=== PATIENT | female | born 1965 | race Caucasian/White ===

== ENCOUNTER 2017-11-23 15:10 | Observation (INO) | payer BC ==
[2017-11-23] MEDS ORDERED: SODIUM CHLORIDE 0.9% 500 ML IV ONE (15:32)
[2017-11-23] MEDS ORDERED: cefTRIAXone IN SWFI 1,000 MG/10 ML SYRINGE IVP STA (15:40)
--- NOTE | 2017-11-23 15:47 | ED ---
Skin/Abscess/FB HPI <Aelksey Romeo - Last Filed: 11/23/17 16:59> - General Source: patient Mode of arrival: ambulatory Limitations: no limitations <Jaqueline Granados - Last Filed: 11/23/17 17:49> - General Chief complaint: Skin/Abscess/Foreign Body Stated complaint: abscess on finger/red line up arm - History of Present Illness Initial comments: 52-year-old female patient percents to the emergency department today for complaints of a fingertip infection. Patient states that on Friday she noticed some bumps that looked like pimples to the side of her finger and then it started to swell up over the weekend. She states that today when she woke she did have streaking coming from the finger up to her forearm. Patient denies any known fevers. Denies any numbness or tingling to the hand. She states that she does bite her nails. Patient denies any recent shortness breath, chest pain, abdominal pain, nausea, vomiting, diarrhea, constipation, back pain, numbness, tingling, dizziness, weakness, hematuria, dysuria, urinary urgency, urinary frequency, headache, visual changes, or any other complaints. (Jaqueline Granados) - Related Data Home Medications Medication Instructions Recorded Confirmed Budesonide-Formot 160-4.5 Mcg 1 - 2 puff INHALATION BID 01/24/15 11/23/17 [Symbicort 160-4.5 Mcg Inhaler] DULoxetine HCL [Cymbalta] 90 mg PO DAILY 07/23/15 11/23/17 Diclofenac Sodium [Voltaren] 75 mg PO BID 11/23/17 11/23/17 Omeprazole 40 mg PO DAILY 11/23/17 11/23/17 Allergies Allergy/AdvReac Type Severity Reaction Status Date / Time doxycycline Allergy Nausea & Verified 11/23/17 15:27 Vomiting, sweating Review of Systems ROS Other: All systems not noted in ROS Statement are negative. <Aleksey Romeo - Last Filed: 11/23/17 16:59> ROS Other: All systems not noted in ROS Statement are negative. <Jaqueline Granados - Last Filed: 11/23/17 17:49> ROS Statement: Those systems with pertinent positive or pertinent negative responses have been documented in the HPI. Past Medical History Past Medical History: COPD, Eye Disorder, GERD/Reflux Additional Past Medical History / Comment(s): migraines, hiatal hernia, hx ulcer , glaucoma History of Any Multi-Drug Resistant Organisms: None Reported Past Surgical History: Section Additional Past Surgical History / Comment(s): shunt for hydrocephalus Past Anesthesia/Blood Transfusion Reactions: No Reported Reaction Past Psychological History: Depression Smoking Status: Current every day smoker Past Alcohol Use History: None Reported Past Drug Use History: Marijuana - Past Family History Father Family Medical History: Cancer Additional Family Medical History / Comment(s): colon <Jaqueline Granados M - Last Filed: 11/23/17 17:49> General Exam Limitations: no limitations General appearance: alert, in no apparent distress, other (This is a well- developed, well-nourished adult female patient in no acute distress. Vital signs upon presentation were temperature 99.5F, pulse 94, respirations 18, blood pressure 179/78, pulse ox 96% on room air.) Eye exam: Present: normal appearance, PERRL, EOMI. Absent: scleral icterus, conjunctival injection, periorbital swelling ENT exam: Present: normal exam, normal oropharynx, mucous membranes moist Respiratory exam: Present: normal lung sounds bilaterally. Absent: respiratory distress, wheezes, rales, rhonchi, stridor Cardiovascular Exam: Present: regular rate, normal rhythm, normal heart sounds. Absent: systolic murmur, diastolic murmur, rubs, gallop, clicks GI/Abdominal exam: Present: soft, normal bowel sounds. Absent: distended, tenderness, guarding, rebound, rigid Extremities exam: Present: full ROM, normal capillary refill, other (Right middle finger exhibits abscess and swelling to the palmar aspect of the distal finger. There is swelling and redness, there is a red streak extending from the finger up to the middle part of the forearm on the dorsal aspect.). Absent : normal inspection, tenderness, pedal edema, joint swelling, calf tenderness Neurological exam: Present: alert, oriented X3, CN II-XII intact Psychiatric exam: Present: normal affect Skin exam: Present: warm, dry, intact, normal color. Absent: rash <Jaqueline Granados M - Last Filed: 11/23/17 17:49> Vital Signs 11/23/17 11/23/17 15:12 17:02 Temperature 99.5 F 97.9 F Pulse Rate 94 71 Respiratory 18 18 Rate Blood Pressure 179/78 163/79 O2 Sat by Pulse 96 99 Oximetry - Reevaluation(s) Reevaluation #1: 11/23/17 16:59 Patient reevaluated by myself, Dr. Roemo. Patient does have a ecchymotic lesion on her right middle finger approximately 2 cm that is raised. It is unclear at this time if this could be herpetic versus bacterial. There is streaking up to the elbow. With the streaking assumption will be made that this is bacterial and patient was started on IV antibiotics. Case was discussed in detail with practitioner Gisselle, who will admit for Dr. Price, covering for Dr. Gross. Orthopedics will be placed on consult. (Aleksey Romeo) Medical Decision Making - Lab Data Result diagrams: 11/23/17 15:47 11/23/17 15:47 <Aleksey Romeo - Last Filed: 11/23/17 16:59> - Lab Data Result diagrams: 11/23/17 15:47 11/23/17 15:47 <Jaqueline Granados - Last Filed: 11/23/17 17:49> - Medical Decision Making 52-year-old female patient presented to the emergency department today for complaints of infection to the distal tip of the right middle finger. Physical examination does reveal a feline type infection to the palmar aspect of the right middle finger. Patient does have what appears to be lymphangitis extending from the finger up to about the mid forearm. Labs are obtained and did reveal normal white blood cell count about 5000. Did start her on antibiotics. We will admit to the hospital and consult orthopedics. Patient was updated regarding all results and agrees the plan. (Jaqueline Granados) - Lab Data Lab Results 11/23/17 11/23/17 11/23/17 Range/Units 15:47 15:47 15:47 WBC 5.4 (3.8-10.6) k/uL RBC 3.85 (3.80-5.40) m/uL Hgb 11.7 (11.4-16.0) gm/dL Hct 37.0 (34.0-46.0) % MCV 96.1 (80.0-100.0) fL MCH 30.4 (25.0-35.0) pg MCHC 31.6 (31.0-37.0) g/dL RDW 15.7 H (11.5-15.5) % Plt Count 308 (150-450) k/uL Neutrophils % 64 % Lymphocytes % 26 % Monocytes % 7 % Eosinophils % 1 % Basophils % 0 % Neutrophils # 3.4 (1.3-7.7) k/uL Lymphocytes # 1.4 (1.0-4.8) k/uL Monocytes # 0.4 (0-1.0) k/uL Eosinophils # 0.1 (0-0.7) k/uL Basophils # 0.0 (0-0.2) k/uL Sodium 141 (137-145) mmol/L Potassium 3.9 (3.5-5.1) mmol/L Chloride 108 H (98-107) mmol/L Carbon Dioxide 24 (22-30) mmol/L Anion Gap 9 mmol/L BUN 12 (7-17) mg/dL Creatinine 0.70 (0.52-1.04) mg/dL Est GFR (MDRD) Af Amer >60 (>60 ml/min/1.73 sqM) Est GFR (MDRD) Non-Af >60 (>60 ml/min/1.73 sqM) Glucose 109 H (74-99) mg/dL Plasma Lactic Acid Peña 1.2 (0.7-2.0) mmol/L Calcium 8.4 (8.4-10.2) mg/dL Total Bilirubin 0.2 (0.2-1.3) mg/dL AST 20 (14-36) U/L ALT 50 (9-52) U/L Alkaline Phosphatase 67 (38-126) U/L Total Protein 6.4 (6.3-8.2) g/dL Albumin 3.8 (3.5-5.0) g/dL Disposition <Aleksey Romeo - Last Filed: 11/23/17 16:59> Decision to Admit Reason: Admit from EC Decision Date: 11/23/17 Decision Time: 17:08 <Jaqueline Granados - Last Filed: 11/23/17 17:49> Clinical Impression: Felon of finger, Lymphangitis Disposition: ADMITTED IP TO THIS [facility] Condition: Serious Referrals: Nanda Tran MD [Primary Care Provider] - 1-2 days
[2017-11-23 15:58] LABS: Basophils % (A) 0 %; Eosinophils # (A) 0.1 k/uL (0-0.7); Eosinophils % (A) 1 %; HGB 11.7 gm/dL (11.4-16.0); Lymphocytes # (A) 1.4 k/uL (1.0-4.8); Lymphocytes % (A) 26 %; MCH 30.4 pg (25.0-35.0); MCHC 31.6 g/dL (31.0-37.0); MCV 96.1 fL (80.0-100.0); Mean Platelet Volume 7.4; Monocytes # (A) 0.4 k/uL (0-1.0); Monocytes % (A) 7 %; Neutrophils # (A) 3.4 k/uL (1.3-7.7); Neutrophils % (A) 64 %; Platelet Count 308 k/uL (150-450); RBC 3.85 m/uL (3.80-5.40); RDW 15.7 % (11.5-15.5); WBC 5.4 k/uL (3.8-10.6)
[2017-11-23 16:10] LABS: ALT 50 U/L (9-52); AST 20 U/L (14-36); Albumin 3.8 g/dL (3.5-5.0); Alkaline Phosphatase 67 U/L (38-126); Anion Gap 9 mmol/L; Blood Urea Nitrogen 12 mg/dL (7-17); Calcium 8.4 mg/dL (8.4-10.2); Carbon Dioxide 24 mmol/L (22-30); Chloride 108 mmol/L (98-107); Glucose 109 mg/dL (74-99); Potassium 3.9 mmol/L (3.5-5.1); Sodium 141 mmol/L (137-145); Total Bilirubin 0.2 mg/dL (0.2-1.3); Total Protein 6.4 g/dL (6.3-8.2)
[2017-11-23] MEDS ORDERED: NALOXONE 0.4 MG/ML 1 ML VIAL IV PRN (17:01)
[2017-11-23 18:03] VITALS: BMI 39.4
[2017-11-23] MEDS: HYDROcodone/APAP 5-325MG 1 EACH TAB PO PRN ×2 (18:08→22:05)
[2017-11-23] MEDS: ceFAZolin 1,000 MG in DEXTROSE/WATER 1 50ML.BAG IVPB SCH (22:07)
[2017-11-24] MEDS: ceFAZolin 1,000 MG in DEXTROSE/WATER 1 50ML.BAG IVPB SCH ×4 (04:09→21:31)
[2017-11-24] MEDS: HYDROcodone/APAP 5-325MG 1 EACH TAB PO PRN (04:15)
[2017-11-24 06:34] LABS: Basophils % (A) 1 %; Eosinophils # (A) 0.1 k/uL (0-0.7); Eosinophils % (A) 2 %; HCT 35.8 % (34.0-46.0); HGB 10.8 gm/dL (11.4-16.0); Hypochromasia Slight; Lymphocytes # (A) 1.6 k/uL (1.0-4.8); Lymphocytes % (A) 37 %; MCH 29.9 pg (25.0-35.0); MCHC 30.1 g/dL (31.0-37.0); MCV 99.5 fL (80.0-100.0); Macrocytosis Slight; Mean Platelet Volume 7.4; Monocytes # (A) 0.3 k/uL (0-1.0); Monocytes % (A) 7 %; Neutrophils # (A) 2.1 k/uL (1.3-7.7); Neutrophils % (A) 51 %; Platelet Count 276 k/uL (150-450); RDW 15.9 % (11.5-15.5); WBC 4.2 k/uL (3.8-10.6)
--- NOTE | 2017-11-24 10:28 | P.CNOR ---
History of Present Illness - HPI Consult date: 11/24/17 History of present illness: This is a 52-year-old female is admitted for infection of the right middle finger. Patient states this started on 11/21/2017 with small pimples on the fingertip. Patient states over the next few days they became larger. Patient states this very same thing is happening to her over the summer, but this healed up on its own. Patient denies any injury to the right middle finger. Patient does admit to biting her nails. Patient states she has noticed red streaking going up the arm. Patient denies any fever/chills, numbness, weakness, or tingling. Review of Systems See HPI. Past Medical History Past Medical History: COPD, Eye Disorder, GERD/Reflux Additional Past Medical History / Comment(s): migraines, hiatal hernia, hx ulcer , glaucoma History of Any Multi-Drug Resistant Organisms: None Reported Past Surgical History: Section Additional Past Surgical History / Comment(s): shunt for hydrocephalus Past Anesthesia/Blood Transfusion Reactions: No Reported Reaction Past Psychological History: Depression Smoking Status: Current every day smoker Past Alcohol Use History: None Reported Past Drug Use History: Marijuana - Past Family History Father Family Medical History: Cancer Additional Family Medical History / Comment(s): colon Medications and Allergies Home Medications Medication Instructions Recorded Confirmed Type Budesonide-Formot 160-4.5 Mcg 1 - 2 puff INHALATION BID 01/24/15 11/23/17 History [Symbicort 160-4.5 Mcg Inhaler] DULoxetine HCL [Cymbalta] 90 mg PO DAILY 07/23/15 11/23/17 History Diclofenac Sodium [Voltaren] 75 mg PO BID 11/23/17 11/23/17 History Omeprazole 40 mg PO DAILY 11/23/17 11/23/17 History Allergies Allergy/AdvReac Type Severity Reaction Status Date / Time doxycycline Allergy Nausea & Verified 11/23/17 18:03 Vomiting, sweating Physical Examination On exam patient is alert and oriented 3 and is no acute distress. There is an approximately 1 cm raised blister to the palmar aspect of the right middle finger. There is no drainage. This area is tender to palpation. Patient has full range of motion of the right hand and fingers. Patient has some discomfort with range of motion of the wrist. There is minimal erythema noted from the middle finger to mid forearm. Capillary refill is normal at less than 2 seconds. Sensation intact. Neurovascular status and circulatory status are intact. Results - Labs Labs: Abnormal Lab Results - Last 24 Hours (Table) 11/23/17 11/23/17 11/24/17 Range/Units 15:47 15:47 06:08 RBC 3.60 L (3.80-5.40) m/uL Hgb 10.8 L (11.4-16.0) gm/dL MCHC 30.1 L (31.0-37.0) g/dL RDW 15.7 H 15.9 H (11.5-15.5) % Chloride 108 H (98-107) mmol/L Glucose 109 H (74-99) mg/dL H & H 11/23/17 11/24/17 Range/Units 15:47 06:08 Hgb 11.7 10.8 L (11.4-16.0) gm/dL Hct 37.0 35.8 (34.0-46.0) % Result Diagrams: 11/24/17 06:08 11/23/17 15:47 Assessment and Plan (1) Felon of finger Current Visit: Yes Status: Acute Code(s): L03.019 - CELLULITIS OF UNSPECIFIED FINGER SNOMED Code(s): 676182605 (2) Cellulitis Current Visit: Yes Status: Acute Code(s): L03.90 - CELLULITIS, UNSPECIFIED SNOMED Code(s): 274600199 Plan: #1. Warm compresses to the right middle finger along with rest and elevation. #2. Continue IV antibiotics per medicine. #3. No surgical intervention planned at this time. Will continue to follow the patient closely.
--- NOTE | 2017-11-24 22:24 | P.HPIM ---
History of Present Illness H&P Date: 11/24/17 Chief Complaint: Finger infection Patient is a 52-year-old female with a known history of COPD GERD and active smoking came to the hospital with complaints of right middle finger infection. Patient notices a blister cover days ago which looked like pimples to the side of the right middle finger. When she woke up yesterday morning she found red streaking from the fingertip to the forearm. Patient showed it to her friend and who recommended to come to the hospital. Otherwise patient denied any fever. Patient does bite her nails. Denied any previous infection. Denied any chest pain or shortness of breath. No injury. No nausea vomiting or abdominal pain. No other recent illnesses. Review of Systems Constitutional: Patient denies any fever or chills . No generalized weakness or weight loss. Abdomen: Patient denied nausea vomiting and diarrhea and abdominal pain. Cardiovascular: Patient denies any chest pain or short of breath no palpitations. Respiratory: patient denied any cough is from production. No shortness of breath Neurologic: Patient denied any numbness or tingling headache. Musculoskeletal: Patient denies any complaints of joint swelling or deformity. Right middle finger swelling and pain Skin: Negative Psychiatric: Negative Endocrine: No heat or cold intolerance. No recent weight gain. Genitourinary: No dysuria or hematuria. All other 14 point ROS negative except the above Past Medical History Past Medical History: COPD, Eye Disorder, GERD/Reflux Additional Past Medical History / Comment(s): migraines, hiatal hernia, hx ulcer , glaucoma History of Any Multi-Drug Resistant Organisms: None Reported Past Surgical History: Section Additional Past Surgical History / Comment(s): shunt for hydrocephalus Past Anesthesia/Blood Transfusion Reactions: No Reported Reaction Past Psychological History: Depression Smoking Status: Current every day smoker Past Alcohol Use History: None Reported Past Drug Use History: Marijuana - Past Family History Father Family Medical History: Cancer Additional Family Medical History / Comment(s): colon Medications and Allergies Home Medications Medication Instructions Recorded Confirmed Type Budesonide-Formot 160-4.5 Mcg 1 - 2 puff INHALATION BID 01/24/15 11/23/17 History [Symbicort 160-4.5 Mcg Inhaler] DULoxetine HCL [Cymbalta] 90 mg PO DAILY 07/23/15 11/23/17 History Diclofenac Sodium [Voltaren] 75 mg PO BID 11/23/17 11/23/17 History Omeprazole 40 mg PO DAILY 11/23/17 11/23/17 History Allergies Allergy/AdvReac Type Severity Reaction Status Date / Time doxycycline Allergy Nausea & Verified 11/23/17 18:03 Vomiting, sweating Physical Exam Vitals: Vital Signs Temp Pulse Pulse Resp BP BP Pulse Ox 11/24/17 08:09 97.3 F L 64 19 137/80 98 11/24/17 04:09 98.0 F 75 16 144/85 99 11/23/17 20:20 97.9 F 69 16 149/87 98 11/23/17 18:58 68 18 11/23/17 17:02 97.9 F 71 18 163/79 99 11/23/17 17:00 98.2 F 68 18 170/96 100 11/23/17 15:12 99.5 F 94 18 179/78 96 Intake and Output 11/23/17 11/24/17 11/24/17 22:59 06:59 14:59 Intake Total 300 Balance 300 Intake: Oral 300 Other: Voiding Method Toilet Weight 107.7 kg PHYSICAL EXAMINATION: Patient is lying in the bed comfortably, no acute distress, awake alert and oriented.. HEENT: Normocephalic. Neck is supple. Pupils reactive. Nostrils clear. Oral cavity is moist. Ears reveal no drainage. Neck reveals no JVD, carotid bruits, or thyromegaly. CHEST EXAMINATION: Trachea is central. Symmetrical expansion. Lung thomas clear to auscultation and percussion. CARDIAC: Normal S1, S2 with no gallops. No murmurs ABDOMEN: Soft. Bowel sounds normal. No organomegaly. No abdominal bruits. Extremities: reveal no edema. No clubbing or cyanosis. Right middle finger with bleb-like fluid collection with redness and swelling with streaking up to the wrist Neurologically awake, alert, oriented x3 with well-coordinated movements. No focal deficits noted Skin: No rash or skin lesions. Psychiatric: Coperative. Nonsuicidal Musculoskeletal: No joint swelling or deformity. Normal range of motion. Results CBC & Chem 7: 11/24/17 06:08 11/23/17 15:47 Labs: Abnormal Lab Results - Last 24 Hours (Table) 01/14/18 01/14/18 01/15/18 Range/Units 15:47 15:47 06:08 RBC 3.60 L (3.80-5.40) m/uL Hgb 10.8 L (11.4-16.0) gm/dL MCHC 30.1 L (31.0-37.0) g/dL RDW 15.7 H 15.9 H (11.5-15.5) % Chloride 108 H (98-107) mmol/L Glucose 109 H (74-99) mg/dL Thrombosis Risk Factor Assmnt - DVT/VTE Prophylaxis DVT/VTE Prophylaxis: Pharmacologic Prophylaxis ordered - Choose All That Apply Each Factor Represents 1 point: Abnormal pulmonary function (COPD), Age 41-60 years, Obesity (BMI >25) Other Risk Factors: No Other congenital or acquired thrombophilia - If yes, enter type in comment: No Thrombosis Risk Factor Assessment Total Risk Factor Score: 3 Thrombosis Risk Factor Assessment Level: Moderate Risk Assessment and Plan Assessment: Right middle finger cellulitis with bleb at the tip COPD GERD Active nicotine addiction DVT prophylaxis Plan: Patient will be continued on antibiotics in the form of cefazolin. Orthopedics has seen the patient recommended no surgical intervention at this time. We can with the pain management and follow blood cultures. Further recommendations based on the clinical course. Smoking cessation has been counseled extensively.
[2017-11-25] MEDS: ceFAZolin 1,000 MG in DEXTROSE/WATER 1 50ML.BAG IVPB SCH ×2 (04:16→09:09)
[2017-11-25 09:23] VITALS: RESP 16
--- NOTE | 2017-11-25 10:12 | P.PN ---
Subjective Progress Note Date: 11/25/17 This is a 52-year-old female admitted for right middle finger infection. Patient states she has noticed improvement in the swelling of her hand. Patient denies any surrounding erythema, fever/chills, or any new complaints today. Objective - Vital Signs Vital signs: Vital Signs Temp 97.7 F 11/25/17 07:10 Pulse 72 11/25/17 09:20 Resp 16 11/25/17 09:20 BP 179/93 11/25/17 07:10 Pulse Ox 97 11/25/17 07:10 Intake & Output 11/24/17 11/25/17 11/25/17 18:59 06:59 18:59 Intake Total 600 600 Balance 600 600 Intake: Oral 600 600 Other: Voiding Method Toilet Toilet # Voids 1 - Exam On exam patient is alert and oriented 3 and in no acute distress. Palmar aspect the right middle finger with a blister. No surrounding erythema. No swelling of the hand or wrist. No drainage. Sensation intact. Neurovascular status and circulatory status are intact. - Labs CBC & Chem 7: 11/24/17 06:08 11/23/17 15:47 Labs: Microbiology - Last 24 Hours (Table) 11/23/17 15:47 Blood Culture - Preliminary Blood No Growth after 24 hours Assessment and Plan (1) Felon of finger Current Visit: Yes Status: Acute Code(s): L03.019 - CELLULITIS OF UNSPECIFIED FINGER SNOMED Code(s): 450342531 (2) Cellulitis Current Visit: Yes Status: Acute Code(s): L03.90 - CELLULITIS, UNSPECIFIED SNOMED Code(s): 692881938 Plan: #1. Warm compresses to the right middle finger along with rest and elevation. #2. Continue antibiotics per medicine. #3. No surgical intervention planned at this time. Patient is stable for discharge from an orthopedic standpoint #4. Patient may follow up as an outpatient in 1 week.
[2017-11-25 12:54] VITALS: BP 157/89; PULSE 76; TEMP 97.9
--- NOTE | 2017-11-25 22:51 | P.DS ---
Providers Date of admission: 11/23/17 17:00 Expected date of discharge: 11/25/17 Attending physician: Sami Price Consults: 11/23/17 17:01 Consult Physician Stat Consulting Provider: Thang Mera Consult Reason/Comments: Hyacinth Do you want consulting provider notified?: Yes Primary care physician: Chelsea Vee Hospital Course: Discharge diagnosis Right middle finger cellulitis with bleb at the tip. Improved COPD GERD Active nicotine addiction DVT prophylaxis Hospital course Patient is a 52-year-old female with a known history of COPD GERD and active smoking came to the hospital with complaints of right middle finger infection. Patient notices a blister cover days ago which looked like pimples to the side of the right middle finger. When she woke up yesterday morning she found red streaking from the fingertip to the forearm. Patient showed it to her friend and who recommended to come to the hospital. Otherwise patient denied any fever. Patient does bite her nails. Denied any previous infection. Denied any chest pain or shortness of breath. No injury. No nausea vomiting or abdominal pain. No other recent illnesses. Patient was continued on antibiotics in the form of cefazolin. Orthopedics has seen the patient recommended no surgical intervention at this time. Continued with the pain management and follow blood cultures. Blood cultures negative. Patient will be discharged on oral antibiotics and recommended to follow with ortho clinic in one week. Smoking cessation has been counseled extensively. Discharge physical examination was done Patient Condition at Discharge: Serious Plan - Discharge Summary Discharge Rx Participant: Yes New Discharge Prescriptions: New Cephalexin [Keflex] 500 mg PO Q8HR 7 Days #21 cap Continue Budesonide-Formot 160-4.5 Mcg [Symbicort 160-4.5 Mcg Inhaler] 1 - 2 puff INHALATION BID DULoxetine HCL [Cymbalta] 90 mg PO DAILY Diclofenac Sodium [Voltaren] 75 mg PO BID Omeprazole 40 mg PO DAILY Discharge Medication List Budesonide-Formot 160-4.5 Mcg [Symbicort 160-4.5 Mcg Inhaler] 1 - 2 puff INHALATION BID 01/24/15 [History] DULoxetine HCL [Cymbalta] 90 mg PO DAILY 07/23/15 [History] Diclofenac Sodium [Voltaren] 75 mg PO BID 11/23/17 [History] Omeprazole 40 mg PO DAILY 11/23/17 [History] Cephalexin [Keflex] 500 mg PO Q8HR 7 Days #21 cap 11/25/17 [Rx] Follow up Appointment(s)/Referral(s): Nanda Tran MD [Primary Care Provider] - 1-2 days Beau Mera DO [Doctor of Osteopathic Medicine] - 12/03/17 9:15 am Activity/Diet/Wound Care/Special Instructions: You have a follow up appointment with DR Mera on Sunday, December 03, 2017 at 9:15 am. May use a warm moist soak to your finger, 20 minutes every hours. Discharge Disposition: HOME SELF-CARE
== END 2017-11-25 15:00 | disposition home or self-care (01) ==
LOC: EC 15:10 → 6PED 17:00 → INTOOBSV 17:00
PROVIDERS: ADMIT Hospitalist; ATTEND Hospitalist
DX: L03.011 Cellulitis of right finger (principal); L03.021 Acute lymphangitis of right finger; R23.8 Other skin changes; J44.9 Chronic obstructive pulmonary disease, unspecified; K21.9 Gastro-esophageal reflux disease without esophagitis; F32.9 Major depressive disorder, single episode, unspecified; G43.909 Migraine, unspecified, not intractable, without status migrainosus; F17.200 Nicotine dependence, unspecified, uncomplicated; Z79.899 Other long term (current) drug therapy; Z79.51 Long term (current) use of inhaled steroids; Z79.1 Long term (current) use of non-steroidal anti-inflammatories (NSAID); Z88.1 Allergy status to other antibiotic agents; Z80.0 Family history of malignant neoplasm of digestive organs; E66.9 Obesity, unspecified; Z68.39 Body mass index [BMI] 39.0-39.9, adult
CPT/HCPCS: 99284; 96365; 36415; 80053; 83605; 85025 ×2; 87040; G0378 ×3; J0696; J0690 ×3

== ENCOUNTER 2019-11-28 17:02 | Emergency (ER) | payer BC ==
[2019-11-28 17:07] VITALS: TEMP 98
[2019-11-28] MEDS ORDERED: CEPHALEXIN 500MG STARTER PACK 4 CAP BTL PO STA (17:41)
--- NOTE | 2019-11-28 17:42 | ED ---
Skin/Abscess/FB HPI - General Chief complaint: Skin/Abscess/Foreign Body Stated complaint: finger infection Time Seen by Provider: 11/28/19 17:08 Source: patient Mode of arrival: ambulatory Limitations: no limitations - History of Present Illness Initial comments: Patient is a 54-year-old female presenting to the emergency department with a chief complaint of a finger infection. Patient states symptoms of benign well for the past 2 days on the right middle finger. Patient reports she does bite her nails often. Patient reports initially started off as some erythema on the right side of the nail but the swelling has gradually increased and now she has developed erythema going proximally along the right upper extremity. Streaking pattern observed. Patient denies any night sweats or chills. Patient has full range of motion in the fingers. Patient states the region is mildly tender. Patient does not have any tenderness on the palmar aspect of the distal middle finger. - Related Data Home Medications Medication Instructions Recorded Confirmed Budesonide-Formot 160-4.5 Mcg 1 - 2 puff INHALATION BID 01/24/15 11/23/17 [Symbicort 160-4.5 Mcg Inhaler] DULoxetine HCL [Cymbalta] 90 mg PO DAILY 07/23/15 11/23/17 Diclofenac Sodium [Voltaren] 75 mg PO BID 11/23/17 11/23/17 Omeprazole 40 mg PO DAILY 11/23/17 11/23/17 Previous Rx's Medication Instructions Recorded Cephalexin [Keflex] 500 mg PO Q8HR 7 Days #21 cap 11/25/17 Cephalexin [Keflex] 500 mg PO Q6HR #28 cap 11/28/19 Allergies Allergy/AdvReac Type Severity Reaction Status Date / Time doxycycline Allergy Nausea & Verified 11/28/19 17:07 Vomiting, sweating Review of Systems ROS Statement: Those systems with pertinent positive or pertinent negative responses have been documented in the HPI. ROS Other: All systems not noted in ROS Statement are negative. Past Medical History Past Medical History: COPD, Eye Disorder, GERD/Reflux Additional Past Medical History / Comment(s): migraines, hiatal hernia, hx ulcer, glaucoma History of Any Multi-Drug Resistant Organisms: None Reported Past Surgical History: Section Additional Past Surgical History / Comment(s): shunt for hydrocephalus Past Anesthesia/Blood Transfusion Reactions: No Reported Reaction Past Psychological History: No Psychological Hx Reported Smoking Status: Current every day smoker Past Alcohol Use History: None Reported Past Drug Use History: Marijuana - Past Family History Father Family Medical History: Cancer Additional Family Medical History / Comment(s): colon General Exam Limitations: no limitations General appearance: alert, in no apparent distress Head exam: Present: atraumatic, normocephalic, normal inspection Eye exam: Present: normal appearance, PERRL Pupils: Present: normal accommodation ENT exam: Present: normal exam, mucous membranes moist Neck exam: Present: normal inspection, full ROM Respiratory exam: Present: normal lung sounds bilaterally Cardiovascular Exam: Present: regular rate, normal rhythm, normal heart sounds Extremities exam: Present: normal inspection (Small region of erythema and swelling surrounding the right side of the nail of the right middle finger. Erythema appears to be moving proximally along the right upper extremity in a streaking pattern. No erythema on the palmar aspect of the right middle digit. No clubbing.), full ROM, tenderness (Mild tenderness at the region of erythema. No tenderness on the palmar aspect of the right middle digit.), normal capillary refill, other (+2 ulnar and radial pulses bilaterally.) Course Vital Signs 11/28/19 11/28/19 11/28/19 17:04 17:07 18:07 Temperature 98.0 F Pulse Rate 99 87 Respiratory 18 20 20 Rate Blood Pressure 149/70 144/84 O2 Sat by Pulse 100 99 Oximetry 11/28/19 18:54 Temperature Pulse Rate Respiratory 20 Rate Blood Pressure O2 Sat by Pulse Oximetry Medical Decision Making - Medical Decision Making Patient is a 54-year-old female presenting to the emergency department with a chief complaint of right finger infection. On exam patient does have some erythema and swelling on the medial aspect of the nail of the right middle finger. Streaking pattern observed moving proximally along the right upper extremity suggesting lymphangitis. Otherwise I suspect the patient has cellulitis. His this did not appear to the paronychia. Ultrasound of the finger showing no fluid collection. Low suspicion for felon. Patient has full range of motion in the finger so I have low suspicion for tenosynovitis. Patient will be discharged with Keflex. Strict return parameters were thoroughly discussed with parents were understanding and agreeable. Dr. Cantrell also examined the patient and is in agreement with the treatment plan. Disposition Clinical Impression: Lymphangitis, Cellulitis Disposition: HOME SELF-CARE Condition: Stable Instructions (If sedation given, give patient instructions): Cellulitis (DC) Additional Instructions: Please take prescribed medication as directed. Alternate between Tylenol Motrin for pain control. Please return to emergency department if symptoms worsen. Prescriptions: Cephalexin [Keflex] 500 mg PO Q6HR #28 cap Is patient prescribed a controlled substance at d/c from ED?: No Referrals: Nanda Tran MD [Primary Care Provider] - 1-2 days Time of Disposition: 18:44
--- NOTE | 2019-11-28 18:34 | US ---
EXAMINATION TYPE: HIGH-RESOLUTION US EXTREMITY NONVASC MASS RT DATE OF EXAM: 11/28/2019 TECHNIQUE: Departmental protocol. High-resolution multiplanar sonographic imaging was obtained with g rayscale and color Doppler techniques. CLINICAL HISTORY: Palpable lump right middle finger with red streaks up right forearm. COMPARISON: NONE FINDINGS: No sonographic evidence of an abnormality when compared to the left finger. No fluid collec tion visualized on this exam. IMPRESSION: Negative examination.
[2019-11-28 18:54] VITALS: BP 144/84; PULSE 87; RESP 20
== END 2019-11-28 18:55 | disposition home or self-care (01) ==
LOC: EC 17:02
DX: L03.011 Cellulitis of right finger (principal); J44.9 Chronic obstructive pulmonary disease, unspecified; K21.9 Gastro-esophageal reflux disease without esophagitis; F17.200 Nicotine dependence, unspecified, uncomplicated; Z88.1 Allergy status to other antibiotic agents; Z79.1 Long term (current) use of non-steroidal anti-inflammatories (NSAID); Z79.51 Long term (current) use of inhaled steroids; Z79.899 Other long term (current) drug therapy
CPT/HCPCS: 99284

== ENCOUNTER 2022-11-01 14:43 | Inpatient (IN) | payer BC ==
[2022-11-01] MEDS ORDERED: MORPHINE SULFATE 4 MG/ML SYRINGE IVP STA (15:38)
[2022-11-01] MEDS ORDERED: cefTRIAXone IN SWFI 1,000 MG/10 ML SYRINGE IVP STA (15:38)
[2022-11-01 16:18] LABS: Appearance,Urine Cloudy (Clear); Bacteria,Urine Rare /hpf; Bilirubin,Urine 2+ (Negative); Blood,Urine Moderate (Negative); Color,Urine Dark Brown; Glucose,Urine (UA) Negative (Negative); Ketones,Urine Negative (Negative); Leukocyte Esterase,Urine Negative (Negative); Mucus,Urine Moderate /hpf; Nitrite,Urine Positive (Negative); PH, Urine 6.5 (5.0-8.0); Protein,Urine 3+ (Negative); RBC,Urine >182 /hpf (0-5); Specific Gravity,Urine 1.031 (1.001-1.035); Squamous Epithelial Cell,Urine 14 /hpf (0-4); WBC,Urine 6 /hpf (0-5)
[2022-11-01 16:22] LABS: Basophils % (A) 0 %; Eosinophils # (A) 0.1 k/uL (0-0.7); Eosinophils % (A) 1 %; HCT 31.7 % (34.0-46.0); HGB 10.6 gm/dL (11.4-16.0); Lymphocytes # (A) 1.1 k/uL (1.0-4.8); Lymphocytes % (A) 12 %; MCH 30.1 pg (25.0-35.0); MCHC 33.4 g/dL (31.0-37.0); MCV 90.2 fL (80.0-100.0); Mean Platelet Volume 7.2; Monocytes # (A) 0.5 k/uL (0-1.0); Monocytes % (A) 6 %; Neutrophils # (A) 7.6 k/uL (1.3-7.7); Neutrophils % (A) 80 %; Platelet Count 442 k/uL (150-450); RBC 3.51 m/uL (3.80-5.40); RDW 14.4 % (11.5-15.5); WBC 9.5 k/uL (3.8-10.6)
[2022-11-01 16:35] LABS: Albumin 3.7 g/dL (3.5-5.0); Calcium 8.7 mg/dL (8.4-10.2); Potassium 4.1 mmol/L (3.5-5.1); Total Bilirubin 0.4 mg/dL (0.2-1.3); Total Protein 6.8 g/dL (6.3-8.2)
--- NOTE | 2022-11-01 17:31 | CT ---
EXAMINATION TYPE: CT abdomen pelvis w con DATE OF EXAM: 11/01/2022 COMPARISON: 06/12/2016 HISTORY: 57-year-old female Abdominal Pain TECHNIQUE: Contiguous axial scanning of the abdomen and pelvis following administration of 80 mL Isov ue 300 IV contrast. Delayed images through the kidneys and coronal/sagittal reconstructions performe d. CT DLP: 1613.1 mGycm Automated exposure control for dose reduction was used. FINDINGS: Heart normal size without pericardial effusion. Lung bases clear without pleural effusion. Liver enlarged at 21.4 cm. Suspect underlying fatty infiltration. No focal liver lesions seen. Portal venous system is patent. No biliary ductal dilatation. Gallbladder, right adrenal gland, right kidney, spleen with hilar splenule, and pancreas within ashley l limits. A 1.1 cm benign cortical cyst medial left kidney. No dilated small bowel or free air is seen. Borderline to mildly enlarged clustered left mid abdominal mesenteric lymph nodes measuring up to 1.0 cm short axis. A few additional clustered lymph nodes right lower quadrant measuring up to 1.0 cm as well. 1.1 cm retroperitoneal aortocaval lymph node. A DRINK MIXER shunt catheter terminates in the anterior right upper pelvis. There is abnormal extraluminal high density material along the anterior right omentum spending up to 7.2 cm, coronal image 30 and also along the anterior midline pelvis extending at 8.3 cm, sagittal daxa ge 74. Suspect previously leaked barium contrast material. Clinically correlate. Additional smaller omental nodularity is present throughout the left side of the abdomen, axial image 56 and 60. Inflammatory changes are present within the pelvis. Some of these changes are marginated by curviline ar high density material, possibly old barium. There is left-sided colonic diverticulosis, most extensive along the sigmoid colon. The mid to distal sigmoid colon is thickened and irregular and with possible extraluminal fluid collection measuring 8 .2 x 6.1 x 2.9 cm (axial image 76 and sagittal image 73). This is interposed between the dome of the bladder and fundus of the uterus. There could be potential fistulous communication with the adjacent sigmoid colon. Both ovaries are visualized. Right obturator chain lymphadenopathy possibly measuring up to 2.5 cm a nd right external iliac chain node measuring up to 1.7 cm. Bones: Moderate to advanced degenerative disc disease L4-L5 and L5-S1 with hypertrophic facet arthrop athy. Moderate degenerative change of both hips. IMPRESSION: 1. Sigmoid diverticulosis with mild inflammatory changes in the pelvis. The mid to distal sigmoid col on is irregular and thickened with possible extraluminal fluid collection measuring 8.2 x 6.1 x 2.9 c m just adjacent, interposed between the dome of the bladder and fundus of the uterus. Possible subacu te to chronic abscess and fistula as a result of prior diverticulitis. Appropriate surgical evaluatio n and management recommended. 2. There are curvilinear areas of high density material around this region and also focal nodular are as of high density also present along the omentum spanning up to 8.2 cm. Query extraluminal barium co ntrast from a prior leak. 3. Additional scattered left omental nodularity, borderline to mildly enlarged mesenteric nodes measu ring up to 1.0 cm, retroperitoneal node measuring up to 1.1 cm, and enlarged right pelvic nodes measu ring up to 2.5 cm. Possibly reactive lymphadenopathy. Follow-up to exclude a neoplastic etiology.
--- NOTE | 2022-11-01 17:32 | ED ---
Female Urogenital HPI - General Chief complaint: Urogenital Stated complaint: UTI Time Seen by Provider: 11/01/22 15:05 Source: patient Mode of arrival: ambulatory Limitations: no limitations - History of Present Illness Initial comments: 57-year-old female with past medical history of COPD presents to the emergency department with dysuria. She states she's had the symptoms since the . She went into her primary care office and they did a urinalysis. She reports that the urine was not infected however he was going to treat her for a urinary tract infection with suspicion that she still had one. She is placed on Cipro. States that she took the medication without any improvement in her symptoms. She called the office who then switched her to Bactrim. She took a few days' worth of this medication without any improvement and therefore went to urgent care yesterday. They switched her to Keflex. States she's had no improvement. She has been using Azo. States that her pain is so bad that she has been putting ice cubes in her underwear. States she can no longer take the pain and therefore came into the emergency room for evaluation. She admits to some suprapubic pain. No flank pain no fevers. No other alleviating, precipitating or modifying factors - Related Data Home Medications Medication Instructions Recorded Confirmed Budesonide-Formot 160-4.5 Mcg 2 puff INHALATION RT-BID 01/24/15 11/01/22 [Symbicort 160-4.5 Mcg Inhaler] Omeprazole 40 mg PO DAILY 11/23/17 11/01/22 Diclofenac Sodium 50 mg PO BID-W/MEALS PRN 11/01/22 11/01/22 Losartan-Hctz 50-12.5 mg [Hyzaar 1 tab PO DAILY 11/01/22 11/01/22 50-12.5] Sulfamethox-Tmp 800-160Mg [Bactrim 1 tab PO Q12HR 11/01/22 11/01/22 DS 800-160 mg] Allergies Allergy/AdvReac Type Severity Reaction Status Date / Time doxycycline Allergy Nausea & Verified 11/01/22 17:52 Vomiting, sweating Review of Systems ROS Statement: Those systems with pertinent positive or pertinent negative responses have been documented in the HPI. ROS Other: All systems not noted in ROS Statement are negative. Past Medical History Past Medical History: COPD, Eye Disorder, GERD/Reflux Additional Past Medical History / Comment(s): migraines, hiatal hernia, hx ulcer , glaucoma History of Any Multi-Drug Resistant Organisms: None Reported Past Surgical History: Section Additional Past Surgical History / Comment(s): shunt for hydrocephalus Past Anesthesia/Blood Transfusion Reactions: No Reported Reaction Past Psychological History: No Psychological Hx Reported Smoking Status: Current every day smoker Past Alcohol Use History: None Reported Past Drug Use History: Marijuana - Past Family History Father Family Medical History: Cancer Additional Family Medical History / Comment(s): colon General Exam Limitations: no limitations General appearance: alert, in no apparent distress Head exam: Present: atraumatic, normocephalic, normal inspection Eye exam: Present: normal appearance, PERRL, EOMI. Absent: scleral icterus, conjunctival injection, periorbital swelling ENT exam: Present: normal exam, mucous membranes moist Neck exam: Present: normal inspection. Absent: tenderness, meningismus, lymphadenopathy Respiratory exam: Present: normal lung sounds bilaterally. Absent: respiratory distress, wheezes, rales, rhonchi, stridor Cardiovascular Exam: Present: regular rate, normal rhythm, normal heart sounds. Absent: systolic murmur, diastolic murmur, rubs, gallop, clicks GI/Abdominal exam: Present: soft, tenderness (Suprapubic), normal bowel sounds. Absent: distended, guarding, rebound, rigid External exam: Present: erythema (Mild and generalized surrounding the urethra). Absent: swelling, lesions, lacerations Extremities exam: Present: normal inspection, full ROM, normal capillary refill. Absent: tenderness, pedal edema, joint swelling, calf tenderness Back exam: Present: normal inspection Neurological exam: Present: alert, oriented X3, CN II-XII intact Psychiatric exam: Present: normal affect, normal mood Skin exam: Present: warm, dry, intact, normal color. Absent: rash Course Vital Signs 11/01/22 11/01/22 14:45 18:30 Temperature 98.5 F 97.9 F Pulse Rate 93 73 Respiratory 20 18 Rate Blood Pressure 152/72 144/81 O2 Sat by Pulse 98 98 Oximetry Medical Decision Making - Medical Decision Making Upon arrival patient was placed into room 20. A thorough history and physical exam was performed. IV access is established and laboratory studies are conducted and reviewed. Urinalysis demonstrates positive nitrates, rare bacteria, greater than 182 red blood cells. Patient does have a significant duration tenderness to her abdomen in the suprapubic region which is atypical for UTI. Because of this I did pursue a computed tomography scan which demonstrates sigmoid diverticulosis with mild inflammatory changes in the pelvis. Mid to distal sigmoid colon is regular and thickened with possible extraluminal fluid collection measuring 8.2 x 6.1 x 2.9 cm adjacent an interposed between the dome of the bladder and the fundus of the uterus. 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 Nodular areas of high density along the omentum standing up to 8.2 cm. Extraluminal barium contrast from a prior leak. Discussed the results with Dr. Tyson who agreed to admit the patient on clear liquids and antibiotiocs. I spoke with the patient was agreeable to admission and she is currently pending about on the floor - Lab Data Result diagrams: 11/01/22 15:45 11/01/22 15:45 Lab Results 11/01/22 11/01/22 11/01/22 Range/Units 15:45 15:45 15:45 WBC 9.5 (3.8-10.6) k/uL RBC 3.51 L (3.80-5.40) m/uL Hgb 10.6 L (11.4-16.0) gm/dL Hct 31.7 L (34.0-46.0) % MCV 90.2 (80.0-100.0) fL MCH 30.1 (25.0-35.0) pg MCHC 33.4 (31.0-37.0) g/dL RDW 14.4 (11.5-15.5) % Plt Count 442 (150-450) k/uL MPV 7.2 Neutrophils % 80 % Lymphocytes % 12 % Monocytes % 6 % Eosinophils % 1 % Basophils % 0 % Neutrophils # 7.6 (1.3-7.7) k/uL Lymphocytes # 1.1 (1.0-4.8) k/uL Monocytes # 0.5 (0-1.0) k/uL Eosinophils # 0.1 (0-0.7) k/uL Basophils # 0.0 (0-0.2) k/uL Sodium 137 (137-145) mmol/L Potassium 4.1 (3.5-5.1) mmol/L Chloride 103 (98-107) mmol/L Carbon Dioxide 21 L (22-30) mmol/L Anion Gap 13 mmol/L BUN 18 H (7-17) mg/dL Creatinine 1.07 H (0.52-1.04) mg/dL Est GFR (CKD-EPI)AfAm 67 (>60 ml/min/1.73 sqM) Est GFR (CKD-EPI)NonAf 58 (>60 ml/min/1.73 sqM) Glucose 111 H (74-99) mg/dL Calcium 8.7 (8.4-10.2) mg/dL Total Bilirubin 0.4 (0.2-1.3) mg/dL AST 14 (14-36) U/L ALT 20 (4-34) U/L Alkaline Phosphatase 115 (38-126) U/L Total Protein 6.8 (6.3-8.2) g/dL Albumin 3.7 (3.5-5.0) g/dL Urine Color Dark Brown Urine Appearance Cloudy H (Clear) Urine pH 6.5 (5.0-8.0) Ur Specific [place] 1.031 (1.001-1.035) Urine Protein 3+ H (Negative) Urine Glucose (UA) Negative (Negative) Urine Ketones Negative (Negative) Urine Blood Moderate H (Negative) Urine Nitrite Positive H (Negative) Urine Bilirubin 2+ H (Negative) Urine Urobilinogen 6.0 (<2.0) mg/dL Ur Leukocyte Esterase Negative (Negative) Urine RBC >182 H (0-5) /hpf Urine WBC 6 H (0-5) /hpf Ur Squamous Epith Cells 14 H (0-4) /hpf Urine Bacteria Rare H (None) /hpf Urine Mucus Moderate H (None) /hpf Disposition Clinical Impression: Colovesical fistula, Dysuria, Diverticulitis Disposition: ADMITTED IP TO THIS HOSP Condition: Stable Is patient prescribed a controlled substance at d/c from ED?: No Referrals: Nanda Tran MD [Primary Care Provider] - 1-2 days Time of Disposition: 18:30 Decision to Admit Reason: Admit from EC Decision Date: 11/01/22 Decision Time: 18:30
[2022-11-01] MEDS ORDERED: metroNIDAZOLE-NS PMX 500 MG in SALINE 1 100ML.BAG IVPB STA (18:14)
[2022-11-01] MEDS ORDERED: ONDANSETRON 4 MG/2 ML VIAL IVP PRN (18:31)
[2022-11-01] MEDS ORDERED: NALOXONE 0.4 MG/ML 1 ML VIAL IV PRN (18:31)
[2022-11-01] MEDS: SODIUM CHLORIDE 0.9% 1,000 ML IV SCH (18:46)
[2022-11-02] MEDS: MORPHINE SULFATE 4 MG/ML SYRINGE IV PRN ×2 (00:15→12:20)
[2022-11-02] MEDS: SODIUM CHLORIDE 0.9% 1,000 ML IV SCH ×2 (09:50→21:34)
[2022-11-02] MEDS ORDERED: metroNIDAZOLE-NS PMX 500 MG in SALINE 1 100ML.BAG IVPB SCH (11:00)
[2022-11-02 11:56] LABS: Basophils # (A) 0.02 X 10*3/uL (0.00-0.10); Basophils % (A) 0.2 %; Eosinophils # (A) 0.09 X 10*3/uL (0.04-0.35); Eosinophils % (A) 1.1 %; HCT 29.9 % (37.2-46.3); HGB 9.2 g/dL (12.0-15.0); Immature Grans, Automated 0.4 %; Lymphocytes # (A) 1.01 X 10*3/uL (0.90-5.00); Lymphocytes % (A) 12.4 %; MCH 28.6 pg (27.0-32.0); MCHC 30.8 g/dL (32.0-37.0); MCV 92.9 fL (80.0-97.0); Mean Platelet Volume 8.8 fL (9.5-12.2); Monocytes # (A) 0.72 X 10*3/uL (0.20-1.00); Monocytes % (A) 8.8 %; NRBC Per 100 WBC 0 /100 WBCS (0.0-0.0); Neutrophils % (A) 77.1 %; Platelet Count 402 X 10*3/uL (140-440); RBC 3.22 X 10*6/uL (4.10-5.20); RDW 15.4 % (11.5-14.5); WBC 8.17 X 10*3/uL (4.50-10.00)
--- NOTE | 2022-11-02 12:18 | P.GSHP ---
History of Present Illness H&P Date: 11/02/22 Chief Complaint: Chronic UTI This is a 57-year-old female who's had a 3 week history of a chronic urinary tract infection. Patient describes urinary frequency burning and pain. Patient was seen emergently. Patient appears to have evidence of active diverticulitis with a colovesical fistula. Patient states that she has had some pneumaturia. She denies seeing any stool in her urine. Patient's unsure if she has a history of diverticulitis. Past Medical History Past Medical History: COPD, Eye Disorder, GERD/Reflux Additional Past Medical History / Comment(s): migraines, hiatal hernia, hx ulcer, glaucoma History of Any Multi-Drug Resistant Organisms: None Reported Past Surgical History: Section Additional Past Surgical History / Comment(s): shunt for hydrocephalus Past Anesthesia/Blood Transfusion Reactions: No Reported Reaction Past Psychological History: No Psychological Hx Reported Smoking Status: Current every day smoker Past Alcohol Use History: None Reported Past Drug Use History: Marijuana - Past Family History Father Family Medical History: Cancer Additional Family Medical History / Comment(s): colon Medications and Allergies Home Medications Medication Instructions Recorded Confirmed Type Budesonide-Formot 160-4.5 Mcg 2 puff INHALATION RT-BID 01/24/15 11/01/22 History [Symbicort 160-4.5 Mcg Inhaler] Omeprazole 40 mg PO DAILY 11/23/17 11/01/22 History Diclofenac Sodium 50 mg PO BID-W/MEALS PRN 11/01/22 11/01/22 History Losartan-Hctz 50-12.5 mg [Hyzaar 1 tab PO DAILY 11/01/22 11/01/22 History 50-12.5] Sulfamethox-Tmp 800-160Mg [Bactrim 1 tab PO Q12HR 11/01/22 11/01/22 History DS 800-160 mg] Allergies Allergy/AdvReac Type Severity Reaction Status Date / Time doxycycline Allergy Nausea & Verified 11/01/22 17:52 Vomiting, sweating Surgical - Exam Vital Signs Temp Pulse Resp BP Pulse Ox 98.5 F 93 20 152/72 98 11/01/22 14:45 11/01/22 14:45 11/01/22 14:45 11/01/22 14:45 11/01/22 14:45 - General well developed, well nourished, no distress - Eyes PERRL - ENT normal pinna - Neck no masses - Respiratory normal expansion - Cardiovascular Rhythm: regular - Abdomen Mild tenderness in the right left lower quadrant. There is no rebound or guarding. Abdomen: soft Results - Labs 11/02/22 06:53 11/01/22 15:45 Abnormal Lab Results - Last 24 Hours (Table) 11/01/22 11/01/22 11/01/22 Range/Units 15:45 15:45 15:45 RBC 3.51 L (3.80-5.40) m/uL Hgb 10.6 L (11.4-16.0) gm/dL Hct 31.7 L (34.0-46.0) % MCHC (32.0-37.0) g/dL RDW (11.5-14.5) % MPV (9.5-12.2) fL Carbon Dioxide 21 L (22-30) mmol/L BUN 18 H (7-17) mg/dL Creatinine 1.07 H (0.52-1.04) mg/dL Glucose 111 H (74-99) mg/dL Urine Appearance Cloudy H (Clear) Urine Protein 3+ H (Negative) Urine Blood Moderate H (Negative) Urine Nitrite Positive H (Negative) Urine Bilirubin 2+ H (Negative) Urine RBC >182 H (0-5) /hpf Urine WBC 6 H (0-5) /hpf Ur Squamous Epith Cells 14 H (0-4) /hpf Urine Bacteria Rare H (None) /hpf Urine Mucus Moderate H (None) /hpf 11/02/22 Range/Units 06:53 RBC 3.22 L (3.80-5.40) m/uL Hgb 9.2 L (11.4-16.0) gm/dL Hct 29.9 L (34.0-46.0) % MCHC 30.8 L (32.0-37.0) g/dL RDW 15.4 H (11.5-14.5) % MPV 8.8 L (9.5-12.2) fL Carbon Dioxide (22-30) mmol/L BUN (7-17) mg/dL Creatinine (0.52-1.04) mg/dL Glucose (74-99) mg/dL Urine Appearance (Clear) Urine Protein (Negative) Urine Blood (Negative) Urine Nitrite (Negative) Urine Bilirubin (Negative) Urine RBC (0-5) /hpf Urine WBC (0-5) /hpf Ur Squamous Epith Cells (0-4) /hpf Urine Bacteria (None) /hpf Urine Mucus (None) /hpf Diabetes panel 11/01/22 Range/Units 15:45 Sodium 137 (137-145) mmol/L Potassium 4.1 (3.5-5.1) mmol/L Chloride 103 (98-107) mmol/L Carbon Dioxide 21 L (22-30) mmol/L BUN 18 H (7-17) mg/dL Creatinine 1.07 H (0.52-1.04) mg/dL Glucose 111 H (74-99) mg/dL Calcium 8.7 (8.4-10.2) mg/dL AST 14 (14-36) U/L ALT 20 (4-34) U/L Alkaline Phosphatase 115 (38-126) U/L Total Protein 6.8 (6.3-8.2) g/dL Albumin 3.7 (3.5-5.0) g/dL Calcium panel 11/01/22 Range/Units 15:45 Calcium 8.7 (8.4-10.2) mg/dL Albumin 3.7 (3.5-5.0) g/dL Pituitary panel 11/01/22 Range/Units 15:45 Sodium 137 (137-145) mmol/L Potassium 4.1 (3.5-5.1) mmol/L Chloride 103 (98-107) mmol/L Carbon Dioxide 21 L (22-30) mmol/L BUN 18 H (7-17) mg/dL Creatinine 1.07 H (0.52-1.04) mg/dL Glucose 111 H (74-99) mg/dL Calcium 8.7 (8.4-10.2) mg/dL Adrenal panel 11/01/22 Range/Units 15:45 Sodium 137 (137-145) mmol/L Potassium 4.1 (3.5-5.1) mmol/L Chloride 103 (98-107) mmol/L Carbon Dioxide 21 L (22-30) mmol/L BUN 18 H (7-17) mg/dL Creatinine 1.07 H (0.52-1.04) mg/dL Glucose 111 H (74-99) mg/dL Calcium 8.7 (8.4-10.2) mg/dL Total Bilirubin 0.4 (0.2-1.3) mg/dL AST 14 (14-36) U/L ALT 20 (4-34) U/L Alkaline Phosphatase 115 (38-126) U/L Total Protein 6.8 (6.3-8.2) g/dL Albumin 3.7 (3.5-5.0) g/dL Assessment and Plan Plan: Diverticulitis with colovesical fistula. Patient will receive IV antibiotic. Patient will be treated medically. We will plan for outpatient colonoscopy to evaluate her diverticulitis. Ultimately she will be scheduled for a low anterior section due to her colovesical fistula.
[2022-11-02] MEDS: PANTOPRAZOLE 40 MG TABLET PO SCH (12:21)
[2022-11-02 12:23] LABS: African American GFR (CKD) 91.1 (60.0-200.0); BUN/Creat Ratio 16.2 Ratio (12.00-20.00); Blood Urea Nitrogen 13.4 mg/dL (9.0-27.0); Calcium 8.5 mg/dL (8.7-10.3); Carbon Dioxide 21.5 mmol/L (20.0-27.5); Non-African American GFR(CKD) 78.6 (60.0-200.0)
[2022-11-02] MEDS: PHENAZOPYRIDINE 200 MG TAB PO SCH ×3 (14:28→21:35)
[2022-11-02] MEDS: AMPICILLIN-SULBACTAM 3 GM in SODIUM CHLORIDE 0.9% 100 ML IVPB SCH ×2 (17:47→23:46)
[2022-11-02] MEDS: HEPARIN SODIUM,PORCINE/PF 5,000 UNIT/0.5 ML SYRINGE SQ SCH ×2 (17:48→23:46)
[2022-11-02] MEDS: SYMBICORT 160-4.5 MCG INHALER INHALATION SCH (20:14)
--- NOTE | 2022-11-02 20:58 | P.CONS ---
History of Present Illness - Reason for Consult Consult date: 11/02/22 Diverticulitis Requesting physician: Juan Tyson - Chief Complaint Pelvic pressure since 10/20/2022 - History of Present Illness Patient is a 57 year female with a past medical history significant for COPD patient seemed to be dealing with symptoms of pelvic pressure and dysuria since 10/20/2022 patient apparently has been evaluated by her primary care physician and apparently did have a negative UA however the patient was treated for possible UTI with Cipro patient did not have any improvement subsequently called the office and she was switched to Bactrim DS however the patient did have persistent symptoms she did go into the urgent care yesterday with the patient was started on Keflex however the patient did have persistent pain to the pubic area is Beginning to be pressure and sharp pain he density is almost 10 out of 10 without any radiation has felt nauseated but no vomiting did have a problem with constipation with the Center the patient has been evaluated by the ER physician on arrival to the ER the patient was afebrile she did have a low-grade fever of 99.4F this morning patient did have a normal white count BUN and creatinine was mildly elevated on admission subsequently has normalized patient did have a positive UA patient did have a CT of abdominal pelvis CT shows sigmoid diverticulosis with mild inflammatory changes in the pelvis mid to distal sigmoid colon there is irregular thick possible extraluminal fluid collection measuring 8.2 x 6.1x 2.9 cm interposed between the dome of the bladder and the fundus of the uterus concerning for possible abscess and fistula from diverticulitis, patient has been evaluated by general surgery recommended medical treatment at this point, patient was treated with Rocephin and Flagyl in fectious disease was consulted for further management of Antibiotic therapy Review of Systems Positive point has been mentioned in the HPI rest of the systems are negative Past Medical History Past Medical History: COPD, Eye Disorder, GERD/Reflux Additional Past Medical History / Comment(s): migraines, hiatal hernia, hx ulcer, glaucoma History of Any Multi-Drug Resistant Organisms: None Reported Past Surgical History: Section Additional Past Surgical History / Comment(s): shunt for hydrocephalus Past Anesthesia/Blood Transfusion Reactions: No Reported Reaction Past Psychological History: No Psychological Hx Reported Smoking Status: Current every day smoker Past Alcohol Use History: None Reported Past Drug Use History: Marijuana - Past Family History Father Family Medical History: Cancer Additional Family Medical History / Comment(s): colon Medications and Allergies Home Medications Medication Instructions Recorded Confirmed Type Budesonide-Formot 160-4.5 Mcg 2 puff INHALATION RT-BID 01/24/15 11/01/22 History [Symbicort 160-4.5 Mcg Inhaler] Omeprazole 40 mg PO DAILY 11/23/17 11/01/22 History Diclofenac Sodium 50 mg PO BID-W/MEALS PRN 11/01/22 11/01/22 History Losartan-Hctz 50-12.5 mg [Hyzaar 1 tab PO DAILY 11/01/22 11/01/22 History 50-12.5] Amoxic-Pot Clav 875-125Mg 1 tab PO Q12HR 14 Days #28 tab 11/04/22 Rx [Augmentin 875-125] Allergies Allergy/AdvReac Type Severity Reaction Status Date / Time doxycycline Allergy Nausea & Verified 11/01/22 17:52 Vomiting, sweating Physical Exam Vitals: Vital Signs Temp Pulse Pulse Resp BP BP Pulse Ox 11/02/22 08:00 99.4 F 75 16 114/61 95 11/02/22 01:14 99.1 F 80 18 109/65 96 11/01/22 22:40 98.1 F 58 L 14 118/71 97 11/01/22 22:19 98.5 F 70 18 103/58 98 11/01/22 18:30 97.9 F 73 18 144/81 98 11/01/22 14:45 98.5 F 93 20 152/72 98 Intake and Output 11/01/22 11/02/22 11/02/22 22:59 06:59 14:59 Intake Total 750 Balance 750 Intake: Intake, IV Titration 750 Amount Sodium Chloride 0.9% 1, 750 000 ml @ 75 mls/hr IV . [id number] [facility] Rx#:[id number] Other: Voiding Method Toilet # Voids 3 Weight 98.43 kg GENERAL DESCRIPTION: Middle-aged female lying in bed, no distress. No tachypnea or accessory muscle of respiration use. HEENT: Shows Pallor , no scleral icterus. Oral mucous membrane is dry. No pharyngeal erythema or thrush NECK: Trachea central, no thyromegaly. LUNGS: Unlabored breathing. Clear to auscultation anteriorly. No wheeze or crackle. HEART: S1, S2, regular rate and rhythm. No loud murmur ABDOMEN: Soft, mild tenderness , no guarding or rigidity, no organomegaly EXTREMITIES: No edema of feet. SKIN: No rash, no masses palpable. NEUROLOGICAL: The patient is awake, alert, oriented x3, mood and affect normal. Results CBC & Chem 7: 11/03/22 04:08 11/02/22 06:53 Labs: Abnormal Lab Results - Last 24 Hours (Table) 11/01/22 11/01/22 11/01/22 Range/Units 15:45 15:45 15:45 RBC 3.51 L (3.80-5.40) m/uL Hgb 10.6 L (11.4-16.0) gm/dL Hct 31.7 L (34.0-46.0) % MCHC (32.0-37.0) g/dL RDW (11.5-14.5) % MPV (9.5-12.2) fL Carbon Dioxide 21 L (22-30) mmol/L BUN 18 H (7-17) mg/dL Creatinine 1.07 H (0.52-1.04) mg/dL Glucose 111 H (74-99) mg/dL Calcium (8.7-10.3) mg/dL Urine Appearance Cloudy H (Clear) Urine Protein 3+ H (Negative) Urine Blood Moderate H (Negative) Urine Nitrite Positive H (Negative) Urine Bilirubin 2+ H (Negative) Urine RBC >182 H (0-5) /hpf Urine WBC 6 H (0-5) /hpf Ur Squamous Epith Cells 14 H (0-4) /hpf Urine Bacteria Rare H (None) /hpf Urine Mucus Moderate H (None) /hpf 11/02/22 11/02/22 Range/Units 06:53 06:53 RBC 3.22 L (3.80-5.40) m/uL Hgb 9.2 L (11.4-16.0) gm/dL Hct 29.9 L (34.0-46.0) % MCHC 30.8 L (32.0-37.0) g/dL RDW 15.4 H (11.5-14.5) % MPV 8.8 L (9.5-12.2) fL Carbon Dioxide (22-30) mmol/L BUN (7-17) mg/dL Creatinine (0.52-1.04) mg/dL Glucose (74-99) mg/dL Calcium 8.5 L (8.7-10.3) mg/dL Urine Appearance (Clear) Urine Protein (Negative) Urine Blood (Negative) Urine Nitrite (Negative) Urine Bilirubin (Negative) Urine RBC (0-5) /hpf Urine WBC (0-5) /hpf Ur Squamous Epith Cells (0-4) /hpf Urine Bacteria (None) /hpf Urine Mucus (None) /hpf Assessment and Plan (1) Colovesical fistula Status: Acute Code(s): N32.1 - VESICOINTESTINAL FISTULA SNOMED Code(s): 88829712 (2) Diverticulitis Status: Acute Code(s): K57.92 - DVTRCLI OF INTEST, PART UNSP, W/O PERF OR ABSCESS W/O BLEED SNOMED Code(s): 879834141 Plan: 1patient is in the hospital with pelvic pressure and this patient did have a significantly abnormal CT of abdominal pelvis concerning for possible abscess versus fistula between the bladder at the sigmoid colon from diverticulitis failing outpatient oral antibiotic therapy the patient was treated for possible UTI. 2we will discontinue Rocephin and Flagyl. 3patient was started on Unasyn 3 g every 6 hours. 4we will check inflammatory markers. We will follow on clinical condition and cultures to further adjust medication if needed Thank you for this consultation will follow this patient with you Time with Patient: Greater than 30
--- NOTE | 2022-11-02 22:39 | P.CONS ---
History of Present Illness - Reason for Consult Consult date: 11/02/22 Medical management - Chief Complaint Dysuria - History of Present Illness Patient is a 57-year-old female with known history of COPD, migraine headaches, GERD and current everyday smoker and marijuana use presents to ER with complaints of suprapubic pain and dysuria. Patient has been having symptoms since October 20, 2022. Patient went to see his primary care physician and had urinalysis. She was started antibiotics for possible urinary tract infection with ciprofloxacin. Patient took medication without improvement of her symptoms and later antibiotic changed to Bactrim. Patient did take her medication for few days and went to urgent care facility yesterday. Later patient presents to ER due to severe suprapubic pain and dysuria patient is nonradiating. Denies any complaints of fever. No chills. No complaints of flank pain. CT of the abdomen pelvis showed sigmoid diverticulosis with mild inflammatory changes in the pelvis. There is mid to distal sigmoid colon is irregular and thickened with possible extraluminal fluid collection measuring 8.2 x 6.1 x 2.9 cm, interposed between the dome of the bladder and fundus of the uterus. Possible subacute chronic abscess and fistula as a result of prior diverticulitis. Laboratory data showed WC 9.4 hemoglobin 10.6 and platelets 442 Sodium 137 potassium 4.1 chloride 103 bicarb is 21 BUN 18 and creatinine 1.07 and blood sugar is 111 Urinalysis showed cloudy with 3+ protein moderate blood and positive nitrite and elevated RBCs and WBCs and is squamous epithelial cells. Review of Systems Constitutional: Patient denies any fever or chills . No generalized weakness or weight loss. Abdomen: Patient denied nausea vomiting and diarrhea and abdominal pain. Cardiovascular: Patient denies any chest pain or short of breath no palpitations. Respiratory: patient denied any cough or sputum production. No shortness of breath Neurologic: Patient denied any numbness or tingling headache. Musculoskeletal: Patient denies any complaints of joint swelling or deformity. Skin: Negative Psychiatric: Negative Endocrine: No heat or cold intolerance. No recent weight gain. Genitourinary: Patient does have dysuria. Suprapubic pain. No hematuria. All other 14 point ROS negative except the above Past Medical History Past Medical History: COPD, Eye Disorder, GERD/Reflux Additional Past Medical History / Comment(s): migraines, hiatal hernia, hx ulcer, glaucoma History of Any Multi-Drug Resistant Organisms: None Reported Past Surgical History: Section Additional Past Surgical History / Comment(s): shunt for hydrocephalus Past Anesthesia/Blood Transfusion Reactions: No Reported Reaction Past Psychological History: No Psychological Hx Reported Smoking Status: Current every day smoker Past Alcohol Use History: None Reported Past Drug Use History: Marijuana - Past Family History Father Family Medical History: Cancer Additional Family Medical History / Comment(s): colon Medications and Allergies Home Medications Medication Instructions Recorded Confirmed Type Budesonide-Formot 160-4.5 Mcg 2 puff INHALATION RT-BID 01/24/15 11/01/22 History [Symbicort 160-4.5 Mcg Inhaler] Omeprazole 40 mg PO DAILY 11/23/17 11/01/22 History Diclofenac Sodium 50 mg PO BID-W/MEALS PRN 11/01/22 11/01/22 History Losartan-Hctz 50-12.5 mg [Hyzaar 1 tab PO DAILY 11/01/22 11/01/22 History 50-12.5] Sulfamethox-Tmp 800-160Mg [Bactrim 1 tab PO Q12HR 11/01/22 11/01/22 History DS 800-160 mg] Allergies Allergy/AdvReac Type Severity Reaction Status Date / Time doxycycline Allergy Nausea & Verified 11/01/22 17:52 Vomiting, sweating Physical Exam Vitals: Vital Signs Temp Pulse Pulse Resp BP BP Pulse Ox 11/02/22 08:00 99.4 F 75 16 114/61 95 11/02/22 01:14 99.1 F 80 18 109/65 96 11/01/22 22:40 98.1 F 58 L 14 118/71 97 11/01/22 22:19 98.5 F 70 18 103/58 98 11/01/22 18:30 97.9 F 73 18 144/81 98 11/01/22 14:45 98.5 F 93 20 152/72 98 Intake and Output 11/01/22 11/02/22 11/02/22 22:59 06:59 14:59 Intake Total 750 Balance 750 Intake: Intake, IV Titration 750 Amount Sodium Chloride 0.9% 1, 750 000 ml @ 75 mls/hr IV . [id number] [facility] Rx#:[id number] Other: Voiding Method Toilet # Voids 3 Weight 98.43 kg PHYSICAL EXAMINATION: Patient is lying in the bed comfortably, no acute distress, awake alert and oriented.. HEENT: Normocephalic. Neck is supple. Pupils reactive. Nostrils clear. Oral cavity is moist. Neck reveals no JVD, carotid bruits, or thyromegaly. CHEST EXAMINATION: Trachea is central. Symmetrical expansion. Lung thomas clear to auscultation and percussion. CARDIAC: Normal S1, S2 with no gallops. No murmurs ABDOMEN: Soft. Bowel sounds normal. No organomegaly. No abdominal bruits. Extremities: reveal no edema. No clubbing or cyanosis Neurologically awake, alert, oriented x3 with well-coordinated movements. No focal deficits noted Skin: No rash or skin lesions. Psychiatric: Cooperative. Nonsuicidal Musculoskeletal: No joint swelling or deformity. Normal range of motion. Results CBC & Chem 7: 11/02/22 06:53 11/02/22 06:53 Labs: Abnormal Lab Results - Last 24 Hours (Table) 11/01/22 11/01/22 11/01/22 Range/Units 15:45 15:45 15:45 RBC 3.51 L (3.80-5.40) m/uL Hgb 10.6 L (11.4-16.0) gm/dL Hct 31.7 L (34.0-46.0) % Carbon Dioxide 21 L (22-30) mmol/L BUN 18 H (7-17) mg/dL Creatinine 1.07 H (0.52-1.04) mg/dL Glucose 111 H (74-99) mg/dL Urine Appearance Cloudy H (Clear) Urine Protein 3+ H (Negative) Urine Blood Moderate H (Negative) Urine Nitrite Positive H (Negative) Urine Bilirubin 2+ H (Negative) Urine RBC >182 H (0-5) /hpf Urine WBC 6 H (0-5) /hpf Ur Squamous Epith Cells 14 H (0-4) /hpf Urine Bacteria Rare H (None) /hpf Urine Mucus Moderate H (None) /hpf Assessment and Plan Assessment: Pelvic abscess with sigmoid diverticulitis and fistula formation to the bladder. Possible urinary tract infection COPD GERD Currently everyday smoker DVT prophylaxis with heparin subcu Plan: Patient will be continued on pain management, antibiotics in the form of ceftriaxone and Flagyl. Changed to Unasyn as per ID recommendations. Patient was started on Pyridium for symptomatic improvement. Follow-up culture reports. Will continue to follow and further recommendations based on the clinical course. Time with Patient: Greater than 30
[2022-11-03] MEDS: MORPHINE SULFATE 4 MG/ML SYRINGE IV PRN ×2 (00:07→06:42)
[2022-11-03] MEDS: AMPICILLIN-SULBACTAM 3 GM in SODIUM CHLORIDE 0.9% 100 ML IVPB SCH ×3 (06:37→18:39)
[2022-11-03] MEDS: PANTOPRAZOLE 40 MG TABLET PO SCH (06:37)
[2022-11-03] MEDS: PHENAZOPYRIDINE 200 MG TAB PO SCH ×3 (08:35→21:31)
[2022-11-03] MEDS: HEPARIN SODIUM,PORCINE/PF 5,000 UNIT/0.5 ML SYRINGE SQ SCH ×2 (08:45→16:56)
[2022-11-03] MEDS: SODIUM CHLORIDE 0.9% 1,000 ML IV SCH (08:45)
[2022-11-03] MEDS: SYMBICORT 160-4.5 MCG INHALER INHALATION SCH ×2 (08:46→20:40)
[2022-11-03 09:35] LABS: Basophils # (A) 0.02 X 10*3/uL (0.00-0.10); Basophils % (A) 0.2 %; Eosinophils # (A) 0.09 X 10*3/uL (0.04-0.35); Eosinophils % (A) 1.1 %; HCT 28.2 % (37.2-46.3); HGB 8.7 g/dL (12.0-15.0); Immature Grans, Automated 0.2 %; Lymphocytes # (A) 1.55 X 10*3/uL (0.90-5.00); Lymphocytes % (A) 19.2 %; MCH 28.9 pg (27.0-32.0); MCHC 30.9 g/dL (32.0-37.0); MCV 93.7 fL (80.0-97.0); Monocytes # (A) 0.71 X 10*3/uL (0.20-1.00); Monocytes % (A) 8.8 %; NRBC Per 100 WBC 0 /100 WBCS (0.0-0.0); Neutrophils # (A) 5.67 X 10*3/uL (1.80-7.70); Neutrophils % (A) 70.5 %; Platelet Count 394 X 10*3/uL (140-440); RBC 3.01 X 10*6/uL (4.10-5.20); RDW 15.4 % (11.5-14.5); WBC 8.06 X 10*3/uL (4.50-10.00)
--- NOTE | 2022-11-03 12:01 | P.PN ---
Progress Note - Text Progress Note Date: 11/03/22 Patient's that she feels better. She states the Pyridium is helping her bladder spasms. On exam vital signs are stable. Abdomen is soft. There is some minimal pelvic tenderness. There is no rebound or guarding. Diverticulitis with history of colovesical fistula. Patient is improved. We w ill plan for hopeful discharge tomorrow. ID will make recommendations for oral versus IV antibiotics.
--- NOTE | 2022-11-03 15:01 | P.PN ---
Subjective Progress Note Date: 11/03/22 Principal diagnosis: Complicated diverticulitis with colovesical fistula and a question of abscess Patient is a 57 year old female with a past medical history significant for COPD patient seemed to be dealing with symptoms of pelvic pressure and dysuria since 10/20/2022,patient did have a CT of abdominal pelvis CT shows sigmoid diverticulosis with mild inflammatory changes in the pelvis mid to distal sigmoid colon there is irregular thick possible extraluminal fluid collection measuring 8.2 x 6.1x 2.9 cm interposed between the dome of the bladder and the fundus of the uterus concerning for possible abscess and fistula from diverticulitis. On today's evaluation that is 11/03/2022, the patient denies having any fever or any chills, the patient is feeling slightly better as for as pelvic pressure is concerned and urine symptom has improved as well denies any chest pain or shortness of breath or cough no nausea no vomiting or diarrhea Objective - Vital Signs Vital signs: Vital Signs Temp 98 F 11/03/22 14:00 Pulse 68 11/03/22 14:00 Resp 14 11/03/22 14:00 BP 106/88 11/03/22 14:00 Pulse Ox 96 11/03/22 14:00 FiO2 Intake & Output 11/02/22 11/03/22 11/03/22 18:59 06:59 18:59 Output Total 1800 Balance -1800 Output: Urine 1800 Other: Voiding Method Toilet # Voids 8 - Exam GENERAL DESCRIPTION: Middle-aged female lying in bed in no distress RESPIRATORY SYSTEM: Unlabored breathing , decreased breath sounds at bases HEART: S1 S2 regular rate and rhythm , ABDOMEN: Soft , no tenderness EXTREMITIES: No edema feet - Labs CBC & Chem 7: 11/03/22 04:08 11/02/22 06:53 Labs: Abnormal Lab Results - Last 24 Hours (Table) 11/03/22 Range/Units 04:08 RBC 3.01 L (4.10-5.20) X 10*6/uL Hgb 8.7 L (12.0-15.0) g/dL Hct 28.2 L (37.2-46.3) % MCHC 30.9 L (32.0-37.0) g/dL RDW 15.4 H (11.5-14.5) % MPV 9.0 L (9.5-12.2) fL Microbiology - Last 24 Hours (Table) 11/02/22 10:50 Urine Culture - Preliminary Urine,Voided Assessment and Plan (1) Colovesical fistula Current Visit: Yes Status: Acute Code(s): N32.1 - VESICOINTESTINAL FISTULA SNOMED Code(s): 31315868 (2) Diverticulitis Current Visit: Yes Status: Acute Code(s): K57.92 - DVTRCLI OF INTEST, PART UNSP, W/O PERF OR ABSCESS W/O BLEED SNOMED Code(s): 209420158 Plan: 1patient is in the hospital with pelvic pressure and this patient did have a significantly abnormal CT of abdominal pelvis concerning for possible abscess versus fistula between the bladder at the sigmoid colon from diverticulitis failing outpatient oral antibiotic therapy the patient was treated for possible UTI. 2patient seemed to have shown clinical improvement and will continue Unasyn 3 g every 6 hours, plan is for either IV Unasyn versus oral Augmentin on discharge depending upon the patient outpatient antibiotic coverage Time with Patient: Less than 30
[2022-11-04] MEDS: SODIUM CHLORIDE 0.9% 1,000 ML IV SCH ×2 (00:19→14:12)
[2022-11-04] MEDS: AMPICILLIN-SULBACTAM 3 GM in SODIUM CHLORIDE 0.9% 100 ML IVPB SCH ×3 (00:19→12:00)
[2022-11-04] MEDS: HEPARIN SODIUM,PORCINE/PF 5,000 UNIT/0.5 ML SYRINGE SQ SCH ×2 (00:19→09:44)
[2022-11-04 02:16] VITALS: RESP 18
[2022-11-04] MEDS: PANTOPRAZOLE 40 MG TABLET PO SCH (05:59)
[2022-11-04] MEDS: PHENAZOPYRIDINE 200 MG TAB PO SCH (09:44)
[2022-11-04] MEDS: SYMBICORT 160-4.5 MCG INHALER INHALATION SCH (09:45)
[2022-11-04] MEDS ORDERED: LACTULOSE 20 GM/30 ML CUP PO ONE (11:33)
--- NOTE | 2022-11-04 12:11 | P.DS ---
Providers Date of admission: 11/01/22 18:31 Expected date of discharge: 11/04/22 Attending physician: Juan Tyson Consults: 11/01/22 18:31 Consult Physician Urgent Consulting Provider: Sami Price Consult Reason/Comments: recurrent uti, new dx colovesicular fistula Do you want consulting provider notified?: Yes 11/02/22 13:00 Consult Physician Routine Consulting Provider: Cameron Mccormick Consult Reason/Comments: Medical management Do you want consulting provider notified?: Yes Primary care physician: Chelsea Vee [facility] Course: This a 57-year-old female sent to the hospital complaints of lower pelvic abdominal pain. Patient workup found have evidence of a colovesical fistula. Patient also had acute diverticulitis. Patient progressed with IV and boxes. Her hospital stay was unremarkable. Please see hospital chart for details. Patient Condition at Discharge: Good Plan - Discharge Summary Discharge Rx Participant: Yes New Discharge Prescriptions: No Action Budesonide-Formot 160-4.5 Mcg [Symbicort 160-4.5 Mcg Inhaler] 2 puff INHALATION RT-BID Omeprazole 40 mg PO DAILY Losartan-Hctz 50-12.5 mg [Hyzaar 50-12.5] 1 tab PO DAILY Diclofenac Sodium 50 mg PO BID-W/MEALS PRN PRN Reason: Pain Sulfamethox-Tmp 800-160Mg [Bactrim DS 800-160 mg] 1 tab PO Q12HR Discharge Medication List Budesonide-Formot 160-4.5 Mcg [Symbicort 160-4.5 Mcg Inhaler] 2 puff INHALATION RT-BID 01/24/15 [History] Omeprazole 40 mg PO DAILY 11/23/17 [History] Diclofenac Sodium 50 mg PO BID-W/MEALS PRN 11/01/22 [History] Losartan-Hctz 50-12.5 mg [Hyzaar 50-12.5] 1 tab PO DAILY 11/01/22 [History] Sulfamethox-Tmp 800-160Mg [Bactrim DS 800-160 mg] 1 tab PO Q12HR 11/01/22 [History] Follow up Appointment(s)/Referral(s): Nanda Tran MD [Primary Care Provider] - 1-2 days Juan Tyson MD [STAFF PHYSICIAN] - 1 Week Activity/Diet/Wound Care/Special Instructions: Dr. Mccormick to do discharge antibiotics Patient instructed to use Metamucil 1 tablespoon by mouth twice a day Patient to drink at least 10 glasses of water per day Discharge Disposition: HOME SELF-CARE
[2022-11-04 13:55] VITALS: BP 127/77; PULSE 67; TEMP 98
--- NOTE | 2022-11-04 14:20 | P.PN ---
Subjective Progress Note Date: 11/04/22 Principal diagnosis: Complicated diverticulitis with colovesical fistula and a question of abscess Patient is a 57 year old female with a past medical history significant for COPD patient seemed to be dealing with symptoms of pelvic pressure and dysuria since 10/20/2022,patient did have a CT of abdominal pelvis CT shows sigmoid diverticulosis with mild inflammatory changes in the pelvis mid to distal sigmoid colon there is irregular thick possible extraluminal fluid collection measuring 8.2 x 6.1x 2.9 cm interposed between the dome of the bladder and the fundus of the uterus concerning for possible abscess and fistula from diverticulitis. On today's evaluation that is 11/04/2022, the patient remains to be afebrile, the patient is feeling slightly better and the patient pelvic pressure has much improved and urine symptom has improved as well , the patient denies any chest pain or shortness of breath or cough no nausea no vomiting or diarrhea Objective - Vital Signs Vital signs: Vital Signs Temp 97.9 F 11/04/22 07:21 Pulse 68 11/04/22 07:21 Resp 18 11/04/22 07:21 BP 139/85 11/04/22 07:21 Pulse Ox 95 11/04/22 07:21 FiO2 Intake & Output 11/03/22 11/04/22 11/04/22 18:59 06:59 18:59 Other: Voiding Method Toilet Toilet # Voids 2 - Exam GENERAL DESCRIPTION: Middle-aged female lying in bed in no distress RESPIRATORY SYSTEM: Unlabored breathing , decreased breath sounds at bases HEART: S1 S2 regular rate and rhythm , ABDOMEN: Soft , no tenderness EXTREMITIES: No edema feet - Labs CBC & Chem 7: 11/03/22 04:08 11/02/22 06:53 Labs: Microbiology - Last 24 Hours (Table) 11/02/22 10:50 Urine Culture - Final Urine,Voided Assessment and Plan (1) Colovesical fistula Current Visit: Yes Status: Acute Code(s): N32.1 - VESICOINTESTINAL FISTULA SNOMED Code(s): 81093940 (2) Diverticulitis Current Visit: Yes Status: Acute Code(s): K57.92 - DVTRCLI OF INTEST, PART UNSP, W/O PERF OR ABSCESS W/O BLEED SNOMED Code(s): 044973155 Plan: 1patient is in the hospital with pelvic pressure and this patient did have a significantly abnormal CT of abdominal pelvis concerning for possible abscess versus fistula between the bladder at the sigmoid colon from diverticulitis failing outpatient oral antibiotic therapy the patient was treated for possible UTI. 2patient seemed to have shown clinical improvement and patient has been cleared for discharge by surgery he was given a two-week course of oral Augmentin patient has been advised if any recurrence of abdominal pain nausea vomiting or fever she is advised to come back to the hospital right away Time with Patient: Less than 30
== END 2022-11-04 15:19 | disposition home or self-care (01) | DRG 699 ==
LOC: EC 14:43 → 4SSUR 18:31
PROVIDERS: ADMIT Surgery; ATTEND Surgery
DX: N32.1 Vesicointestinal fistula (principal); K57.32 Diverticulitis of large intestine without perforation or abscess without bleeding; N39.0 Urinary tract infection, site not specified; F17.210 Nicotine dependence, cigarettes, uncomplicated; G43.909 Migraine, unspecified, not intractable, without status migrainosus; H40.9 Unspecified glaucoma; J44.9 Chronic obstructive pulmonary disease, unspecified; K21.9 Gastro-esophageal reflux disease without esophagitis; N32.89 Other specified disorders of bladder; N73.9 Female pelvic inflammatory disease, unspecified; Z28.310 Unvaccinated for COVID-19; Z28.21 Immunization not carried out because of patient refusal; Z79.51 Long term (current) use of inhaled steroids; Z87.440 Personal history of urinary (tract) infections; Z98.2 Presence of cerebrospinal fluid drainage device; Z88.1 Allergy status to other antibiotic agents; Z87.11 Personal history of peptic ulcer disease; Z79.899 Other long term (current) drug therapy
CPT/HCPCS: 36415; 74177; 80048; 80053; 81001; 85025; 87086; 94640; 96361; 96365; 96374; 96375; 99285

== ENCOUNTER → 2022-11-20 | Outpatient (CLI) | payer BC ==
[2022-11-20 20:16] LABS: Basophils # (A) 0.02 X 10*3/uL (0.00-0.10); Basophils % (A) 0.4 %; Eosinophils # (A) 0.08 X 10*3/uL (0.04-0.35); Eosinophils % (A) 1.7 %; HCT 34.2 % (37.2-46.3); HGB 10.5 g/dL (12.0-15.0); Immature Grans, Automated 0.2 %; Lymphocytes # (A) 1.04 X 10*3/uL (0.90-5.00); Lymphocytes % (A) 21.5 %; MCH 29.3 pg (27.0-32.0); MCHC 30.7 g/dL (32.0-37.0); MCV 95.5 fL (80.0-97.0); Mean Platelet Volume 9.9 fL (9.5-12.2); Monocytes # (A) 0.31 X 10*3/uL (0.20-1.00); Monocytes % (A) 6.4 %; NRBC Per 100 WBC 0 /100 WBCS (0.0-0.0); Neutrophils # (A) 3.37 X 10*3/uL (1.80-7.70); Neutrophils % (A) 69.8 %; Platelet Count 312 X 10*3/uL (140-440); RBC 3.58 X 10*6/uL (4.10-5.20); RDW 17.4 % (11.5-14.5); WBC 4.83 X 10*3/uL (4.50-10.00)
[2022-11-20 22:31] LABS: Anion Gap 14.5 mmol/L (10.00-18.00); Carbon Dioxide 21.5 mmol/L (20.0-27.5); Potassium 4.4 mmol/L (3.5-5.5)
== END | disposition home or self-care (01) ==
LOC: LABPAT 13:01
PROVIDERS: ATTEND Surgery
DX: Z01.812 Encounter for preprocedural laboratory examination (principal); K57.33 Diverticulitis of large intestine without perforation or abscess with bleeding
CPT/HCPCS: 80051; 85025; 93005

== ENCOUNTER 2022-11-28 08:12 | Day surgery (SDC) | payer BC ==
[2022-11-25 16:08] VITALS: BMI 36.1
[~2022-11-28 08:12] MED LIST: LACTATED RINGERS 1,000 ML IV SCH; LIDOCAINE 1% (10MG/ML) FOR IV START INTRADERMA PRN
[2022-11-28] MEDS ORDERED: LACTATED RINGERS 1,000 ML IV ONE (09:00)
[2022-11-28 09:01] VITALS: TEMP 97.5
[2022-11-28] MEDS ORDERED: PROPOFOL 10 MG/ML 20 ML VIAL IV ONE (10:10)
--- NOTE | 2022-11-28 10:30 | P.OP ---
Date of Procedure: 11/28/22 Preoperative Diagnosis: Diverticulitis Postoperative Diagnosis: Diverticulitis Procedure(s) Performed: Colonoscopy Anesthesia: MAC Surgeon: Juan Tyson Pathology: none sent Condition: stable Disposition: PACU Description of Procedure: Patient's placed on the endoscopy table in the lateral position. She received IV sedation. Digital rectal exam was performed. This revealed no no abnormalities. Flexible colonoscope was then placed patient anus and passed throughout the colon. The scope could not be passed beyond the sigmoid colon secondary to scarring of the bowel from previous diverticulitis. This point scope withdrawn. The rectum appeared normal. Scope withdrawn for patient. Patient has significant diverticulitis. She'll be scheduled for low anterior section tomorrow.
[2022-11-28 10:57] VITALS: BP 126/89; PULSE 69; RESP 18
== END 2022-11-28 11:19 | disposition home or self-care (01) ==
LOC: ORWHC2ENDO 08:12
PROVIDERS: ATTEND Surgery
DX: K57.32 Diverticulitis of large intestine without perforation or abscess without bleeding (principal); I10 Essential (primary) hypertension; J44.9 Chronic obstructive pulmonary disease, unspecified; F17.200 Nicotine dependence, unspecified, uncomplicated; K21.9 Gastro-esophageal reflux disease without esophagitis; K25.9 Gastric ulcer, unspecified as acute or chronic, without hemorrhage or perforation; Z88.1 Allergy status to other antibiotic agents; Z79.1 Long term (current) use of non-steroidal anti-inflammatories (NSAID); Z79.899 Other long term (current) drug therapy
CPT/HCPCS: 45378; J2704; 86850; 86900; 86901

== ENCOUNTER 2022-11-29 07:08 | Inpatient (IN) | payer BC ==
[~2022-11-29 07:08] MED LIST changes: +ACETAMINOPHEN TAB 500 MG TAB PO PRN; +HEPARIN SODIUM,PORCINE/PF 5,000 UNIT/0.5 ML SYRINGE SQ PRN; -LACTATED RINGERS 1,000 ML IV SCH; -LIDOCAINE 1% (10MG/ML) FOR IV START INTRADERMA PRN; +metroNIDAZOLE-NS PMX 500 MG in SALINE 1 100ML.BAG IVPB PRN
[2022-11-29] MEDS ORDERED: SCOPOLAMINE 1 MG/72 HR PATCH TRANSDERM ONE (07:20)
[2022-11-29] MEDS ORDERED: DEXAMETHASONE SOD PHOSPHATE 4 MG/ML 1 ML VIAL IV ONE (07:20)
[2022-11-29] MEDS ORDERED: HYDROmorphone 0.5 MG/0.5 ML SYRINGE IVP PRN (07:20)
[2022-11-29] MEDS ORDERED: MIDAZOLAM 2 MG/2 ML VIAL IV PRN (07:20)
[2022-11-29] MEDS ORDERED: ONDANSETRON 4 MG/2 ML VIAL IVP ONE (07:20)
[2022-11-29] MEDS ORDERED: ALVIMOPAN 12 MG CAPSULE PO ONE (07:41)
[2022-11-29] MEDS: LACTATED RINGERS 1,000 ML IV SCH (07:54)
[2022-11-29] MEDS ORDERED: MIDAZOLAM 2 MG/2 ML VIAL IVP ONE ×2 (08:02→08:10)
[2022-11-29] MEDS ORDERED: fentaNYL (PF) 50 MCG/1 ML VIAL IVP ONE (08:04)
--- NOTE | 2022-11-29 08:27 | P.ANPRN ---
Procedure Note - Anesthesia - Epidural/Spinal Epidural Continuous Time Out Performed: Yes Date of Procedure: 11/29/22 Procedure Start Time: : Procedure Stop Time: Location of Patient: PreOp Indication: Acute Post-Operative Pain, Requested by Surgeon Sedation Type: Sedate with meaningful contact maintained Preparation: Sterile Prep Position: Sitting Catheter: Indwelling Needle Guage: 20 Narrative: Pt in sitting position. T12 indentified by landmarks. Prepped with chlorhexidine.Thouhey advanced for Cyndee at 8 cm. catheter threaded to 13 cm at skin. Neg aspiration for csf and blood. 3 cc [id number] lido test dose negative. Catheter taped in sterile fashion. Blood Aspirated: No Pain Paresthesia on Injection Noted: No Events: Uneventful and Well Tolerated
[2022-11-29] MEDS ORDERED: PROPOFOL 10 MG/ML 20 ML VIAL IV ONE (09:10)
[2022-11-29] MEDS ORDERED: HYDROmorphone (PF) 1 MG/ML ONE (09:10)
[2022-11-29] MEDS ORDERED: SUCCINYLCHOLINE CHLORIDE 200 MG/10 ML VIAL IV ONE (09:10)
[2022-11-29] MEDS ORDERED: NEOSTIGMINE 1 MG/ML 10 ML VIAL ONE (09:10)
[2022-11-29] MEDS ORDERED: LIDOCAINE 2% INJ 20 MG/ML (2 ML VIAL) ONE (09:10)
[2022-11-29] MEDS ORDERED: HEPARIN SODIUM,PORCINE 5,000 UNIT/ML 1 ML VIAL ONE (09:10)
[2022-11-29] MEDS ORDERED: GLYCOPYRROLATE 0.2 MG/ML 2 ML VIAL ONE (09:10)
[2022-11-29] MEDS ORDERED: fentaNYL (PF) 50 MCG/ML 2 ML AMP ONE (09:10)
[2022-11-29] MEDS ORDERED: MIDAZOLAM 2 MG/2 ML VIAL ONE (09:10)
[2022-11-29] MEDS ORDERED: ROCURONIUM 10 MG/ML (5 ML VIAL) IV ONE (09:10)
[2022-11-29] MEDS ORDERED: NALOXONE 0.4 MG/ML 1 ML VIAL IV PRN (09:57)
[2022-11-29] MEDS ORDERED: LACTATED RINGERS 1,000 ML IV ONE ×2 (10:20→11:30)
[2022-11-29] MEDS ORDERED: METOCLOPRAMIDE 5 MG/ML 2 ML VIAL IVP PRN (11:35)
[2022-11-29] MEDS ORDERED: BENZOCAINE/MENTHOL LOZENG 1 EACH LOZENGE MUCOUS MEM PRN (11:35)
--- NOTE | 2022-11-29 11:44 | P.GSHP ---
History of Present Illness H&P Date: 11/29/22 Chief Complaint: Diverticulitis with colovesical fistula This a 57-year-old female who had a recent hospital admission in October. Patient's found have evidence of chronic diverticulitis with with colovesical fistula. Patient had multiple recurrent urinary tract infections prior to admission. Patient presents today for low anterior section. Patient is aware the risk of possible colostomy due to severe diverticular disease. Patient's also aware the risk of possible ureteral injury, bleeding and wound infection. Past Medical History Past Medical History: COPD, Eye Disorder, GERD/Reflux Additional Past Medical History / Comment(s): See Dr Tyson's H&P. 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 History of Any Multi-Drug Resistant Organisms: None Reported Past Surgical History: Section Additional Past Surgical History / Comment(s): Shunt for hydrocephalus. Past Anesthesia/Blood Transfusion Reactions: No Reported Reaction Past Psychological History: No Psychological Hx Reported Smoking Status: Current every day smoker Past Alcohol Use History: Rare Additional Past Alcohol Use History / Comment(s): Started smoking in 1994, 1 ppd. Past Drug Use History: Marijuana Additional Drug Use History / Comment(s): Marijuana q, states stopped a couple nights ago. - Past Family History Father Family Medical History: Cancer Additional Family Medical History / Comment(s): Colon cancer. Medications and Allergies Home Medications Medication Instructions Recorded Confirmed Type Budesonide-Formot 160-4.5 Mcg 2 puff INHALATION BID 01/24/15 11/29/22 History [Symbicort 160-4.5 Mcg Inhaler] Omeprazole 40 mg PO DAILY 11/23/17 11/28/22 History Diclofenac Sodium 50 mg PO BID-W/MEALS PRN 11/01/22 11/28/22 History Losartan-Hctz 50-12.5 mg [Hyzaar 1 tab PO DAILY 11/01/22 11/28/22 History 50-12.5] Magnesium 250 mg PO DAILY 11/25/22 11/28/22 History Allergies Allergy/AdvReac Type Severity Reaction Status Date / Time doxycycline Allergy Nausea & Verified 11/29/22 07:27 Vomiting, sweating Surgical - Exam Vital Signs Temp Pulse Resp BP Pulse Ox 97.4 F L 83 16 127/69 98 11/29/22 07:26 11/29/22 07:26 11/29/22 07:26 11/29/22 07:26 11/29/22 07:26 - General well developed, well nourished, no distress - Eyes PERRL - ENT normal pinna - Neck no masses - Respiratory normal expansion - Cardiovascular Rhythm: regular - Abdomen Abdomen is soft. There is mild fullness in the pelvis area there is minimal tenderness left lower quadrant. There is no rebound or guarding. There is no palpable mass. Assessment and Plan Plan: Severe chronic diverticulitis. With colovesical initial. Patient will undergo hospital low anterior section, possible colostomy. All hers and her family's questions were answered
[2022-11-29] MEDS: D5-0.45% NACL WITH KCL 20MEQ/L 1,000 ML IV SCH ×2 (14:54→20:11)
[2022-11-29] MEDS: FAMOTIDINE 20 MG/2 ML VIAL IV SCH (20:11)
[2022-11-29] MEDS: SYMBICORT 160-4.5 MCG INHALER INHALATION SCH (20:56)
[2022-11-30] MEDS: LACTATED RINGERS 1,000 ML IV SCH (05:07)
[2022-11-30] MEDS: D5-0.45% NACL WITH KCL 20MEQ/L 1,000 ML IV SCH ×2 (05:08→21:09)
[2022-11-30 06:15] LABS: Anisocytosis Slight; Basophils % (A) 0 %; Eosinophils % (A) 0 %; HCT 28.5 % (34.0-46.0); Lymphocytes # (A) 1.2 k/uL (1.0-4.8); Lymphocytes % (A) 17 %; MCH 29.3 pg (25.0-35.0); MCHC 31.1 g/dL (31.0-37.0); MCV 94.2 fL (80.0-100.0); Mean Platelet Volume 7.8; Monocytes # (A) 0.4 k/uL (0-1.0); Monocytes % (A) 6 %; Neutrophils # (A) 5.7 k/uL (1.3-7.7); Neutrophils % (A) 75 %; Platelet Count 236 k/uL (150-450); RBC 3.03 m/uL (3.80-5.40); RDW 17.3 % (11.5-15.5); WBC 7.5 k/uL (3.8-10.6)
[2022-11-30 06:21] LABS: HGB 8.9 gm/dL (11.4-16.0)
[2022-11-30 06:33] LABS: African American GFR (CKD) >90 (>60 ml/min/1.73 sqM); Anion Gap 4 mmol/L; Blood Urea Nitrogen 12 mg/dL (7-17); Calcium 7.9 mg/dL (8.4-10.2); Carbon Dioxide 24 mmol/L (22-30); Chloride 109 mmol/L (98-107); Glucose 109 mg/dL (74-99); Non-African American GFR(CKD) 82 (>60 ml/min/1.73 sqM); Potassium 4.3 mmol/L (3.5-5.1); Sodium 137 mmol/L (137-145)
[2022-11-30] MEDS: SYMBICORT 160-4.5 MCG INHALER INHALATION SCH ×2 (07:57→20:20)
[2022-11-30] MEDS: FAMOTIDINE 20 MG/2 ML VIAL IV SCH ×2 (08:39→21:08)
[2022-11-30] MEDS: ALVIMOPAN 12 MG CAPSULE PO SCH ×2 (09:03→21:08)
[2022-11-30] MEDS: diphenhydrAMINE 50 MG/ML 1 ML VIAL IVP PRN (13:57)
[2022-11-30] MEDS: ROPIVACAINE 250 MG, HYDROMORPHONE (PF) 5 MG in SODIUM CHLORIDE 0.9% 200 ML EPIDURAL PRN (14:35)
--- NOTE | 2022-11-30 15:09 | P.PN ---
Subjective Progress Note Date: 11/30/22 CHIEF COMPLAINT: Diverticulitis HISTORY OF PRESENT ILLNESS: The patient is a 57-year-old female status post low anterior resection with colostomy for diverticulitis with colovesical fistula. Patient gives additional history that she had a colonoscopy performed less than 8 months ago. She reports chronic urinary tract infections untreated for several months. Patient was recently diagnosed and hospitalized for diverticulitis last in 1 month ago. She is sitting up in a chair. She complains of severe itching from her epidural which she is seeking removal. She has a Leyva catheter. She is yet to ambulate. She denies ostomy function. ROS: No reports of nausea and vomiting. No bowel movements. No fevers or chills. No new chest pain. No productive sputum PHYSICAL EXAM: VITAL SIGNS: Reviewed CONSTITUTIONAL: Well developed and in no acute distress. EYES: Conjuctivae without sclera icterus. Extraocular movements grossly intact. HEAD, EARS, NOSE, THROAT: Moist buccal mucosa. Head is atraumatic, normocephalic. Hears conversational speech. No nasal drainage. RESPIRATORY: Non-labored respirations and equal bilateral excursions. CARDIOVASCULAR: Palpable 2+ radial pulses. ABDOMEN: Dressings clean dry and intact. Ostomy without flatus or stool. Ostomy viable. GISEL serosanguineous MUSCULOSKELETAL: No gross deformity of the lower extremities noted. No clubbing. No cyanosis. SKIN: Good skin turgor. Well perfused. NEUROLOGIC: Cranial nerves II through XII grossly intact. No focal or lateralizing signs. PSYCH: Appropriate affect. Alert and oriented to person, place and time. CLINICAL LABS: Reviewed. Anemia, pre-existing 10.5-8.9. WBC normal 7.5. Creatinine normal at 0.8. ASSESSMENT: 1. Diverticulitis with colovesical fistula PLAN: 1. Continue Leyva catheter due to colovesical fistula 2. Epidural management per anesthesia including itching from epidural 3. Continue clear liquid diet 4. Ambulation encouraged 5. Questions addressed for necessity of Leyva catheter and epidural 6. Benadryl and Zyrtec prescribed for itching with epidural Objective - Vital Signs Vital signs: Vital Signs Temp 97.5 F L 11/30/22 07:06 Pulse 66 11/30/22 07:10 Resp 18 11/30/22 07:10 BP 113/69 11/30/22 07:06 Pulse Ox 97 11/30/22 07:59 FiO2 21 11/29/22 20:59 Intake & Output 11/29/22 11/30/22 11/30/22 18:59 06:59 18:59 Intake Total 2574 118 Output Total 460 300 60 Balance 2114 -300 58 Weight 96.4 kg Intake: IV 2574 Oral 118 Output: Drainage 110 60 Right Lower Abdomen 110 60 Urine 250 300 Estimated Blood Loss 100 Other: Voiding Method Indwelling Catheter Indwelling Catheter - Labs CBC & Chem 7: 11/30/22 05:45 11/30/22 05:45 Labs: Abnormal Lab Results - Last 24 Hours (Table) 11/30/22 11/30/22 Range/Units 05:45 05:45 RBC 3.03 L (3.80-5.40) m/uL Hgb 8.9 L D (11.4-16.0) gm/dL Hct 28.5 L (34.0-46.0) % RDW 17.3 H (11.5-15.5) % Chloride 109 H (98-107) mmol/L Glucose 109 H (74-99) mg/dL Calcium 7.9 L (8.4-10.2) mg/dL
[2022-11-30] MEDS: LORATADINE-PSEUDOEPH 5-120 MG 1 EACH TAB.ER.12H PO SCH ×2 (18:04→21:08)
--- NOTE | 2022-11-30 18:54 | P.CONS ---
History of Present Illness - Reason for Consult Consult date: 11/30/22 Medical management - Chief Complaint Diverticulitis with colovesical fistula - History of Present Illness 57-year-old female who had a recent hospital admission in October. Patient's found have evidence of chronic diverticulitis with with colovesical fistula. Patient had multiple recurrent urinary tract infections prior to admission. Patient presents today for low anterior section. Patient is aware the risk of possible colostomy due to severe diverticular disease. Patient's also aware the risk of possible ureteral injury, bleeding and wound infection. Review of Systems REVIEW OF SYSTEMS: CONSTITUTIONAL: No fever, no malaise, no fatigue. HEENT: No recent visual problems or hearing problems. Denied any sore throat. CARDIOVASCULAR: No chest pain, orthopnea, PND, no palpitations, no syncope. PULMONARY: No shortness of breath, no cough, no hemoptysis. GASTROINTESTINAL: No diarrhea, no nausea, no vomiting, no abdominal pain. NEUROLOGICAL: No headaches, no weakness, no numbness. HEMATOLOGICAL: Denies any bleeding or petechiae. GENITOURINARY: Denies any burning micturition, frequency, or urgency. MUSCULOSKELETAL/RHEUMATOLOGICAL: Denies any joint pain, swelling, or any muscle pain. ENDOCRINE: Denies any polyuria or polydipsia. The rest of the 14-point review of systems is negative. Past Medical History Past Medical History: COPD, Eye Disorder, GERD/Reflux Additional Past Medical History / Comment(s): See Dr Tyson's H&P. 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 History of Any Multi-Drug Resistant Organisms: None Reported Past Surgical History: Section Additional Past Surgical History / Comment(s): Shunt for hydrocephalus. Past Anesthesia/Blood Transfusion Reactions: No Reported Reaction Past Psychological History: No Psychological Hx Reported Smoking Status: Current every day smoker Past Alcohol Use History: Rare Additional Past Alcohol Use History / Comment(s): Started smoking in 1994, 1 ppd. Past Drug Use History: Marijuana Additional Drug Use History / Comment(s): Marijuana [facility], states stopped a couple nights ago. - Past Family History Father Family Medical History: Cancer Additional Family Medical History / Comment(s): Colon cancer. Medications and Allergies Home Medications Medication Instructions Recorded Confirmed Type Budesonide-Formot 160-4.5 Mcg 2 puff INHALATION BID 01/24/15 11/29/22 History [Symbicort 160-4.5 Mcg Inhaler] Omeprazole 40 mg PO DAILY 11/23/17 11/28/22 History Diclofenac Sodium 50 mg PO BID-W/MEALS PRN 11/01/22 11/28/22 History Losartan-Hctz 50-12.5 mg [Hyzaar 1 tab PO DAILY 11/01/22 11/28/22 History 50-12.5] Magnesium 250 mg PO DAILY 11/25/22 11/28/22 History Allergies Allergy/AdvReac Type Severity Reaction Status Date / Time doxycycline Allergy Nausea & Verified 11/29/22 07:27 Vomiting, sweating Physical Exam Vitals: Vital Signs Temp Pulse Resp BP Pulse Ox FiO2 11/30/22 07:59 97 11/30/22 07:10 66 18 11/30/22 07:06 97.5 F L 66 18 113/69 97 11/30/22 01:46 98.6 F 75 14 112/69 98 11/29/22 20:59 97 21 11/29/22 19:59 98.4 F 80 14 100/63 97 11/29/22 14:45 72 106/60 11/29/22 14:30 82 138/56 11/29/22 14:15 78 104/69 11/29/22 14:00 82 112/72 11/29/22 13:45 81 114/75 11/29/22 13:38 98.0 F 75 17 114/68 100 11/29/22 12:45 61 18 128/64 98 11/29/22 12:30 67 16 122/59 97 11/29/22 12:15 70 16 143/64 97 11/29/22 12:01 80 16 143/64 97 11/29/22 11:46 97 F L 85 16 149/68 97 Intake and Output 11/29/22 11/30/22 11/30/22 22:59 06:59 14:59 Intake Total 118 Output Total 50 300 60 Balance -50 -300 58 Intake: Oral 118 Output: Drainage 50 60 Right Lower Abdomen 50 60 Urine 300 Other: Voiding Method Indwelling Catheter Indwelling Catheter PHYSICAL EXAMINATION: GENERAL: The patient is alert and oriented x3, not in any acute distress. Well developed, well nourished. HEENT: Pupils are round and equally reacting to light. EOMI. No scleral icterus. No conjunctival pallor. Normocephalic, atraumatic. No pharyngeal erythema. No thyromegaly. CARDIOVASCULAR: S1 and S2 present. No murmurs, rubs, or gallops. PULMONARY: Chest is clear to auscultation, no wheezing or crackles. ABDOMEN: Soft, nontender, nondistended, normoactive bowel sounds. No palpable organomegaly. MUSCULOSKELETAL: No joint swelling or deformity. EXTREMITIES: No cyanosis, clubbing, or pedal edema. NEUROLOGICAL: Gross neurological examination did not reveal any focal deficits. SKIN: No rashes. Results CBC & Chem 7: 11/30/22 05:45 11/30/22 05:45 Labs: Abnormal Lab Results - Last 24 Hours (Table) 11/30/22 11/30/22 Range/Units 05:45 05:45 RBC 3.03 L (3.80-5.40) m/uL Hgb 8.9 L D (11.4-16.0) gm/dL Hct 28.5 L (34.0-46.0) % RDW 17.3 H (11.5-15.5) % Chloride 109 H (98-107) mmol/L Glucose 109 H (74-99) mg/dL Calcium 7.9 L (8.4-10.2) mg/dL Assessment and Plan Assessment: 1. Diverticulitis with colovesical fistula - Patient is status post low anterior resection 2. History of asthma/COPD; continue with home immunotherapy with Symbicort 3. Hypertension; patient takes losartanHCTZ 5012 0.5 mg daily 4. Gastroesophageal reflux disease; Protonix 40 mg daily 5. Hypomagnesemia; continue current dose and monitor magnesium levels occasionally
[2022-12-01] MEDS: D5-0.45% NACL WITH KCL 20MEQ/L 1,000 ML IV SCH ×3 (06:53→20:44)
[2022-12-01] MEDS: LACTATED RINGERS 1,000 ML IV SCH (06:57)
[2022-12-01] MEDS: SYMBICORT 160-4.5 MCG INHALER INHALATION SCH ×2 (07:22→21:46)
[2022-12-01] MEDS: ONDANSETRON 4 MG/2 ML VIAL IVP PRN ×2 (07:25→20:46)
[2022-12-01] MEDS: diphenhydrAMINE 50 MG/ML 1 ML VIAL IVP PRN ×2 (07:25→20:49)
[2022-12-01] MEDS: ALVIMOPAN 12 MG CAPSULE PO SCH ×2 (09:19→20:45)
[2022-12-01] MEDS: LORATADINE-PSEUDOEPH 5-120 MG 1 EACH TAB.ER.12H PO SCH (09:19)
[2022-12-01 09:39] LABS: Basophils # (A) 0.02 X 10*3/uL (0.00-0.10); Basophils % (A) 0.3 %; Eosinophils # (A) 0.05 X 10*3/uL (0.04-0.35); Eosinophils % (A) 0.7 %; HGB 8.2 g/dL (12.0-15.0); Immature Grans, Automated 0.3 %; Lymphocytes # (A) 1.37 X 10*3/uL (0.90-5.00); Lymphocytes % (A) 20.1 %; MCH 29.5 pg (27.0-32.0); MCHC 30.4 g/dL (32.0-37.0); MCV 97.1 fL (80.0-97.0); Mean Platelet Volume 9.8 fL (9.5-12.2); Monocytes # (A) 0.66 X 10*3/uL (0.20-1.00); Monocytes % (A) 9.7 %; NRBC Per 100 WBC 0 /100 WBCS (0.0-0.0); Neutrophils # (A) 4.69 X 10*3/uL (1.80-7.70); Neutrophils % (A) 68.9 %; Platelet Count 221 X 10*3/uL (140-440); RBC 2.78 X 10*6/uL (4.10-5.20); RDW 18.1 % (11.5-14.5); WBC 6.81 X 10*3/uL (4.50-10.00)
[2022-12-01 09:58] LABS: African American GFR (CKD) 111.6 (60.0-200.0); Anion Gap 8.4 mmol/L (10.00-18.00); BUN/Creat Ratio 6.9 Ratio (12.00-20.00); Blood Urea Nitrogen 4.8 mg/dL (9.0-27.0); Calcium 8.3 mg/dL (8.7-10.3); Non-African American GFR(CKD) 96.3 (60.0-200.0); Potassium 4.3 mmol/L (3.5-5.5)
--- NOTE | 2022-12-01 10:56 | P.PN ---
Progress Note - Text Progress Note Date: 11/30/22 Patient doing well. Sitting in a chair w/o complaints of pain. Denies weakness or headache. Epidural site clean and dry. Epidural @ 9 ml/hr A/P POD#2 s/p exploratory laparotomy - doing well
--- NOTE | 2022-12-01 11:14 | P.PN ---
Progress Note - Text Progress Note Date: 12/01/22 Patient doing well. Sitting in a chair w/o complaints of pain. Pruritis treated w/ Benadryl. Denies weakness or headache. Epidural site clean and dry. Epidural @ 7 ml/hr A/P POD#2 s/p exploratory laparotomy - doing well - try atarax if pruritis persists
[2022-12-01] MEDS: FAMOTIDINE 20 MG/2 ML VIAL IV SCH ×2 (11:34→20:46)
--- NOTE | 2022-12-01 15:23 | P.PN ---
Subjective Progress Note Date: 12/01/22 CHIEF COMPLAINT: Diverticulitis HISTORY OF PRESENT ILLNESS: The patient is a 57-year-old female status post low anterior resection with colostomy for diverticulitis with colovesical fistula. She is sitting up in the chair. She is ambulating. Her itching has improved with combination of Benadryl and Zyrtec. Her pain is well-controlled. She still has her epidural. She has a Leyva catheter. She reports feeling gas without flatus and her ostomy. ROS: No reports of nausea and vomiting. No bowel movements. No fevers or chills. No new chest pain. No productive sputum PHYSICAL EXAM: VITAL SIGNS: Reviewed CONSTITUTIONAL: Well developed and in no acute distress. EYES: Conjuctivae without sclera icterus. Extraocular movements grossly intact. HEAD, EARS, NOSE, THROAT: Moist buccal mucosa. Head is atraumatic, normocephalic. Hears conversational speech. No nasal drainage. RESPIRATORY: Non-labored respirations and equal bilateral excursions. CARDIOVASCULAR: Palpable 2+ radial pulses. ABDOMEN: Dressings clean dry and intact. Ostomy without flatus or stool. Ostomy viable. GISEL serosanguineous MUSCULOSKELETAL: No gross deformity of the lower extremities noted. No clubbing. No cyanosis. SKIN: Good skin turgor. Well perfused. NEUROLOGIC: Cranial nerves II through XII grossly intact. No focal or lateralizing signs. PSYCH: Appropriate affect. Alert and oriented to person, place and time. CLINICAL LABS: Reviewed. WBC normal. Hemoglobin down 8.9-8.2. ASSESSMENT: 1. Diverticulitis with colovesical fistula 2. Itching from epidural PLAN: 1. Continue Leyva catheter due to colovesical fistula 2. Continue antibiotics Objective - Vital Signs Vital signs: Vital Signs Temp 97.9 F 12/01/22 12:49 Pulse 89 12/01/22 12:49 Resp 18 12/01/22 12:49 BP 111/73 12/01/22 12:49 Pulse Ox 100 12/01/22 12:49 FiO2 21 11/29/22 20:59 Intake & Output 11/30/22 12/01/22 12/01/22 18:59 06:59 18:59 Intake Total 358 1520 135.333 Output Total 735 1330 590 Balance -377 190 -454.667 Intake: Intake, IV Titration 1070 135.333 Amount D5-0.45% NaCl with KCl 1000 20Meq/l 1,000 ml @ 125 mls/hr IV .Q8H [facility] Rx#: [id number] Ropivacaine 250 mg 70 135.333 Hydromorphone (Pf) 5 mg In Sodium Chloride 0.9% 200 ml @ Per Protocol EPIDURAL .Q0M PRN Rx#: [id number] Oral 358 450 Output: Drainage 60 130 90 Right Lower Abdomen 60 130 90 Urine 675 1200 500 Uretheral (Leyva) 600 Other: Voiding Method Indwelling Catheter Indwelling Catheter Indwelling Catheter - Labs CBC & Chem 7: 12/01/22 06:03 12/01/22 06:03 Labs: Abnormal Lab Results - Last 24 Hours (Table) 12/01/22 12/01/22 Range/Units 06:03 06:03 RBC 2.78 L (4.10-5.20) X 10*6/uL Hgb 8.2 L (12.0-15.0) g/dL Hct 27.0 L (37.2-46.3) % MCV 97.1 H (80.0-97.0) fL MCHC 30.4 L (32.0-37.0) g/dL RDW 18.1 H (11.5-14.5) % Anion Gap 8.40 L (10.00-18.00) mmol/L BUN 4.8 L (9.0-27.0) mg/dL BUN/Creatinine Ratio 6.90 L (12.00-20.00) Ratio Glucose 117 H (70-110) mg/dL Calcium 8.3 L (8.7-10.3) mg/dL Assessment and Plan (1) Colovesical fistula Current Visit: No Status: Acute Code(s): N32.1 - VESICOINTESTINAL FISTULA SNOMED Code(s): 14700933 (2) Diverticulitis Current Visit: No Status: Acute Code(s): K57.92 - DVTRCLI OF INTEST, PART UNSP, W/O PERF OR ABSCESS W/O BLEED SNOMED Code(s): 523323002 (3) Sigmoid diverticulitis Current Visit: Yes Status: Acute Code(s): K57.32 - DVTRCLI OF LG INT W/O PERFORATION OR ABSCESS W/O BLEEDING SNOMED Code(s): 758219835 (4) Colostomy in place Current Visit: Yes Status: Acute Code(s): Z93.3 - COLOSTOMY STATUS SNOMED Code(s): 166860669
--- NOTE | 2022-12-01 17:38 | P.PN ---
Subjective Progress Note Date: 12/01/22 Principal diagnosis: Diverticulitis with colovesical fistula Status post low anterior resection with colostomy 57-year-old female who had a recent hospital admission in October. Patient's found have evidence of chronic diverticulitis with with colovesical fistula. Patient had multiple recurrent urinary tract infections prior to admission. Patient presents today for low anterior section. Patient is aware the risk of possible colostomy due to severe diverticular disease. Patient's also aware the risk of possible ureteral injury, bleeding and wound infection. ---status post low anterior resection with colostomy for diverticulitis with colovesical fistula. She is sitting up in the chair. She is ambulating. Her itching has improved with combination of Benadryl and Zyrtec. Her pain is well- controlled. She still has her epidural. She has a Leyva catheter. She reports feeling gas without flatus and her ostomy. Laboratory review shows a WBC of 6.81, hemoglobin of 8.2 which is down from 8.9 yesterday, platelet count of 221, sodium 137, potassium 4.3, BUN/creatinine of 4.8/0.7, calcium is 8.3 Surgery is on board and recommending to continue with Leyva catheter due to colovesical fistula; continue with current antibiotics Objective - Vital Signs Vital signs: Vital Signs Temp 97.9 F 12/01/22 07:02 Pulse 82 12/01/22 08:00 Resp 16 12/01/22 08:00 BP 107/71 12/01/22 07:02 Pulse Ox 98 12/01/22 07:02 FiO2 21 11/29/22 20:59 Intake & Output 11/30/22 12/01/22 12/01/22 18:59 06:59 18:59 Intake Total 358 1520 135.333 Output Total 735 1330 590 Balance -377 190 -454.667 Intake: Intake, IV Titration 1070 135.333 Amount D5-0.45% NaCl with KCl 1000 20Meq/l 1,000 ml @ 125 mls/hr IV .Q8H [facility] Rx#: [id number] Ropivacaine 250 mg 70 135.333 Hydromorphone (Pf) 5 mg In Sodium Chloride 0.9% 200 ml @ Per Protocol EPIDURAL .Q0M PRN Rx#: [id number] Oral 358 450 Output: Drainage 60 130 90 Right Lower Abdomen 60 130 90 Urine 675 1200 500 Uretheral (Leyva) 600 Other: Voiding Method Indwelling Catheter Indwelling Catheter Indwelling Catheter - Exam CONSTITUTIONAL: Well developed and in no acute distress. EYES: Conjuctivae without sclera icterus. Extraocular movements grossly intact. HEAD, EARS, NOSE, THROAT: Moist buccal mucosa. Head is atraumatic, normocephalic . Hears conversational speech. No nasal drainage. RESPIRATORY: Non-labored respirations and equal bilateral excursions. CARDIOVASCULAR: Palpable 2+ radial pulses. ABDOMEN: Dressings clean dry and intact. Ostomy without flatus or stool. Ostomy viable. GISEL serosanguineous MUSCULOSKELETAL: No gross deformity of the lower extremities noted. No clubbing. No cyanosis. SKIN: Good skin turgor. Well perfused. NEUROLOGIC: Cranial nerves II through XII grossly intact. No focal or lateralizing signs. PSYCH: Appropriate affect. Alert and oriented to person, place and time. - Labs CBC & Chem 7: 12/01/22 06:03 12/01/22 06:03 Labs: Abnormal Lab Results - Last 24 Hours (Table) 12/01/22 12/01/22 Range/Units 06:03 06:03 RBC 2.78 L (4.10-5.20) X 10*6/uL Hgb 8.2 L (12.0-15.0) g/dL Hct 27.0 L (37.2-46.3) % MCV 97.1 H (80.0-97.0) fL MCHC 30.4 L (32.0-37.0) g/dL RDW 18.1 H (11.5-14.5) % Anion Gap 8.40 L (10.00-18.00) mmol/L BUN 4.8 L (9.0-27.0) mg/dL BUN/Creatinine Ratio 6.90 L (12.00-20.00) Ratio Glucose 117 H (70-110) mg/dL Calcium 8.3 L (8.7-10.3) mg/dL Assessment and Plan Assessment: 1. Diverticulitis with colovesical fistula - Patient is status post low anterior resection 2. History of asthma/COPD; continue with home immunotherapy with Symbicort 3. Hypertension; patient takes losartanHCTZ 5012 0.5 mg daily 4. Gastroesophageal reflux disease; Protonix 40 mg daily 5. Hypomagnesemia; continue current dose and monitor magnesium levels occasionally
[2022-12-01] MEDS: ROPIVACAINE 250 MG, HYDROMORPHONE (PF) 5 MG in SODIUM CHLORIDE 0.9% 200 ML EPIDURAL PRN (18:16)
[2022-12-02] MEDS: D5-0.45% NACL WITH KCL 20MEQ/L 1,000 ML IV SCH ×2 (05:04→13:59)
--- NOTE | 2022-12-02 05:42 | P.PN ---
Progress Note - Text Progress Note Date: 12/02/22 Patient doing well. Sitting in a chair w/o complaints of pain. Pruritis treated w/ Benadryl and is improved. Denies weakness or headache. Epidural site clean and dry. Epidural @ 7 ml/hr A/P POD#3 s/p exploratory laparotomy - doing well - d/c epidural today
[2022-12-02] MEDS: SYMBICORT 160-4.5 MCG INHALER INHALATION SCH ×2 (07:42→19:16)
[2022-12-02 08:52] LABS: Basophils # (A) 0.01 X 10*3/uL (0.00-0.10); Basophils % (A) 0.2 %; Eosinophils # (A) 0.08 X 10*3/uL (0.04-0.35); Eosinophils % (A) 1.4 %; HCT 26.7 % (37.2-46.3); Immature Grans, Automated 0.2 %; Lymphocytes # (A) 1.17 X 10*3/uL (0.90-5.00); Lymphocytes % (A) 20.9 %; MCH 29.3 pg (27.0-32.0); MCV 97.8 fL (80.0-97.0); Mean Platelet Volume 9.5 fL (9.5-12.2); Monocytes # (A) 0.56 X 10*3/uL (0.20-1.00); NRBC Per 100 WBC 0 /100 WBCS (0.0-0.0); Neutrophils # (A) 3.77 X 10*3/uL (1.80-7.70); Neutrophils % (A) 67.3 %; Platelet Count 231 X 10*3/uL (140-440); RBC 2.73 X 10*6/uL (4.10-5.20); RDW 18.4 % (11.5-14.5)
[2022-12-02 09:05] LABS: African American GFR (CKD) 103.6 (60.0-200.0); Anion Gap 6.6 mmol/L (10.00-18.00); BUN/Creat Ratio 4.27 Ratio (12.00-20.00); Blood Urea Nitrogen 3.2 mg/dL (9.0-27.0); Calcium 8.4 mg/dL (8.7-10.3); Non-African American GFR(CKD) 89.3 (60.0-200.0); Potassium 4.9 mmol/L (3.5-5.5)
[2022-12-02] MEDS: LACTATED RINGERS 1,000 ML IV SCH (09:20)
[2022-12-02] MEDS: FAMOTIDINE 20 MG/2 ML VIAL IV SCH ×2 (09:21→20:22)
--- NOTE | 2022-12-02 10:43 | P.PN ---
Subjective Progress Note Date: 12/02/22 CHIEF COMPLAINT: Diverticulitis with colovesical fistula HISTORY OF PRESENT ILLNESS: Patient is postop day #3 status post lower anterior resection with colostomy for diverticulitis with colovesical fistula. Patient is sitting at bedside chair. Her ostomy is functioning. She denies any nausea or vomiting. Epidural scheduled to be discontinued today. Patient reports that her urine is clearing. GISEL drain with 220 mL serosanguineous output over the last 24 hours. Afebrile. She did have some itching from her epidural. WBC is 5.6 hemoglobin is down from 8.2-8 units to 31 sodium is 140 potassium 4.9 creatinine 0.7 PHYSICAL EXAM: VITAL SIGNS: Reviewed. GENERAL: Well-developed in no acute distress. HEENT: No sclera icterus. Extraocular movements grossly intact. Moist buccal mucosa. Head is atraumatic, normocephalic. ABDOMEN: Soft. Nondistended. Incision clean dry and intact. Ostomy with liquidy stool. GISEL drain serosanguineous NEUROLOGIC: Alert and oriented. Cranial nerves II through XII grossly intact. ASSESSMENT: 1. Diverticulitis with colovesical fistula status post lower anterior resection with colostomy PLAN: -Advance diet to full liquid -Discontinue Epidural -Keep Leyva catheter due to colovesical fistula -Encourage patient to ambulate -Encourage patient to use incentive spirometer -Ultram and Tylenol added for pain control -Discontinue IV fluid -DVT prophylaxis subcu heparin Physician Nibbler Operator note has been reviewed by physician. Signing provider agrees with the documented findings, assessment, and plan of care. Objective - Vital Signs Vital signs: Vital Signs Temp 98.4 F 12/02/22 01:48 Pulse 82 12/02/22 07:40 Resp 18 12/02/22 07:40 BP 125/74 12/02/22 07:10 Pulse Ox 100 12/02/22 07:10 FiO2 21 12/01/22 21:48 Intake & Output 12/01/22 12/02/22 12/02/22 18:59 06:59 18:59 Intake Total 1210.700 96.017 Output Total 650 2800 50 Balance 560.700 -2800 46.017 Intake: Intake, IV Titration 1210.700 96.017 Amount D5-0.45% NaCl with KCl 1000 20Meq/l 1,000 ml @ 125 mls/hr IV .Q8H [facility] Rx#: [id number] Ropivacaine 250 mg 210.700 96.017 Hydromorphone (Pf) 5 mg In Sodium Chloride 0.9% 200 ml @ Per Protocol EPIDURAL .Q0M PRN Rx#: [id number] Output: Drainage 150 Right Lower Abdomen 150 Urine 500 2750 Uretheral (Leyva) 1800 Stool 50 50 Other: Voiding Method Indwelling Catheter Indwelling Catheter Indwelling Catheter # Bowel Movements 1 - Labs CBC & Chem 7: 12/02/22 04:57 12/02/22 04:57 Labs: Abnormal Lab Results - Last 24 Hours (Table) 12/02/22 12/02/22 Range/Units 04:57 04:57 RBC 2.73 L (4.10-5.20) X 10*6/uL Hgb 8.0 L (12.0-15.0) g/dL Hct 26.7 L (37.2-46.3) % MCV 97.8 H (80.0-97.0) fL MCHC 30.0 L (32.0-37.0) g/dL RDW 18.4 H (11.5-14.5) % Anion Gap 6.60 L (10.00-18.00) mmol/L BUN 3.2 L (9.0-27.0) mg/dL BUN/Creatinine Ratio 4.27 L (12.00-20.00) Ratio Calcium 8.4 L (8.7-10.3) mg/dL
[2022-12-02] MEDS: ACETAMINOPHEN TAB 500 MG TAB PO SCH ×2 (12:48→20:22)
[2022-12-02] MEDS: traMADol 50 MG TAB PO PRN (12:48)
[2022-12-02] MEDS ORDERED: HYDROmorphone 1 MG/ML 1 ML SYRINGE IVP PRN (16:20)
--- NOTE | 2022-12-02 19:32 | P.PN ---
Subjective 57-year-old female who had a recent hospital admission in October. Patient's found have evidence of chronic diverticulitis with with colovesical fistula. Patient had multiple recurrent urinary tract infections prior to admission. Patient presents today for low anterior section. Patient is aware the risk of possible colostomy due to severe diverticular disease. Patient's also aware the risk of possible ureteral injury, bleeding and wound infection. ---status post low anterior resection with colostomy for diverticulitis with colovesical fistula. She is sitting up in the chair. She is ambulating. Her itching has improved with combination of Benadryl and Zyrtec. Her pain is well- controlled. She still has her epidural. She has a Leyva catheter. She reports feeling gas without flatus and her ostomy. Laboratory review shows a WBC of 6.81, hemoglobin of 8.2 which is down from 8.9 yesterday, platelet count of 221, sodium 137, potassium 4.3, BUN/creatinine of 4.8/0.7, calcium is 8.3 Surgery is on board and recommending to continue with Leyva catheter due to colovesical fistula; continue with current antibiotics 12/02/2022 Patient is admitted with diverticulitis with colovesical fistula is suspected, she is status post low anterior resection and ileo-colectomy. Patient currently is fully awake and oriented, no chest pain or dyspnea. She denies abdominal pain this morning and she tolerates diet 25-75% Patient states that her colostomy back has been emptied twice now. Patient denies any specific symptoms She is currently kept on D5 half-normal saline at 1 25 mL/h. No antibiotics currently. She is on hemoglobin 8.0. We recommend to resume prophylactic dose of anticoagulation once cleared by surgery primary team Objective - Vital Signs Vital signs: Vital Signs Temp 98.4 F 12/02/22 01:48 Pulse 82 12/02/22 07:40 Resp 18 12/02/22 07:40 BP 125/74 12/02/22 07:10 Pulse Ox 100 12/02/22 07:10 FiO2 21 12/01/22 21:48 Intake & Output 12/01/22 12/02/22 12/02/22 18:59 06:59 18:59 Intake Total 1210.700 96.017 Output Total 650 2800 50 Balance 560.700 -2800 46.017 Intake: Intake, IV Titration 1210.700 96.017 Amount D5-0.45% NaCl with KCl 1000 20Meq/l 1,000 ml @ 125 mls/hr IV .[facility]H [facility] Rx#: [id number] Ropivacaine 250 mg 210.700 96.017 Hydromorphone (Pf) 5 mg In Sodium Chloride 0.9% 200 ml @ Per Protocol EPIDURAL .Q0M PRN Rx#: [id number] Output: Drainage 150 Right Lower Abdomen 150 Urine 500 2750 Uretheral (Leyva) 1800 Stool 50 50 Other: Voiding Method Indwelling Catheter Indwelling Catheter Indwelling Catheter # Bowel Movements 1 - Exam GENERAL: The patient is alert and oriented x3, not in any acute distress. Well developed, well nourished. HEENT: Pupils are round and equally reacting to light. EOMI. No scleral icterus. No conjunctival pallor. Normocephalic, atraumatic. No pharyngeal erythema. No thyromegaly. CARDIOVASCULAR: S1 and S2 present. No murmurs, rubs, or gallops. PULMONARY: Chest is clear to auscultation, no wheezing or crackles. -ABDOMEN: Soft, nontender, nondistended, normoactive bowel sounds. No palpable organomegaly. Left colostomy back in a Place MUSCULOSKELETAL: No joint swelling or deformity. EXTREMITIES: No cyanosis, clubbing, or pedal edema. NEUROLOGICAL: Gross neurological examination did not reveal any focal deficits. SKIN: No rashes. no petechiae. - Labs CBC & Chem 7: 12/02/22 04:57 12/02/22 04:57 Labs: Abnormal Lab Results - Last 24 Hours (Table) 12/02/22 12/02/22 Range/Units 04:57 04:57 RBC 2.73 L (4.10-5.20) X 10*6/uL Hgb 8.0 L (12.0-15.0) g/dL Hct 26.7 L (37.2-46.3) % MCV 97.8 H (80.0-97.0) fL MCHC 30.0 L (32.0-37.0) g/dL RDW 18.4 H (11.5-14.5) % Anion Gap 6.60 L (10.00-18.00) mmol/L BUN 3.2 L (9.0-27.0) mg/dL BUN/Creatinine Ratio 4.27 L (12.00-20.00) Ratio Calcium 8.4 L (8.7-10.3) mg/dL Assessment and Plan Assessment: 1. Diverticulitis with colovesical fistula - Patient is status post low anterior resection - Continue with postoperative care including pain management and DVT prophylaxis per surgery team 2. History of asthma/COPD; continue with home immunotherapy with Symbicort 3. Hypertension; patient takes losartanHCTZ 5012 0.5 mg daily 4. Gastroesophageal reflux disease; Protonix 40 mg daily 5. Hypomagnesemia; continue current dose and monitor magnesium levels occasionally GI prophylaxis, Pepcid DVT prophylaxis: Deferred to surgery team Prognosis is guarded
[2022-12-02] MEDS: HEPARIN SODIUM,PORCINE/PF 5,000 UNIT/0.5 ML SYRINGE SQ SCH (20:22)
[2022-12-03] MEDS: ACETAMINOPHEN TAB 500 MG TAB PO SCH ×4 (00:08→17:48)
[2022-12-03] MEDS: SYMBICORT 160-4.5 MCG INHALER INHALATION SCH ×2 (08:19→19:17)
[2022-12-03] MEDS: LACTATED RINGERS 1,000 ML IV SCH (08:26)
[2022-12-03] MEDS: FAMOTIDINE 20 MG/2 ML VIAL IV SCH ×2 (08:27→21:33)
[2022-12-03] MEDS: HEPARIN SODIUM,PORCINE/PF 5,000 UNIT/0.5 ML SYRINGE SQ SCH ×2 (08:27→21:33)
--- NOTE | 2022-12-03 10:45 | P.PN ---
Subjective 57-year-old female who had a recent hospital admission in October. Patient's found have evidence of chronic diverticulitis with with colovesical fistula. Patient had multiple recurrent urinary tract infections prior to admission. Patient presents today for low anterior section. Patient is aware the risk of possible colostomy due to severe diverticular disease. Patient's also aware the risk of possible ureteral injury, bleeding and wound infection. ---status post low anterior resection with colostomy for diverticulitis with colovesical fistula. She is sitting up in the chair. She is ambulating. Her itching has improved with combination of Benadryl and Zyrtec. Her pain is well- controlled. She still has her epidural. She has a Leyva catheter. She reports feeling gas without flatus and her ostomy. Laboratory review shows a WBC of 6.81, hemoglobin of 8.2 which is down from 8.9 yesterday, platelet count of 221, sodium 137, potassium 4.3, BUN/creatinine of 4.8/0.7, calcium is 8.3 Surgery is on board and recommending to continue with Leyva catheter due to colovesical fistula; continue with current antibiotics 12/02/2022 Patient is admitted with diverticulitis with colovesical fistula is suspected, she is status post low anterior resection and ileo-colectomy. Patient currently is fully awake and oriented, no chest pain or dyspnea. She denies abdominal pain this morning and she tolerates diet 25-75% Patient states that her colostomy back has been emptied twice now. Patient denies any specific symptoms She is currently kept on D5 half-normal saline at 1 25 mL/h. No antibiotics currently. She is on hemoglobin 8.0. We recommend to resume prophylactic dose of anticoagulation once cleared by surgery primary team 12/03/2022 Patient generally doing well, she tolerates diet, abdominal pain/10, colostomy bag is working. She remains with epidural catheter and Leyva catheter She is currently in subcutaneous heparin for DVT prophylaxis Biopsies pending Repeat labs in the morning. She is on D5 half-normal saline at 1 25 mL/h Objective - Vital Signs Vital signs: Vital Signs Temp 97.5 F L 12/03/22 07:30 Pulse 69 12/03/22 07:30 Resp 16 12/03/22 07:30 BP 117/50 12/03/22 07:30 Pulse Ox 99 12/03/22 07:30 FiO2 21 12/01/22 21:48 Intake & Output 12/02/22 12/03/22 12/03/22 18:59 06:59 18:59 Intake Total 1146.017 Output Total 110 2040 Balance 1036.017 -2040 Intake: Intake, IV Titration 696.017 Amount D5-0.45% NaCl with KCl 600 20Meq/l 1,000 ml @ 125 mls/hr IV .Q8H [facility] Rx#: [id number] Ropivacaine 250 mg 96.017 Hydromorphone (Pf) 5 mg In Sodium Chloride 0.9% 200 ml @ Per Protocol EPIDURAL .Q0M PRN Rx#: [id number] Oral 450 Output: Drainage 60 140 Right Lower Abdomen 60 140 Urine 1000 Stool 50 900 Other: Voiding Method Indwelling Catheter Indwelling Catheter - Exam GENERAL: The patient is alert and oriented x3, not in any acute distress. Well developed, well nourished. HEENT: Pupils are round and equally reacting to light. EOMI. No scleral icterus. No conjunctival pallor. Normocephalic, atraumatic. No pharyngeal erythema. No thyromegaly. CARDIOVASCULAR: S1 and S2 present. No murmurs, rubs, or gallops. PULMONARY: Chest is clear to auscultation, no wheezing or crackles. -ABDOMEN: Soft, nontender, nondistended, normoactive bowel sounds. No palpable organomegaly. Left colostomy back in a Place MUSCULOSKELETAL: No joint swelling or deformity. EXTREMITIES: No cyanosis, clubbing, or pedal edema. NEUROLOGICAL: Gross neurological examination did not reveal any focal deficits. SKIN: No rashes. no petechiae. - Labs CBC & Chem 7: 12/02/22 04:57 12/02/22 04:57 Assessment and Plan Assessment: 1. Diverticulitis with colovesical fistula - Patient is status post low anterior resection - Continue with postoperative care including pain management and DVT prophylaxis per surgery team 2. History of asthma/COPD; continue with home immunotherapy with Symbicort 3. Hypertension; patient takes losartanHCTZ 5012 0.5 mg daily 4. Gastroesophageal reflux disease; Protonix 40 mg daily 5. Hypomagnesemia; continue current dose and monitor magnesium levels occasionally GI prophylaxis, Pepcid DVT prophylaxis: Deferred to surgery team Prognosis is guarded
--- NOTE | 2022-12-03 13:31 | P.PN ---
Subjective Progress Note Date: 12/03/22 CHIEF COMPLAINT: Diverticulitis with colovesical fistula HISTORY OF PRESENT ILLNESS: Patient is postop day #4 status post lower anterior resection with colostomy for diverticulitis with colovesical fistula. Patient reports her pain is controlled. She denies any nausea or vomiting. Her ostomy is functioning. Leyva catheter is in place. Urine is yellow in color. GISEL drain 140 mL of serous output. PHYSICAL EXAM: VITAL SIGNS: Reviewed. GENERAL: Well-developed in no acute distress. HEENT: No sclera icterus. Extraocular movements grossly intact. Moist buccal mucosa. Head is atraumatic, normocephalic. ABDOMEN: Soft. Nondistended. Incision clean dry and intact. Ostomy with liquidy stool. GISEL drain serous NEUROLOGIC: Alert and oriented. Cranial nerves II through XII grossly intact. ASSESSMENT: 1. Diverticulitis with colovesical fistula status post lower anterior resection with colostomy PLAN: -Send GISEL fluid for creatinine -Continue full liquids -Keep Leyva catheter due to colovesical fistula -Encourage patient to ambulate -Encourage patient to use incentive spirometer -Continue pain management -DVT prophylaxis subcu heparin Physician Oracle Programmer note has been reviewed by physician. Signing provider agrees with the documented findings, assessment, and plan of care. Objective - Vital Signs Vital signs: Vital Signs Temp 97.5 F L 12/03/22 07:30 Pulse 69 12/03/22 07:30 Resp 16 12/03/22 07:30 BP 117/50 12/03/22 07:30 Pulse Ox 99 12/03/22 07:30 FiO2 21 12/01/22 21:48 Intake & Output 12/02/22 12/03/22 12/03/22 18:59 06:59 18:59 Intake Total 1146.017 Output Total 110 2040 Balance 1036.017 -2040 Intake: Intake, IV Titration 696.017 Amount D5-0.45% NaCl with KCl 600 20Meq/l 1,000 ml @ 125 mls/hr IV .Q8H [facility] Rx#: [id number] Ropivacaine 250 mg 96.017 Hydromorphone (Pf) 5 mg In Sodium Chloride 0.9% 200 ml @ Per Protocol EPIDURAL .Q0M PRN Rx#: [id number] Oral 450 Output: Drainage 60 140 Right Lower Abdomen 60 140 Urine 1000 Stool 50 900 Other: Voiding Method Indwelling Catheter Indwelling Catheter - Labs CBC & Chem 7: 12/02/22 04:57 12/02/22 04:57
--- NOTE | 2022-12-03 16:22 | P.GSCN ---
History of Present Illness Consult date: 12/03/22 Reason for Consult: Possible ureteral injury Requesting physician: Juan Tyson History of present illness: The patient is a 57-year-old female with chronic diverticulitis and a colovesical fistula. S/P lower anterior resection with colostomy creation by Dr Tyson. Urology is consulted due to have output from the GISEL drain, and evaluation for potential ureteral injury. ureters could not be visualized during the case given significant inflammation, but no evidence of ureteral injury during surgery. Her GISEL has been putting out approximately 100-200 mL's per day, while her urine output has ranged between 1.5-3 L per 24 hours. She does have history of recurrent UTIs and kidney stones, but denies any voiding dysfunction at baseline. Denies any flank pain or gross hematuria. Her creatinine is at 0.7 which is at her baseline. y. Review of Systems - Constitutional Denies chills, Denies fever - EENT Ears, nose, mouth and throat: Denies headache - Cardiovascular Denies chest pain, Denies shortness of breath - Respiratory Denies cough Past Medical History Past Medical History: COPD, Eye Disorder, GERD/Reflux Additional Past Medical History / Comment(s): See Dr Tyson's H&P. 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 History of Any Multi-Drug Resistant Organisms: None Reported Past Surgical History: Section Additional Past Surgical History / Comment(s): Shunt for hydrocephalus. Past Anesthesia/Blood Transfusion Reactions: No Reported Reaction Past Psychological History: No Psychological Hx Reported Smoking Status: Current every day smoker Past Alcohol Use History: Rare Additional Past Alcohol Use History / Comment(s): Started smoking in 1994, 1 ppd. Past Drug Use History: Marijuana Additional Drug Use History / Comment(s): Marijuana q, states stopped a couple nights ago. - Past Family History Father Family Medical History: Cancer Additional Family Medical History / Comment(s): Colon cancer. Medications and Allergies Home Medications Medication Instructions Recorded Confirmed Type Budesonide-Formot 160-4.5 Mcg 2 puff INHALATION BID 01/24/15 11/29/22 History [Symbicort 160-4.5 Mcg Inhaler] Omeprazole 40 mg PO DAILY 11/23/17 11/28/22 History Diclofenac Sodium 50 mg PO BID-W/MEALS PRN 11/01/22 11/28/22 History Losartan-Hctz 50-12.5 mg [Hyzaar 1 tab PO DAILY 11/01/22 11/28/22 History 50-12.5] Magnesium 250 mg PO DAILY 11/25/22 11/28/22 History Allergies Allergy/AdvReac Type Severity Reaction Status Date / Time doxycycline Allergy Nausea & Verified 11/29/22 07:27 Vomiting, sweating Surgical - Exam Vital Signs Temp Pulse Resp BP Pulse Ox 97.4 F L 83 16 127/69 98 11/29/22 07:26 11/29/22 07:26 11/29/22 07:26 11/29/22 07:26 11/29/22 07:26 General: Well developed, well nourished. No acute distress. HEENT: Head is atraumatic, normocephalic. Lungs: Respirations even and nonlabored. On room air Abdomen/GI: Soft. Nondistended. Incision clean dry and intact. Ostomy with liquid stool. GISEL drain with serous drainage : Leyva catheter present draining clear yellow urine Skin: Warm and dry Neurologic: Awake, alert and oriented times 3. CN II-XII grossly intact. No focal deficits. Psychiatric: Appropriate mood and affect. Results - Labs 12/02/22 04:57 12/02/22 04:57 Assessment and Plan Assessment: 57-year-old female status post lower anterior resection and colostomy creation by Dr. Jah hernandez. Urology is consulted to evaluate for potential ureteral injury Patient has a history of a right ureteral calculi which required extracorporeal shockwave lithotri[place] [address] Bird. She denies any family history of renal or bladder cancer. She reports only having to UTIs in her life. She denies any hematuria or dysuria. Her Leyva catheter is currently draining clear yellow urine. Right abdominal GISEL drain with serosanguineous fluid. Nursing staff reported 200 mL's drainage overnight. GISEL fluid creat was obtained today Overall output from GISEL is fairly low, not consistent with ureteral injury Given given that she has significant more urine output per Leyva compared to the GISEL, normal creatinine and lack of leukocytosis highly unlikely to be ureteral injury Plan: - Keep Leyva catheter in place - Keep GISEL drain in place - Awaiting GISEL fluid creatinine level Impression and plan of care have been directed as dictated by the signing physician. Yamini Navarro nurse practitioner acting as scribe for signing physician. Yamini Navarro [facility] Palliative Care/Urology Spectralink [phone] Email: [email or web address] I personally performed and participated in the history, physical, the decision making, I agree with the assessment and plan of [employer] REPAIRER
[2022-12-04] MEDS: ACETAMINOPHEN TAB 500 MG TAB PO SCH ×4 (00:02→19:06)
[2022-12-04] MEDS: LACTATED RINGERS 1,000 ML IV SCH (06:36)
[2022-12-04] MEDS: SYMBICORT 160-4.5 MCG INHALER INHALATION SCH ×2 (07:37→21:12)
--- NOTE | 2022-12-04 09:11 | P.PN ---
Progress Note - Text Progress Note Date: 12/04/22 The patient's serum creatinine matches the creatinine and the fluid from her GISEL drain, both are 0.7. No concern for ureteral injury. Leyva catheter and GISEL drain removal per general surgerie's discretion. Thank you for this consultation. If we could be of any further assistance please feel free to contact us. Impression and plan of care have been directed as dictated by the signing physician. Yamini Navarro nurse practitioner acting as scribe for signing physician. Yamini Navarro [facility] Palliative Care/Urology Spectralink [id number] Email: [email or web address] I personally performed and participated in the history, physical, the decision making, I agree with the assessment and plan of OFFAL BALER
[2022-12-04] MEDS: FAMOTIDINE 20 MG/2 ML VIAL IV SCH ×2 (09:27→21:54)
[2022-12-04] MEDS: HEPARIN SODIUM,PORCINE/PF 5,000 UNIT/0.5 ML SYRINGE SQ SCH ×2 (09:45→21:54)
[2022-12-04 10:45] LABS: Basophils # (A) 0.01 X 10*3/uL (0.00-0.10); Basophils % (A) 0.2 %; Eosinophils # (A) 0.09 X 10*3/uL (0.04-0.35); Eosinophils % (A) 2.1 %; HCT 25.1 % (37.2-46.3); HGB 7.9 g/dL (12.0-15.0); Immature Grans, Automated 0.2 %; Lymphocytes # (A) 1.07 X 10*3/uL (0.90-5.00); Lymphocytes % (A) 25.2 %; MCH 29.9 pg (27.0-32.0); MCHC 31.5 g/dL (32.0-37.0); MCV 95.1 fL (80.0-97.0); Mean Platelet Volume 9.4 fL (9.5-12.2); Monocytes # (A) 0.32 X 10*3/uL (0.20-1.00); Monocytes % (A) 7.5 %; NRBC Per 100 WBC 0 /100 WBCS (0.0-0.0); Neutrophils # (A) 2.75 X 10*3/uL (1.80-7.70); Neutrophils % (A) 64.8 %; Platelet Count 260 X 10*3/uL (140-440); RBC 2.64 X 10*6/uL (4.10-5.20); RDW 18.4 % (11.5-14.5); WBC 4.25 X 10*3/uL (4.50-10.00)
[2022-12-04 11:09] LABS: African American GFR (CKD) 111.5 (60.0-200.0); Anion Gap 8.9 mmol/L (10.00-18.00); BUN/Creat Ratio 8.71 Ratio (12.00-20.00); Blood Urea Nitrogen 6.1 mg/dL (9.0-27.0); Calcium 8.8 mg/dL (8.7-10.3); Carbon Dioxide 25.1 mmol/L (20.0-27.5); Non-African American GFR(CKD) 96.2 (60.0-200.0); Potassium 4.8 mmol/L (3.5-5.5)
--- NOTE | 2022-12-04 11:47 | P.PN ---
Subjective 57-year-old female who had a recent hospital admission in October. Patient's found have evidence of chronic diverticulitis with with colovesical fistula. Patient had multiple recurrent urinary tract infections prior to admission. Patient presents today for low anterior section. Patient is aware the risk of possible colostomy due to severe diverticular disease. Patient's also aware the risk of possible ureteral injury, bleeding and wound infection. ---status post low anterior resection with colostomy for diverticulitis with colovesical fistula. She is sitting up in the chair. She is ambulating. Her itching has improved with combination of Benadryl and Zyrtec. Her pain is well- controlled. She still has her epidural. She has a Leyva catheter. She reports feeling gas without flatus and her ostomy. Laboratory review shows a WBC of 6.81, hemoglobin of 8.2 which is down from 8.9 yesterday, platelet count of 221, sodium 137, potassium 4.3, BUN/creatinine of 4.8/0.7, calcium is 8.3 Surgery is on board and recommending to continue with Leyva catheter due to colovesical fistula; continue with current antibiotics 12/02/2022 Patient is admitted with diverticulitis with colovesical fistula is suspected, she is status post low anterior resection and ileo-colectomy. Patient currently is fully awake and oriented, no chest pain or dyspnea. She denies abdominal pain this morning and she tolerates diet 25-75% Patient states that her colostomy back has been emptied twice now. Patient denies any specific symptoms She is currently kept on D5 half-normal saline at 1 25 mL/h. No antibiotics currently. She is on hemoglobin 8.0. We recommend to resume prophylactic dose of anticoagulation once cleared by surgery primary team 12/03/2022 Patient generally doing well, she tolerates diet, abdominal pain/10, colostomy bag is working. She remains with epidural catheter and Leyva catheter She is currently in subcutaneous heparin for DVT prophylaxis Biopsies pending Repeat labs in the morning. She is on D5 half-normal saline at 1 25 mL/h 12/04/2022 Patient awake alert, abdominal pain controlled, and tolerates diet well. Abdominal pain is stable at 4/10. Colostomy bag is working. Leyva catheter and epidural catheter starting place. Labs stable. Hemoglobin 7.9. No IV fluid. Urology team input is appreciated, no evidence of ureteral injury. Objective - Vital Signs Vital signs: Vital Signs Temp 98.7 F 12/04/22 05:40 Pulse 70 12/04/22 05:40 Resp 16 12/04/22 05:40 BP 118/72 12/04/22 05:40 Pulse Ox 100 12/04/22 07:39 FiO2 21 12/01/22 21:48 Intake & Output 12/03/22 12/04/22 12/04/22 18:59 06:59 18:59 Intake Total 278 Output Total 660 1490 Balance -660 -1490 278 Intake: Intake, IV Titration 160 Amount Lactated Ringers 1,000 ml 160 @ 20 mls/hr IV .Q24H [facility] Rx#:[id number] Oral 118 Output: Drainage 60 90 Right Lower Abdomen 60 90 Urine 600 1400 Other: Voiding Method Indwelling Catheter Indwelling Catheter - Exam GENERAL: The patient is alert and oriented x3, not in any acute distress. Well developed, well nourished. HEENT: Pupils are round and equally reacting to light. EOMI. No scleral icterus. No conjunctival pallor. Normocephalic, atraumatic. No pharyngeal erythema. No thyromegaly. CARDIOVASCULAR: S1 and S2 present. No murmurs, rubs, or gallops. PULMONARY: Chest is clear to auscultation, no wheezing or crackles. -ABDOMEN: Soft, nontender, nondistended, normoactive bowel sounds. No palpable organomegaly. Left colostomy back in a Place MUSCULOSKELETAL: No joint swelling or deformity. EXTREMITIES: No cyanosis, clubbing, or pedal edema. NEUROLOGICAL: Gross neurological examination did not reveal any focal deficits. SKIN: No rashes. no petechiae. - Labs CBC & Chem 7: 12/04/22 05:59 12/04/22 05:59 Labs: Abnormal Lab Results - Last 24 Hours (Table) 12/04/22 12/04/22 Range/Units 05:59 05:59 WBC 4.25 L (4.50-10.00) X 10*3/uL RBC 2.64 L (4.10-5.20) X 10*6/uL Hgb 7.9 L (12.0-15.0) g/dL Hct 25.1 L (37.2-46.3) % MCHC 31.5 L (32.0-37.0) g/dL RDW 18.4 H (11.5-14.5) % MPV 9.4 L (9.5-12.2) fL Chloride 111 H (96-109) mmol/L Anion Gap 8.90 L (10.00-18.00) mmol/L BUN 6.1 L (9.0-27.0) mg/dL BUN/Creatinine Ratio 8.71 L (12.00-20.00) Ratio Assessment and Plan Assessment: 1. Diverticulitis with colovesical fistula - Patient is status post low anterior resection - Continue with postoperative care - No evidence of urethral injury 2. History of asthma/COPD; continue with home immunotherapy with Symbicort 3. Hypertension; patient takes losartanHCTZ 5012 0.5 mg daily 4. Gastroesophageal reflux disease; Protonix 40 mg daily 5. Hypomagnesemia; continue current dose and monitor magnesium levels occasionally GI prophylaxis, Pepcid DVT prophylaxis: Deferred to surgery team Prognosis is guarded
--- NOTE | 2022-12-04 13:39 | P.PN ---
Subjective Progress Note Date: 12/04/22 CHIEF COMPLAINT: Diverticulitis with colovesical fistula HISTORY OF PRESENT ILLNESS: Patient is postop day #5 status post lower anterior resection with colostomy for diverticulitis with colovesical fistula. Patient reports her pain is controlled. She denies any nausea or vomiting. Her ostomy is functioning. Leyva catheter is in place. Urine is yellow in color. GISEL drain is more pink in color compared to yesterday fluid was more serous. Patient has had a 90 mL serosanguineous output her GISEL drain this morning. GISEL fluid creatinine level is the same as the serum creatinine at 0.7. Therefore no evidence of ureter injury. Patient was seen also by urology. Afebrile. WBC 4.25 Hgb 7.9 platelets 260 sodium 145 potassium is 4.8 creatinine 0.7 PHYSICAL EXAM: VITAL SIGNS: Reviewed. GENERAL: Well-developed in no acute distress. HEENT: No sclera icterus. Extraocular movements grossly intact. Moist buccal mucosa. Head is atraumatic, normocephalic. ABDOMEN: Soft. Nondistended. Incision clean dry and intact. Ostomy with liquidy stool. GISEL drain serosanguineous NEUROLOGIC: Alert and oriented. Cranial nerves II through XII grossly intact. ASSESSMENT: 1. Diverticulitis with colovesical fistula status post lower anterior resection with colostomy PLAN: -Continue full liquids -Keep Leyva catheter due to colovesical fistula -Encourage patient to ambulate -Encourage patient to use incentive spirometer -Continue pain management -Follow up on pathology results -Tiffanie Nolasco consulted for ostomy teaching -DVT prophylaxis subcu heparin Physician Paint Laboratory Technician note has been reviewed by physician. Signing provider agrees with the documented findings, assessment, and plan of care. Objective - Vital Signs Vital signs: Vital Signs Temp 98.7 F 12/04/22 05:40 Pulse 70 12/04/22 05:40 Resp 16 12/04/22 05:40 BP 118/72 12/04/22 05:40 Pulse Ox 100 12/04/22 07:39 FiO2 21 12/01/22 21:48 Intake & Output 12/03/22 12/04/22 12/04/22 18:59 06:59 18:59 Intake Total 278 Output Total 660 1490 65 Balance -660 -1490 213 Intake: Intake, IV Titration 160 Amount Lactated Ringers 1,000 ml 160 @ 20 mls/hr IV .[facility]H [facility] Rx#:[id number] Oral 118 Output: Drainage 60 90 65 Right Lower Abdomen 60 90 65 Urine 600 1400 Other: Voiding Method Indwelling Catheter Indwelling Catheter - Labs CBC & Chem 7: 12/04/22 05:59 12/04/22 05:59 Labs: Abnormal Lab Results - Last 24 Hours (Table) 12/04/22 12/04/22 Range/Units 05:59 05:59 WBC 4.25 L (4.50-10.00) X 10*3/uL RBC 2.64 L (4.10-5.20) X 10*6/uL Hgb 7.9 L (12.0-15.0) g/dL Hct 25.1 L (37.2-46.3) % MCHC 31.5 L (32.0-37.0) g/dL RDW 18.4 H (11.5-14.5) % MPV 9.4 L (9.5-12.2) fL Chloride 111 H (96-109) mmol/L Anion Gap 8.90 L (10.00-18.00) mmol/L BUN 6.1 L (9.0-27.0) mg/dL BUN/Creatinine Ratio 8.71 L (12.00-20.00) Ratio
[2022-12-05] MEDS: ACETAMINOPHEN TAB 500 MG TAB PO SCH ×5 (00:25→23:50)
[2022-12-05] MEDS: LACTATED RINGERS 1,000 ML IV SCH (07:33)
[2022-12-05] MEDS: SYMBICORT 160-4.5 MCG INHALER INHALATION SCH ×2 (07:58→20:42)
[2022-12-05] MEDS: PHENAZOPYRIDINE 100 MG TAB PO SCH ×3 (09:35→22:08)
[2022-12-05] MEDS: HEPARIN SODIUM,PORCINE/PF 5,000 UNIT/0.5 ML SYRINGE SQ SCH ×3 (09:35→21:52)
[2022-12-05] MEDS: FAMOTIDINE 20 MG/2 ML VIAL IV SCH ×2 (09:35→21:52)
[2022-12-05 10:41] LABS: HCT 27.9 % (37.2-46.3); HGB 8.6 g/dL (12.0-15.0); MCH 29.7 pg (27.0-32.0); MCHC 30.8 g/dL (32.0-37.0); MCV 96.2 fL (80.0-97.0); Mean Platelet Volume 9.5 fL (9.5-12.2); NRBC Per 100 WBC 0 /100 WBCS (0.0-0.0); Platelet Count 336 X 10*3/uL (140-440); RDW 18.7 % (11.5-14.5); WBC 5.31 X 10*3/uL (4.50-10.00)
[2022-12-05 10:42] LABS: Appearance,Urine Cloudy (Clear); Bilirubin,Urine Negative (Negative); Blood,Urine Large (Negative); Calcium Oxalate Crystals,Urine Few /hpf; Color,Urine Light Red; Glucose,Urine (UA) Negative (Negative); Ketones,Urine Negative (Negative); Leukocyte Esterase,Urine Negative (Negative); Mucus,Urine Many /hpf; Nitrite,Urine Negative (Negative); Protein,Urine 1+ (Negative); RBC,Urine >182 /hpf (0-5); Specific Gravity,Urine 1.032 (1.001-1.035); Squamous Epithelial Cell,Urine 1 /hpf (0-4); Urobilinogen,Urine <2.0 mg/dL (<2.0); WBC,Urine 8 /hpf (0-5)
--- NOTE | 2022-12-05 11:03 | P.PN ---
Subjective 57-year-old female who had a recent hospital admission in October. Patient's found have evidence of chronic diverticulitis with with colovesical fistula. Patient had multiple recurrent urinary tract infections prior to admission. Patient presents today for low anterior section. Patient is aware the risk of possible colostomy due to severe diverticular disease. Patient's also aware the risk of possible ureteral injury, bleeding and wound infection. ---status post low anterior resection with colostomy for diverticulitis with colovesical fistula. She is sitting up in the chair. She is ambulating. Her itching has improved with combination of Benadryl and Zyrtec. Her pain is well- controlled. She still has her epidural. She has a Leyva catheter. She reports feeling gas without flatus and her ostomy. Laboratory review shows a WBC of 6.81, hemoglobin of 8.2 which is down from 8.9 yesterday, platelet count of 221, sodium 137, potassium 4.3, BUN/creatinine of 4.8/0.7, calcium is 8.3 Surgery is on board and recommending to continue with Leyva catheter due to colovesical fistula; continue with current antibiotics 12/02/2022 Patient is admitted with diverticulitis with colovesical fistula is suspected, she is status post low anterior resection and ileo-colectomy. Patient currently is fully awake and oriented, no chest pain or dyspnea. She denies abdominal pain this morning and she tolerates diet 25-75% Patient states that her colostomy back has been emptied twice now. Patient denies any specific symptoms She is currently kept on D5 half-normal saline at 1 25 mL/h. No antibiotics currently. She is on hemoglobin 8.0. We recommend to resume prophylactic dose of anticoagulation once cleared by surgery primary team 12/03/2022 Patient generally doing well, she tolerates diet, abdominal pain/10, colostomy bag is working. She remains with epidural catheter and Leyva catheter She is currently in subcutaneous heparin for DVT prophylaxis Biopsies pending Repeat labs in the morning. She is on D5 half-normal saline at 1 25 mL/h 12/04/2022 Patient awake alert, abdominal pain controlled, and tolerates diet well. Abdominal pain is stable at 4/10. Colostomy bag is working. Leyva catheter and epidural catheter starting place. Labs stable. Hemoglobin 7.9. No IV fluid. Urology team input is appreciated, no evidence of ureteral injury. 12/05/2022 Patient currently cauterized it well, with minimal abdominal pain. Colostomy bag is working. She remains on epidural catheter and Leyva catheter which is commended for her also because colo-Vesica fistula. Evaluated also by urologist. Patient today was complaining of from dysuria and regurgitation at the Leyva catheter site. Because of this we sent urine analysis which came back abnormal with blunt and leukocytosis in the urine. Therefore going to start the patient empirically on Cipro orally as well as per ED for symptomatic relief. Objective - Vital Signs Vital signs: Vital Signs Temp 98.0 F 12/05/22 08:13 Pulse 71 12/05/22 08:13 Resp 18 12/05/22 08:13 BP 133/63 12/05/22 08:13 Pulse Ox 99 12/05/22 08:13 FiO2 21 12/01/22 21:48 Intake & Output 12/04/22 12/05/22 12/05/22 18:59 06:59 18:59 Intake Total 518 128 118 Output Total 65 660 Balance 453 -532 118 Intake: IV 10 Invasive Line 2 10 Intake, IV Titration 160 Amount Lactated Ringers 1,000 ml 160 @ 20 mls/hr IV .Q24H [facility] Rx#:[id number] Oral 358 118 118 Output: Drainage 65 60 Right Lower Abdomen 65 60 Urine 600 Uretheral (Leyva) 400 Other: Voiding Method Indwelling Catheter Indwelling Catheter - Exam GENERAL: The patient is alert and oriented x3, not in any acute distress. Well developed, well nourished. HEENT: Pupils are round and equally reacting to light. EOMI. No scleral icterus. No conjunctival pallor. Normocephalic, atraumatic. No pharyngeal erythema. No thyromegaly. CARDIOVASCULAR: S1 and S2 present. No murmurs, rubs, or gallops. PULMONARY: Chest is clear to auscultation, no wheezing or crackles. -ABDOMEN: Soft, nontender, nondistended, normoactive bowel sounds. No palpable organomegaly. Left colostomy back in a Place MUSCULOSKELETAL: No joint swelling or deformity. EXTREMITIES: No cyanosis, clubbing, or pedal edema. NEUROLOGICAL: Gross neurological examination did not reveal any focal deficits. SKIN: No rashes. no petechiae. - Labs CBC & Chem 7: 12/05/22 06:29 12/04/22 05:59 Labs: Abnormal Lab Results - Last 24 Hours (Table) 12/04/22 12/05/22 12/05/22 Range/Units 05:59 06:29 09:41 RBC 2.90 L (4.10-5.20) X 10*6/uL Hgb 8.6 L (12.0-15.0) g/dL Hct 27.9 L (37.2-46.3) % MCHC 30.8 L (32.0-37.0) g/dL RDW 18.7 H (11.5-14.5) % Chloride 111 H (96-109) mmol/L Anion Gap 8.90 L (10.00-18.00) mmol/L BUN 6.1 L (9.0-27.0) mg/dL BUN/Creatinine Ratio 8.71 L (12.00-20.00) Ratio Urine Appearance Cloudy H (Clear) Urine Protein 1+ H (Negative) Urine Blood Large H (Negative) Urine RBC >182 H (0-5) /hpf Urine WBC 8 H (0-5) /hpf Calcium Oxalate Crystal Few H (None) /hpf Urine Mucus Many H (None) /hpf Assessment and Plan Assessment: 1. Diverticulitis with colovesical fistula - Patient is status post low anterior resection - Continue with postoperative care - No evidence of urethral injury 2. History of asthma/COPD; continue with home immunotherapy with Symbicort 3. Hypertension; patient takes losartanHCTZ 5012 0.5 mg daily 4. Gastroesophageal reflux disease; Protonix 40 mg daily 5. Hypomagnesemia; continue current dose and monitor magnesium levels o ccasionally 6. Possible UTI, Leyva catheter associated. Start on Cipro GI prophylaxis, Pepcid DVT prophylaxis: Deferred to surgery team Prognosis is guarded
[2022-12-05] MEDS: CIPROFLOXACIN HCL 500 MG TAB PO SCH ×2 (11:17→21:52)
[2022-12-05] MEDS: traMADol 50 MG TAB PO PRN (11:25)
[2022-12-05] MEDS: ONDANSETRON 4 MG/2 ML VIAL IVP PRN (11:26)
[2022-12-05 14:05] VITALS: BMI 35.4
--- NOTE | 2022-12-05 15:28 | P.PN ---
Subjective Progress Note Date: 12/05/22 CHIEF COMPLAINT: Diverticulitis with colovesical fistula HISTORY OF PRESENT ILLNESS: Patient is postop day #6 status post lower anterior resection with colostomy for diverticulitis with colovesical fistula. Patient had been complaining about burning at the Leyva catheter site. Urine did have some blood noted in it. Patient reports urinating around the Leyva catheter. Nursing staff could not advance the Leyva catheter. Due to the Leyva catheter causing pain and trauma Leyva catheter was removed per Dr. silva. Patient otherwise reports her abdominal pain is controlled. She did have some pain after eating this morning. Denies any vomiting. Did have some nausea that has improved. GISEL drain more serous in color with 80 ML output. 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 Afebrile. WBC 5.63 hemoglobin 8.6 platelets 336. Ostomy functioning. Patient did have ostomy teaching. Patient seen and examined with Dr. silva PHYSICAL EXAM: VITAL SIGNS: Reviewed. GENERAL: Well-developed in no acute distress. HEENT: No sclera icterus. Extraocular movements grossly intact. Moist buccal mucosa. Head is atraumatic, normocephalic. ABDOMEN: Soft. Nondistended. Incision clean dry and intact. Ostomy with liquidy stool. GISEL drain serosanguineous NEUROLOGIC: Alert and oriented. Cranial nerves II through XII grossly intact. ASSESSMENT: 1. Diverticulitis with colovesical fistula status post lower anterior resection with colostomy 2. Pathology with metastatic poorly differentiated carcinoma consistent with high-grade ovarian cancer PLAN: -Consult oncology regarding metastatic ovarian cancer -Continue regular diet -Leyva catheter discontinued -Encourage patient to ambulate -Encourage patient to use incentive spirometer -DVT prophylaxis subcu heparin Physician Racking Technician note has been reviewed by physician. Signing provider agrees with the documented findings, assessment, and plan of care. Objective - Vital Signs Vital signs: Vital Signs Temp 98.0 F 12/05/22 08:13 Pulse 71 12/05/22 08:13 Resp 18 12/05/22 08:13 BP 133/63 12/05/22 08:13 Pulse Ox 99 12/05/22 08:13 FiO2 21 12/01/22 21:48 Intake & Output 12/04/22 12/05/22 12/05/22 18:59 06:59 18:59 Intake Total 518 128 118 Output Total 65 660 680 Balance 183 -404 -337 Weight 96.4 kg Intake: IV 10 Invasive Line 2 10 Intake, IV Titration 160 Amount Lactated Ringers 1,000 ml 160 @ 20 mls/hr IV .Q24H [facility] Rx#:[id number] Oral 358 118 118 Output: Drainage 65 60 80 Right Lower Abdomen 65 60 80 Urine 600 500 Uretheral (Leyva) 400 500 Stool 100 Other: Voiding Method Indwelling Catheter Indwelling Catheter Indwelling Catheter - Labs CBC & Chem 7: 12/05/22 06:29 12/04/22 05:59 Labs: Abnormal Lab Results - Last 24 Hours (Table) 12/05/22 12/05/22 Range/Units 06:29 09:41 RBC 2.90 L (4.10-5.20) X 10*6/uL Hgb 8.6 L (12.0-15.0) g/dL Hct 27.9 L (37.2-46.3) % MCHC 30.8 L (32.0-37.0) g/dL RDW 18.7 H (11.5-14.5) % Urine Appearance Cloudy H (Clear) Urine Protein 1+ H (Negative) Urine Blood Large H (Negative) Urine RBC >182 H (0-5) /hpf Urine WBC 8 H (0-5) /hpf Calcium Oxalate Crystal Few H (None) /hpf Urine Mucus Many H (None) /hpf
--- NOTE | 2022-12-05 17:10 | P.OP ---
Date of Procedure: 11/29/22 Preoperative Diagnosis: Diverticulitis with possible colovesical fistula Postoperative Diagnosis: severe diverticulitis with significant inflammatory reaction in the pelvis Procedure(s) Performed: Sai procedure Ileocolectomy Partial omentectomy Anesthesia: KHOI Surgeon: Juan Tyson Estimated Blood Loss (ml): 50 Pathology: other (sigmoid colon, cecum, ileum) Condition: stable Disposition: PACU Indications for Procedure: 57-year-old female has had issues with recurrent urinary tract infections. Patient's work-up found evidence of diverticulitis with possible colovesical fistula. Operative Findings: Severely inflamed sigmoid colon with significant pelvic inflammatory changes involving right colon Description of Procedure: patient is placed on the upper table in the supine position. She received general endotracheal procedure. Her abdomen was prepped and draped you sterile fashion as she was placed in dorsal thigh position. The abdomen entered through a low midline incision. Use electrocautery the subcu tissues were divided and the abdominal wall was divided a Bookwalter tract placed the wound. The sigmoid colon was visualized. There was significant inflammatory change of the sigmoid colon using meticulous dissection the loop of sigmoid colon attached to the left abdominal wall was lysed and dissected free. the omentum was stuck to the bladder and sigmoid colon and this was dissected free. A portion of omentum was transected and sent to pathology. The right colon and appendix appear to be also stuck on the inflammatory mass of the sigmoid colon. The appendix was dissected free off of of the inflammatory mass. The ileum was also stuck to this area. The. At this point it was decided due to the significant inflammation that an anastomosis would not be created. Determined ileum was transected with a LEONELA stapler and then the cecum was also transected with a LEONELA stapler. The ileum and right colon were then anastomosed in a [id number] functional end-to-end staple anastomosis using a LEONELA and TA stapler. The white line of Toldt was then divided on the left colon. The sigmoid colon was then mobilized medially. Care was taken to identify and preserve the ureter. The distal descending colon was then transected. And then the rectum was transected with the contour stapler. This was done after the mesentery the bowel was divided with the Enseal device. Due to the inflammatory changes pelvis aside not to perform the anastomosis. A suitable site for the colostomy then brought up in the left upper quadrant. The bowel was then brought through the colostomy site. The abdomen is irrigated there is no bleeding seen. A GISEL drain is placed in the pelvis. The fascia was then closed with looped #1 PDS suture. Skin was closed mignon. The ostomy matured with 3 oh-0 Vicryl suture. Sterile dressing applied. Patient was sent to recovery room in stable condition.s
[2022-12-06] MEDS: ACETAMINOPHEN TAB 500 MG TAB PO SCH ×2 (05:58→11:05)
[2022-12-06 07:58] VITALS: BP 140/62; PULSE 93; RESP 18; TEMP 98.8
[2022-12-06] MEDS: FAMOTIDINE 20 MG/2 ML VIAL IV SCH (08:15)
[2022-12-06] MEDS: SYMBICORT 160-4.5 MCG INHALER INHALATION SCH (09:04)
[2022-12-06] MEDS: HEPARIN SODIUM,PORCINE/PF 5,000 UNIT/0.5 ML SYRINGE SQ SCH (09:53)
[2022-12-06] MEDS: CIPROFLOXACIN HCL 500 MG TAB PO SCH (09:53)
[2022-12-06] MEDS: PHENAZOPYRIDINE 100 MG TAB PO SCH (09:53)
--- NOTE | 2022-12-06 11:08 | P.DS ---
Providers Date of admission: 11/29/22 07:08 Expected date of discharge: 12/06/22 Attending physician: Juan Tyson Consults: 11/29/22 11:35 Consult Physician Routine Consulting Provider: Lavern Orta Consult Reason/Comments: Medical management Do you want consulting provider notified?: Yes 12/03/22 10:37 Consult Physician Routine Consulting Provider: Pierre Pinon Consult Reason/Comments: Diverticulitis, possible ureteral injury Do you want consulting provider notified?: Already Contacted 12/05/22 12:24 Consult Physician Routine Consulting Provider: Marciano Godinez Consult Reason/Comments: ovarian Cancer on surgical path report Do you want consulting provider notified?: Yes Primary care physician: Chelsea Vee Hospital Course: Discharge diagnosis 1. Diverticulitis with colovesical fistula status post lower anterior resection with colostomy 2. 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 Patient's found have evidence of chronic diverticulitis with with colovesical fistula. Patient had multiple recurrent urinary tract infections prior to admission. Patient is status post lower anterior resection with colostomy for diverticulitis with colovesical fistula. Patient did have Leyva catheter removed yesterday. She is urinating without difficulty. Her pathology did show evidence of metastatic poorly differentiated carcinoma consistent with high- grade ovarian cancer. Oncology has been consulted. Patient will follow-up with oncology outpatient. Patient is tolerating diet. Her ostomy is functioning. She has been up and ambulating. Her pain is controlled. She's afebrile. Also note that patient was seen by urology during this admission for possible ureteral injury. Patient's GISEL drain creatinine fluid and serum fluid were checked and showed no evidence of ureteral injury. She is stable for discharge. Please refer to chart for any further details. Physician Day Care Home Provider note has been reviewed by physician. Signing provider agrees with the documented findings, assessment, and plan of care. Patient Condition at Discharge: Stable Plan - Discharge Summary Discharge Rx Participant: No New Discharge Prescriptions: New Acetaminophen Tab [Tylenol] 1,000 mg PO Q6HR PRN #30 tablet PRN Reason: Pain traMADol HCl [Ultram] 50 mg PO Q6HR PRN 3 Days #12 tab PRN Reason: Pain Continue Budesonide-Formot 160-4.5 Mcg [Symbicort 160-4.5 Mcg Inhaler] 2 puff INHALATION BID Omeprazole 40 mg PO DAILY Losartan-Hctz 50-12.5 mg [Hyzaar 50-12.5] 1 tab PO DAILY Magnesium 250 mg PO DAILY Discontinued Diclofenac Sodium 50 mg PO BID-W/MEALS PRN PRN Reason: Pain Discharge Medication List Budesonide-Formot 160-4.5 Mcg [Symbicort 160-4.5 Mcg Inhaler] 2 puff INHALATION BID 01/24/15 [History] Omeprazole 40 mg PO DAILY 11/23/17 [History] Losartan-Hctz 50-12.5 mg [Hyzaar 50-12.5] 1 tab PO DAILY 11/01/22 [History] Magnesium 250 mg PO DAILY 11/25/22 [History] Acetaminophen Tab [Tylenol] 1,000 mg PO Q6HR PRN #30 tablet 12/06/22 [Rx] traMADol HCl [Ultram] 50 mg PO Q6HR PRN 3 Days #12 tab 12/06/22 [Rx] Follow up Appointment(s)/Referral(s): Marciano Godinez MD [STAFF PHYSICIAN] - 1 Week (oncologist ) Nanda Tran MD [Primary Care Provider] - 12/13/22 9:00 am Du Justin MD [STAFF PHYSICIAN] - 1 Week (Office stated they will call for appointment.) [facility], [NON-STAFF] - ([facility] will call you to arrange a visit) Juan Tyson MD [STAFF PHYSICIAN] - 12/12/22 3:45 pm Patient Instructions/Handouts: Diverticulitis (ED), Colostomy Care (DC), Leyva Catheter Placement and Care (DC) Activity/Diet/Wound Care/Special Instructions: Colostomy Care Recommendations for Discharge Home as follows: Last Pouching appliance change on 12.04.2022 Mrs Yu will receive the following items for her colostomy care from the hospital as follows: Convatec one piece cut to fit with filter pouching system #[id number] (three for home) Jeferson seals to fill skin crease (3) No sting prep pads (10 for home) Ostomy powder (one for home) Advised to change the entire pouching system in 3 days for last change then every 3-5 days - unless otherwise directed by Home care or the surgeon Empty the pouch when it is 1/2 to 1/3 full while sitting on the toilet [facility] 7 days after you are discharged from the hospital Mrs Cain going home with Indwelling urinary catheter No driving while taking Ultram No lifting over 10 pounds Shower daily. No soaking or tub baths for 2 weeks Very light activity until you are reevaluated at your follow up appointment with your surgeon Hold on taking the diclofenac until seen by surgeon in office Discharge Disposition: HOME SELF-CARE
--- NOTE | 2022-12-06 14:05 | P.PN ---
Subjective 57-year-old female who had a recent hospital admission in October. Patient's found have evidence of chronic diverticulitis with with colovesical fistula. Patient had multiple recurrent urinary tract infections prior to admission. Patient presents today for low anterior section. Patient is aware the risk of possible colostomy due to severe diverticular disease. Patient's also aware the risk of possible ureteral injury, bleeding and wound infection. ---status post low anterior resection with colostomy for diverticulitis with colovesical fistula. She is sitting up in the chair. She is ambulating. Her itching has improved with combination of Benadryl and Zyrtec. Her pain is well- controlled. She still has her epidural. She has a Leyva catheter. She reports feeling gas without flatus and her ostomy. Laboratory review shows a WBC of 6.81, hemoglobin of 8.2 which is down from 8.9 yesterday, platelet count of 221, sodium 137, potassium 4.3, BUN/creatinine of 4.8/0.7, calcium is 8.3 Surgery is on board and recommending to continue with Leyva catheter due to colovesical fistula; continue with current antibiotics 12/02/2022 Patient is admitted with diverticulitis with colovesical fistula is suspected, she is status post low anterior resection and ileo-colectomy. Patient currently is fully awake and oriented, no chest pain or dyspnea. She denies abdominal pain this morning and she tolerates diet 25-75% Patient states that her colostomy back has been emptied twice now. Patient denies any specific symptoms She is currently kept on D5 half-normal saline at 1 25 mL/h. No antibiotics currently. She is on hemoglobin 8.0. We recommend to resume prophylactic dose of anticoagulation once cleared by surgery primary team 12/03/2022 Patient generally doing well, she tolerates diet, abdominal pain/10, colostomy bag is working. She remains with epidural catheter and Leyva catheter She is currently in subcutaneous heparin for DVT prophylaxis Biopsies pending Repeat labs in the morning. She is on D5 half-normal saline at 1 25 mL/h 12/04/2022 Patient awake alert, abdominal pain controlled, and tolerates diet well. Abdominal pain is stable at 4/10. Colostomy bag is working. Leyva catheter and epidural catheter starting place. Labs stable. Hemoglobin 7.9. No IV fluid. Urology team input is appreciated, no evidence of ureteral injury. 12/05/2022 Patient currently cauterized it well, with minimal abdominal pain. Colostomy bag is working. She remains on epidural catheter and Leyva catheter which is commended for her also because colo-Vesica fistula. Evaluated also by urologist. Patient today was complaining of from dysuria and regurgitation at the Leyva catheter site. Because of this we sent urine analysis which came back abnormal with blunt and leukocytosis in the urine. Therefore going to start the patient empirically on Cipro orally as well as per ED for symptomatic relief. 12/06/2022 Patient today's fully awake and oriented, she denies chest pain or dyspnea. No abdominal pain. Patient tolerates diet well. She rates her abdominal pain and 60/10, no vomiting. She is having bowel movements through her colostomy back. Earlier she had dysuria and urinalysis was suspicious for infection, no urine culture was sent. However patient showed interval improvement and her dysuria have resolved after starting Cipro, patient can finish Cipro orally 3 days upon discharge and prescription was sent to the pharmacy. Pathology from the: Lesion showing metastatic ovarian cancer, patient told me she is aware of her diagnosis, oncology team already been consulted by primary team She denies any other complaints. Objective - Vital Signs Vital signs: Vital Signs Temp 98.8 F 12/06/22 07:05 Pulse 93 12/06/22 07:05 Resp 18 12/06/22 07:05 BP 140/62 12/06/22 07:05 Pulse Ox 99 12/06/22 09:04 FiO2 21 12/01/22 21:48 Intake & Output 12/05/22 12/06/22 12/06/22 18:59 06:59 18:59 Intake Total 354 Output Total 680 180 100 Balance -326 -180 -100 Weight 96.4 kg Intake: Oral 354 Output: Drainage 80 80 100 Right Lower Abdomen 80 80 100 Urine 500 100 Uretheral (Leyva) 500 Stool 100 Other: Voiding Method Indwelling Catheter Toilet - Exam GENERAL: The patient is alert and oriented x3, not in any acute distress. Well developed, well nourished. HEENT: Pupils are round and equally reacting to light. EOMI. No scleral icterus. No conjunctival pallor. Normocephalic, atraumatic. No pharyngeal erythema. No thyromegaly. CARDIOVASCULAR: S1 and S2 present. No murmurs, rubs, or gallops. PULMONARY: Chest is clear to auscultation, no wheezing or crackles. -ABDOMEN: Soft, nontender, nondistended, normoactive bowel sounds. No palpable organomegaly. Left colostomy back in a Place MUSCULOSKELETAL: No joint swelling or deformity. EXTREMITIES: No cyanosis, clubbing, or pedal edema. NEUROLOGICAL: Gross neurological examination did not reveal any focal deficits. SKIN: No rashes. no petechiae. - Labs CBC & Chem 7: 12/05/22 06:29 12/04/22 05:59 Assessment and Plan Assessment: 1. Diverticulitis with colovesical fistula - Patient is status post low anterior resection - Continue with postoperative care - No evidence of urethral injury - Biopsy showing metastatic ovarian cancer, hematology/oncology team were consulted 2. History of asthma/COPD; continue with home immunotherapy with Symbicort 3. Hypertension; patient takes losartanHCTZ 5012 0.5 mg daily 4. Gastroesophageal reflux disease; Protonix 40 mg daily 5. Hypomagnesemia; continue current dose and monitor magnesium levels occasionally 6. Possible UTI, Leyva catheter associated. continue with Cipro 3 days, pres cription sent to pharmacy upon discharge. Leyva catheter was discontinued by primary team would recommend checking a bladder scan GI prophylaxis, Pepcid DVT prophylaxis: Deferred to surgery team Prognosis is guarded Thank you for consulting us, we will follow up with you
--- NOTE | 2022-12-06 17:58 | P.CONS ---
History of Present Illness - Reason for Consult Consult date: 12/06/22 New diagnosis ovarian carcinoma - History of Present Illness the patient is a 57-year-old white female, with overall well-controlled medical problems at baseline. The patient states that she had been having issues with episodes of intermittent abdominal pain, nausea and easy satiety for approximately the past year. the patient's evaluation during this time by her PCP had revealed episodes of UTI which were treated with some relief of symptoms. However her symptoms became more persistent and progressive, leading CT of the abdomen and pelvis on 11/01/22. This showed diverticulosis of the sigmoid colon with significant surrounding inflammation, fluid collection between the sigmoid colon and bladder concerning for perforation with abscess as well as possible follow cycle fistula, surrounding high density material, as well as borderline lymph nodes in the mesentery and retroperitoneum, and a larger, 2.5 cm lymph node in the right pelvis. It also appeared to be inflammatory changes related to the right colon. The patient had a colonoscopy on 11/28/19. It could not be passed beyond the sigmoid colon due to extensive scarring. She was therefore taken to surgery on 11/29/22. At the time of surgery there appeared to be significant inflammation involving the sigmoid colon. The area of the terminal ileum and proximal ascending colon was adherent to this. The patient underwent resection of the omentum that was stuck to the sigmoid colon, as well as resection of a section of the distal ileum and cecum with anastomosis. Due to significant inflammation on the left side, and ostomy was created. 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 This was involving lymph nodes, as well as the mesentery. Consult was placed for further evaluation and recommendations. Patient denied any prior history of malignancy. She states her maternal g randmother had ovarian cancer. She denied any weight loss. She has not had any significant postoperative complications and is anticipating discharge shortly. 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 History of Any Multi-Drug Resistant Organisms: None Reported Past Surgical History: Section Additional Past Surgical History / Comment(s): Shunt for hydrocephalus. Past Anesthesia/Blood Transfusion Reactions: No Reported Reaction Past Psychological History: No Psychological Hx Reported Smoking Status: Current every day smoker Past Alcohol Use History: Rare Additional Past Alcohol Use History / Comment(s): Started smoking in 1994, 1 ppd. Past Drug Use History: Marijuana Additional Drug Use History / Comment(s): Marijuana qhs, states stopped a couple nights ago. - Past Family History Father Family Medical History: Cancer Additional Family Medical History / Comment(s): Colon cancer. Medications and Allergies Home Medications Medication Instructions Recorded Confirmed Type Budesonide-Formot 160-4.5 Mcg 2 puff INHALATION BID 01/24/15 11/29/22 History [Symbicort 160-4.5 Mcg Inhaler] Omeprazole 40 mg PO DAILY 11/23/17 11/28/22 History Losartan-Hctz 50-12.5 mg [Hyzaar 1 tab PO DAILY 11/01/22 11/28/22 History 50-12.5] Magnesium 250 mg PO DAILY 11/25/22 11/28/22 History Acetaminophen Tab [Tylenol] 1,000 mg PO Q6HR PRN #30 tablet 12/06/22 Rx Ciprofloxacin HCl [Cipro] 500 mg PO BID 3 Days #6 tab 12/06/22 Rx traMADol HCl [Ultram] 50 mg PO Q6HR PRN 3 Days #12 tab 12/06/22 Rx Allergies Allergy/AdvReac Type Severity Reaction Status Date / Time doxycycline Allergy Nausea & Verified 11/29/22 07:27 Vomiting, sweating Physical Exam Vitals: Vital Signs Temp Pulse Resp BP Pulse Ox 12/06/22 09:04 99 12/06/22 07:05 98.8 F 93 18 140/62 98 12/06/22 01:23 98.4 F 64 14 126/75 96 12/05/22 19:36 98.4 F 62 15 130/83 99 Intake and Output 12/06/22 12/06/22 12/06/22 06:59 14:59 22:59 Output Total 180 100 Balance -180 -100 Output: Drainage 80 100 Right Lower Abdomen 80 100 Urine 100 - Constitutional General appearance: no acute distress - EENT Eyes: EOMI, PERRLA ENT: hearing grossly normal, normal oropharynx - Neck Neck: no lymphadenopathy Thyroid: bilateral: normal size - Respiratory Respiratory: bilateral: CTA - Cardiovascular Rhythm: regular Heart sounds: normal: S1, S2 - Gastrointestinal left lower quadrant ostomy, with semisolid brown stool Midline incision with mignon in situ. Appears clean General gastrointestinal: normal bowel sounds, soft - Integumentary Integumentary: normal - Neurologic Neurologic: CNII-XII intact - Musculoskeletal Musculoskeletal: strength equal bilaterally - Psychiatric Psychiatric: A&O x's 3, appropriate affect Results CBC & Chem 7: 12/05/22 06:29 12/04/22 05:59 Comments: colonoscopy report, and pathology reports reviewed and summarized Abdominal x-ray: report reviewed ([facility] x-ray from 06/25 showing nonobstructing renal calculus) CT scan - abdomen: report reviewed CT scan - pelvis: report reviewed Assessment and Plan (1) Carcinoma of ovary Narrative/Plan: the patient has a new diagnosis of carcinoma of the ovary. This was found incidentally on surgery for what appears to be perforated diverticulum with abscess/possible colovesical fistula. Based on the CAT scan and pathology report, the patient appears to have at least stage III disease. There was evidence of lymph node involvement, bilaterally in the pelvis, confirmed on pathology. There was pathologically proven involvement of the mesentery with tumor deposits. Exact source as to whether right or left ovary or primary peritoneal is not known at this time. - CT of the abdomen and pelvis did not show any evidence of distant disease. We discussed the pathology report and implications detail with her. She was advised that if disease is limited to lymph nodes in the abdomen and pelvis and omentum, she can be treated definitively. treatment would typically include observation chemotherapy and surgery. - CT of the chest will be ordered as an outpatient for completion of staging. The patient will be set up for referred to [facility]. Further recommendatio ns will follow - CA-125 will not be drawn at this time as it is likely to be affected by recent surgery and ongoing inflammation Status: Acute Code(s): C56.9 - MALIGNANT NEOPLASM OF UNSPECIFIED OVARY SNOMED Code(s): 450729168 Plan: deferred to the medical and surgical services for management of her other medical and postop issues.
== END 2022-12-06 14:10 | disposition home health service (06) | DRG 330 ==
LOC: 2ORMAIN 07:08 → 4SSUR 12:18
PROVIDERS: ADMIT Surgery; ATTEND Surgery
PROC: 0DBN0ZZ Excision of Sigmoid Colon, Open Approach (ICD-10-PCS; principal; 2022-11-29 08:45)
PROC: 0DBB0ZZ Excision of Ileum, Open Approach (ICD-10-PCS; principal; 2022-11-29 08:45)
PROC: 0D1N0Z4 Bypass Sigmoid Colon to Cutaneous, Open Approach (ICD-10-PCS; principal; 2022-11-29 08:45)
DX: C78.5 Secondary malignant neoplasm of large intestine and rectum (principal); C56.9 Malignant neoplasm of unspecified ovary; K57.20 Diverticulitis of large intestine with perforation and abscess without bleeding; N32.1 Vesicointestinal fistula; N39.0 Urinary tract infection, site not specified; G91.2 (Idiopathic) normal pressure hydrocephalus; C78.6 Secondary malignant neoplasm of retroperitoneum and peritoneum; C77.5 Secondary and unspecified malignant neoplasm of intrapelvic lymph nodes; E83.42 Hypomagnesemia; I12.9 Hypertensive chronic kidney disease with stage 1 through stage 4 chronic kidney disease, or unspecified chronic kidney disease; K21.9 Gastro-esophageal reflux disease without esophagitis; G89.29 Other chronic pain; F17.210 Nicotine dependence, cigarettes, uncomplicated; G43.909 Migraine, unspecified, not intractable, without status migrainosus; H40.9 Unspecified glaucoma; K44.9 Diaphragmatic hernia without obstruction or gangrene; H93.19 Tinnitus, unspecified ear; N18.30 Chronic kidney disease, stage 3 unspecified; Z87.440 Personal history of urinary (tract) infections; J44.9 Chronic obstructive pulmonary disease, unspecified; Z79.51 Long term (current) use of inhaled steroids; Z79.899 Other long term (current) drug therapy; Z80.41 Family history of malignant neoplasm of ovary; Z80.0 Family history of malignant neoplasm of digestive organs; Z87.442 Personal history of urinary calculi; Z88.1 Allergy status to other antibiotic agents; Z98.2 Presence of cerebrospinal fluid drainage device; Z71.3 Dietary counseling and surveillance
CPT/HCPCS: 80048; 81001; 82570; 85025; 85027; 86850; 86900; 86901; 88305; 88307; 88341; 88342; 94640; 94760

== ENCOUNTER 2022-12-09 19:42 | Observation (INO) | payer BC ==
[2022-12-09] MEDS ORDERED: KETOROLAC 15 MG/ML 1 ML VIAL IVP STA (20:29)
[2022-12-09] MEDS ORDERED: diphenhydrAMINE 50 MG/ML 1 ML VIAL IVP STA (20:29)
[2022-12-09] MEDS ORDERED: ONDANSETRON 4 MG/2 ML VIAL IVP STA (20:29)
[2022-12-09] MEDS ORDERED: SODIUM CHLORIDE 0.9% 1,000 ML IV STA (20:29)
[2022-12-09 20:57] LABS: Anisocytosis Slight; Basophils % (A) 0 %; Eosinophils # (A) 0.1 k/uL (0-0.7); Eosinophils % (A) 1 %; HCT 27.9 % (34.0-46.0); HGB 8.9 gm/dL (11.4-16.0); Lymphocytes # (A) 1.1 k/uL (1.0-4.8); Lymphocytes % (A) 21 %; MCH 29.1 pg (25.0-35.0); MCV 91.1 fL (80.0-100.0); Mean Platelet Volume 7.3; Monocytes # (A) 0.4 k/uL (0-1.0); Monocytes % (A) 7 %; Neutrophils # (A) 3.5 k/uL (1.3-7.7); Neutrophils % (A) 69 %; Platelet Count 327 k/uL (150-450); RBC 3.06 m/uL (3.80-5.40); WBC 5.1 k/uL (3.8-10.6)
[2022-12-09 21:02] LABS: Appearance,Urine Clear (Clear); Bacteria,Urine Rare /hpf; Bilirubin,Urine Negative (Negative); Blood,Urine Negative (Negative); Color,Urine Light Yellow; Glucose,Urine (UA) Negative (Negative); Ketones,Urine Negative (Negative); Leukocyte Esterase,Urine Trace (Negative); Mucus,Urine Rare /hpf; Nitrite,Urine Negative (Negative); PH, Urine 6.5 (5.0-8.0); Protein,Urine Negative (Negative); RBC,Urine 1 /hpf (0-5); Specific Gravity,Urine 1.006 (1.001-1.035); Squamous Epithelial Cell,Urine 5 /hpf (0-4); Urobilinogen,Urine <2.0 mg/dL (<2.0); WBC,Urine 4 /hpf (0-5)
[2022-12-09 21:06] LABS: INR 0.9 (<1.2); Partial Thromboplastin Time 22.7 sec (22.0-30.0); Prothrombin Time 9.5 sec (9.0-12.0)
[2022-12-09 21:14] LABS: ALT 27 U/L (4-34); AST 18 U/L (14-36); African American GFR (CKD) >90 (>60 ml/min/1.73 sqM); Albumin 3.8 g/dL (3.5-5.0); Alkaline Phosphatase 69 U/L (38-126); Amylase 37 U/L (30-110); Anion Gap 6 mmol/L; Blood Urea Nitrogen 11 mg/dL (7-17); Calcium 8.7 mg/dL (8.4-10.2); Carbon Dioxide 23 mmol/L (22-30); Chloride 109 mmol/L (98-107); Glucose 100 mg/dL (74-99); Lipase 81 U/L (23-300); Non-African American GFR(CKD) >90 (>60 ml/min/1.73 sqM); Potassium 3.7 mmol/L (3.5-5.1); Sodium 138 mmol/L (137-145); Total Bilirubin 0.2 mg/dL (0.2-1.3); Total Protein 6.4 g/dL (6.3-8.2)
--- NOTE | 2022-12-09 21:56 | CT ---
EXAMINATION TYPE: CT abdomen pelvis w con DATE OF EXAM: 12/09/2022 COMPARISON: 11/01/2022 HISTORY: pain at colostomy site, recent resection on 11/29/22 CT DLP: 1617.1 mGycm Automated exposure control for dose reduction was used. CONTRAST: Performed with IV Contrast, patient injected with 100 mL of Isovue 300. Images obtained from the diaphragm to the floor the pelvis with the IV contrast. Lung bases are clear. No pleural effusion. Heart size is normal. No pericardial effusion. Liver splee n and stomach pancreas gallbladder appear intact. The bile ducts are not dilated. There is no adrenal mass. Kidneys show satisfactory contrast opacification. No hydronephrosis. Ureter s are not dilated. No retroperitoneal adenopathy. Delayed images show normal renal excretion. There i s left sided ostomy noted. There is some fluid in the left paracolic gutter. Bladder distends smoothl y. There are surgical clips in the pelvis and in the right lateral mid abdomen. There is some mild fa t stranding in the pelvis. There are some enlarged mesenteric lymph nodes in the mid abdomen. Exam li mited by lack of intestinal contrast. There is ventricular peritoneal shunt catheter noted. There are skin mignon over the midline abdomen. The lumbar vertebrae have normal alignment. There is degenerative disc space narrowing in the lower l umbar spine with spurring of the endplates. Facet joints are intact. The bony pelvis is intact. The h ip joints are intact. IMPRESSION: Postsurgical changes with left-sided colostomy. There is significant improvement in the fat stranding and fluid accumulation in the pelvis compared to preoperative exam. There is apparent clearing of mi dline pelvic 6 cm abscess. No bowel obstruction. Inflammatory changes and fluid in the left paracolic gutter.
[2022-12-09] MEDS ORDERED: ONDANSETRON 4 MG/2 ML VIAL IVP PRN (22:16)
[2022-12-09] MEDS ORDERED: KETOROLAC 15 MG/ML 1 ML VIAL IVP PRN (22:16)
[2022-12-09] MEDS ORDERED: NALOXONE 0.4 MG/ML 1 ML VIAL IV PRN (22:16)
--- NOTE | 2022-12-09 22:18 | ED ---
General Adult HPI - General Chief complaint: Abdominal Pain Stated complaint: ABD PAIN Time Seen by Provider: 12/09/22 20:08 Source: patient, RN notes reviewed, old records reviewed Mode of arrival: ambulatory Limitations: no limitations - History of Present Illness Initial comments: Patient is a 57-year-old female with past medical history remarkable for COPD, acid reflux, diverticulitis with recent colostomy completed by Dr. Key approximately 10 days ago presents emergency Department complaining of acute onset of left-sided abdominal pain around the ostomy site. States it has been draining appropriately but over the last 4-5 hours she has had no drainage. States she has pain around the site as well. Denies any abdominal fullness sensation. Denies any nausea or vomiting. Denies any chest pain or shortness of breath. Denies any blood in her stool previously. Otherwise has been having no issues. Presents over concern for worsening left-sided lower abdominal pain. Denies fevers. Denies any urinary complaints including dysuria or hematuria. Denies any vaginal discharge or bleeding. - Related Data Home Medications Medication Instructions Recorded Confirmed Budesonide-Formot 160-4.5 Mcg 2 puff INHALATION BID 01/24/15 11/29/22 [Symbicort 160-4.5 Mcg Inhaler] Omeprazole 40 mg PO DAILY 11/23/17 11/28/22 Losartan-Hctz 50-12.5 mg [Hyzaar 1 tab PO DAILY 11/01/22 11/28/22 50-12.5] Magnesium 250 mg PO DAILY 11/25/22 11/28/22 Previous Rx's Medication Instructions Recorded Acetaminophen Tab [Tylenol] 1,000 mg PO Q6HR PRN #30 tablet 12/06/22 Ciprofloxacin HCl [Cipro] 500 mg PO BID 3 Days #6 tab 12/06/22 traMADol HCl [Ultram] 50 mg PO Q6HR PRN 3 Days #12 tab 12/06/22 Allergies Allergy/AdvReac Type Severity Reaction Status Date / Time doxycycline Allergy Nausea & Verified 11/29/22 07:27 Vomiting, sweating Review of Systems ROS Statement: Those systems with pertinent positive or pertinent negative responses have been documented in the HPI. Review of Systems: CONST: Denies fever EYES: Denies blurry vision ENT: Denies nasal congestion C/V: Denies Chest pain RESP: Denies shortness of breath GI: Endorses abdominal pain : Denies dysuria SKIN: Denies rash. MSK: Denies joint pain. NEURO: Denies headache ROS Other: All systems not noted in ROS Statement are negative. Past Medical History Past Medical History: COPD, Eye Disorder, GERD/Reflux Additional Past Medical History / Comment(s): See Dr Tyson's H&P. 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 diverticulitis History of Any Multi-Drug Resistant Organisms: None Reported Past Surgical History: Bowel Resection, Section Additional Past Surgical History / Comment(s): Shunt for hydrocephalus. Past Anesthesia/Blood Transfusion Reactions: No Reported Reaction Past Psychological History: No Psychological Hx Reported Smoking Status: Current every day smoker Past Alcohol Use History: Rare Past Drug Use History: Marijuana - Past Family History Father Family Medical History: Cancer Additional Family Medical History / Comment(s): Colon cancer. General Exam - General Exam Comments Initial Comments: General: Appears in mild to moderate distress secondary to abdominal discomfort. HEAD: Normal with no signs of head trauma. EYES: PERRLA, EOMI, conjunctiva normal, no discharge. ENT: Hearing grossly intact, normal oropharynx. RESPIRATORY: Clear breath sounds bilaterally. No wheezes, rales, or rhonchi. C/V: Regular rate and rhythm. S1 and S2 auscultated, no edema, peripheral pulse s 2+ and intact throughout ABD: Abdomen soft, nondistended. Tender to palpation around the ostomy site. Minimal drainage from the ostomy site. Ostomy appears appendix upper limits. No concern for infection. No skin changes. No guarding. No rebound tenderness. No peritoneal signs. EXT: Normal range of motion, no obvious deformity SKIN: No rashes or lesions observed on exposed skin. NEURO: Alert and oriented x 4. Cranial nerves II-XII intact. No focal sensory or strength deficits. Limitations: no limitations Course Vital Signs 12/09/22 19:52 Temperature 98.3 F Pulse Rate 116 H Respiratory 20 Rate Blood Pressure 163/78 O2 Sat by Pulse 99 Oximetry Medical Decision Making - Medical Decision Making Based on the patient's presentation and physical exam, I'm concerned for abdominal process for current symptoms considering recent surgery. Ostomy appears to be functioning as there is some drainage however she has pain around the site. No obvious findings on exam other than tenderness. We will obtain abdominal laboratory studies as well as a CT abdomen and pelvis. She was in agreement this plan. Patient was administered IV fluids, analgesia medications, antibiotics for symptomatic relief. Vital signs within except for limits. Patient's laboratory studies were remarkable for an anemia of 8.9 with recent surgery. It is improved from December 05. Lactic acid is within normal limits. Remainder of the labs are acceptable limits. Patient's CT abdomen and pelvis reveals no obvious acute infection or bowel obstruction. Radiology does note improvement of prior CT imaging including clearing of the midline pelvic absce ss. There are some inflammatory changes in the left lower abdomen. On reevaluation, patient still having pain. I discussed the findings with her. I did discuss the findings with her surgeon as well Dr. Tyson who requested the patient be admitted for observation. Patient was in agreement with this plan. We'll continue IV analgesia, antiemetics. Patient was in agreement this plan. Was pt. sent in by a medical professional or institution (, PA, [employer], urgent care, hospital, or jail...) When possible be specific @ -No Did you speak to anyone other than the patient for history (EMS, parent, family, police, friend...)? What history was obtained from this source @ -No Did you review nursing and triage notes (agree or disagree)? Why? @ -I reviewed and agree with nursing and triage notes Were old charts reviewed (outside hosp., previous admission, EMS record, old EKG, old radiological studies, urgent care reports/EKG's, jail records)? Report findings @ -Yes, recent admission from November 2021 was reviewed. Differential Diagnosis (chest pain, altered mental status, abdominal pain women, abdominal pain men, vaginal bleeding, weakness, fever, dyspnea, syncope, headache, dizziness, GI bleed, back pain, seizure, CVA, palpatations, mental health)? @ -Postop infection, bowel obstruction, ostomy issue, this list is not all inclusive. EKG interpreted by me (3pts min.). @ -None done X-rays interpreted by me (1pt min.). @ -None done CT interpreted by me (1pt min.). @ -CT abdomen and pelvis Revealed resolution of the prior abscess. Ostomy is in place. Some free fluid and inflammatory changes seen in the left pericolic order. U/S interpreted by me (1pt. min.). @ -None done What testing was considered but not performed or refused? (CT, X-rays, U/S, labs)? Why? @ -None What meds were considered but not given or refused? Why? @ -None Did you discuss the management of the patient with other professionals (professionals i.e. Dr., PA, [employer], lab, RT, psych nurse, social worker palliative care, resource teacher, teacher, air intelligence officer, ed case manager)? Give summary @ -Yes, discussed with her surgeon and admitting physician Dr. Tyson who requested the patient be admitted for pain control and evaluation. Was smoking cessation discussed for >3mins.? @ -No Was critical care preformed (if so, how long)? @ -No Were there social determinants of health that impacted care today? How? (Homelessness, low income, unemployed, alcoholism, drug addiction, transportation, low edu. Level, literacy, decrease access to med. care, intermediate, rehab)? @ -No Was there de-escalation of care discussed even if they declined (Discuss DNR or withdrawal of care, Hospice)? DNR status @ -No What co-morbidities impacted this encounter? (DM, HTN, Smoking, COPD, CAD, Cancer, CVA, ARF, Chemo, Hep., AIDS, mental health diagnosis, sleep apnea, morbid obesity)? @ -Recent ostomy placement secondary to abscess and diverticulitis. Was patient admitted / discharged? Hospital course, mention meds given and route, prescriptions, significant lab abnormalities, going to OR and other pertinent info. @ -Admitted to observation. See above for ED course. Undiagnosed new problem with uncertain prognosis? @ -No Drug Therapy requiring intensive monitoring for toxicity (Heparin, Nitro, Insulin, Cardizem)? @ -No Were any procedures done? @ -No Diagnosis/symptom? @ -Postop abdominal pain Acute, or Chronic, or Acute on Chronic? @ -Acute Uncomplicated (without systemic symptoms) or Complicated (systemic symptoms)? @ -Uncomplicated Side effects of treatment? @ -No Exacerbation, Progression, or Severe Exacerbation? @ -No Poses a threat to life or bodily function? How? (Chest pain, USA, PA, pneumonia, PE, COPD, DKA, ARF, appy, cholecystitis, CVA, Diverticulitis, Homicidal, Suicidal, threat to staff... and all critical care pts) @ -No Diagnosis/symptom? @ -Recent ostomy placement Acute, or Chronic, or Acute on Chronic? @ -Acute Uncomplicated (without systemic symptoms) or Complicated (systemic symptoms)? @ -Uncomplicated Side effects of treatment? @ -none Exacerbation, Progression, or Severe Exacerbation] @ -no Poses a threat to life or bodily function? @ -no - Lab Data Result diagrams: 12/09/22 20:32 12/09/22 20:32 Lab Results 12/09/22 12/09/22 12/09/22 Range/Units 20:32 20:32 20:32 WBC 5.1 (3.8-10.6) k/uL RBC 3.06 L (3.80-5.40) m/uL Hgb 8.9 L (11.4-16.0) gm/dL Hct 27.9 L (34.0-46.0) % MCV 91.1 (80.0-100.0) fL MCH 29.1 (25.0-35.0) pg MCHC 32.0 (31.0-37.0) g/dL RDW 17.0 H (11.5-15.5) % Plt Count 327 (150-450) k/uL MPV 7.3 Neutrophils % 69 % Lymphocytes % 21 % Monocytes % 7 % Eosinophils % 1 % Basophils % 0 % Neutrophils # 3.5 (1.3-7.7) k/uL Lymphocytes # 1.1 (1.0-4.8) k/uL Monocytes # 0.4 (0-1.0) k/uL Eosinophils # 0.1 (0-0.7) k/uL Basophils # 0.0 (0-0.2) k/uL Anisocytosis Slight PT 9.5 (9.0-12.0) sec INR 0.9 (<1.2) APTT 22.7 (22.0-30.0) sec Sodium 138 (137-145) mmol/L Potassium 3.7 (3.5-5.1) mmol/L Chloride 109 H (98-107) mmol/L Carbon Dioxide 23 (22-30) mmol/L Anion Gap 6 mmol/L BUN 11 (7-17) mg/dL Creatinine 0.70 (0.52-1.04) mg/dL Est GFR (CKD-EPI)AfAm >90 (>60 ml/min/1.73 sqM) Est GFR (CKD-EPI)NonAf >90 (>60 ml/min/1.73 sqM) Glucose 100 H (74-99) mg/dL Plasma Lactic Acid Peña (0.7-2.0) mmol/L Calcium 8.7 (8.4-10.2) mg/dL Total Bilirubin 0.2 (0.2-1.3) mg/dL AST 18 (14-36) U/L ALT 27 (4-34) U/L Alkaline Phosphatase 69 (38-126) U/L Total Protein 6.4 (6.3-8.2) g/dL Albumin 3.8 (3.5-5.0) g/dL Amylase 37 (30-110) U/L Lipase 81 (23-300) U/L Urine Color Urine Appearance (Clear) Urine pH (5.0-8.0) Ur Specific [place] (1.001-1.035) Urine Protein (Negative) Urine Glucose (UA) (Negative) Urine Ketones (Negative) Urine Blood (Negative) Urine Nitrite (Negative) Urine Bilirubin (Negative) Urine Urobilinogen (<2.0) mg/dL Ur Leukocyte Esterase (Negative) Urine RBC (0-5) /hpf Urine WBC (0-5) /hpf Ur Squamous Epith Cells (0-4) /hpf Urine Bacteria (None) /hpf Urine Mucus (None) /hpf Blood Type Blood Type Recheck Bld Type Recheck Status Antibody Screen Spec Expiration Date 12/09/22 12/09/22 12/09/22 Range/Units 20:32 20:32 20:46 WBC (3.8-10.6) k/uL RBC (3.80-5.40) m/uL Hgb (11.4-16.0) gm/dL Hct (34.0-46.0) % MCV (80.0-100.0) fL MCH (25.0-35.0) pg MCHC (31.0-37.0) g/dL RDW (11.5-15.5) % Plt Count (150-450) k/uL MPV Neutrophils % % Lymphocytes % % Monocytes % % Eosinophils % % Basophils % % Neutrophils # (1.3-7.7) k/uL Lymphocytes # (1.0-4.8) k/uL Monocytes # (0-1.0) k/uL Eosinophils # (0-0.7) k/uL Basophils # (0-0.2) k/uL Anisocytosis PT (9.0-12.0) sec INR (<1.2) APTT (22.0-30.0) sec Sodium (137-145) mmol/L Potassium (3.5-5.1) mmol/L Chloride (98-107) mmol/L Carbon Dioxide (22-30) mmol/L Anion Gap mmol/L BUN (7-17) mg/dL Creatinine (0.52-1.04) mg/dL Est GFR (CKD-EPI)AfAm (>60 ml/min/1.73 sqM) Est GFR (CKD-EPI)NonAf (>60 ml/min/1.73 sqM) Glucose (74-99) mg/dL Plasma Lactic Acid Peña 2.0 (0.7-2.0) mmol/L Calcium (8.4-10.2) mg/dL Total Bilirubin (0.2-1.3) mg/dL AST (14-36) U/L ALT (4-34) U/L Alkaline Phosphatase (38-126) U/L Total Protein (6.3-8.2) g/dL Albumin (3.5-5.0) g/dL Amylase (30-110) U/L Lipase (23-300) U/L Urine Color Light Yellow Urine Appearance Clear (Clear) Urine pH 6.5 (5.0-8.0) Ur Specific [place] 1.006 (1.001-1.035) Urine Protein Negative (Negative) Urine Glucose (UA) Negative (Negative) Urine Ketones Negative (Negative) Urine Blood Negative (Negative) Urine Nitrite Negative (Negative) Urine Bilirubin Negative (Negative) Urine Urobilinogen <2.0 (<2.0) mg/dL Ur Leukocyte Esterase Trace H (Negative) Urine RBC 1 (0-5) /hpf Urine WBC 4 (0-5) /hpf Ur Squamous Epith Cells 5 H (0-4) /hpf Urine Bacteria Rare H (None) /hpf Urine Mucus Rare H (None) /hpf Blood Type A Positive Blood Type Recheck A Pos Bld Type Recheck Status No Antibody Screen NEGATIVE Spec Expiration Date 12/12/20222331 Disposition Clinical Impression: Post-op pain Disposition: ADMITTED IP TO THIS HOSP Condition: Stable Referrals: Nanda Tran MD [Primary Care Provider] - 1-2 days Time of Disposition: 22:00
[2022-12-10] MEDS: HEPARIN SODIUM,PORCINE/PF 5,000 UNIT/0.5 ML SYRINGE SQ SCH ×3 (01:38→15:04)
[2022-12-10 04:20] LABS: Anisocytosis Slight; Basophils % (A) 0 %; Eosinophils # (A) 0.1 k/uL (0-0.7); Eosinophils % (A) 2 %; HCT 28.9 % (34.0-46.0); HGB 9.2 gm/dL (11.4-16.0); Hypochromasia Slight; Lymphocytes # (A) 1.5 k/uL (1.0-4.8); Lymphocytes % (A) 30 %; MCH 29.8 pg (25.0-35.0); MCHC 31.7 g/dL (31.0-37.0); MCV 93.9 fL (80.0-100.0); Mean Platelet Volume 7.2; Monocytes # (A) 0.3 k/uL (0-1.0); Monocytes % (A) 6 %; Neutrophils % (A) 61 %; Platelet Count 294 k/uL (150-450); RBC 3.08 m/uL (3.80-5.40); WBC 4.9 k/uL (3.8-10.6)
[2022-12-10 04:39] LABS: African American GFR (CKD) >90 (>60 ml/min/1.73 sqM); Anion Gap 7 mmol/L; Blood Urea Nitrogen 11 mg/dL (7-17); Calcium 8.7 mg/dL (8.4-10.2); Carbon Dioxide 26 mmol/L (22-30); Chloride 109 mmol/L (98-107); Glucose 93 mg/dL (74-99); Non-African American GFR(CKD) >90 (>60 ml/min/1.73 sqM); Potassium 3.9 mmol/L (3.5-5.1); Sodium 142 mmol/L (137-145)
--- NOTE | 2022-12-10 11:44 | P.GSHP ---
History of Present Illness H&P Date: 12/10/22 CHIEF COMPLAINT: Abdominal pain HISTORY OF PRESENT ILLNESS: This is a 57-year-old female who had severe diverticulitis with colovesical fistula status post Sai procedure with ileocolectomy on 11/29/[address] silva. Patient's pathology was positive for metastatic ovarian cancer. Patient presented to the emergency room due to complaints of spasming around her ostomy site. She was having very severe pains. The pain moved from the ostomy across the lower abdomen. Patient had no bowel activity from her ostomy for about 6 hours. She reports all of this started after she ate some noodles for dinner. Patient did report her ostomy started re-releasing small amounts of air. When she started passing gas there was relief in the abdominal spasms. I she was concerned she came into the ER for further evaluation a computed tomography scan of the abdomen and pelvis with IV contrast that showed no evidence of bowel obstruction. There was inflammation changes and fluid noted in the left pericolic gutter. Patient reports since last night her pain has improved greatly. She is tolerating diet. Her ostomy is functioning. She has filled the ostomy bag with stool. Patient denies any fevers chills or sweats. Denies any nausea. Patient seen and examined with Dr. silva PAST MEDICAL HISTORY: See below PAST SURGICAL HISTORY: See below MEDICATIONS: See below ALLERGIES: See below SOCIAL HISTORY: No illicit drug use. REVIEW OF SYSTEMS: CONSTITUTIONAL: Denies fever or chills. HEENT: Denies blurred vision, vision changes, or eye pain. Denies hemoptysis CARDIOVASCULAR: Denies chest pain or pressure. RESPIRATORY: No shortness of breath. GASTROINTESTINAL: See HPI for pertinent findings HEMATOLOGIC: Denies bleeding disorders. GENITOURINARY: Denies any blood in urine or increased urinary frequency. SKIN: Denies pruitis. Denies rash. PHYSICAL EXAM: VITAL SIGNS: Reviewed GENERAL: Well-developed in no acute distress. HEENT: No sclera icterus. Extraocular movements grossly intact. Moist buccal mucosa. Head is atraumatic, normocephalic. No nasal drainage. ABDOMEN: Soft. Nondistended. Nontender. Ostomy with stool present. Stoma pink. NEUROLOGIC: Alert and oriented. Cranial nerves II through XII grossly intact. LABORATORY DATA: WBC 4.9 Hgb 9.2 platelets 294 Sodium 142 potassium 3.9 creatinine 0.73 Lactic acid 2.0 LFTs normal lipase 81 urinalysis no evidence of infection IMAGING: computed tomography scan abdomen and pelvis post surgical changes with left- sided colostomy. There is significant improvement in the fat stranding and fluid accumulation in the pelvis compared to preoperative exam. There is apparent clearing of midline pelvic 6 cm abscess. No bowel obstruction. Inflammatory changes and fluid in the left paracolic gutter. ASSESSMENT: 1. Abdominal pain and no function from ostomy for about 6 hours 2. Severe diverticulitis with colovesical fistula status post Sai procedure with ileocolectomy on 11/29/2022 3. Ovarian cancer with metastatic disease PLAN: -Continue regular diet -Ostomy is functioning. Pain has resolved -Continue to monitor -Anticipate discharge later today Physician Dry Cleaning Supervisor note has been reviewed by physician. Signing provider agrees with the documented findings, assessment, and plan of care. Past Medical History Past Medical History: COPD, Eye Disorder, GERD/Reflux Additional Past Medical History / Comment(s): See Dr Silva's H&P. 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 diverticulitis History of Any Multi-Drug Resistant Organisms: None Reported Past Surgical History: Bowel Resection, Section Additional Past Surgical History / Comment(s): Shunt for hydrocephalus. Past Anesthesia/Blood Transfusion Reactions: No Reported Reaction Past Psychological History: No Psychological Hx Reported Smoking Status: Current every day smoker Past Alcohol Use History: Rare Additional Past Alcohol Use History / Comment(s): Started smoking in 1994, 1 ppd. Past Drug Use History: Marijuana Additional Drug Use History / Comment(s): Marijuana qhs, states stopped a couple nights ago. - Past Family History Father Family Medical History: Cancer Additional Family Medical History / Comment(s): Colon cancer. Medications and Allergies Home Medications Medication Instructions Recorded Confirmed Type Budesonide-Formot 160-4.5 Mcg 2 puff INHALATION RT-BID 01/24/15 12/10/22 History [Symbicort 160-4.5 Mcg Inhaler] Omeprazole 40 mg PO DAILY 11/23/17 12/10/22 History Losartan-Hctz 50-12.5 mg [Hyzaar 1 tab PO DAILY 11/01/22 12/10/22 History 50-12.5] Magnesium 250 mg PO DAILY 11/25/22 12/10/22 History Acetaminophen Tab [Tylenol] 1,000 mg PO Q6HR PRN #30 tablet 12/06/22 12/10/22 Rx Ciprofloxacin HCl [Cipro] 500 mg PO BID 3 Days #6 tab 12/06/22 12/10/22 Rx traMADol HCl [Ultram] 50 mg PO Q6HR PRN 3 Days #12 tab 12/06/22 12/10/22 Rx Allergies Allergy/AdvReac Type Severity Reaction Status Date / Time doxycycline Allergy Nausea & Verified 11/29/22 07:27 Vomiting, sweating Surgical - Exam Vital Signs Temp Pulse Resp BP Pulse Ox 98.3 F 116 H 20 163/78 99 12/09/22 19:52 12/09/22 19:52 12/09/22 19:52 12/09/22 19:52 12/09/22 19:52 Results - Labs 12/10/22 03:56 12/10/22 03:56 Abnormal Lab Results - Last 24 Hours (Table) 12/09/22 12/09/22 12/09/22 Range/Units 20:32 20:32 20:46 RBC 3.06 L (3.80-5.40) m/uL Hgb 8.9 L (11.4-16.0) gm/dL Hct 27.9 L (34.0-46.0) % RDW 17.0 H (11.5-15.5) % Chloride 109 H (98-107) mmol/L Glucose 100 H (74-99) mg/dL Ur Leukocyte Esterase Trace H (Negative) Ur Squamous Epith Cells 5 H (0-4) /hpf Urine Bacteria Rare H (None) /hpf Urine Mucus Rare H (None) /hpf 12/10/22 12/10/22 Range/Units 03:56 03:56 RBC 3.08 L (3.80-5.40) m/uL Hgb 9.2 L (11.4-16.0) gm/dL Hct 28.9 L (34.0-46.0) % RDW 17.0 H (11.5-15.5) % Chloride 109 H (98-107) mmol/L Glucose (74-99) mg/dL Ur Leukocyte Esterase (Negative) Ur Squamous Epith Cells (0-4) /hpf Urine Bacteria (None) /hpf Urine Mucus (None) /hpf Diabetes panel 12/09/22 12/10/22 Range/Units 20:32 03:56 Sodium 138 142 (137-145) mmol/L Potassium 3.7 3.9 (3.5-5.1) mmol/L Chloride 109 H 109 H (98-107) mmol/L Carbon Dioxide 23 26 (22-30) mmol/L BUN 11 11 (7-17) mg/dL Creatinine 0.70 0.73 (0.52-1.04) mg/dL Glucose 100 H 93 (74-99) mg/dL Calcium 8.7 8.7 (8.4-10.2) mg/dL AST 18 (14-36) U/L ALT 27 (4-34) U/L Alkaline Phosphatase 69 (38-126) U/L Total Protein 6.4 (6.3-8.2) g/dL Albumin 3.8 (3.5-5.0) g/dL Calcium panel 12/09/22 12/10/22 Range/Units 20:32 03:56 Calcium 8.7 8.7 (8.4-10.2) mg/dL Albumin 3.8 (3.5-5.0) g/dL Pituitary panel 12/09/22 12/10/22 Range/Units 20:32 03:56 Sodium 138 142 (137-145) mmol/L Potassium 3.7 3.9 (3.5-5.1) mmol/L Chloride 109 H 109 H (98-107) mmol/L Carbon Dioxide 23 26 (22-30) mmol/L BUN 11 11 (7-17) mg/dL Creatinine 0.70 0.73 (0.52-1.04) mg/dL Glucose 100 H 93 (74-99) mg/dL Calcium 8.7 8.7 (8.4-10.2) mg/dL Adrenal panel 12/09/22 12/10/22 Range/Units 20:32 03:56 Sodium 138 142 (137-145) mmol/L Potassium 3.7 3.9 (3.5-5.1) mmol/L Chloride 109 H 109 H (98-107) mmol/L Carbon Dioxide 23 26 (22-30) mmol/L BUN 11 11 (7-17) mg/dL Creatinine 0.70 0.73 (0.52-1.04) mg/dL Glucose 100 H 93 (74-99) mg/dL Calcium 8.7 8.7 (8.4-10.2) mg/dL Total Bilirubin 0.2 (0.2-1.3) mg/dL AST 18 (14-36) U/L ALT 27 (4-34) U/L Alkaline Phosphatase 69 (38-126) U/L Total Protein 6.4 (6.3-8.2) g/dL Albumin 3.8 (3.5-5.0) g/dL
--- NOTE | 2022-12-10 12:57 | P.DS ---
Providers Date of admission: 12/09/22 22:16 Expected date of discharge: 12/10/22 Attending physician: Juan Silva Primary care physician: Chelsea Vee Hospital Course: Discharge diagnosis 1. Abdominal pain and no function from ostomy for about 6 hours. Resolved 2. Severe diverticulitis with colovesical fistula status post Sai procedure with ileocolectomy on 11/29/2022 3. Ovarian cancer with metastatic disease Hospital course This is a 57-year-old female who had severe diverticulitis with colovesical fistula status post Sai procedure with ileocolectomy on 11/29/[address] silva. Patient's pathology was positive for metastatic ovarian cancer. Patient presented to the emergency room due to complaints of spasming around her ostomy site. She was having very severe pains. The pain moved from the ostomy across the lower abdomen. Patient had no bowel activity from her ostomy for about 6 hours. She reports all of this started after she ate some noodles for dinner. Patient did report her ostomy started re-releasing small amounts of air. When she started passing gas there was relief in the abdominal spasms. I she was concerned she came into the ER for further evaluation a computed tomography scan of the abdomen and pelvis with IV contrast that showed no evidence of bowel obstruction. There was inflammation changes and fluid noted in the left pericolic gutter. Patient's pain has resolved. She is tolerating diet. Her ostomy is functioning. She is ambulating. Afebrile. She is stable for discharge home. Please refer to chart for further details. Physician Liquid Yeast Supervisor note has been reviewed by physician. Signing provider agrees with the documented findings, assessment, and plan of care. Patient Condition at Discharge: Stable Plan - Discharge Summary Discharge Rx Participant: No New Discharge Prescriptions: Continue Omeprazole 40 mg PO DAILY Acetaminophen Tab [Tylenol] 1,000 mg PO Q6HR PRN #30 tablet PRN Reason: Pain traMADol HCl [Ultram] 50 mg PO Q6HR PRN 3 Days #12 tab PRN Reason: Pain Ciprofloxacin HCl [Cipro] 500 mg PO BID 3 Days #6 tab Losartan-Hctz 50-12.5 mg [Hyzaar 50-12.5] 1 tab PO DAILY Magnesium 250 mg PO DAILY Discontinued Budesonide-Formot 160-4.5 Mcg [Symbicort 160-4.5 Mcg Inhaler] 2 puff INHALATION RT-BID Discharge Medication List Omeprazole 40 mg PO DAILY 11/23/17 [History] Losartan-Hctz 50-12.5 mg [Hyzaar 50-12.5] 1 tab PO DAILY 11/01/22 [History] Magnesium 250 mg PO DAILY 11/25/22 [History] Acetaminophen Tab [Tylenol] 1,000 mg PO Q6HR PRN #30 tablet 12/06/22 [Rx] Ciprofloxacin HCl [Cipro] 500 mg PO BID 3 Days #6 tab 12/06/22 [Rx] traMADol HCl [Ultram] 50 mg PO Q6HR PRN 3 Days #12 tab 12/06/22 [Rx] Follow up Appointment(s)/Referral(s): Nanda Tran MD [Primary Care Provider] - 1-2 days Juan Silva MD [STAFF PHYSICIAN] - 12/12/22 Activity/Diet/Wound Care/Special Instructions: Keep Scheduled appointment with Dr. Silva Discharge Disposition: HOME SELF-CARE
[2022-12-10 14:06] VITALS: BP 129/76; PULSE 69; RESP 18; TEMP 97.4
== END 2022-12-10 15:16 | disposition home or self-care (01) ==
LOC: EC 19:42 → 6NMEDSUR 22:16
PROVIDERS: ADMIT Surgery; ATTEND Surgery
DX: K91.89 Other postprocedural complications and disorders of digestive system (principal); K94.09 Other complications of colostomy; C79.60 Secondary malignant neoplasm of unspecified ovary; Z79.899 Other long term (current) drug therapy; J44.9 Chronic obstructive pulmonary disease, unspecified; K21.9 Gastro-esophageal reflux disease without esophagitis; H40.9 Unspecified glaucoma; G43.909 Migraine, unspecified, not intractable, without status migrainosus; K41.90 Unilateral femoral hernia, without obstruction or gangrene, not specified as recurrent; H93.19 Tinnitus, unspecified ear; K44.9 Diaphragmatic hernia without obstruction or gangrene; G91.2 (Idiopathic) normal pressure hydrocephalus; Z87.19 Personal history of other diseases of the digestive system; Z90.49 Acquired absence of other specified parts of digestive tract; Z98.891 History of uterine scar from previous surgery; F17.210 Nicotine dependence, cigarettes, uncomplicated; Z80.0 Family history of malignant neoplasm of digestive organs; Z79.51 Long term (current) use of inhaled steroids; Z88.1 Allergy status to other antibiotic agents
CPT/HCPCS: 96372 ×2; 96361; 96374; 96375; 99285; 36415; 86900; 86901; 80053; 80048; 82150; 83605; 83690; 85025 ×2; 85610; 85730; 86850; 81001; 74177; G0378 ×2; J1200; J2405; J1885; Q9967; J1644

== ENCOUNTER 2023-02-12 08:17 | Day surgery (SDC) | payer BC ==
[2023-02-10 12:32] VITALS: BMI 33.6
[~2023-02-12 08:17] MED LIST changes: +DEXAMETHASONE SOD PHOSPHATE 4 MG/ML 1 ML VIAL IV ONE; +LACTATED RINGERS 1,000 ML IV SCH; +LIDOCAINE 1% (10MG/ML) FOR IV START INTRADERMA PRN; +Pre Op ABX Message 1 EACH MISC MISCELLANE ONE; -metroNIDAZOLE-NS PMX 500 MG in SALINE 1 100ML.BAG IVPB PRN
[2023-02-12 08:38] VITALS: TEMP 98
[2023-02-12] MEDS ORDERED: ONDANSETRON 4 MG/2 ML VIAL ONE (08:51)
--- NOTE | 2023-02-12 08:57 | P.GSHP ---
History of Present Illness H&P Date: 02/12/23 Chief Complaint: Ovarian cancer This a 57-year-old female who was previously diagnosed with ovarian cancer. Patient presents today for Port-A-Cath insertion. Patient aware the risks of surgery including possible pneumothorax. Past Medical History Past Medical History: Cancer, COPD, Eye Disorder, GERD/Reflux Additional Past Medical History / Comment(s): Migraines, hiatal hernia, ulcer, glaucoma, diverticulitis, tinnitus, normal pressure hydrocephalus, nerve damage throughout body causing twitching and spasms, newly diagnosed stage 3 ovarian cancer 11/2022., colostomy. History of Any Multi-Drug Resistant Organisms: None Reported Past Surgical History: Bowel Resection, Section Additional Past Surgical History / Comment(s): Shunt for hydrocephalus, lucia procedure, colostomy, ileocolectomy, partial omentectomy Past Anesthesia/Blood Transfusion Reactions: No Reported Reaction Past Psychological History: No Psychological Hx Reported Smoking Status: Former smoker Past Alcohol Use History: Rare Additional Past Alcohol Use History / Comment(s): quit smoking Nov 2022., Started smoking in 1994, 1 ppd. Past Drug Use History: Marijuana Additional Drug Use History / Comment(s): Marijuana as needed at bedtime - Past Family History Father Family Medical History: Cancer Additional Family Medical History / Comment(s): Colon cancer. Medications and Allergies Home Medications Medication Instructions Recorded Confirmed Type Omeprazole 40 mg PO DAILY 11/23/17 02/12/23 History Losartan-Hctz 50-12.5 mg [Hyzaar 1 tab PO DAILY 11/01/22 02/12/23 History 50-12.5] Budesonide-Formot 160-4.5 Mcg 2 inhalation INHALATION BID 12/26/22 02/12/23 History [Symbicort 160-4.5 Mcg Inhaler] Diclofenac Sodium [Voltaren] 50 mg PO BID 01/13/23 02/10/23 History Cholecalciferol [Vitamin D3 (25 50 mcg PO DAILY 02/10/23 02/12/23 History Mcg = 1000 Iu)] Cyanocobalamin [Vitamin B-12] 500 mcg PO DAILY 02/10/23 02/12/23 History Allergies Allergy/AdvReac Type Severity Reaction Status Date / Time doxycycline Allergy Nausea & Verified 02/12/23 08:33 Vomiting, sweating Surgical - Exam Vital Signs Temp Pulse Resp BP Pulse Ox 98.0 F 81 16 139/85 99 02/12/23 08:27 02/12/23 08:27 02/12/23 08:27 02/12/23 08:27 02/12/23 08:27 - General well developed, well nourished, no distress - Eyes PERRL - ENT normal pinna - Neck no masses - Respiratory normal expansion - Cardiovascular Rhythm: regular - Abdomen Abdomen: soft, non tender Assessment and Plan Assessment: Ovarian cancer. We'll perform Port-A-Cath insertion.
[2023-02-12] MEDS ORDERED: MIDAZOLAM 2 MG/2 ML VIAL ONE (09:13)
[2023-02-12] MEDS ORDERED: LIDOCAINE 2% INJ 20 MG/ML (2 ML VIAL) ONE (09:13)
[2023-02-12] MEDS ORDERED: fentaNYL (PF) 50 MCG/ML 2 ML AMP ONE (09:13)
[2023-02-12] MEDS ORDERED: ceFAZolin 1,000 MG VIAL ONE (09:13)
[2023-02-12] MEDS ORDERED: PROPOFOL 10 MG/ML 20 ML VIAL IV ONE (09:13)
[2023-02-12] MEDS ORDERED: KETAMINE 10 MG/ML 20 ML VIAL ONE (09:13)
[2023-02-12] MEDS ORDERED: SODIUM CHLORIDE 0.9% 100 ML BAG ONE (09:13)
[2023-02-12] MEDS ORDERED: SODIUM CHLORIDE 0.9% 50 ML with ceFAZolin 2,000 MG IV ONE ×2 (09:18)
[2023-02-12] MEDS ORDERED: BUPIVACAIN-EPI 0.25%-1:200,000 30 ML VIAL SQ ONE (09:37)
[2023-02-12] MEDS ORDERED: HEPARIN SODIUM,PORCINE 100 UNIT/ML 5 ML VIAL IV ONE (09:37)
--- NOTE | 2023-02-12 09:57 | P.OP ---
Date of Procedure: 02/12/23 Preoperative Diagnosis: History of ovarian cancer Postoperative Diagnosis: Same Procedure(s) Performed: Right subclavian Port-A-Cath Anesthesia: MAC Surgeon: Juan Tyson Estimated Blood Loss (ml): 5 Pathology: none sent Condition: stable Disposition: PACU Description of Procedure: MThe patient was placed on the operating table in the supine position. The patient received IV sedation. The patient's chest was prepped and draped in the usual sterile fashion. A roll had been placed between the shoulder blades in a longitudinal fashion. After prepping and draping the skin was anesthetized 1% local Xylocaine. And then using the Seldinger technique the subclavian vein was cannulated. A wire was placed into the vein and fluoroscopy position the wire at the atrial caval junction. Next the dilator sheath was placed over top the wire and the wire was withdrawn. The catheter was positioned at the atriocaval position. The catheter was placed through the sheath after the dilator was withdrawn. The sheath was then withdrawn. Position of the catheter was confirmed with fluoroscopy. The Port-A-Cath was connected to the catheter. The Port-A-Cath was flushed with saline and then heparinized saline. The skin was closed interrupted 3-0 Monocryl suture. Dermabond was applied. Patient tolerated procedure well and was sent to recovery room stable condition.
--- NOTE | 2023-02-12 10:20 | XR ---
EXAMINATION TYPE: XR chest 1V portable DATE OF EXAM: 02/12/2023 COMPARISON: Chest CT December 16, 2022. HISTORY: Port-A-Cath insertion TECHNIQUE: Single AP portable frontal upright view of the chest is obtained. FINDINGS: There is right subclavian Mediport catheter identified terminating in SVC there is persiste nt right neck catheter I cannot trace to the abdominal level like on recent CT as well. No pneumothor ax seen bilaterally. Lungs remain clear. The cardiac silhouette size is stable and within normal limi ts. The osseous structures are intact. IMPRESSION: As above.
[2023-02-12 10:25] VITALS: BP 108/86; PULSE 71; RESP 15
--- NOTE | 2023-02-12 11:20 | FL ---
EXAMINATION TYPE: FL guided central line placemt DATE OF EXAM: 02/12/2023 CLINICAL HISTORY: Medical port catheter insertion. TECHNIQUE: Fluoroscopy. COMPARISON: None. FINDINGS: Fluoroscopic guidance was provided during Port-A-Cath insertion procedure performed by Dr. Tyson. A total of 11 seconds of fluoroscopic time was utilized during the procedure and 1 spot i mage is acquired. Single intraoperative image acquired shows portion of right sided catheter. IMPRESSION: As Above. TOTAL DAP = 0.96720 gy x cm2.
== END 2023-02-12 10:45 | disposition home or self-care (01) ==
LOC: OR 08:17
PROVIDERS: ATTEND Surgery
DX: Z45.2 Encounter for adjustment and management of vascular access device (principal); C56.9 Malignant neoplasm of unspecified ovary; J44.9 Chronic obstructive pulmonary disease, unspecified; K21.9 Gastro-esophageal reflux disease without esophagitis; G43.909 Migraine, unspecified, not intractable, without status migrainosus; H40.9 Unspecified glaucoma; Z87.19 Personal history of other diseases of the digestive system; Z93.3 Colostomy status; Z98.890 Other specified postprocedural states; Z87.891 Personal history of nicotine dependence; F10.20 Alcohol dependence, uncomplicated; F12.90 Cannabis use, unspecified, uncomplicated; Z80.0 Family history of malignant neoplasm of digestive organs; Z79.51 Long term (current) use of inhaled steroids; Z79.1 Long term (current) use of non-steroidal anti-inflammatories (NSAID); Z79.899 Other long term (current) drug therapy; Z88.1 Allergy status to other antibiotic agents; I10 Essential (primary) hypertension
CPT/HCPCS: 36561; 77001; 71045; C1788; J2250; J1642; J1100; J2405; J0690; J3010; J2704; J1644; J2001

== ENCOUNTER → 2023-03-25 | Outpatient (CLI) | payer BC ==
[2023-03-25 21:52] LABS: HCT 33.4 % (37.2-46.3); HGB 11.2 g/dL (12.0-15.0); MCH 32.5 pg (27.0-32.0); MCHC 33.5 g/dL (32.0-37.0); MCV 96.8 fL (80.0-97.0); Mean Platelet Volume 9.7 fL (9.5-12.2); NRBC Per 100 WBC 0 /100 WBCS (0.0-0.0); Platelet Count 187 X 10*3/uL (140-440); RBC 3.45 X 10*6/uL (4.10-5.20); RDW 16.7 % (11.5-14.5); WBC 1.96 X 10*3/uL (4.50-10.00)
[2023-03-25 22:32] LABS: Basophils # (A) 0.01 X 10*3/uL (0.00-0.10); Basophils % (A) 0.5 %; Eosinophils # (A) 0.02 X 10*3/uL (0.04-0.35); Immature Grans, Automated 0 %; Lymphocytes # (A) 0.98 X 10*3/uL (0.90-5.00); Monocytes # (A) 0.36 X 10*3/uL (0.20-1.00); Monocytes % (A) 18.4 %; Neutrophils # (A) 0.59 X 10*3/uL (1.80-7.70); Neutrophils % (A) 30.1 %; RBC Morphology NORMAL
[2023-03-26 00:42] LABS: Albumin 4.3 g/dL (3.8-4.9); Albumin/Globulin Ratio 1.76 (1.60-3.17); BUN/Creat Ratio 14.39 Ratio (12.00-20.00); Blood Urea Nitrogen 11.4 mg/dL (9.0-27.0); Calcium 9.3 mg/dL (8.7-10.3); Globulin 2.5 g/dL (1.6-3.3); Magnesium 1.8 mg/dL (1.5-2.4); Non-African American GFR(CKD) 82.8 (60.0-200.0); Potassium 3.7 mmol/L (3.5-5.5); Total Bilirubin 0.3 mg/dL (0.30-1.20); Total Protein 6.8 g/dL (6.2-8.2)
== END | disposition home or self-care (01) ==
LOC: LABWHC1 14:22
PROVIDERS: ATTEND Family Medicine
DX: E55.9 Vitamin D deficiency, unspecified (principal); E78.5 Hyperlipidemia, unspecified; E53.8 Deficiency of other specified B group vitamins; J44.9 Chronic obstructive pulmonary disease, unspecified; G47.62 Sleep related leg cramps; R73.9 Hyperglycemia, unspecified
CPT/HCPCS: 36415; 80053; 82306; 82550; 82607; 83036; 83735; 84443; 85025

== ENCOUNTER → 2023-03-26 | Outpatient (CLI) | payer BC ==
[2023-03-26 16:04] LABS: Chol/HDL Ratio 3.37 Ratio; LDL Cholesterol,Calculated 80.5 mg/dL (0.0-131.0)
== END | disposition home or self-care (01) ==
LOC: LABWHC1 09:01
PROVIDERS: ATTEND Family Medicine
DX: E78.5 Hyperlipidemia, unspecified (principal); J44.9 Chronic obstructive pulmonary disease, unspecified; G47.62 Sleep related leg cramps; G62.9 Polyneuropathy, unspecified; E53.8 Deficiency of other specified B group vitamins; E55.9 Vitamin D deficiency, unspecified; R73.9 Hyperglycemia, unspecified
CPT/HCPCS: 36415; 80061

== ENCOUNTER → 2023-05-09 | Outpatient (CLI) | payer BC ==
[2023-05-09 08:49] LABS: African American GFR (CKD) 73 (>60 ml/min/1.73 sqM); Blood Urea Nitrogen 21 mg/dL (7-17); Non-African American GFR(CKD) 63 (>60 ml/min/1.73 sqM)
--- NOTE | 2023-05-10 18:39 | CT ---
EXAMINATION TYPE: CT ChestAbdPelvis w con DATE OF EXAM: 05/09/2023 INDICATION: Follow up for ovarian cancer. COMPARISON: 12/16/2022 CT DLP: 1627.1 mGycm CONTRAST: Performed with Oral Contrast and with IV Contrast, patient injected with 100ml mL of Isovue 300. TECHNIQUE: Axial images at 5 mm thick sections. Reconstructed images in the coronal plane. Delayed images through the kidneys. FINDINGS: CT CHEST: Portion of the thyroid visualized is normal. No suspicious lung nodules or focal infiltrates are present. No enlarged mediastinal or hilar adenopathy is evident. The ascending aorta diameter at the level of the main pulmonary artery is 3.0 cm. The main pulmonary artery diameter at the bifurcation is 2.[address] ABDOMEN: Liver: There is mild diffuse fatty infiltration liver relation to the spleen. Spleen: Normal Pancreas: Normal Adrenal glands: The adrenal glands are normal. Gallbladder: Cholelithiasis is present. Kidneys: No masses are evident. No hydronephrosis is present. No cysts are present. Delayed images were obtained through the kidneys, which remain unremarkable. Aorta: Normal Inferior vena cava: Normal. CT PELVIS: There is an ostomy in the left lower quadrant. Loops of bowel distended with oral contrast appear nor mal. There are loops of bowel lacking oral contrast are incompletely distended limiting evaluation. A few diverticuli within the sigmoid region. There may be some nonspecific small bowel loops which are somewhat prominent in the left midabdomen. Appendix: Not identified. Urinary bladder: Decompressed limiting evaluation Genitourinary structures: Uterus appears normal. Ovaries are not identified. No free fluid is within the pelvis. No peritoneal studding is identified. Osseous structures: No suspicious lytic or sclerotic lesions. Degenerative disc changes are present L 5-S1. Facet degenerative changes are within the lower lumbar spine. IMPRESSIONS: 1. No suspicious changes to suggest recurrent or metastatic ovarian carcinoma. 2. Cholelithiasis. 3. Mild to moderate fatty infiltration of the liver
== END | disposition home or self-care (01) ==
LOC: RADCTMAIN 08:04
PROVIDERS: ATTEND Internal Medicine Hematology & Oncology
DX: K80.20 Calculus of gallbladder without cholecystitis without obstruction (principal); K76.0 Fatty (change of) liver, not elsewhere classified; C56.2 Malignant neoplasm of left ovary
CPT/HCPCS: 82565; 84520; 71260; 74177; 36415; Q9967

== ENCOUNTER → 2023-05-26 | Outpatient (CLI) | payer BC | END | disposition home or self-care (01) | LOC: LABWHC1 12:41 | PROVIDERS: ATTEND Internal Medicine Hematology & Oncology | DX: C56.2 Malignant neoplasm of left ovary (principal); D50.0 Iron deficiency anemia secondary to blood loss (chronic); J44.1 Chronic obstructive pulmonary disease with (acute) exacerbation; H40.9 Unspecified glaucoma | CPT/HCPCS: 36415; 93005 ==

== ENCOUNTER → 2023-08-28 | Outpatient (CLI) | payer BC ==
--- NOTE | 2023-08-30 18:57 | MR ---
EXAMINATION TYPE: MR lumbar spine wo/w con DATE OF EXAM: 08/28/2023 5:32 PM CLINICAL INDICATION:Female, 57 years old with history of M54.32 SCIATICA LEFT; Sciatica left side goi ng into right buttocks and down left leg COMPARISON: None TECHNIQUE: Multi planar, multi sequence imaging was performed utilizing: T1-weighted, T2-weighted, a nd turbo inversion recovery imaging of the lumbar spine. IV Contrast: 9 cc Gadobutrol. (None if empty) FINDINGS: Alignment: The lumbar vertebral bodies have preserved heights and alignment. Cord: The conus medullaris and the distal spinal cord appear unremarkable with regards to their signa l intensity and morphology. Bones/Discs: Multilevel disc degeneration changes with osteophyte formation, disc space narrowing and facet joint arthropathy. No abnormal inversion recovery signal to suggest bony edema. Intervertebral disc signal is maintained. Mild postcontrast enhancement inflammation around the facet joints of L3- L4 through L5-S1. T12-L1: No evidence of significant spinal canal stenosis or neural foraminal stenosis. L1-L2: No evidence of significant spinal canal stenosis or neural foraminal stenosis. L2-L3: No evidence of significant spinal canal stenosis or neural foraminal stenosis. L3-L4: Abundance of epidural fat which compresses the cauda equina. Facet joint arthropathy is mild t o moderate bilateral neural foraminal stenosis. L4-L5: Abundance of epidural fat which compresses the cauda equina. Disc bulge without significant ef fect on the spinal canal stenosis. Facet joint arthropathy with moderate left and moderate to severe right neural foraminal stenosis L5-S1: Abundance of epidural fat which compresses the cauda equina. There may be a central disc protr usion with out significant stenosis. There is moderate bilateral neural foraminal stenosis on the rig ht and moderate to severe on the left. No significant spinal canal or neural foraminal stenosis in the remainder of the visualized levels. Other findings: High T2 signal left renal cyst. IMPRESSION: 1. Epidural lipomatosis with bunching of the cauda equina starting from L3-L4 and inferiorly. No ayala dence for significant spinal canal stenosis other than this region. 2. Multilevel degeneration with mild neural foraminal stenosis as described above. Mild reactive noemi und the facet joints of the lower lumbar spine.
== END | disposition home or self-care (01) ==
LOC: RADMRIMAIN 16:25
PROVIDERS: ATTEND Family Medicine
DX: M99.73 Connective tissue and disc stenosis of intervertebral foramina of lumbar region (principal); M51.17 Intervertebral disc disorders with radiculopathy, lumbosacral region; E88.2 Lipomatosis, not elsewhere classified
CPT/HCPCS: 72158; A9585

== ENCOUNTER → 2023-09-03 | Outpatient (CLI) | payer BC ==
[2023-09-03 23:21] LABS: Appearance,Urine Clear (Clear); Bilirubin,Urine Negative (Negative); Blood,Urine Negative (Negative); Color,Urine Yellow (Yellow); Ketones,Urine Trace (Negative); Nitrite,Urine Negative (Negative); PH, Urine 5.5; Specific Gravity,Urine 1.019 (1.001-1.030); Urobilinogen,Urine 0.2 E.U./DL
== END | disposition home or self-care (01) ==
LOC: LABWHC1 13:43
PROVIDERS: ATTEND Urology
DX: R31.21 Asymptomatic microscopic hematuria (principal)
CPT/HCPCS: 81003

== ENCOUNTER → 2023-09-22 | Outpatient (CLI) | payer BC ==
[2023-09-22 13:52] LABS: African American GFR (CKD) 88 (>60 ml/min/1.73 sqM); Blood Urea Nitrogen 17 mg/dL (7-17); Non-African American GFR(CKD) 77 (>60 ml/min/1.73 sqM)
--- NOTE | 2023-09-23 12:14 | CT ---
EXAMINATION TYPE: CT ChestAbdPelvis w con DATE OF EXAM: 09/22/2023 INDICATION: Ovarian cancer, r/o metastasis COMPARISON: 05/09/2023 CT DLP: 1836.5 mGycm CONTRAST: Performed with Oral Contrast and with IV Contrast, patient injected with 100 cc mL of Isovue 300. TECHNIQUE: Axial images at 5 mm thick sections. Reconstructed images in the coronal plane. Delayed images through the kidneys. FINDINGS: CT CHEST: Portion of the thyroid visualized is normal. No suspicious lung nodules or focal infiltrates are present. No enlarged mediastinal or hilar adenopathy is evident. The ascending aorta diameter at the level of the main pulmonary artery is 3.1 cm. The main pulmonary artery diameter at the bifurcation is 2.[address] ABDOMEN: There is a broad anterior abdominal wall hernia with loops of colon present. No obstructi on is evident. No entrapment is identified. Opening 7.7 cm. This is adjacent to an ostomy site appear s unremarkable. Liver: Normal Spleen: Normal Pancreas: Normal Adrenal glands: The adrenal glands are normal. Gallbladder: Decompressed Kidneys: No masses are evident. No hydronephrosis is present. No cysts are present. Delayed images were obtained through the kidneys, which remain unremarkable. Aorta: Normal Inferior vena cava: Normal. CT PELVIS: No suspicious omental caking is evident. No free fluid within the abdomen or pelvis is ayala dent. No ovarian cysts identified. Loops of bowel within the abdomen and pelvis are normal. Rectal stump appears unremarkable. Ostomy s ite appears normal. Oral contrast extends to the descending colon region There are loops of bowel w hich are incompletely distended or lack oral contrast limiting their evaluation. Appendix: Not identified. No dilated tubular structure or inflammatory changes evident. Urinary bladder: Normal. Genitourinary structures: Uterus is normal. Adnexa are unremarkable. Osseous structures: No suspicious lytic or sclerotic lesions. Degenerative facet changes and degenera tive disc changes are within the lower lumbar spine. IMPRESSION: 1. No suspicious changes to suggest recurrent or metastatic ovarian cancer.
== END | disposition home or self-care (01) ==
LOC: RADCTMAIN 13:17
PROVIDERS: ATTEND Internal Medicine Hematology & Oncology
DX: C56.2 Malignant neoplasm of left ovary (principal); D50.0 Iron deficiency anemia secondary to blood loss (chronic); J44.1 Chronic obstructive pulmonary disease with (acute) exacerbation; H40.9 Unspecified glaucoma
CPT/HCPCS: 82565; 84520; 71260; 74177; 36415; Q9967

== ENCOUNTER → 2024-02-27 | Outpatient (CLI) | payer BC ==
[2024-02-27 16:34] LABS: Basophils # (A) 0.02 X 10*3/uL (0.00-0.10); Basophils % (A) 0.3 %; Eosinophils # (A) 0.05 X 10*3/uL (0.04-0.35); Eosinophils % (A) 0.8 %; HCT 35.8 % (37.2-46.3); HGB 11.3 g/dL (12.0-15.0); Lymphocytes # (A) 0.92 X 10*3/uL (0.90-5.00); Lymphocytes % (A) 14.8 %; MCH 33.1 pg (27.0-32.0); MCHC 31.6 g/dL (32.0-37.0); Mean Platelet Volume 10.2 FL (9.5-12.2); Monocytes # (A) 0.48 X 10*3/uL (0.20-1.00); Monocytes % (A) 7.7 %; NRBC Per 100 WBC 0 X 10*3/uL (0.00-0.01); Neutrophils # (A) 4.71 X 10*3/uL (1.80-7.70); Neutrophils % (A) 76.1 %; Platelet Count 213 X 10*3/uL (140-440); RBC 3.41 X 10*6/uL (4.10-5.20); RDW 15.1 % (11.5-14.5)
[2024-02-27 17:05] LABS: ALT 19 U/L (8-44); AST 14 U/L (13-35); Albumin 4.3 g/dL (3.8-4.9); Albumin/Globulin Ratio 1.59 Ratio (1.60-3.17); Alkaline Phosphatase 83 U/L (41-126); Blood Urea Nitrogen 12.9 mg/dL (9.0-27.0); Calcium 9.6 mg/dL (8.7-10.3); Chloride 104 mmol/L (96-109); Chol/HDL Ratio 2.22 Ratio; Globulin 2.7 g/dL (1.6-3.3); Glucose 109 mg/dL (70-110); Potassium 4.3 mmol/L (3.5-5.5); Sodium 140 mmol/L (135-145); Total Bilirubin <0.2 mg/dL (0.3-1.2)
== END | disposition home or self-care (01) ==
LOC: LABWHC1 11:41
PROVIDERS: ATTEND Family Medicine
DX: Z00.01 Encounter for general adult medical examination with abnormal findings (principal); D51.9 Vitamin B12 deficiency anemia, unspecified; E78.5 Hyperlipidemia, unspecified; E55.9 Vitamin D deficiency, unspecified; R73.9 Hyperglycemia, unspecified
CPT/HCPCS: 36415; 80053; 80061; 82306; 82607; 83036; 85025

== ENCOUNTER → 2024-03-01 | Outpatient (CLI) | payer BC | END | disposition home or self-care (01) | LOC: LABWHC1 15:25 | PROVIDERS: ATTEND Family Medicine | DX: Z00.01 Encounter for general adult medical examination with abnormal findings (principal); E78.5 Hyperlipidemia, unspecified; E55.9 Vitamin D deficiency, unspecified; D51.9 Vitamin B12 deficiency anemia, unspecified; R73.9 Hyperglycemia, unspecified | CPT/HCPCS: 36415; 83036 ==

== ENCOUNTER → 2024-03-03 | Outpatient (CLI) | payer BC ==
--- NOTE | 2024-03-04 14:04 | BD ---
EXAMINATION TYPE: Axial Bone Density DATE OF EXAM: 03/03/2024 CLINICAL HISTORY: 58 years old Female. ICD-10 CODE: M85.9 DISORDER OF BONE DENSITY AND STRUCTURE Height: 64" Weight: 204lbs FRAX RISK QUESTIONS: Alcohol (3 or more units per day): No Family History (Parent hip fracture): No Glucocorticoids (More than 3mos): Yes, for breathing (Ex: prednisone, prednisolone, methylprednisolone, dexamethasone, and hydrocortisone). History of Fracture in Adulthood: No Secondary Osteoporosis: 1. Type 1 Diabetes: No 2. Hyperthyroidism: No 3. Menopause before 45: No 4. Malnutrition: No 5. Chronic liver disease: No Rheumatoid Arthritis: No Current Tobacco Use: Yes RISK FACTORS HISTORY OF: Hip Fracture (Right/Left): No Spine Fracture: No History of Wrist Fracture: No Surgery to Spine/Hip(right/left)/Wrist (right/left): No MEDICATIONS: Thyroid Medications: No Osteoporosis Medications: No EXAM MEASUREMENTS: Bone mineral densitometry was performed using the Peer[employer] System. Bone mineral density as measured about the Lumbar spine is: ----- L1-L4(G/cm2): 1.566 T Score Values are as follows: ----- L1: 1.1 ----- L2: 2.5 ----- L3: 3.7 ----- L4: 4.7 ----- L1-L4: 3.2 Z Score Values are as follows: ----- L1: 1.2 ----- L2: 2.6 ----- L3: 3.8 ----- L4: 4.8 ----- L1-L4: 3.4 Baseline @MPH Bone mineral density about the R hip (g/cm2): 1.246 Bone mineral density about the L hip (g/cm2): 1.198 T Score values are as follows: -----R Neck: 0.6 -----L Neck: 0.3 -----R Total: 1.9 -----L Total: 1.5 Z Score values are as follows: -----R Neck: 1.2 -----L Neck: 0.8 -----R Total: 2.1 -----L Total: 1.7 Baseline @MPH FRAX%s: The graph provided illustrates a 5.0% chance for a major osteoporotic fx and a 0.1% chance fo r the hips probability for fx in 10 years time. IMPRESSION: Normal (Values between +1 and -1 indicate normal bone mass). Consider repeating this study in 5 year s or sooner if there is some new clinical indication. NOTE: T-SCORE=SD OF THE YOUNG ADULT MEAN.
--- NOTE | 2024-03-07 20:38 | MM ---
Reason for Exam: Screening (asymptomatic). Last mammogram was performed 18 year(s) and 4 month(s) ago. Patient History: Menarche at age 13. First Full-Term at age 24. Postmenopausal. Patient used Hormonal Contraceptives for 6 years. Paternal aunt had breast cancer at or over age 50. Risk Values: Argelia 5 year model risk: 1.2%. NCI Lifetime model risk: 6.9%. Prior Study Comparison: No prior studies available for comparison. Tissue Density: There are scattered areas of fibroglandular density. Findings: Analyzed By CAD. Benign bilateral dermal calcifications. Injection port right chest wall noted. No significant mass, suspicious microcalcification, or other discrete abnormality is seen. Overall Assessment: Benign, BI-RAD 2 Management: Screening Mammogram of both breasts in 1 year. . Patient should continue monthly self-breast exams. A clinical breast exam by your physician is recommended on an annual basis. This exam should not preclude additional follow-up of suspicious palpable abnormalities. Note on Argelia scores and lifetime risk: 1. A Argelia score greater than 3% is considered moderate risk. If this is the case, consider specialist referral to assess eligibility for a risk reducing agent. 2. If overall lifetime risk for the development of breast cancer is 20% or higher, the patient may qualify for future screening with alternating mammogram and breast MRI. Electronically signed and approved by: Dong Caldwell M.D. Radiologist
== END | disposition home or self-care (01) ==
LOC: RADMAMWWP 15:17
PROVIDERS: ATTEND Family Medicine
DX: Z12.31 Encounter for screening mammogram for malignant neoplasm of breast (principal); M85.9 Disorder of bone density and structure, unspecified; Z78.0 Asymptomatic menopausal state; Z80.3 Family history of malignant neoplasm of breast
CPT/HCPCS: 77063; 77067; 77080

== ENCOUNTER → 2024-03-11 | Outpatient (CLI) | payer BC ==
--- NOTE | 2024-03-11 14:30 | XR ---
EXAMINATION TYPE: XR cervical spine comp DATE OF EXAM: 03/11/2024 2:13 PM CLINICAL INDICATION:Female, 58 years old with history of M54.12 RADICULOPATHY, CERVICAL REGION; [facility] COMPARISON: None TECHNIQUE: The cervical spine was imaged in frontal, lateral, odontoid and bilateral oblique. FINDINGS: The osseous structures show normal alignment without evidence of an acute fracture. There are osteoph ytes noted throughout the cervical spine on the anterior and lateral aspects of the vertebral bodies. The intervertebral disk spaces are narrowed at multiple levels. Pedicles are intact. Soft tissues a re within normal limits. The odontoid appears intact. Ventriculostomy tubing courses along the right neck. IMPRESSION: 1. No fracture or dislocation. 2. Mild degenerative disc disease changes of the cervical spine.
== END | disposition home or self-care (01) ==
LOC: RADXRMAIN 13:58
PROVIDERS: ATTEND Family Medicine
DX: M50.10 Cervical disc disorder with radiculopathy, unspecified cervical region (principal)
CPT/HCPCS: 72050

== ENCOUNTER → 2024-04-08 | Outpatient (CLI) | payer BC ==
[2024-04-08 13:10] VITALS: BP 131/84; PULSE 86; RESP 16; TEMP 98.4
--- NOTE | 2024-04-08 14:49 | P.PAINPG ---
PQRS Measure Charge Sheet Comment: HISTORY OF PRESENT ILLNESS: A 58 yr old female as a referral from Dr Harkins presents today w severe and chronic LBP > 6 mo secondary to DDD, spondylosis and facet arthropathy without myelopathy for evaluation. Pt states pain level is provoked at 10 /10 in intensity, constant, localized in the lumbar spine, predominantly axial, sharp in character w occasional shooting pain towards the L flank and LLE. Pain is provoked by standing for periods > 10 min, or sitting. Pain is alleviated by PT x 6 wks which ended in March 2024, physician guided home exercises/ stretches 3-5 times weekly since mid March 2024, heat, medications (Lyrica, Tyl), repositioning and rest . Oswestry axial pain score at 31. PMH: OA, Ovarian Cancer, COPD, Tinnitus, Eye Disorder, GERD, PUD, HH, NPH, Glaucoma, Migraine PSH: Bowel Resection, Section x2, Shunt for hydrocephalus, lucia procedure, colostomy, ileocolectomy, partial omentectomy SH: 18 pack/ yr former tobacco user, Rare ETOH use, Cannabis use FH: Fa- Colon CA All: See list Meds: See list REVIEW OF ORGAN SYSTEMS: CONSTITUTIONAL: No fevers or chills. No recent weight loss. NEUROLOGICAL: + numbness and tingling along the distal extremities. No seizure disorders or headaches. MUSCULOSKELETAL: + pain PSYCHIATRIC: Denies current depression or suicidal thoughts. Physical Examinations : Constitutional : Cooperative , not in acute distress . Neurologic : Cranial nerve II to XII intact. No focal neurological deficits. Psychiatric : alert & oriented x 3. Matching mood & appropriate affect. Judgment & insight intact. Musculoskeletal : Cervical Spine Motor strength in the deltoid and biceps: Normal right side. Normal Left side Motor strength biceps and the wrist extensors: Normal right side . Normal left side Motor strength in the triceps muscle: Normal right side. Normal left side Deep tendon reflexes: Normal at the biceps. Normal at Brachioradialis. Normal at triceps Vertebral body tenderness to deep palpation over Cervical facet loading test: positive bilaterally Spurling test: positive bilaterally Neck distraction test: positive bilaterally Dean sign: positive bilaterally Lumbar spine Motor strength lower extremities ,thigh and legs 5/5 Right side , 5/5 Left side Deep tendon reflexes : Normal Knee Jerk. Normal Ankle Jerk Vertebral body tenderness over Boswell Test positive Lumbar facet Loading Test: positive Right / positive Left Range of motion of the lumbar spine Flexion 30 degrees, extension 10 degrees Straight Leg Raise test: Left/ Right positive at degrees Mayur test: positive right / positive left. Severe tenderness over the Sacroiliac joint on the Right / Left sides Gaenslen test: positive bilaterally Seated flexion test: positive bilaterally. Sacral spine : Severe tenderness over the Sacroiliac joint: right side / left side Range of motion: Flexion of the lumbar spine <60 degrees Range of motion: Extension of the lumbar spine <20 degrees Gaenslen's Test positive on L Mayur test: positive right side / left side Thigh Thrust Test +L Sacral Thrust Test Imaging: MRI non contrast of the lumbar spine from 08/25/23 reviewed Assessment/ Plan : Lumbar DDD Recommendation of L SI injection #1. Would benefit from a L TFESI L5-S1 also. May need a series of injections for optimal pain relief. Risks, benefits of procedure discussed and patient verbalized understanding. Admits to anti- coagulant use or medical history of diabetes. Protocol for discontinuation/ continuation of medications alvin procedure discussed. All questions answered. I have spent greater than 30 minutes on patient care today. Dr Millard was available by phone for the evaluation of this patient. The time was used to review the medical records including relevant urine studies and Prescription history (MAPs), review of the available imaging, evaluation and examination of the patient, coordination of care with the medical staff and if applicable referring physicians, as well as creation of the medical record PQRS Narrative: Smoking Status Current every day smoker Home Medications: Ambulatory Orders Omeprazole 40 mg PO DAILY 11/23/17 Losartan-Hctz 50-12.5 mg [Hyzaar 50-12.5] 2 tab PO DAILY 11/01/22 Budesonide-Formot 160-4.5 Mcg [Symbicort 160-4.5 Mcg Inhaler] 2 inhalation INHALATION BID 12/26/22 Cholecalciferol [Vitamin D3 (25 Mcg = 1000 Iu)] 50 mcg PO DAILY 02/10/23 Cyanocobalamin [Vitamin B-12] 500 mcg PO DAILY 02/10/23 traZODone HCL [Desyrel] 50 mg PO HS 03/13/23 Diclofenac Sodium 1 tab PO BID 07/02/23 Magnesium 1 tab PO DAILY 07/02/23 Controlled Substance Measures - Controlled Substance Measures Is patient prescribed a controlled substance at discharge?: No
== END ==
LOC: PNWHC3 09:25
PROVIDERS: ATTEND Specialist
DX: M51.16 Intervertebral disc disorders with radiculopathy, lumbar region (principal); F17.200 Nicotine dependence, unspecified, uncomplicated; Z88.1 Allergy status to other antibiotic agents
CPT/HCPCS: 99202

== ENCOUNTER → 2024-04-22 | Day surgery (SDC) | payer BC ==
[~2024-04-22] MED LIST changes: -ACETAMINOPHEN TAB 500 MG TAB PO PRN; -DEXAMETHASONE SOD PHOSPHATE 4 MG/ML 1 ML VIAL IV ONE; -HEPARIN SODIUM,PORCINE/PF 5,000 UNIT/0.5 ML SYRINGE SQ PRN; +IOPAMIDOL M200 10 ML VIAL ONE; -LIDOCAINE 1% (10MG/ML) FOR IV START INTRADERMA PRN; -Pre Op ABX Message 1 EACH MISC MISCELLANE ONE; +ROPIVACAINE 5MG/ML 20ML VIAL ONE; +methylPREDNISolone ACETATE 40 MG/ML 1 ML VIAL ONE
[2024-04-22 09:53] VITALS: RESP 16; TEMP 97.6
--- NOTE | 2024-04-22 10:30 | P.PCN ---
Date of Procedure: 04/22/24 Procedure(s) Performed: Procedure= Left sacroiliac joints steroid injection under fluoroscopy guidance (fluoroscopy image stored on file in the radiology Department ) Preoperative diagnosis= 1-sacroiliitis 2-lumbar degenerative disc disease 3- lumbar facet arthropathy Postoperative diagnosis=Same as preop Diagnosis . Complication = none Condition= stable Anesthesia= local anesthesia with ropivacaine 0.5% 2 ml only Indication for the procedure= patient complaining of low back pain , examination was positive for severe tenderness over the left sacroiliac joints , and patient diagnosed with sacroiliitis, for this reason she was good candidate for sacroiliac joint steroid injection. Description of the procedure= procedure risk and benefits discussed with the patient, including but not limited, risk of infection and bleeding, and ALLERGIC reaction to the medication and not complete pain relief and patient agreed with the preceding patient taken to the operating room, placed in prone position or standard monitors applied to the patient then after induction of anesthesia back prepped with chlorhexidine 3 times , Then the left sacroiliac joint steroid injection done under strict sterile technique local infiltration of the skin and subcu interstitial at the location of the left sacroiliac joint then a 22-gauge Quincke Needle advanced slowly under fluoroscopy time placed in the left sacroiliac joint, needle placement confirmed with AP and oblique and lateral view then after appropriate needle placement confirmed, with the AP and oblique and lateral then after negative aspiration Isovue 200 1 mL injected showed arthropathy of the left sacroiliac joint, and after negative aspiration 0.5% Ropivacaine 2 mL and 40 mg of Depo- Medrol injected in the left sacroiliac joint after negative aspiration patient tolerated the procedure well that any complications and she will follow up in clinic 3 weeks
[2024-04-22 10:55] VITALS: BP 129/76; PULSE 75
--- NOTE | 2024-04-22 12:18 | FL ---
EXAMINATION TYPE: FL guided pain mgmt statistic DATE OF EXAM: 04/22/2024 HISTORY: Fluoroscopy time Total dose area product (DAP) in uGy*m?, mGy*cm? (or similar): 0.22783 IMPRESSION: 1. Fluoroscopy time.
== END ==
LOC: ORPAIN 09:40
PROVIDERS: ATTEND Specialist
DX: M46.1 Sacroiliitis, not elsewhere classified (principal); M47.816 Spondylosis without myelopathy or radiculopathy, lumbar region; Z88.1 Allergy status to other antibiotic agents
CPT/HCPCS: 27096; Q9966; J2795; J1010

== ENCOUNTER → 2024-05-06 | Outpatient (CLI) | payer BC ==
[2024-05-06 09:47] VITALS: BP 148/74; PULSE 74; RESP 16; TEMP 97.1
--- NOTE | 2024-05-06 14:47 | P.PAINPG ---
PQRS Measure Charge Sheet Comment: HISTORY OF PRESENT ILLNESS: A 58 yr old female as a referral from Dr Harkins presents today w severe and chronic LBP > 6 mo secondary to DDD, spondylosis and facet arthropathy without myelopathy for evaluation s/p L SI injection #1. Pt states she experienced 75 % pain relief x 2 wks s/p procedure. Pt states pain level is provoked at 2 /10 in intensity, constant, localized in the lumbar spine, predominantly axial, sharp in character w occasional shooting pain towards the L flank and LLE. Pain is provoked by standing for periods > 10 min, or sitting. Pain is alleviated by PT x 6 wks which ended in March 2024, physician guided home exercises/ stretches 3-5 times weekly since mid March 2024, heat, medications, repositioning and rest . Oswestry axial pain score at 21. Interventional procedures include L SI injection x1 Medications include Lyrica, Tyl, Cannabis use REVIEW OF ORGAN SYSTEMS: CONSTITUTIONAL: No fevers or chills. No recent weight loss. NEUROLOGICAL: + numbness and tingling along the distal extremities. No seizure disorders or headaches. MUSCULOSKELETAL: + pain PSYCHIATRIC: Denies current depression or suicidal thoughts. Physical Examinations : Constitutional : Cooperative , not in acute distress . Neurologic : Cranial nerve II to XII intact. No focal neurological deficits. Psychiatric : alert & oriented x 3. Matching mood & appropriate affect. Judgment & insight intact. Musculoskeletal : Cervical Spine Motor strength in the deltoid and biceps: Normal right side. Normal Left side Motor strength biceps and the wrist extensors: Normal right side . Normal left side Motor strength in the triceps muscle: Normal right side. Normal left side Deep tendon reflexes: Normal at the biceps. Normal at Brachioradialis. Normal at triceps Vertebral body tenderness to deep palpation over Cervical facet loading test: positive bilaterally Spurling test: positive bilaterally Neck distraction test: positive bilaterally Dean sign: positive bilaterally Lumbar spine Motor strength lower extremities ,thigh and legs 5/5 Right side , 5/5 Left side Deep tendon reflexes : Normal Knee Jerk. Normal Ankle Jerk Vertebral body tenderness over Boswell Test positive Lumbar facet Loading Test: positive Right / positive Left Range of motion of the lumbar spine Flexion 30 degrees, extension 10 degrees Straight Leg Raise test: Left/ Right positive at degrees Mayur test: positive right / positive left. Severe tenderness over the Sacroiliac joint on the Right / Left sides Gaenslen test: positive bilaterally Seated flexion test: positive bilaterally. Sacral spine : Severe tenderness over the Sacroiliac joint: right side / left side Range of motion: Flexion of the lumbar spine <60 degrees Range of motion: Extension of the lumbar spine <20 degrees Gaenslen's Test positive on L Mayur test: positive right side / left side Thigh Thrust Test +L Sacral Thrust Test Imaging: MRI non contrast of the lumbar spine from 08/25/23 reviewed Assessment/ Plan : Lumbar DDD Will manage residual pain and may RTC on an as needed basis. All questions answered. I have spent greater than 30 minutes on patient care today. Dr Millard was available by phone for the evaluation of this patient. The time was used to review the medical records including relevant urine studies and Prescription history (MAPs), review of the available imaging, evaluation and examination of the patient, coordination of care with the medical staff and if applicable referring physicians, as well as creation of the medical record PQRS Narrative: Smoking Status Current every day smoker Home Medications: Ambulatory Orders Omeprazole 40 mg PO DAILY 11/23/17 Losartan-Hctz 50-12.5 mg [Hyzaar 50-12.5] 2 tab PO DAILY 11/01/22 Budesonide-Formot 160-4.5 Mcg [Symbicort 160-4.5 Mcg Inhaler] 2 inhalation INHALATION BID 12/26/22 Cholecalciferol [Vitamin D3 (25 Mcg = 1000 Iu)] 50 mcg PO DAILY 02/10/23 Cyanocobalamin [Vitamin B-12] 500 mcg PO DAILY 02/10/23 traZODone HCL [Desyrel] 50 mg PO HS 03/13/23 Magnesium 1 tab PO DAILY 07/02/23 Controlled Substance Measures - Controlled Substance Measures Is patient prescribed a controlled substance at discharge?: No
== END ==
LOC: PNWHC3 09:14
PROVIDERS: ATTEND Specialist
DX: M51.36 Other intervertebral disc degeneration, lumbar region (principal); F17.200 Nicotine dependence, unspecified, uncomplicated; Z88.1 Allergy status to other antibiotic agents
CPT/HCPCS: 99211

== ENCOUNTER → 2024-08-13 | Outpatient (CLI) | payer BC ==
--- NOTE | 2024-08-13 18:14 | CA ---
Transthoracic Echo Report Name: Tyra Yu Age: 58 Gender: F : 1965 Exam Date: 08/13/2024 15:33 Exam Location: [facility] Ht (in): 64 Wt (lb): 206 Ordering Physician: Marciano Godinez MD Attending/Referring Phys: Director Public Service Kristin Jasmine RDCS Procedure CPT: Indications: Z01.818 ENCOUNTER FOR OTHER PREPROCEDURAL EXAMINAT Cardiac Hx: Technical Quality: Fair Contrast 1: Total Dose (mL): Contrast 2: Total Dose (mL): MEASUREMENTS (Male / Female) Normal Values 2D ECHO LV Diastolic Diameter PLAX 4.3 cm 4.2 - 5.9 / 3.9 - 5.3 cm LV Systolic Diameter PLAX 2.6 cm IVS Diastolic Thickness 0.9 cm 0.6 - 1.0 / 0.6 - 0.9 cm LVPW Diastolic Thickness 1.1 cm 0.6 - 1.0 / 0.6 - 0.9 cm LV Relative Wall Thickness 0.5 RV Internal Dim ED PLAX 3.3 cm LA Systolic Diameter LX 3.0 cm 3.0 - 4.0 / 2.7 - 3.8 cm LA Volume 48.2 cm??? 18 - 58 / 22 - 52 cm??? LA Volume Index 23.0 cm???/m??? 16 - 28 cm???/m??? M-MODE Aortic Root Diameter MM 3.2 cm DOPPLER AV Peak Velocity 157.7 cm/s AV Peak Gradient 10.0 mmHg AV Mean Velocity 89.6 cm/s AV Mean Gradient 4.0 mmHg AV Velocity Time Integral 29.4 cm MV Area PHT 2.6 cm??? Mitral E Point Velocity 76.6 cm/s Mitral A Point Velocity 93.8 cm/s Mitral E to A Ratio 0.8 MV Deceleration Time 292.3 ms TR Peak Velocity 247.5 cm/s TR Peak Gradient 24.5 mmHg Right Ventricular Systolic Press 29.5 mmHg FINDINGS Left Ventricle Left ventricular ejection fraction is estimated at 55-60 %. Left ventricular cavity size normal. Mildly increased posterior wall thickness. Right Ventricle Mild right ventricular dilatation. Right ventricular systolic pressure within normal limits. Right Atrium Normal right atrial size. No right atrial thrombus or mass seen. Left Atrium Normal left atrial size. No left atrial thrombus or mass present. Mitral Valve Structurally normal mitral valve. No mitral stenosis, regurgitation or prolapse. Aortic Valve Trileaflet aortic valve. No aortic valve stenosis or regurgitation. Tricuspid Valve Structurally normal tricuspid valve. Mild tricuspid regurgitation. Pulmonic Valve Structurally normal pulmonic valve. No pulmonic regurgitation. Pericardium No pericardial effusion. Aorta Normal size aortic root and proximal ascending aorta. CONCLUSIONS Left ventricular ejection fraction is estimated at 55-60 %. mild concentric LVH No significant valve dysfunction Mild RV dilatation with normal systolic function, RVSP 30 mmHg Previewed by: Dr Skinny Wilson (Electronically Signed) Final Date: 13 August 2024 18:13
== END | disposition home or self-care (01) ==
LOC: RADECHMAIN 15:03
PROVIDERS: ATTEND Internal Medicine Hematology & Oncology
DX: Z01.818 Encounter for other preprocedural examination
CPT/HCPCS: 93306

== ENCOUNTER 2024-12-14 13:41 | Emergency (ER) | payer BC ==
[2024-12-14 13:46] VITALS: BP 131/62; PULSE 111; RESP 18; TEMP 98.8
--- NOTE | 2024-12-14 14:12 | ED ---
General Adult HPI - General Chief complaint: Recheck/Abnormal Lab/Rx Stated complaint: ng tube fell out Time Seen by Provider: 12/14/24 13:47 Source: patient, RN notes reviewed Mode of arrival: ambulatory Limitations: no limitations - History of Present Illness Initial comments: 59-year-old female presents emergency department chief complaint of needing NG tube. Patient states she has her NG tube and secondary to cancerous mass causing small bowel obstruction. She is on TPN she is discharged at home with this NG tube but states that it came out after she sneezed. Patient states that this has happened in the past. Patient offers no other associated symptoms. - Related Data Home Medications Medication Instructions Recorded Confirmed Omeprazole 40 mg PO BID 11/23/17 11/21/24 OLANZapine 5 mg PO DIRECTED 11/11/24 11/21/24 Prochlorperazine [Compazine] 10 mg PO QID PRN 11/11/24 11/21/24 Albuterol Sulfate/Budesonide 1 puff INHALATION RT-Q4H PRN MDD 6 11/21/24 11/21/24 [Airsupra 90-80 Mcg Inhaler] DOSES DULoxetine HCL [Cymbalta] 30 mg PO DAILY 11/21/24 11/21/24 Magnesium 250 mg PO DAILY 11/21/24 11/21/24 Ondansetron Odt [Zofran ODT] 4 mg PO Q4H PRN 11/21/24 11/21/24 Potassium Chloride ER [K-Dur 20] 20 meq PO DAILY 11/21/24 11/21/24 Pregabalin [Lyrica] 150 mg PO DAILY 11/21/24 11/21/24 Vitamin B-12 (Unknown Strength) 1 dose PO DAILY 11/21/24 11/21/24 Vitamin D3 (Unknown Strength) 1 dose PO DAILY 11/21/24 11/21/24 rOPINIRole HCL [Requip] 0.5 mg PO HS 11/21/24 11/21/24 traZODone HCL [Desyrel] 100 mg PO HS 11/21/24 11/21/24 Previous Rx's Medication Instructions Recorded Acetaminophen Tab [Tylenol] 650 mg PO Q6HR PRN tab 12/09/24 Benzocaine [place] [Hurricaine [place]] 1 spray MUCOUS MEM QID PRN each 01/30/25 Midodrine [ProAmatine] 5 mg PO AC-BID #60 tab 12/09/24 Pantoprazole [Protonix] 40 mg PO AC-BRKFST #30 tab 12/09/24 Ondansetron Odt [Zofran Odt] 4 mg PO Q6H PRN #30 tab 12/10/24 Cephalexin [Keflex] 500 mg PO Q6HR 7 Days #42 cap 12/13/24 Allergies Allergy/AdvReac Type Severity Reaction Status Date / Time doxycycline Allergy Nausea & Verified 12/14/24 13:46 Vomiting, sweating Review of Systems ROS Statement: Those systems with pertinent positive or pertinent negative responses have been documented in the HPI. ROS Other: All systems not noted in ROS Statement are negative. Past Medical History Past Medical History: Cancer, COPD, Eye Disorder, GERD/Reflux, GERD/Reflux Additional Past Medical History / Comment(s): Stage III Ovarian Ca History of Any Multi-Drug Resistant Organisms: None Reported Past Surgical History: Bowel Resection, Section Additional Past Surgical History / Comment(s): Shunt for hydrocephalus., Past Anesthesia/Blood Transfusion Reactions: No Reported Reaction Past Psychological History: No Psychological Hx Reported Smoking Status: Current every day smoker Past Alcohol Use History: None Reported Past Drug Use History: Marijuana - Past Family History Father Family Medical History: Cancer Additional Family Medical History / Comment(s): Colon cancer. General Exam Limitations: no limitations General appearance: alert, in no apparent distress Head exam: Present: atraumatic, normocephalic, normal inspection Eye exam: Present: normal appearance, PERRL, EOMI. Absent: scleral icterus, conjunctival injection, periorbital swelling ENT exam: Present: normal exam, normal oropharynx, mucous membranes moist Neck exam: Present: normal inspection, full ROM. Absent: tenderness, meningismus, lymphadenopathy Respiratory exam: Present: normal lung sounds bilaterally. Absent: respiratory distress, wheezes, rales, rhonchi, stridor Cardiovascular Exam: Present: regular rate, normal rhythm, normal heart sounds. Absent: systolic murmur, diastolic murmur, rubs, gallop, clicks Course Vital Signs 12/14/24 13:42 Temperature 98.8 F Pulse Rate 111 H Respiratory 18 Rate Blood Pressure 131/62 O2 Sat by Pulse 98 Oximetry Medical Decision Making - Medical Decision Making Was pt. sent in by a medical professional or institution (MILAN Briggs, CYBER SECURITY ANALYST, urgent care, hospital, or [facility]...) When possible be specific @ -No Did you speak to anyone other than the patient for history (EMS, parent, family, police, friend...)? What history was obtained from this source @ -No Did you review nursing and triage notes (agree or disagree)? Why? @ -I reviewed and agree with nursing and triage notes Were old charts reviewed (outside hosp., previous admission, EMS record, old EKG, old radiological studies, urgent care reports/EKG's, [facility] records)? Report findings @ -No old charts were reviewed Differential Diagnosis (chest pain, altered mental status, abdominal pain women, abdominal pain men, vaginal bleeding, weakness, fever, dyspnea, syncope, headache, dizziness, GI bleed, back pain, seizure, CVA, palpatations, mental health, musculoskeletal)? @ -NJ tube placement, small bowel obstruction EKG interpreted by me (3pts min.). @ -As above X-rays interpreted by me (1pt min.). @ -X-ray chest x-ray shows adequate placement of NG tube CT interpreted by me (1pt min.). @ -None done U/S interpreted by me (1pt. min.). @ -None done What testing was considered but not performed or refused? (CT, X-rays, U/S, labs)? Why? @ -None What meds were considered but not given or refused? Why? @ -None Did you discuss the management of the patient with other professionals (professionals i.e. MILAN Briggs, CYBER SECURITY ANALYST, lab, RT, psych nurse, psych social worker, gum scoring machine operator, teacher, transportation security officer, clinical case manager)? Give summary @ -No Was smoking cessation discussed for >3mins.? @ -No Was critical care preformed (if so, how long)? @ -No Were there social determinants of health that impacted care today? How? (Homelessness, low income, unemployed, alcoholism, drug addiction, transportation, low edu. Level, literacy, decrease access to med. care, retirement, rehab)? @ -No Was there de-escalation of care discussed even if they declined (Discuss DNR or withdrawal of care, Hospice)? DNR status @ -No What co-morbidities impacted this encounter? (DM, HTN, Smoking, COPD, CAD, Cancer, CVA, ARF, Chemo, Hep., AIDS, mental health diagnosis, sleep apnea, morbid obesity)? @ -None Was patient admitted / discharged? Hospital course, mention meds given and route, prescriptions, significant lab abnormalities, going to OR and other p ertinent info. @ -Discharged patient has NG tube placed for small bowel obstruction known to this patient patient discharged in stable condition. Undiagnosed new problem with uncertain prognosis? @ -No Drug Therapy requiring intensive monitoring for toxicity (Heparin, Nitro, Insulin, Cardizem)? @ -No Were any procedures done? @ -NG tube placement by RN Diagnosis/symptom? @ -NG tube placement Acute, or Chronic, or Acute on Chronic? @ -Acute Uncomplicated (without systemic symptoms) or Complicated (systemic symptoms)? @ -Complicated Side effects of treatment? @ -No Exacerbation, Progression, or Severe Exacerbation? @ -No Poses a threat to life or bodily function? How? (Chest pain, [place], [place], pneumonia, PE, COPD, DKA, ARF, appy, cholecystitis, CVA, Diverticulitis, Homicidal, Suicidal, threat to staff... and all critical care pts) @ -No Disposition Clinical Impression: Encounter for nasogastric (NG) tube placement Disposition: HOME SELF-CARE Condition: Stable Additional Instructions: Please return to the Emergency Department if symptoms worsen or any other concerns. Is patient prescribed a controlled substance at d/c from ED?: No Referrals: Juliann Freitas MD [Primary Care Provider] - 1-2 days Time of Disposition: 14:42
--- NOTE | 2024-12-14 14:46 | XR ---
EXAMINATION TYPE: XR chest 1V DATE OF EXAM: 12/14/2024 2:34 PM COMPARISON: Chest radiographs from 12/13/2024 CLINICAL INDICATION: Female, 59 years old with history of NG placement; [facility] TECHNIQUE: XR chest 1V Frontal view of the chest. FINDINGS: Lungs/Pleura: There is no evidence of pleural effusion, focal consolidation, or pneumothorax. Pulmonary vascularity: Unremarkable. Heart/mediastinum: Cardiomediastinal silhouette is unremarkable. Musculoskeletal: No acute osseous pathology. Other findings: None Lines/Tubes: Nasogastric tube with its distal tip and side-port projecting under the diaphragm. Right internal jugular central venous catheter with distal tip at the cavoatrial junction. [id number] projecting over the right hemithorax with distal tip at the cavoatrial junction. IMPRESSION: No acute cardiopulmonary disease/process. [facility], , 12/14/2024 2:44 PM
== END 2024-12-14 14:55 | disposition home or self-care (01) ==
LOC: EC 13:41
DX: Z46.59 Encounter for fitting and adjustment of other gastrointestinal appliance and device (principal); F17.200 Nicotine dependence, unspecified, uncomplicated; Z88.8 Allergy status to other drugs, medicaments and biological substances
CPT/HCPCS: 43753; 71045; 99283

== ENCOUNTER 2025-01-13 16:36 | Inpatient (IN) | payer BC ==
--- NOTE | 2025-01-13 17:14 | ED ---
General Adult HPI - General Chief complaint: Shortness of Breath Stated complaint: SOB Time Seen by Provider: 01/13/25 16:47 Source: patient Mode of arrival: ambulatory Limitations: no limitations - History of Present Illness Initial comments: Dictation was produced using [employer] dictation software. please excuse any grammatical, word or spelling errors. Chief Complaint: 59-year-old female ovarian cancer presents to the ER from oncology office for shortness of breath History of Present Illness: 59-year-old female with history of ovarian cancer presents to the emergency department from oncology office. She was there for checkup appointment. Currently getting chemotherapy. She has been living with a diagnosis of ovarian cancer for approximately 2 years. Oncology redirected the patient to the ER. He did call ahead provided some history states that she has been short of breath and oncologist is concerned of PE versus pneumonia. Patient currently dealing with urinary tract infection taking antibiotics. Denies any chest pain. Denies any fever, chills or night sweats. Patient has no history of pulmonary embolism or DVT The ROS documented in this emergency department record has been reviewed and confirmed by me. Those systems with pertinent positive or negative responses have been documented in the HPI. All other systems are other negative and/or noncontributory. - Related Data Home Medications Medication Instructions Recorded Confirmed Fluconazole 150 mg PO DAILY 01/13/25 01/13/25 Latanoprost [Latanoprost 0.005%] 1 drop BOTH EYES HS 01/13/25 01/13/25 Potassium Chloride Oral Liquid 40 meq NG-TUBE DAILY 01/13/25 01/13/25 Prednisolone Acetate/Pf 1 drop BOTH EYES QID 01/13/25 01/13/25 [Prednisolone Acet 1% Eye Drop] Prochlorperazine [Compazine] 10 mg PO QID PRN 01/13/25 01/13/25 rOPINIRole HCL [Requip] 0.5 mg PO HS 01/13/25 01/13/25 Previous Rx's Medication Instructions Recorded Midodrine [ProAmatine] 5 mg PO AC-BID #60 tab 12/09/24 Ondansetron Odt [Zofran Odt] 4 mg PO Q6H PRN #30 tab 12/10/24 Allergies Allergy/AdvReac Type Severity Reaction Status Date / Time doxycycline Allergy Nausea & Verified 01/13/25 17:51 Vomiting, sweating Review of Systems ROS Statement: Those systems with pertinent positive or pertinent negative responses have been documented in the HPI. ROS Other: All systems not noted in ROS Statement are negative. Past Medical History Past Medical History: Cancer, COPD, Eye Disorder, GERD/Reflux, GERD/Reflux Additional Past Medical History / Comment(s): Stage III Ovarian Cadiverticulitis11/2022., colostomy.stae 3 ovarian cancer,kidney stone, small bowel obstruction History of Any Multi-Drug Resistant Organisms: None Reported Past Surgical History: Bowel Resection, Section Additional Past Surgical History / Comment(s): Shunt for hydrocephalus., Past Anesthesia/Blood Transfusion Reactions: No Reported Reaction Past Psychological History: No Psychological Hx Reported Smoking Status: Current every day smoker - Past Family History Father Family Medical History: Cancer Additional Family Medical History / Comment(s): Colon cancer. General Exam - General Exam Comments Initial Comments: PHYSICAL EXAM: General Impression: Alert and oriented x3, acute distress secondary to dyspnea HEENT: Normocephalic atraumatic, extra-ocular movements intact, pupils equal and reactive to light bilaterally, mucous membranes moist. Cardiovascular: Heart regular rate and rhythm Chest: Able to complete full sentences, no retractions, no tachypnea Abdomen: abdomen soft, non-tender, non-distended, no organomegaly Musculoskeletal: Pulses present and equal in all extremities, no peripheral edema Motor: no focal deficits noted Neurological: CN II-XII grossly intact, no focal motor or sensory deficits noted Skin: Intact with no visualized rashes Psych: Normal affect and mood Limitations: no limitations Course Vital Signs 01/13/25 01/13/25 16:39 16:58 Temperature 97.9 F Pulse Rate 120 H 105 H Respiratory 36 H 24 Rate Blood Pressure 144/75 O2 Sat by Pulse 100 100 Oximetry EKG Findings - EKG Comments: EKG Findings:: My EKG interpretation: Ventricular rate 105, sinus tachycardia,. 142, cures 92, QTc 381. No OK prolongation, no QTC prolongation, no ST or T-wave changes noted. Overall, this EKG is unremarkable Medical Decision Making - Medical Decision Making Was pt. sent in by a medical professional or institution (, PA, MEDICAL DIRECTOR OCCUPATIONAL HEALTH, urgent care, hospital, or group home...) When possible be specific @ -No Did you speak to anyone other than the patient for history (EMS, parent, family, police, friend...)? What history was obtained from this source @ -See above Did you review nursing and triage notes (agree or disagree)? Why? @ -I reviewed and agree with nursing and triage notes Were old charts reviewed (outside hosp., previous admission, EMS record, old EKG, old radiological studies, urgent care reports/EKG's, group home records)? Report findings @ -No old charts were reviewed Differential Diagnosis (chest pain, altered mental status, abdominal pain women, abdominal pain men, vaginal bleeding, musculoskeletal, weakness, fever, dyspnea, syncope, headache, dizziness, GI bleed, back pain, seizure, CVA, palpatations, mental health)? @ -Differential Dyspnea: Coronary syndrome, arrhythmia, tamponade, asthma, COPD, pulmonary embolism, pneumonia, pneumothorax, pulmonary effusion, anaphylaxis, diabetic ketoacidosis, flailed chest, pulmonary contusion, diaphragmatic rupture, anemia, neuromuscular, this is not meant to be an all-inclusive list. EKG interpreted by me (3pts min.). @ -Above X-rays interpreted by me (1pt min.). @ -Chest x-ray shows possible infiltrate in the right lung CT interpreted by me (1pt min.). @ -CT angio of the chest shows no saddle emboli. No infiltrate seen on the lung parenchyma U/S interpreted by me (1pt. min.). @ -None done What testing was considered but not performed or refused? (CT, X-rays, U/S, labs)? Why? @ -None What meds were considered but not given or refused? Why? @ -None Was smoking cessation discussed for >3mins.? @ -No Were there social determinants of health that impacted care today? How? (Homelessness, low income, unemployed, alcoholism, drug addiction, transportation, low edu. Level, literacy, decrease access to med. care, care home, rehab)? @ -No Was there de-escalation of care discussed even if they declined (Discuss DNR or withdrawal of care, Hospice)? DNR status @ -No What co-morbidities impacted this encounter? (DM, HTN, Smoking, COPD, CAD, Cancer, CVA, ARF, Chemo, Hep., AIDS, mental health diagnosis, sleep apnea, morbid obesity)? @ -Cancer Was patient admitted / discharged? Hospital course, mention meds given and route, prescriptions, significant lab abnormalities, going to OR and other pertinent info. @ -59-year-old female sent in from oncology office for increased work of breathing. Vital signs upon arrival show tachycardia 120 with respiratory rate of 36. Patient cleared at this point at the bedside. No obvious lung sounds with auscultation of the lungs. Laboratory evaluation obtained. CBC within acceptable limits. D-dimer elevated 6.39. Laboratory evaluation obtained shows acidosis which appears to be metabolic. Sodium 127. Patient given IV fluids will be admitted consultation to pulmonology and oncology. Case discussed with hospitalist for admission Did you discuss the management of the patient with other professionals (professionals i.e. , PA, MEDICAL DIRECTOR OCCUPATIONAL HEALTH, lab, RT, psych nurse, social media editor, occupational ther, teacher, armed security officer, case management social worker)? Give summary @ -See above Was critical care preformed (if so, how long)? @ -No Undiagnosed new problem with uncertain prognosis? @ -No Drug Therapy requiring intensive monitoring for toxicity (Heparin, Nitro, Insulin, Cardizem)? @ -No Were any procedures done? @ -No Diagnosis/symptom? Acute, or Chronic, or Acute on Chronic? Uncomplicated (without systemic symptoms) or Complicated (systemic symptoms)? @ -Metabolic acidosis, hyponatremia Side effects of treatment? @ -No Exacerbation, Progression, or Severe Exacerbation? @ -No Poses a threat to life or bodily function? How? (Chest pain, [place], [place], pneumonia, PE, COPD, DKA, ARF, appy, cholecystitis, CVA, Diverticulitis, Homicidal, Suicidal, threat to staff... and all critical care pts) @ -yes - Lab Data Result diagrams: 01/13/25 17:19 01/13/25 17:19 Lab Results 01/13/25 01/13/25 01/13/25 Range/Units 17:19 17:19 17:19 WBC 7.2 (3.8-10.6) k/uL RBC 2.35 L (3.80-5.40) m/uL Hgb 7.8 L (11.4-16.0) gm/dL Hct 24.3 L (34.0-46.0) % MCV 103.3 H (80.0-100.0) fL MCH 33.2 (25.0-35.0) pg MCHC 32.1 (31.0-37.0) g/dL RDW 21.0 H (11.5-15.5) % Plt Count 61 L (150-450) k/uL MPV 10.3 Neutrophils % 91 % Lymphocytes % 4 % Monocytes % 3 % Eosinophils % 0 % Basophils % 0 % Neutrophils # 6.6 (1.3-7.7) k/uL Lymphocytes # 0.3 L (1.0-4.8) k/uL Monocytes # 0.2 (0-1.0) k/uL Eosinophils # 0.0 (0-0.7) k/uL Basophils # 0.0 (0-0.2) k/uL Hypochromasia Moderate Anisocytosis Moderate Macrocytosis Marked A PT 10.9 (10.0-12.5) sec INR 1.0 (<1.2) APTT 38.7 H (22.0-30.0) sec D-Dimer 6.39 H (<0.60) mg/L FEU Sodium 127 L (137-145) mmol/L Potassium 4.1 (3.5-5.1) mmol/L Chloride 99 (98-107) mmol/L Carbon Dioxide 14 L (22-30) mmol/L Anion Gap 14 mmol/L BUN 40 H (7-17) mg/dL Creatinine 1.29 H (0.52-1.04) mg/dL Est GFR (CKD-EPI)AfAm 52 (>60 ml/min/1.73 sqM) Est GFR (CKD-EPI)NonAf 46 (>60 ml/min/1.73 sqM) Glucose 162 H (74-99) mg/dL Lactic Ac Sepsis Rflx Plasma Lactic Acid Peña (0.7-2.0) mmol/L Calcium 8.5 (8.4-10.2) mg/dL Magnesium 1.8 (1.6-2.3) mg/dL Total Bilirubin 1.0 (0.2-1.3) mg/dL AST 57 H (14-36) U/L ALT 107 H (4-34) U/L Alkaline Phosphatase 244 H (38-126) U/L Troponin I (0.000-0.034) ng/mL NT-Pro-B Natriuret Pep 534 pg/mL Total Protein 6.8 (6.3-8.2) g/dL Albumin 3.4 L (3.5-5.0) g/dL 01/13/25 01/13/25 01/13/25 Range/Units 17:19 17:19 18:04 WBC (3.8-10.6) k/uL RBC (3.80-5.40) m/uL Hgb (11.4-16.0) gm/dL Hct (34.0-46.0) % MCV (80.0-100.0) fL MCH (25.0-35.0) pg MCHC (31.0-37.0) g/dL RDW (11.5-15.5) % Plt Count (150-450) k/uL MPV Neutrophils % % Lymphocytes % % Monocytes % % Eosinophils % % Basophils % % Neutrophils # (1.3-7.7) k/uL Lymphocytes # (1.0-4.8) k/uL Monocytes # (0-1.0) k/uL Eosinophils # (0-0.7) k/uL Basophils # (0-0.2) k/uL Hypochromasia Anisocytosis Macrocytosis PT (10.0-12.5) sec INR (<1.2) APTT (22.0-30.0) sec D-Dimer (<0.60) mg/L FEU Sodium (137-145) mmol/L Potassium (3.5-5.1) mmol/L Chloride (98-107) mmol/L Carbon Dioxide (22-30) mmol/L Anion Gap mmol/L BUN (7-17) mg/dL Creatinine (0.52-1.04) mg/dL Est GFR (CKD-EPI)AfAm (>60 ml/min/1.73 sqM) Est GFR (CKD-EPI)NonAf (>60 ml/min/1.73 sqM) Glucose (74-99) mg/dL Lactic Ac Sepsis Rflx Y Plasma Lactic Acid Peña 2.2 H* (0.7-2.0) mmol/L Calcium (8.4-10.2) mg/dL Magnesium (1.6-2.3) mg/dL Total Bilirubin (0.2-1.3) mg/dL AST (14-36) U/L ALT (4-34) U/L Alkaline Phosphatase (38-126) U/L Troponin I <0.012 (0.000-0.034) ng/mL NT-Pro-B Natriuret Pep pg/mL Total Protein (6.3-8.2) g/dL Albumin (3.5-5.0) g/dL Disposition Clinical Impression: Dyspnea, Hyponatremia Disposition: ADMITTED IP TO THIS HOSP Condition: Fair Referrals: Juliann Freitas MD [Primary Care Provider] - 1-2 days Decision Time: 20:13
[2025-01-13 17:35] LABS: Anisocytosis Moderate; Basophils % (A) 0 %; Eosinophils % (A) 0 %; HCT 24.3 % (34.0-46.0); HGB 7.8 gm/dL (11.4-16.0); Hypochromasia Moderate; Lymphocytes # (A) 0.3 k/uL (1.0-4.8); Lymphocytes % (A) 4 %; MCH 33.2 pg (25.0-35.0); MCHC 32.1 g/dL (31.0-37.0); MCV 103.3 fL (80.0-100.0); Macrocytosis Marked; Mean Platelet Volume 10.3; Monocytes # (A) 0.2 k/uL (0-1.0); Monocytes % (A) 3 %; Neutrophils # (A) 6.6 k/uL (1.3-7.7); Neutrophils % (A) 91 %; RBC 2.35 m/uL (3.80-5.40); WBC 7.2 k/uL (3.8-10.6)
[2025-01-13 17:47] LABS: ALT 107 U/L (4-34); AST 57 U/L (14-36); African American GFR (CKD) 52 (>60 ml/min/1.73 sqM); Albumin 3.4 g/dL (3.5-5.0); Alkaline Phosphatase 244 U/L (38-126); Anion Gap 14 mmol/L; Blood Urea Nitrogen 40 mg/dL (7-17); Calcium 8.5 mg/dL (8.4-10.2); Carbon Dioxide 14 mmol/L (22-30); Chloride 99 mmol/L (98-107); Glucose 162 mg/dL (74-99); Magnesium 1.8 mg/dL (1.6-2.3); Non-African American GFR(CKD) 46 (>60 ml/min/1.73 sqM); Potassium 4.1 mmol/L (3.5-5.1); Sodium 127 mmol/L (137-145); Total Protein 6.8 g/dL (6.3-8.2)
--- NOTE | 2025-01-13 17:47 | XR ---
EXAMINATION TYPE: XR chest 2V DATE OF EXAM: 01/13/2025 5:36 PM COMPARISON: Multiple radiographs, with the most recent on 12/14/24 TECHNIQUE: XR chest 2V Frontal and lateral views of the chest. CLINICAL INDICATION:Female, 59 years old with history of dyspnea; FINDINGS: Lungs/Pleura: No pneumothorax or pleural effusion. Right basilar patchy airspace opacities. Pulmonary vascularity: Unremarkable. Heart/mediastinum: Cardiomediastinal silhouette is unremarkable. Musculoskeletal: Multiple level degenerative disc disease changes seen throughout the spine. Other findings: None Lines/Tubes: Right hemithorax subclavian approach Mediport catheter distal tip terminating in the mid SVC. NG tube courses below the diaphragm with the tip not included in the [id number]. ICT SALES ASSISTANT shunt catheter overlying the right hemithorax. IMPRESSION: 1. Development of right basilar patchy airspace opacities concerning for pneumonia versus atelectasi s. 2. Stable support lines and tubes. [facility], , 01/13/2025 5:45 PM
[2025-01-13 17:55] LABS: NT-Pro-B-Type Natriuretic Pept 534 pg/mL
[2025-01-13 17:56] LABS: Partial Thromboplastin Time 38.7 sec (22.0-30.0); Prothrombin Time 10.9 sec (10.0-12.5)
[2025-01-13 18:04] LABS: Platelet Count 61 k/uL (150-450)
--- NOTE | 2025-01-13 19:45 | CT ---
EXAMINATION TYPE: CT angio chest DATE OF EXAM: 01/13/2025 7:19 PM COMPARISON: CT abdomen and pelvis 11/24/2024 CLINICAL INDICATION: Female, 59 years old with history of positive D-dimer, Elevated D-dimer., TECHNIQUE: Axial CT was performed with sagittal and coronal reformats. 3D reconstruction and/or MIP imaging was also performed on a separate workstation. IV CONTRAST: with IV Contrast, patient injected with 80 ml mL of Isovue 370. (None if empty) CT DLP: 448.5 mGycm, Automated exposure control for dose reduction was used. FINDINGS: PULMONARY ARTERIES: Timing of the contrast bolus is slightly limited. The pulmonary arteries and the ir major tributaries appear patent. I do not see evidence for sizable filling defect to suggest pulmo nary embolic process. LUNGS: The lungs are clear and free of infiltrate. Right basilar pulmonary nodule measures 1.3 cm and does not appear to have been present on prior CT abdomen and pelvis 11/24/2024. Small right-sided ple ural effusion. MEDIASTINUM: Thoracic aorta is of normal caliber.Correlate clinically . The heart is not enlarged. M ediastinal lymph nodes are seen scattered about measuring up to 1 cm. HILAR STRUCTURES: No evidence for mass. Hilar adenopathy measuring up to 1.7 cm with additional lymph node measuring 1.4 cm. UPPER ABDOMEN: NG tube is seen coursing into the stomach. There are dilated loops of small bowel with previously described small bowel obstruction. IMPRESSION: 1. Somewhat limited timing of the contrast bolus however large central embolus is not appreciated at this time. There is small right-sided pleural effusion as well as right hilar adenopathy measuring u p to 1.7 cm. A few lymph nodes about the mediastinum measuring up to 1 cm. 2. New right basilar pulmonary nodule 3.NG tube is seen coursing into the stomach. There are dilated loops of small bowel with previously d escribed small bowel obstruction. [facility], , 01/13/2025 7:43 PM
[2025-01-13] MEDS ORDERED: NALOXONE 0.4 MG/ML 1 ML VIAL IV PRN (20:07)
[2025-01-13] MEDS: HYDROmorphone 1 MG/ML 1 ML SYRINGE IVP STA (20:39)
[2025-01-13] MEDS: SODIUM CHLORIDE 0.9% 1,000 ML IV STA (20:39)
[2025-01-13] MEDS: SODIUM CHLORIDE 0.9% 1,000 ML IV SCH (20:40)
[2025-01-13] MEDS: LATANOPROST 0.005% OPHTH DROPS 2.5 ML BTL BOTH EYES SCH (20:41)
[2025-01-13] MEDS: NON FORMULARY DRUG (Ropinirole Hcl [Requip] 0.5 MG Tablet) PO SCH (20:42)
[2025-01-13] MEDS: prednisoLONE ACETATE 1% OPHTH DROPS 5 ML BTL BOTH EYES SCH (22:41)
[2025-01-14] MEDS: HYDROmorphone 0.5 MG/0.5 ML SYRINGE IVP PRN ×2 (05:13→18:15)
[2025-01-14] MEDS: ACETAMINOPHEN IV (For NPO) 1,000 MG in EMPTY BAG 1 BAG IVPB PRN (09:10)
[2025-01-14] MEDS: MIDODRINE 5 MG TAB PO SCH (09:10)
[2025-01-14] MEDS: POTASSIUM BICARBONATE/CIT AC 20 MEQ TABLET.EFF NG-TUBE SCH (09:11)
[2025-01-14] MEDS: ONDANSETRON ODT 4 MG TAB PO PRN (09:11)
[2025-01-14] MEDS: FLUCONAZOLE 150 MG TAB PO SCH (09:11)
--- NOTE | 2025-01-14 13:39 | P.CNPUL ---
History of Present Illness Consult date: 01/14/25 Requesting physician: Lavern Orta Reason for consult: dyspnea, abnormal CXR/CT Chief complaint: Shortness of breath, fatigue, weakness History of present illness: This is a very pleasant 59-year-old female patient with a known history of diverticulitis with previous colostomy, chronic and ongoing tobacco dependence, gastroesophageal reflux disease, previous shunt for hydrocephalus and stage III ovarian cancer diagnosed approximately 2 years ago. Approximately 1 month ago she developed a bowel obstruction and has had a nasogastric tube in place since then. She is maintained on TPN at 90 mL/h in the outpatient setting. She was also treated for urinary tract infection recently initially with amoxicillin and subsequently with fluconazole. She is still undergoing chemotherapy and was seen at her oncologist office yesterday Dr. Godinez. She was quite weak and fatigued and short of breath and he was sent her here to the emergency room. Chest x-ray showed opacity versus atelectasis in the right lung base. CT angiogram ruled out pulmonary embolism. There is a right sided small pleural effusion. There is also noted right hilar adenopathy measuring up to 1.7 cm. A few lymph nodes about the mediastinum measuring up to 1 cm. New right basilar pulmonary nodule. NG tube in place. There are dilated loops of small bowel. EKG reveals sinus rhythm with no acute ST or T wave abnormalities. White count 7.2. Hemoglobin 7.8. Platelets 61,000. D-dimer 6.39. Sodium 127. Potassium 4.1. Bicarb 14. BUN 40. Creatinine 1.29. Glucose 162. AST 57. ALT 107. Alk phos 244. T roponin negative x 1. proBNP 534. She is seen today in consultation on the oncology unit. She is currently sitting up in a chair at the bedside. Awake and alert in no acute distress. She is maintaining O2 saturations in the 90s on room air. She did have a Tmax of 101.3. She is currently afebrile. Hemodynamically stable. She is receiving normal saline at 75 mL/h. She is receiving TPN at 90 mL/h. Review of Systems REVIEW OF SYSTEMS: CONSTITUTIONAL: Positive for fatigue and weakness. Denies any recent significant weight loss or weight gain. EYES: Denies change in vision. EARS, NOSE, MOUTH, THROAT: Denies headaches, denies sore throat. CARDIOVASCULAR: Denies chest pain, palpitations or syncopal episodes. RESPIRATORY: Positive for shortness of breath, no cough, congestion or hemoptysis. GASTROINTESTINAL: Denies change in appetite, denies abdominal pain GENITOURINARY: Denies hematuria, denies infections. MUSKULOSKELETAL: Denies pain, denies swelling. INTEGUMENTARY: Denies rash, denies eczema. NEUROLOGICAL: Denies recent memory loss, no recent seizure activity. PSYCHIATRIC: Denies anxiety, denies depression. HEMATOLOGIC/LYMPHATIC: Denies anemia, denies enlarged lymph nodes. Past Medical History Past Medical History: Cancer, COPD, Eye Disorder, GERD/Reflux, GERD/Reflux Additional Past Medical History / Comment(s): Stage III Ovarian Cadiverticulitis11/2022., colostomy.stae 3 ovarian cancer,kidney stone, small bowel obstruction History of Any Multi-Drug Resistant Organisms: None Reported Past Surgical History: Bowel Resection, Section Additional Past Surgical History / Comment(s): Shunt for hydrocephalus., Past Anesthesia/Blood Transfusion Reactions: No Reported Reaction Past Psychological History: No Psychological Hx Reported Smoking Status: Former smoker Past Alcohol Use History: None Reported Additional Past Alcohol Use History / Comment(s): Started smoking in 1994, 1 ppd. Past Drug Use History: Marijuana Additional Drug Use History / Comment(s): Marijuana qhs, states stopped a couple nights ago. - Past Family History Father Family Medical History: Cancer Additional Family Medical History / Comment(s): Colon cancer. Medications and Allergies Home Medications Medication Instructions Recorded Confirmed Type Midodrine [ProAmatine] 5 mg PO AC-BID #60 tab 12/09/24 01/13/25 Rx Ondansetron Odt [Zofran Odt] 4 mg PO Q6H PRN #30 tab 12/10/24 01/13/25 Rx Fluconazole 150 mg PO DAILY 01/13/25 01/13/25 History Latanoprost [Latanoprost 0.005%] 1 drop BOTH EYES HS 01/13/25 01/13/25 History Potassium Chloride Oral Liquid 40 meq NG-TUBE DAILY 01/13/25 01/13/25 History Prednisolone Acetate/Pf 1 drop BOTH EYES QID 01/13/25 01/13/25 History [Prednisolone Acet 1% Eye Drop] Prochlorperazine [Compazine] 10 mg PO QID PRN 01/13/25 01/13/25 History rOPINIRole HCL [Requip] 0.5 mg PO HS 01/13/25 01/13/25 History Allergies Allergy/AdvReac Type Severity Reaction Status Date / Time doxycycline Allergy Nausea & Verified 01/13/25 17:51 Vomiting, sweating Physical Exam Vitals: Vital Signs Temp Pulse Pulse Resp BP BP Pulse Ox 01/14/25 07:07 99.0 F 106 H 18 133/68 96 01/14/25 02:00 99.0 F 98 18 121/71 98 01/13/25 22:27 101.3 F H 101 H 20 116/72 99 01/13/25 21:36 113/62 01/13/25 21:30 106 H 22 98 01/13/25 20:37 98.4 F 112 H 26 H 164/87 99 01/13/25 16:58 105 H 24 100 01/13/25 16:39 97.9 F 120 H 36 H 144/75 100 Intake and Output 01/13/25 01/14/25 01/14/25 22:59 06:59 14:59 Intake Total 540 Output Total 775 Balance -235 Intake: Oral 540 Output: Gastric Drainage 200 Urine 575 Other: Voiding Method Bedside Commode Weight 85.275 kg GENERAL EXAM: Alert, weak, pleasant 59-year-old female, sitting up in a chair, on room air, fairly comfortable in no apparent distress. HEAD: Normocephalic. EYES: Normal reaction of pupils, equal size. NOSE: Nasogastric tube secured in place. Clear with pink turbinates. THROAT: No erythema or exudates. NECK: No masses, no JVD. CHEST: No chest wall deformity. Right subclavian Port-A-Cath in place. LUNGS: Equal air entry with no crackles, wheeze, rhonchi or dullness. CVS: S1 and S2 normal with no audible murmur, regular rhythm. ABDOMEN: No hepatosplenomegaly, normal bowel sounds, no guarding or rigidity. SPINE: No scoliosis or deformity SKIN: No rashes CENTRAL NERVOUS SYSTEM: No focal deficits, tone is normal in all 4 extremities. EXTREMITIES: There is no peripheral edema. No clubbing, no cyanosis. Peripheral pulses are intact. Results - Laboratory Findings CBC and BMP: 01/13/25 17:19 01/13/25 17:19 PT/INR, D-dimer PT 10.9 sec (10.0-12.5) 01/13/25 17:19 INR 1.0 (<1.2) 01/13/25 17:19 D-Dimer 6.39 mg/L FEU (<0.60) H 01/13/25 17:19 Abnormal lab findings: Abnormal Labs 01/13/25 01/13/25 01/13/25 17:19 17:19 17:19 RBC 2.35 L Hgb 7.8 L Hct 24.3 L MCV 103.3 H RDW 21.0 H Plt Count 61 L Lymphocytes # 0.3 L Macrocytosis Marked A APTT 38.7 H D-Dimer 6.39 H Sodium 127 L Carbon Dioxide 14 L BUN 40 H Creatinine 1.29 H Glucose 162 H Plasma Lactic Acid Peña AST 57 H ALT 107 H Alkaline Phosphatase 244 H Albumin 3.4 L 01/13/25 17:19 RBC Hgb Hct MCV RDW Plt Count Lymphocytes # Macrocytosis APTT D-Dimer Sodium Carbon Dioxide BUN Creatinine Glucose Plasma Lactic Acid Peña 2.2 H* AST ALT Alkaline Phosphatase Albumin - Diagnostic Findings Chest x-ray: image reviewed CT scan - chest: image reviewed Assessment and Plan Assessment: Generalized weakness, fatigue, febrile illness possibly related to recent urinary tract infection treated x 2 in the outpatient setting Dyspnea secondary to a small right sided pleural effusion. There is also noted right hilar adenopathy measuring up to 1.7 cm. A few lymph nodes about the mediastinum measuring up to 1 cm. There is a new right basilar pulmonary nodule measuring 1.3 cm. Recent small bowel obstruction requiring nasogastric tube placement approximately 1 month ago, remains in place. Maintained on TPN at 90 mL/h Stage III ovarian cancer noticed approximately 2 years ago currently receiving chemotherapy Anemia and thrombocytopenia suspect secondary to chemotherapy Hyponatremia Acute kidney injury patient Transaminitis History of diverticulitis with previous colostomy Gastroesophageal reflux disease History of shunt for hydrocephalus Chronic and ongoing tobacco dependence Plan: The patient was seen and evaluated All imaging, labs and medications reviewed Currently stable and on room air Check a viral panel screen Check a procalcitonin Continue normal saline at 75 mL/h Continue TPN for nutritional support Currently on fluconazole ID consult pending Oncology consult pending Recommend outpatient PET scan to evaluate the right lower lung nodule We will continue to follow and make further recommendations based on her clinical status I have personally seen and examined the patient, performed the documentation and the assessment and plan as written. Number of minutes spent on the visit: 20 Dictation was produced using [employer] dictation software. Please excuse any grammatical, word or spelling errors.
[2025-01-14 14:41] LABS: Influenza A Not Detected (Not Detectd); Influenza B Not Detected (Not Detectd); RSV Not Detected (Not Detectd)
[2025-01-14] MEDS: PIPERACILLIN-TAZOBACTAM 3.375 GM in SODIUM CHLORIDE 0.9% 100 ML IVPB SCH (18:11)
[2025-01-14 18:43] LABS: Appearance,Urine Clear (Clear); Bilirubin,Urine Negative (Negative); Blood,Urine Negative (Negative); Color,Urine Light Yellow; Glucose,Urine (UA) Negative (Negative); Ketones,Urine Negative (Negative); Leukocyte Esterase,Urine Negative (Negative); Nitrite,Urine Negative (Negative); PH, Urine 5.5 (5.0-8.0); Protein,Urine Trace (Negative); Specific Gravity,Urine 1.018 (1.001-1.035); Urobilinogen,Urine <2.0 mg/dL (<2.0)
--- NOTE | 2025-01-14 19:31 | P.CONS ---
History of Present Illness - Reason for Consult Consult date: 01/14/25 [facility] Requesting physician: Miguel Angel Cantrell - Chief Complaint SOB - History of Present Illness Ms Yu is a pleasant female pt of Dr. Godinez with Hx of LES 2014, lost to f/u in 2016 until 2022. Seen in consult [facility] 12/06/22 for a new issue. The patient had been having intermittent abdominal pain, multiple episodes of UTI, that were treated with antibiotics. Her symptoms became more persistent and progressive leading to a CT AP 11/01/22 showing diverticulosis of the sigmoid colon was significant surrounding inflammation, as well as a fluid collection between the sigmoid colon and bladder concerning for perforation with abscess as well as possible colo vesical fistula. The terminal ileum and proximal ascending colon were adherent to this. Colonoscopy 11/28/22, but the scope could not be passed beyond the sigmoid colon due to extensive scarring. She had surgery on 11/29/22 with resection of omentum, resection of the distal ileum and cecum, and creation of a colostomy due to significant inflammation and adhesions involving the sigmoid colon. 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 This also involved the mesentery and serosa with multiple tumor deposits in the resected sigmoid colon. There was evidence of subserosal abscess and fat necrosis consistent with diverticular rupture. CT AP did not show any evidence of ascites, or visceral metastasis. CT chest did not show any lesions suspicious for metastasis. Pt had somatic testing, no targetable mutation, stage III ov ca, seen by [employer] On[employer] with recs for neoadj treatment, completing those on 04/10/23. Cycle #3 was delayed by a week due to Covid infection. She had surgery 05/29/23. Unfortunately at the time of surgery the volume of residual disease was too significant. Therefore attempt at definitive resection was aborted. It was recommended that the patient resume treatment with change in regimen to carboplatin, Gemzar and Avastin. She had dose modifications because of low counts/side effects but, she completed 6 cycles on 11/04/23. [facility] evaluated, unfortunately she was not felt to be a surgical candidate. She had repeat scans with follow-up with them, in early 03/03, with scan showing no evidence of progression. She was then resumed on bevacizumab, as per [facility]ology recommendations, for maintenance. CA-125 showed an upward trend on the maintenance bevacizumab. She was continued on the same, due to lack of radiologic progression in symptoms. However CT scan on 07/13/24 showed development of multiple miliary nodules in both lungs several prominent a mildly enlarged upper abdominal, retroperitoneal, pelvic and mesenteric lymph nodes were again seen, not significantly changed. It was recommended by Dr. Hernandez at the patient be placed on carboplatin and Doxil. She started the same on 08/[address] scan after 3 cycles had shown improvement in the lung nodules, and stability of tumor deposits in the mesentery, and on the surface of the uterus. However, there appeared to be mild enlargement of the upper abdominal and retroperitoneal nodes which did not definitely meet RECIST criteria. She had cycle 4 11/12 with GCSF on 11/13. The patient had reported increasing nausea and vomiting at her visit in 12/04, and was subsequently admitted to the hospital for progressive symptoms related to the same and had prolonged admission. 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 She was discharged on 01/04 with an NG tube in situ, and TPN at home. She started her new regimen with Elahere on 12/12 05/04. During clinic f/u on 01/13, pt was reporting significant shortness of breath, progressive over the past few days, as well as chills. She has had episodes of gagging and coughing with the NG tube in her mouth his persistently dry. She also reports frequent urination and was dx with UTI by her PCP and was given an oral antibiotic, that was then changed to Diflucan and has not experienced much relief. Pt was thus referred to the ER for further evaluation Chest x-ray showed development of right basilar patchy airspace opacities. CTA chest somewhat limited but showing no large central embolus. Small right sided pleural effusion as well as a right hilar adenopathy measuring up to 1.7 cm. Few lymph nodes about the mediastinum measuring up to 1 cm. New right basilar pulmonary nodule. NG tube seen within the stomach. Dilated loops of small bowel with previously described small bowel obstruction. Patient was noted with Tmax 101.3. Patient was restarted on Diflucan as previously prescribed for UTI. WBC 7.2, hemoglobin 7.8, platelets 61,000. Creatinine 1.29, GFR 46, bun 40. Lactic acid 2.2. LFTs elevated, bilirubin normal at 1.0. Troponin negative, BNP 534. Infectious disease has been consulted. Blood culture and viral panel pending. Review of Systems 10 point ROS is negative except as stated in the HPI Past Medical History Past Medical History: Cancer, COPD, Eye Disorder, GERD/Reflux, GERD/Reflux Additional Past Medical History / Comment(s): Stage III Ovarian Cadiverticu litis11/2022., colostomy.stae 3 ovarian cancer,kidney stone, small bowel obstruction History of Any Multi-Drug Resistant Organisms: None Reported Past Surgical History: Bowel Resection, Section Additional Past Surgical History / Comment(s): Shunt for hydrocephalus., Past Anesthesia/Blood Transfusion Reactions: No Reported Reaction Past Psychological History: No Psychological Hx Reported Smoking Status: Former smoker Past Alcohol Use History: None Reported Additional Past Alcohol Use History / Comment(s): Started smoking in 1994, 1 ppd. Past Drug Use History: Marijuana Additional Drug Use History / Comment(s): Marijuana qhs, states stopped a couple nights ago. - Past Family History Father Family Medical History: Cancer Additional Family Medical History / Comment(s): Colon cancer. Medications and Allergies Home Medications Medication Instructions Recorded Confirmed Type Midodrine [ProAmatine] 5 mg PO AC-BID #60 tab 12/09/24 01/13/25 Rx Ondansetron Odt [Zofran Odt] 4 mg PO Q6H PRN #30 tab 12/10/24 01/13/25 Rx Fluconazole 150 mg PO DAILY 01/13/25 01/13/25 History Latanoprost [Latanoprost 0.005%] 1 drop BOTH EYES HS 01/13/25 01/13/25 History Potassium Chloride Oral Liquid 40 meq NG-TUBE DAILY 01/13/25 01/13/25 History Prednisolone Acetate/Pf 1 drop BOTH EYES QID 01/13/25 01/13/25 History [Prednisolone Acet 1% Eye Drop] Prochlorperazine [Compazine] 10 mg PO QID PRN 01/13/25 01/13/25 History rOPINIRole HCL [Requip] 0.5 mg PO HS 01/13/25 01/13/25 History Allergies Allergy/AdvReac Type Severity Reaction Status Date / Time doxycycline Allergy Nausea & Verified 01/13/25 17:51 Vomiting, sweating Physical Exam Vitals: Vital Signs Temp Pulse Pulse Resp BP BP Pulse Ox 01/14/25 07:07 99.0 F 106 H 18 133/68 96 01/14/25 02:00 99.0 F 98 18 121/71 98 01/13/25 22:27 101.3 F H 101 H 20 116/72 99 01/13/25 21:36 113/62 01/13/25 21:30 106 H 22 98 01/13/25 20:37 98.4 F 112 H 26 H 164/87 99 01/13/25 16:58 105 H 24 100 01/13/25 16:39 97.9 F 120 H 36 H 144/75 100 Intake and Output 01/13/25 01/14/25 01/14/25 22:59 06:59 14:59 Intake Total 540 Output Total 775 Balance -235 Intake: Oral 540 Output: Gastric Drainage 200 Urine 575 Other: Voiding Method Bedside Commode Weight 85.275 kg - Constitutional General appearance: average body habitus, no acute distress - EENT Eyes: anicteric sclerae, EOMI ENT: hearing grossly normal - Respiratory breathing is even and unlabored - Cardiovascular well perfused - Gastrointestinal General gastrointestinal: soft, no tenderness - Integumentary Integumentary: no cyanotic, no jaundiced - Neurologic Neurologic: CNII-XII intact - Musculoskeletal Musculoskeletal: strength equal bilaterally - Psychiatric Psychiatric: A&O x's 3 Results CBC & Chem 7: 01/13/25 17:19 01/13/25 17:19 Labs: Abnormal Lab Results - Last 24 Hours (Table) 01/13/25 01/13/25 01/13/25 Range/Units 17:19 17:19 17:19 RBC 2.35 L (3.80-5.40) m/uL Hgb 7.8 L (11.4-16.0) gm/dL Hct 24.3 L (34.0-46.0) % MCV 103.3 H (80.0-100.0) fL RDW 21.0 H (11.5-15.5) % Plt Count 61 L (150-450) k/uL Lymphocytes # 0.3 L (1.0-4.8) k/uL Macrocytosis Marked A APTT 38.7 H (22.0-30.0) sec D-Dimer 6.39 H (<0.60) mg/L FEU Sodium 127 L (137-145) mmol/L Carbon Dioxide 14 L (22-30) mmol/L BUN 40 H (7-17) mg/dL Creatinine 1.29 H (0.52-1.04) mg/dL Glucose 162 H (74-99) mg/dL Plasma Lactic Acid Peña (0.7-2.0) mmol/L AST 57 H (14-36) U/L ALT 107 H (4-34) U/L Alkaline Phosphatase 244 H (38-126) U/L Albumin 3.4 L (3.5-5.0) g/dL 01/13/25 Range/Units 17:19 RBC (3.80-5.40) m/uL Hgb (11.4-16.0) gm/dL Hct (34.0-46.0) % MCV (80.0-100.0) fL RDW (11.5-15.5) % Plt Count (150-450) k/uL Lymphocytes # (1.0-4.8) k/uL Macrocytosis APTT (22.0-30.0) sec D-Dimer (<0.60) mg/L FEU Sodium (137-145) mmol/L Carbon Dioxide (22-30) mmol/L BUN (7-17) mg/dL Creatinine (0.52-1.04) mg/dL Glucose (74-99) mg/dL Plasma Lactic Acid Peña 2.2 H* (0.7-2.0) mmol/L AST (14-36) U/L ALT (4-34) U/L Alkaline Phosphatase (38-126) U/L Albumin (3.5-5.0) g/dL Chest x-ray: report reviewed CT scan - chest: report reviewed Assessment and Plan (1) Bowel obstruction Current Visit: No Status: Acute Code(s): K56.609 - UNSP INTESTNL OBST, UNSP TO PARTIAL VERSUS COMPLETE OBST SNOMED Code(s): 03496042 (2) Dyspnea Current Visit: Yes Status: Acute Code(s): R06.00 - DYSPNEA, UNSPECIFIED SNOMED Code(s): 408128406 (3) Carcinoma of ovary Current Visit: Yes Status: Chronic Priority: High Code(s): C56.9 - MALIGNANT NEOPLASM OF UNSPECIFIED OVARY SNOMED Code(s): 442278454 Plan: SOB, fever: Presented from clinic with SOB and fever -Chest x-ray showed development of right basilar patchy airspace opacities. CTA chest somewhat limited but showing no large central embolus. Small right sided pleural effusion as well as a right hilar adenopathy measuring up to 1.7 cm. Few lymph nodes about the mediastinum measuring up to 1 cm. New right basilar pulmonary nodule. NG tube seen within the stomach. Dilated loops of small bowel with previously described small bowel obstruction. -Patient was noted with Tmax 101.3. Patient was restarted on Diflucan as previously prescribed for UTI. -Infectious disease has been consulted. Blood culture and viral panel pending. Will obtain UA with reflex and start pt on empiric abx, with Zosyn Bowel obstruction: Had prolonged admission for the same, r/t frozen bowel/carcinomatosis. Discharged on TPN and NG tube for decompression. Pt reporting discomfort from NG, oral irritation and has had multiple ER visits due to NG tube issues -General surgery consulted for evaluation for decompression peg tube Ovarian carcinoma -Diagnosis and treatment as dictated in consult. -Disease progression was noted within the pelvis. -Tumor tissue was folate receptor alpha positive. Case discussed with gluer machine operator onc, Dr. Hernandez. Pt started cycle 1 of Elahere on 01/05/25 -WBC 7.2, hgb 7.8, plt 61. Continue to closely monitor CBC attests: I have seen and examined pt, performed H&P, developed impression and plan of care. Discussed with dictator. Agree with documentation, dictated as a scribe.
--- NOTE | 2025-01-14 21:45 | P.HPIM ---
History of Present Illness H&P Date: 01/14/25 This is a pleasant 59-year-old female who follows with Dr. Freitas in the outpatient setting presented to the emergency department with increased shortness of breath and was sent here from oncology office with concerns of possible PE versus pneumonia. 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 Patient with past medical history of COPD, GERD, stage III ovarian cancer, kidney stones, small bowel obstruction and was recently hospitalized a month ago and underwent laparoscopic noted to have frozen abdomen and has been maintained on NG tube and TPN with pleasure feeds. Patient reports to doing well and during her checkup with oncology she was noted to be more short of breath. Patient is noted to have some fevers and had been on antibiotics outpatient for possible urinary tract infection. Patient was admitted with pulmonary and oncology on consult. Patient did have an elevated D-dimer and underwent CT a which was negative for PE and several mediastinal lymph nodes that are seen scattered and also incidental finding of a right basilar pulmonary nodule measuring 1.3 cm that was not on previous CT November 24, 2024 along with a small right pleural effusion. Pulmonary was consulted as well. Procalcitonin elevated as well at 3.39 and will consult infectious disease and appreciate input and recommendations. Labs reviewed and BUN was 40 with a creatinine of 1.29, sodium found to be 127, magnesium 1.8, lactic acid negative, AST continues to be elevated although lower at 57 and ALT 107, platelets are low at 61, hemoglobin is 7.8 and white count is 7.2. REVIEW OF SYSTEMS: CONSTITUTIONAL: Reports of fever, no malaise, reports of extreme fatigue. HEENT: No recent visual problems or hearing problems. Denied any sore throat. CARDIOVASCULAR: No chest pain, orthopnea, PND, no palpitations, no syncope. PULMONARY: Reports of intermittent shortness of breath, no cough, no hemoptysis. GASTROINTESTINAL: No diarrhea, reports of occasional nausea, no vomiting, reports occasional abdominal pain. NEUROLOGICAL: Reports headaches, no weakness, no numbness. HEMATOLOGICAL: Denies any bleeding or petechiae. GENITOURINARY: Denies any burning micturition, frequency, or urgency. MUSCULOSKELETAL/RHEUMATOLOGICAL: Denies any joint pain, swelling, or any muscle pain. ENDOCRINE: Denies any polyuria or polydipsia. The rest of the 14-point review of systems is negative. PHYSICAL EXAMINATION: GENERAL: The patient is alert and oriented x3, ill-appearing. Well developed, well nourished. Obese HEENT: Pupils are round and equally reacting to light. EOMI. No scleral icterus. No conjunctival pallor. Normocephalic, atraumatic. No pharyngeal erythema. No thyromegaly. CARDIOVASCULAR: S1 and S2 present. No murmurs, rubs, or gallops. PULMONARY: Diminished breath sounds bilaterally otherwise chest is clear to auscultation, no wheezing or crackles. ABDOMEN: Soft, nontender, nondistended, normoactive bowel sounds. No palpable organomegaly. MUSCULOSKELETAL: No joint swelling or deformity. EXTREMITIES: No cyanosis, clubbing, or pedal edema. NEUROLOGICAL: Gross neurological examination did not reveal any focal deficits. Diffusely weak SKIN: No rashes. Assessment: Shortness of breath with an elevated D-dimer of 6.39, PE ruled out History of stage III ovarian cancer currently undergoing chemotherapy History of recent hospitalization noted to have small bowel obstruction status post laparoscopic showing frozen abdomen maintained on TPN and NG tube outpatient Obesity with a BMI of 31.3 Elevated procalcitonin with shortness of breath, concerns for pneumonia, community-acquired Thrombocytopenia History of COPD, not in exacerbation History of GERD Hyponatremia likely secondary to volume loss with continued NG tube and ostomy New right basilar pulmonary nodule noted on imaging that was not present on November 2024 Recent urinary tract infection, in the outpatient setting with possible failure of outpatient treatment Possible sepsis, present on admission, unknown etiology, undergoing workup and patient placed on antibiotics with infectious disease on consult GI prophylaxis DVT prophylaxis Full code Plan: Patient was at oncology office and admitted for shortness of breath with concerns of possible PE versus pneumonia. Oncology following and infectious diseases consulted and patient is maintained on antibiotics. Procalcitonin was above 3 and blood cultures along with septic workup ongoing Patient to continue with TPN and will consult dietary Patient has a Mediport and the site is clean and dry and intact with no areas of redness or concerns for infection Will have PT/OT therapy evaluate the patient Resume appropriate home medications Will follow-up on repeat labs and replace electrolytes per protocol The impression and plan of care has been dictated by Nurse Jad Gaspar as directed. Dr. Marivel MD I have performed a history and examination and MDM of this patient, discussed the same with the dictator, and agree with the dictator's assessment and plan as written ,documented as a scribe. Based on total visit time, I have performed more than 50% of the visit. Past Medical History Past Medical History: Cancer, COPD, Eye Disorder, GERD/Reflux, GERD/Reflux Additional Past Medical History / Comment(s): Stage III Ovarian Cadiverticulitis11/2022., colostomy.stae 3 ovarian cancer,kidney stone, small bowel obstruction History of Any Multi-Drug Resistant Organisms: None Reported Past Surgical History: Bowel Resection, Section Additional Past Surgical History / Comment(s): Shunt for hydrocephalus., Past Anesthesia/Blood Transfusion Reactions: No Reported Reaction Past Psychological History: No Psychological Hx Reported Smoking Status: Former smoker Past Alcohol Use History: None Reported Additional Past Alcohol Use History / Comment(s): Started smoking in 1994, 1 ppd. Past Drug Use History: Marijuana Additional Drug Use History / Comment(s): Marijuana qhs, states stopped a couple nights ago. - Past Family History Father Family Medical History: Cancer Additional Family Medical History / Comment(s): Colon cancer. Medications and Allergies Home Medications Medication Instructions Recorded Confirmed Type Midodrine [ProAmatine] 5 mg PO AC-BID #60 tab 12/09/24 01/13/25 Rx Ondansetron Odt [Zofran Odt] 4 mg PO Q6H PRN #30 tab 12/10/24 01/13/25 Rx Fluconazole 150 mg PO DAILY 01/13/25 01/13/25 History Latanoprost [Latanoprost 0.005%] 1 drop BOTH EYES HS 01/13/25 01/13/25 History Potassium Chloride Oral Liquid 40 meq NG-TUBE DAILY 01/13/25 01/13/25 History Prednisolone Acetate/Pf 1 drop BOTH EYES QID 01/13/25 01/13/25 History [Prednisolone Acet 1% Eye Drop] Prochlorperazine [Compazine] 10 mg PO QID PRN 01/13/25 01/13/25 History rOPINIRole HCL [Requip] 0.5 mg PO HS 01/13/25 01/13/25 History Allergies Allergy/AdvReac Type Severity Reaction Status Date / Time doxycycline Allergy Nausea & Verified 01/13/25 17:51 Vomiting, sweating Physical Exam Vitals: Vital Signs Temp Pulse Pulse Resp BP BP Pulse Ox 01/14/25 07:07 99.0 F 106 H 18 133/68 96 01/14/25 02:00 99.0 F 98 18 121/71 98 01/13/25 22:27 101.3 F H 101 H 20 116/72 99 01/13/25 21:36 113/62 01/13/25 21:30 106 H 22 98 01/13/25 20:37 98.4 F 112 H 26 H 164/87 99 01/13/25 16:58 105 H 24 100 01/13/25 16:39 97.9 F 120 H 36 H 144/75 100 Intake and Output 01/13/25 01/14/25 01/14/25 22:59 06:59 14:59 Intake Total 540 Output Total 775 Balance -235 Intake: Oral 540 Output: Gastric Drainage 200 Urine 575 Other: Voiding Method Bedside Commode Weight 85.275 kg Results CBC & Chem 7: 01/13/25 17:19 01/13/25 17:19 Labs: Abnormal Lab Results - Last 24 Hours (Table) 01/13/25 01/13/25 01/13/25 Range/Units 17:19 17:19 17:19 RBC 2.35 L (3.80-5.40) m/uL Hgb 7.8 L (11.4-16.0) gm/dL Hct 24.3 L (34.0-46.0) % MCV 103.3 H (80.0-100.0) fL RDW 21.0 H (11.5-15.5) % Plt Count 61 L (150-450) k/uL Lymphocytes # 0.3 L (1.0-4.8) k/uL Macrocytosis Marked A APTT 38.7 H (22.0-30.0) sec D-Dimer 6.39 H (<0.60) mg/L FEU Sodium 127 L (137-145) mmol/L Carbon Dioxide 14 L (22-30) mmol/L BUN 40 H (7-17) mg/dL Creatinine 1.29 H (0.52-1.04) mg/dL Glucose 162 H (74-99) mg/dL Plasma Lactic Acid Peña (0.7-2.0) mmol/L AST 57 H (14-36) U/L ALT 107 H (4-34) U/L Alkaline Phosphatase 244 H (38-126) U/L Albumin 3.4 L (3.5-5.0) g/dL 01/13/25 Range/Units 17:19 RBC (3.80-5.40) m/uL Hgb (11.4-16.0) gm/dL Hct (34.0-46.0) % MCV (80.0-100.0) fL RDW (11.5-15.5) % Plt Count (150-450) k/uL Lymphocytes # (1.0-4.8) k/uL Macrocytosis APTT (22.0-30.0) sec D-Dimer (<0.60) mg/L FEU Sodium (137-145) mmol/L Carbon Dioxide (22-30) mmol/L BUN (7-17) mg/dL Creatinine (0.52-1.04) mg/dL Glucose (74-99) mg/dL Plasma Lactic Acid Peña 2.2 H* (0.7-2.0) mmol/L AST (14-36) U/L ALT (4-34) U/L Alkaline Phosphatase (38-126) U/L Albumin (3.5-5.0) g/dL Thrombosis Risk Factor Assmnt - Choose All That Apply Any of the Below Risk Factors Present?: Yes Each Factor Represents 1 point: Age 41-60 years, History of prior major surgery (<1month) Other Risk Factors: No Thrombosis Risk Factor Assessment Total Risk Factor Score: 2 Thrombosis Risk Factor Assessment Level: Low Risk
--- NOTE | 2025-01-14 22:06 | P.CONS ---
History of Present Illness - Reason for Consult Consult date: 01/14/25 Sepsis Requesting physician: Lavern Orta - Chief Complaint Shortness of breath x few days - History of Present Illness Patient is a 59-year-old female with a past medical history significant for stage III awaiting cancer reflux COPD recent admission to the hospital with a bowel obstruction patient did have a NG for suction ,Port/central line through which the patient is getting TPN patient has been sent to the ER from the oncology office for evaluation of increasing shortness of breath that apparently has been getting worse over the last few days patient denies having any chest pain did have occasional cough no sputum production did have persistent NG for suction some vague abdominal pain denies having any diarrhea or any urinary symptoms patient on presentation to the hospital was afebrile subsequently she did spike a fever of 101.3 F patient was tachycardic but not hypotensive or hypoxic no need for supplemental oxygen patient did have a white count of 7.2 BUN and creatinine has been mildly elevated liver isms mildly elevated UA has been negative influenza RSV COVID testing was negative patient did have elevated D-dimer did have a CT angiogram of the chest negative for PE lungs are clear and free of infiltrate right basilar pulmonary nodule patient will be started on Zosyn infectious was consulted for further management of antibiotic therapy Review of Systems Positive point and negatives has been mentioned in the HPI, complete review of systems was performed and all other systems are negative Past Medical History Past Medical History: Cancer, COPD, Eye Disorder, GERD/Reflux, GERD/Reflux Additional Past Medical History / Comment(s): Stage III Ovarian Cadiverticulitis11/2022., colostomy.stae 3 ovarian cancer,kidney stone, small bowel obstruction History of Any Multi-Drug Resistant Organisms: None Reported Past Surgical History: Bowel Resection, Section Additional Past Surgical History / Comment(s): Shunt for hydrocephalus., Past Anesthesia/Blood Transfusion Reactions: No Reported Reaction Past Psychological History: No Psychological Hx Reported Smoking Status: Former smoker Past Alcohol Use History: None Reported Additional Past Alcohol Use History / Comment(s): Started smoking in 1994, 1 ppd. Past Drug Use History: Marijuana Additional Drug Use History / Comment(s): Marijuana qhs, states stopped a couple nights ago. - Past Family History Father Family Medical History: Cancer Additional Family Medical History / Comment(s): Colon cancer. Medications and Allergies Home Medications Medication Instructions Recorded Confirmed Type Midodrine [ProAmatine] 5 mg PO AC-BID #60 tab 12/09/24 01/13/25 Rx Ondansetron Odt [Zofran Odt] 4 mg PO Q6H PRN #30 tab 12/10/24 01/13/25 Rx Fluconazole 150 mg PO DAILY 01/13/25 01/13/25 History Latanoprost [Latanoprost 0.005%] 1 drop BOTH EYES HS 01/13/25 01/13/25 History Potassium Chloride Oral Liquid 40 meq NG-TUBE DAILY 01/13/25 01/13/25 History Prednisolone Acetate/Pf 1 drop BOTH EYES QID 01/13/25 01/13/25 History [Prednisolone Acet 1% Eye Drop] Prochlorperazine [Compazine] 10 mg PO QID PRN 01/13/25 01/13/25 History rOPINIRole HCL [Requip] 0.5 mg PO HS 01/13/25 01/13/25 History Allergies Allergy/AdvReac Type Severity Reaction Status Date / Time doxycycline Allergy Nausea & Verified 01/13/25 17:51 Vomiting, sweating Physical Exam Vitals: Vital Signs Temp Pulse Pulse Resp BP BP Pulse Ox 01/14/25 07:07 99.0 F 106 H 18 133/68 96 01/14/25 02:00 99.0 F 98 18 121/71 98 01/13/25 22:27 101.3 F H 101 H 20 116/72 99 01/13/25 21:36 113/62 01/13/25 21:30 106 H 22 98 01/13/25 20:37 98.4 F 112 H 26 H 164/87 99 01/13/25 16:58 105 H 24 100 01/13/25 16:39 97.9 F 120 H 36 H 144/75 100 Intake and Output 01/13/25 01/14/25 01/14/25 22:59 06:59 14:59 Intake Total 540 Output Total 775 Balance -235 Intake: Oral 540 Output: Gastric Drainage 200 Urine 575 Other: Voiding Method Bedside Commode Weight 85.275 kg GENERAL DESCRIPTION: Middle-age female up in the chair no distress. No tachypnea or accessory muscle of respiration use. HEENT: Shows Pallor , no scleral icterus. Oral mucous membrane is dry. No thrush NECK: Trachea central, no thyromegaly. LUNGS: Unlabored breathing. Clear to auscultation anteriorly. No wheeze or crackle. HEART: S1, S2, regular rate and rhythm. No loud murmur ABDOMEN: Soft, mild tenderness , no guarding or rigidity EXTREMITIES: No edema of feet. SKIN: No rash, no masses palpable. NEUROLOGICAL: The patient is awake, alert, oriented x3, mood and affect normal. Results CBC & Chem 7: 01/15/25 03:14 01/15/25 03:14 Labs: Abnormal Lab Results - Last 24 Hours (Table) 01/13/25 01/13/25 01/13/25 Range/Units 17:19 17:19 17:19 RBC 2.35 L (3.80-5.40) m/uL Hgb 7.8 L (11.4-16.0) gm/dL Hct 24.3 L (34.0-46.0) % MCV 103.3 H (80.0-100.0) fL RDW 21.0 H (11.5-15.5) % Plt Count 61 L (150-450) k/uL Lymphocytes # 0.3 L (1.0-4.8) k/uL Macrocytosis Marked A APTT 38.7 H (22.0-30.0) sec D-Dimer 6.39 H (<0.60) mg/L FEU Sodium 127 L (137-145) mmol/L Carbon Dioxide 14 L (22-30) mmol/L BUN 40 H (7-17) mg/dL Creatinine 1.29 H (0.52-1.04) mg/dL Glucose 162 H (74-99) mg/dL Plasma Lactic Acid Peña (0.7-2.0) mmol/L AST 57 H (14-36) U/L ALT 107 H (4-34) U/L Alkaline Phosphatase 244 H (38-126) U/L Albumin 3.4 L (3.5-5.0) g/dL 01/13/25 Range/Units 17:19 RBC (3.80-5.40) m/uL Hgb (11.4-16.0) gm/dL Hct (34.0-46.0) % MCV (80.0-100.0) fL RDW (11.5-15.5) % Plt Count (150-450) k/uL Lymphocytes # (1.0-4.8) k/uL Macrocytosis APTT (22.0-30.0) sec D-Dimer (<0.60) mg/L FEU Sodium (137-145) mmol/L Carbon Dioxide (22-30) mmol/L BUN (7-17) mg/dL Creatinine (0.52-1.04) mg/dL Glucose (74-99) mg/dL Plasma Lactic Acid Peña 2.2 H* (0.7-2.0) mmol/L AST (14-36) U/L ALT (4-34) U/L Alkaline Phosphatase (38-126) U/L Albumin (3.5-5.0) g/dL Assessment and Plan (1) Sepsis Current Visit: Yes Status: Acute Code(s): A41.9 - SEPSIS, UNSPECIFIED ORGANISM SNOMED Code(s): 36927576 Plan: 1patient with sepsis in this patient who did have fever tachycardia source could be either abdominal versus port infection as the patient initial workup including chest x-ray followed by CT angiogram of the chest with no evidence of pneumonia UA has been negative tested negative for influenza RSV and COVID. 2we will obtain blood culture peripherally as well as from the port 3will benefit from CT of abdominal pelvis will hold for today the patient did receive contrast for CTA 4continue with empiric Zosyn while waiting for the culture to finalize Question concern answered We will follow on clinical condition and cultures to further adjust medication if needed Thank you for this consultation we will follow the patient along with you Dictation was produced using [employer] dictation software. please excuse any grammatical, word or spelling errors. Time with Patient: Greater than 30
[2025-01-15 09:46] LABS: BUN/Creat Ratio 27.38 Ratio (12.00-20.00); Blood Urea Nitrogen 35.6 mg/dL (9.0-27.0); Carbon Dioxide 16.1 mmol/L (21.6-31.8); Chloride 105 mmol/L (96-109); Glucose 135 mg/dL (70-110); Magnesium 1.9 mg/dL (1.5-2.4); Potassium 4.1 mmol/L (3.5-5.5); Sodium 131 mmol/L (135-145)
[2025-01-15 09:58] LABS: Immature Platelet Fraction 5.8 % (1.1-6.1); MCH 33.5 pg (27.0-32.0); MCHC 32.1 g/dL (32.0-37.0); MCV 104.3 FL (80.0-97.0); Mean Platelet Volume 12.9 FL (9.5-12.2); NRBC Per 100 WBC 0 X 10*3/uL (0.00-0.01); RBC 1.88 X 10*6/uL (4.10-5.20); RDW 23.3 % (11.5-14.5); WBC 3.91 X 10*3/uL (4.50-10.00)
[2025-01-15 10:38] LABS: Basophils # (A) 0.01 X 10*3/uL (0.00-0.10); Basophils % (A) 0.3 %; Eosinophils # (A) 0 X 10*3/uL (0.04-0.35); Eosinophils % (A) 0 %; HCT 19.6 % (37.2-46.3); HGB 6.3 g/dL (12.0-15.0); Lymphocytes # (A) 0.31 X 10*3/uL (0.90-5.00); Lymphocytes % (A) 7.9 %; Monocytes # (A) 0.52 X 10*3/uL (0.20-1.00); Monocytes % (A) 13.3 %; Neutrophils # (A) 2.99 X 10*3/uL (1.80-7.70); Neutrophils % (A) 76.5 %; Platelet Count 41 X 10*3/uL (140-440)
[2025-01-15 10:39] LABS: Anisocytosis (M) 2+ (None Seen); Macrocytosis (M) 2+ (None Seen)
[2025-01-15] MEDS ORDERED: VANCOMYCIN IV PER PHARMACY 1 EACH MISC MISCELLANE PRN (13:31)
--- NOTE | 2025-01-15 13:46 | P.PN ---
Subjective Progress Note Date: 01/15/25 This is a very pleasant 59-year-old female patient with a known history of diverticulitis with previous colostomy, chronic and ongoing tobacco dependence, gastroesophageal reflux disease, previous shunt for hydrocephalus and stage III ovarian cancer diagnosed approximately 2 years ago. Approximately 1 month ago she developed a bowel obstruction and has had a nasogastric tube in place since then. She is maintained on TPN at 90 mL/h in the outpatient setting. She was also treated for urinary tract infection recently initially with amoxicillin and subsequently with fluconazole. She is still undergoing chemotherapy and was seen at her oncologist office yesterday Dr. Godinez. She was quite weak and fatigued and short of breath and he was sent her here to the emergency room. Chest x-ray showed opacity versus atelectasis in the right lung base. CT angiogram ruled out pulmonary embolism. There is a right sided small pleural effusion. There is also noted right hilar adenopathy measuring up to 1.7 cm. A few lymph nodes about the mediastinum measuring up to 1 cm. New right basilar pulmonary nodule. NG tube in place. There are dilated loops of small bowel. EKG reveals sinus rhythm with no acute ST or T wave abnormalities. White count 7.2. Hemoglobin 7.8. Platelets 61,000. D-dimer 6.39. Sodium 127. Potassium 4.1. Bicarb 14. BUN 40. Creatinine 1.29. Glucose 162. AST 57. ALT 107. Alk phos 244. Troponin negative x 1. proBNP 534. She is seen today in consultation on the oncology unit. She is currently sitting up in a chair at the bedside. Awake and alert in no acute distress. She is maintaining O2 saturations in the 90s on room air. She did have a Tmax of 101.3. She is currently afebrile. Hemodynamically stable. She is receiving normal saline at 75 mL/h. She is receiving TPN at 90 mL/h. The patient is seen today January 15, 2025 in follow-up on the oncology unit. She is currently sitting up in a chair at the bedside. Awake and alert in no acute distress. Feeling a bit better today compared to yesterday. Less short of breath. She is continuing to maintain good O2 saturation in the 90s on room air oxygen. Lung sounds are clear. Procalcitonin did come back high at 3.39. She remains on cefazolin and Diflucan. Nasogastric tube remains in place. She is being nourished with TPN at 90 mL/h. Normal saline at 75 mL/h. She does still have some complaints of feeling exhausted. Blood culture is coming back positive for gram positive cocci in clusters. White count 3.91. Hemoglobin 6.3. Platelets 41,000. Sodium 131. Potassium 4.1. Bicarb 16. BUN 36. Creatinine 1.3. Glucose 135. Objective - Vital Signs Vital signs: Vital Signs Temp 98.1 F 01/15/25 13:08 Pulse 82 01/15/25 13:08 Resp 18 01/15/25 13:08 BP 131/69 01/15/25 13:08 Pulse Ox 99 01/15/25 13:08 FiO2 Intake & Output 01/14/25 01/15/25 01/15/25 18:59 06:59 18:59 Intake Total 710 0 Output Total 800 700 Balance -800 10 0 Intake: Oral 710 Blood Product 0 Rc Irr As1 Unit 0 [id number] Output: Gastric Drainage 800 700 Other: Voiding Method Bedside Commode Bedpan # Voids 1 3 - Exam GENERAL EXAM: Alert, weak, 59-year-old female, sitting up in a chair, on room air, fairly comfortable in no apparent distress. HEAD: Normocephalic. EYES: Normal reaction of pupils, equal size. NOSE: Nasogastric tube secured in place. Clear with pink turbinates. THROAT: No erythema or exudates. NECK: No masses, no JVD. CHEST: No chest wall deformity. Right subclavian Port-A-Cath in place. LUNGS: Equal air entry with no crackles, wheeze, rhonchi or dullness. CVS: S1 and S2 normal with no audible murmur, regular rhythm. ABDOMEN: No hepatosplenomegaly, normal bowel sounds, no guarding or rigidity. SPINE: No scoliosis or deformity SKIN: No rashes CENTRAL NERVOUS SYSTEM: No focal deficits, tone is normal in all 4 extremities. EXTREMITIES: There is no peripheral edema. No clubbing, no cyanosis. Peripheral pulses are intact. - Labs CBC & Chem 7: 01/15/25 03:14 01/15/25 03:14 Labs: Abnormal Lab Results - Last 24 Hours (Table) 01/14/25 01/14/25 01/15/25 Range/Units 08:32 18:20 03:14 WBC (4.50-10.00) X 10*3/uL RBC (4.10-5.20) X 10*6/uL Hgb (12.0-15.0) g/dL Hct (37.2-46.3) % MCV (80.0-97.0) FL MCH (27.0-32.0) pg RDW (11.5-14.5) % Plt Count (140-440) X 10*3/uL MPV (9.5-12.2) FL Immature Gran # (0.00-0.04) X 10*3/uL Lymphocytes # (0.90-5.00) X 10*3/uL Eosinophils # (0.04-0.35) X 10*3/uL Anisocytosis (manual) (None Seen) Macrocytosis (manual) (None Seen) Sodium 131 L (135-145) mmol/L Carbon Dioxide 16.1 L (21.6-31.8) mmol/L BUN 35.6 H (9.0-27.0) mg/dL Est GFR (CKD-EPI) 47 L (>=60) BUN/Creatinine Ratio 27.38 H (12.00-20.00) Ratio Glucose 135 H (70-110) mg/dL Calcium 8.0 L (8.7-10.3) mg/dL Procalcitonin 3.39 H (0.02-0.50) ng/mL Urine Protein Trace H (Negative) Crossmatch 01/15/25 01/15/25 Range/Units 03:14 10:27 WBC 3.91 L (4.50-10.00) X 10*3/uL RBC 1.88 L (4.10-5.20) X 10*6/uL Hgb 6.3 A* (12.0-15.0) g/dL Hct 19.6 A* (37.2-46.3) % MCV 104.3 H (80.0-97.0) FL MCH 33.5 H (27.0-32.0) pg RDW 23.3 H (11.5-14.5) % Plt Count 41 A* (140-440) X 10*3/uL MPV 12.9 H (9.5-12.2) FL Immature Gran # 0.08 H (0.00-0.04) X 10*3/uL Lymphocytes # 0.31 L (0.90-5.00) X 10*3/uL Eosinophils # 0 L (0.04-0.35) X 10*3/uL Anisocytosis (manual) 2+ A (None Seen) Macrocytosis (manual) 2+ A (None Seen) Sodium (135-145) mmol/L Carbon Dioxide (21.6-31.8) mmol/L BUN (9.0-27.0) mg/dL Est GFR (CKD-EPI) (>=60) BUN/Creatinine Ratio (12.00-20.00) Ratio Glucose (70-110) mg/dL Calcium (8.7-10.3) mg/dL Procalcitonin (0.02-0.50) ng/mL Urine Protein (Negative) Crossmatch See Detail Microbiology - Last 24 Hours (Table) 01/14/25 14:09 Blood Culture Gram Stain - Preliminary Blood 01/14/25 16:45 Blood Culture Gram Stain - Preliminary Blood Blood Culture - Preliminary Molecular ID Assessment and Plan Assessment: Generalized weakness, fatigue, febrile illness possibly related to recent urinary tract infection treated x 2 in the outpatient setting procalcitonin elevated at 3.39. Viral screen was negative Pancytopenia suspect secondary to treatment with Elahere 01/05/2025. Current white count 3.9. Hemoglobin 6.3. Platelets 41,000. To receive 1 unit of packed red blood cells today Dyspnea secondary to a small right sided pleural effusion. There is also noted right hilar adenopathy measuring up to 1.7 cm. A few lymph nodes about the mediastinum measuring up to 1 cm. There is a new right basilar pulmonary nodule measuring 1.3 cm. Recent small bowel obstruction secondary to extensive peritoneal carcinomatosis and subsequently requiring nasogastric tube placement approximately 1 month ago, remains in place. Maintained on TPN at 90 mL/h Stage III ovarian cancer noticed approximately 2 years ago currently receiving chemotherapy Anemia and thrombocytopenia suspect secondary to chemotherapy Hyponatremia Acute kidney injury patient Transaminitis History of diverticulitis with previous colostomy Gastroesophageal reflux disease History of shunt for hydrocephalus Chronic and ongoing tobacco dependence Plan: The patient was seen and evaluated Stable and on room air Labs and medications reviewed Viral screen negative Microbiology reviewed Currently on cefazolin and fluconazole per ID service To receive 1 unit of packed red blood cells Continue normal saline at 75 mL/h Continue TPN for nutritional support Outpatient PET scan to evaluate the right lower lung nodule This patient was seen independently by the pulmonary nurse practitioner addressing pulmonary issues I have personally seen and examined the patient, performed the documentation and the assessment and plan as written. Number of minutes spent on the visit: 25 Dictation was produced using [employer] dictation software. Please excuse any grammatical, word or spelling errors.
--- NOTE | 2025-01-15 13:49 | P.PN ---
Subjective Progress Note Date: 01/15/25 Principal diagnosis: Reason for follow-up is bacteremia and fever Patient is a 59-year-old female with a past medical history significant for stage III awaiting cancer reflux COPD recent admission to the hospital with a bowel obstruction patient did have a NG for suction ,Port/central line through which the patient is getting TPN patient has been sent to the ER from the oncology office for evaluation of increasing shortness of breath patient did have CT imaging of the chest that was negative for PE did not mention any pneumonia did have a fever prompting this consultation blood culture now coming back positive 2 out of 2 staph epi oxacillin sensitive. On today's evaluation that is 01/15/2025, patient did have resolution of her fever and is afebrile this morning patient is breathing comfortably currently 99% room air no chest pain shortness of breath occasional cough some abdominal discomfort still have the NG no other symptoms. Patient white count is 3.91 hemoglobin low at 6.3 creatinine is 1.3 urine is negative blood culture positive 2 out of 2 with staph epi Objective - Vital Signs Vital signs: Vital Signs Temp 98.5 F 01/15/25 07:26 Pulse 100 01/15/25 07:26 Resp 17 01/15/25 07:26 BP 118/62 01/15/25 07:26 Pulse Ox 100 01/15/25 07:26 FiO2 Intake & Output 01/14/25 01/15/25 01/15/25 18:59 06:59 18:59 Intake Total 710 Output Total 800 700 Balance -800 10 Intake: Oral 710 Output: Gastric Drainage 800 700 Other: Voiding Method Bedside Commode Bedpan # Voids 1 3 - Exam GENERAL DESCRIPTION: Middle-age female up in a chair in no distress RESPIRATORY SYSTEM: Unlabored breathing , decreased breath sounds at bases HEART: S1 S2 regular rate and rhythm , ABDOMEN: Soft , no tenderness EXTREMITIES: No edema feet - Labs CBC & Chem 7: 01/15/25 03:14 01/15/25 03:14 Labs: Abnormal Lab Results - Last 24 Hours (Table) 01/14/25 01/14/25 01/15/25 Range/Units 08:32 18:20 03:14 WBC (4.50-10.00) X 10*3/uL RBC (4.10-5.20) X 10*6/uL Hgb (12.0-15.0) g/dL Hct (37.2-46.3) % MCV (80.0-97.0) FL MCH (27.0-32.0) pg RDW (11.5-14.5) % Plt Count (140-440) X 10*3/uL MPV (9.5-12.2) FL Immature Gran # (0.00-0.04) X 10*3/uL Lymphocytes # (0.90-5.00) X 10*3/uL Eosinophils # (0.04-0.35) X 10*3/uL Anisocytosis (manual) (None Seen) Macrocytosis (manual) (None Seen) Sodium 131 L (135-145) mmol/L Carbon Dioxide 16.1 L (21.6-31.8) mmol/L BUN 35.6 H (9.0-27.0) mg/dL Est GFR (CKD-EPI) 47 L (>=60) BUN/Creatinine Ratio 27.38 H (12.00-20.00) Ratio Glucose 135 H (70-110) mg/dL Calcium 8.0 L (8.7-10.3) mg/dL Procalcitonin 3.39 H (0.02-0.50) ng/mL Urine Protein Trace H (Negative) Crossmatch 01/15/25 01/15/25 Range/Units 03:14 10:27 WBC 3.91 L (4.50-10.00) X 10*3/uL RBC 1.88 L (4.10-5.20) X 10*6/uL Hgb 6.3 A* (12.0-15.0) g/dL Hct 19.6 A* (37.2-46.3) % MCV 104.3 H (80.0-97.0) FL MCH 33.5 H (27.0-32.0) pg RDW 23.3 H (11.5-14.5) % Plt Count 41 A* (140-440) X 10*3/uL MPV 12.9 H (9.5-12.2) FL Immature Gran # 0.08 H (0.00-0.04) X 10*3/uL Lymphocytes # 0.31 L (0.90-5.00) X 10*3/uL Eosinophils # 0 L (0.04-0.35) X 10*3/uL Anisocytosis (manual) 2+ A (None Seen) Macrocytosis (manual) 2+ A (None Seen) Sodium (135-145) mmol/L Carbon Dioxide (21.6-31.8) mmol/L BUN (9.0-27.0) mg/dL Est GFR (CKD-EPI) (>=60) BUN/Creatinine Ratio (12.00-20.00) Ratio Glucose (70-110) mg/dL Calcium (8.7-10.3) mg/dL Procalcitonin (0.02-0.50) ng/mL Urine Protein (Negative) Crossmatch See Detail Microbiology - Last 24 Hours (Table) 01/14/25 14:09 Blood Culture Gram Stain - Preliminary Blood 01/14/25 16:45 Blood Culture Gram Stain - Preliminary Blood Blood Culture - Preliminary Molecular ID Assessment and Plan (1) Sepsis Current Visit: Yes Status: Acute Code(s): A41.9 - SEPSIS, UNSPECIFIED ORGANISM SNOMED Code(s): 22498930 Plan: 1patient with sepsis in this patient who did have fever tachycardia source could be either abdominal versus port infection as the patient initial workup including chest x-ray followed by CT angiogram of the chest with no evidence of pneumonia UA has been negative tested negative for influenza RSV and COVID. 2patient did have blood cultures peripherally as well as from the port positive with staph epi with no resistance gene 3will discontinue Zosyn and start the patient on cefazolin blood culture will be repeated to document clearance Multiple question concern answered Dictation was produced using [employer] dictation software. please excuse any gr ammatical, word or spelling errors. Time with Patient: Less than 30
[2025-01-15] MEDS ORDERED: IPRATROPIUM-ALBUTEROL 3 ML NEB INHALATION PRN (15:03)
[2025-01-15] MEDS: PANTOPRAZOLE 40 MG/10 ML VIAL IVP SCH (15:35)
--- NOTE | 2025-01-15 15:54 | P.GSCN ---
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 Patient reports problems with her nasogastric tube which often falls out and become malposition. Patient was admitted due to respiratory failure. Multiple studies: Checks x-rays and CT scans were performed. Patient is complaining of left-sided abdominal pain including radiation to her back. General surgery is consulted for placement of a gastrostomy tube. PAST MEDICAL HISTORY: See list and reviewed PAST SURGICAL HISTORY: See list and reviewed MEDICATIONS: See list and reviewed ALLERGIES: See list and reviewed SOCIAL HISTORY: See list and reviewed FAMILY HISTORY: See list and reviewed REVIEW OF ORGAN SYSTEMS: CONSTITUTIONAL: No fevers or chills. EYES: Denies any trouble with vision. Wears glasses. HEENT: No difficulties with hearing. No nosebleeds. No difficulty swallowing. RESPIRATORY: Presented with dyspnea on exertion and shortness of breath. Has chronic obstructive pulmonary disease. CARDIOVASCULAR: Denies any chest pain, palpitations, or recent heart attacks. GASTROINTESTINAL: Permanent ostomy with bowel obstruction. Has nasogastric tube. Has gastroesophageal reflux disease. History of bowel resection. GENITOURINARY: Metastatic ovarian cancer NEUROLOGICAL: Denies any numbness or tingling along the distal extremities. No seizure disorders or headaches. MUSCULOSKELETAL: Reports back pain, stiffness or joint arthritis. SKIN: No current skin cancer. No rash. PSYCHIATRIC: Denies current depression or suicidal thoughts. ENDOCRINE: Denies current thyroid disorders. Denies any blood sugar glucose intolerance. HEME/LYMPHATIC: Denies any lumps and bumps around the neck. No recent deep venous thrombosis. ALLERGY/IMMUNOLOGY: Chronic pancytopenia with chemoradiation therapy history BREAST: Denies current breast lumps, pain or nipple discharge. PHYSICAL EXAM: VITALS: Reviewed CONSTITUTIONAL: Well developed and in no acute distress. EYES: Conjuctivae without sclera icterus. Extraocular movements grossly intact. HEAD, EARS, NOSE, THROAT: Moist buccal mucosa. Head is atraumatic, normocephalic. Hears conversational speech. Nasogastric tube bilious output. Wears glasses. NECK: Supple. No JV distention. No thyroidomegaly. RESPIRATORY: Non-labored respirations and equal bilateral excursions. No gross wheezes. CARDIOVASCULAR: Palpable 2+ radial pulses. ABDOMEN: Ostomy left-sided. No diffuse peritonitis. Tender to deep palpation left lower quadrant. Obese. LYMPH: No neck lymphadenopathy. MUSCULOSKELETAL: No clubbing cyanosis or edema SKIN: Warm and well perfused with good skin turgor. NEUROLOGIC: Cranial nerves II through XII grossly intact. No focal or lateralizing signs. PSYCH: Appropriate affect. Alert and oriented to person, place and time. Displays appropriate insight. CLINCAL LABS: Reviewed. WBC less than 3,000 pancytopenia. Platelet count less than 50,000. IMAGING: Independently reviewed. Chest CT on admission reviewed demonstrates no pulmonary embolism. Partial upper abdomen on imaging study unremarkable. Study limited regarding patient's left lower left-sided abdominal pain. This is my independent interpretation. RADIOLOGY: Report reviewed. CT report demonstrates new pulmonary nodule, right basilar. Presence of bowel obstruction. Right-sided pleural effusion RECORDS: previous old records reviewed from prior hospitalization November 2024 with omental biopsy and exploratory laparotomy ASSESSMENT: 1. Abdominal pain, left-sided 2. Metastatic ovarian cancer 3. Bowel obstruction due to frozen abdomen 4. Pancytopenia 5. New pulmonary nodule PLAN: 1. Admitting team and patient seeking for alternative to nasogastric tube such as a gastrostomy tube. As patient has pre-existing history of frozen abdomen, gastrostomy tube placement is higher risk. 2. Will obtain abdominal x-ray and possible CT of the abdomen due to patient's new left-sided abdominal pain. ADVANCE DIRECTIVE: CODE STATUS in chart Thank you for this kind consultation. Past Medical History Past Medical History: Cancer, COPD, Eye Disorder, GERD/Reflux, GERD/Reflux Additional Past Medical History / Comment(s): Stage III Ovarian Cadiverticulitis11/2022., colostomy.stae 3 ovarian cancer,kidney stone, small bowel obstruction History of Any Multi-Drug Resistant Organisms: None Reported Past Surgical History: Bowel Resection, Section Additional Past Surgical History / Comment(s): Shunt for hydrocephalus., Past Anesthesia/Blood Transfusion Reactions: No Reported Reaction Past Psychological History: No Psychological Hx Reported Smoking Status: Former smoker Past Alcohol Use History: None Reported Additional Past Alcohol Use History / Comment(s): Started smoking in 1994, 1 ppd. Past Drug Use History: Marijuana Additional Drug Use History / Comment(s): Marijuana q, states stopped a couple nights ago. - Past Family History Father Family Medical History: Cancer Additional Family Medical History / Comment(s): Colon cancer. Medications and Allergies Home Medications Medication Instructions Recorded Confirmed Type Midodrine [ProAmatine] 5 mg PO AC-BID #60 tab 12/09/24 01/13/25 Rx Ondansetron Odt [Zofran Odt] 4 mg PO Q6H PRN #30 tab 12/10/24 01/13/25 Rx Fluconazole 150 mg PO DAILY 01/13/25 01/13/25 History Latanoprost [Latanoprost 0.005%] 1 drop BOTH EYES HS 01/13/25 01/13/25 History Potassium Chloride Oral Liquid 40 meq NG-TUBE DAILY 01/13/25 01/13/25 History Prednisolone Acetate/Pf 1 drop BOTH EYES QID 01/13/25 01/13/25 History [Prednisolone Acet 1% Eye Drop] Prochlorperazine [Compazine] 10 mg PO QID PRN 01/13/25 01/13/25 History rOPINIRole HCL [Requip] 0.5 mg PO HS 01/13/25 01/13/25 History Allergies Allergy/AdvReac Type Severity Reaction Status Date / Time doxycycline Allergy Nausea & Verified 01/13/25 17:51 Vomiting, sweating Surgical - Exam Vital Signs Temp Pulse Resp BP Pulse Ox 97.9 F 120 H 36 H 144/75 100 01/13/25 16:39 01/13/25 16:39 01/13/25 16:39 01/13/25 16:39 01/13/25 16:39 Results - Labs 01/15/25 03:14 01/15/25 03:14 Abnormal Lab Results - Last 24 Hours (Table) 01/14/25 01/14/25 01/15/25 Range/Units 08:32 18:20 03:14 WBC (4.50-10.00) X 10*3/uL RBC (4.10-5.20) X 10*6/uL Hgb (12.0-15.0) g/dL Hct (37.2-46.3) % MCV (80.0-97.0) FL MCH (27.0-32.0) pg RDW (11.5-14.5) % Plt Count (140-440) X 10*3/uL MPV (9.5-12.2) FL Immature Gran # (0.00-0.04) X 10*3/uL Lymphocytes # (0.90-5.00) X 10*3/uL Eosinophils # (0.04-0.35) X 10*3/uL Anisocytosis (manual) (None Seen) Macrocytosis (manual) (None Seen) Sodium 131 L (135-145) mmol/L Carbon Dioxide 16.1 L (21.6-31.8) mmol/L BUN 35.6 H (9.0-27.0) mg/dL Est GFR (CKD-EPI) 47 L (>=60) BUN/Creatinine Ratio 27.38 H (12.00-20.00) Ratio Glucose 135 H (70-110) mg/dL Calcium 8.0 L (8.7-10.3) mg/dL Procalcitonin 3.39 H (0.02-0.50) ng/mL Urine Protein Trace H (Negative) Crossmatch 01/15/25 01/15/25 Range/Units 03:14 10:27 WBC 3.91 L (4.50-10.00) X 10*3/uL RBC 1.88 L (4.10-5.20) X 10*6/uL Hgb 6.3 A* (12.0-15.0) g/dL Hct 19.6 A* (37.2-46.3) % MCV 104.3 H (80.0-97.0) FL MCH 33.5 H (27.0-32.0) pg RDW 23.3 H (11.5-14.5) % Plt Count 41 A* (140-440) X 10*3/uL MPV 12.9 H (9.5-12.2) FL Immature Gran # 0.08 H (0.00-0.04) X 10*3/uL Lymphocytes # 0.31 L (0.90-5.00) X 10*3/uL Eosinophils # 0 L (0.04-0.35) X 10*3/uL Anisocytosis (manual) 2+ A (None Seen) Macrocytosis (manual) 2+ A (None Seen) Sodium (135-145) mmol/L Carbon Dioxide (21.6-31.8) mmol/L BUN (9.0-27.0) mg/dL Est GFR (CKD-EPI) (>=60) BUN/Creatinine Ratio (12.00-20.00) Ratio Glucose (70-110) mg/dL Calcium (8.7-10.3) mg/dL Procalcitonin (0.02-0.50) ng/mL Urine Protein (Negative) Crossmatch See Detail Microbiology - Last 24 Hours (Table) 01/14/25 14:09 Blood Culture Gram Stain - Preliminary Blood 01/14/25 16:45 Blood Culture Gram Stain - Preliminary Blood Blood Culture - Preliminary Molecular ID Diabetes panel 01/15/25 Range/Units 03:14 Sodium 131 L (135-145) mmol/L Potassium 4.1 (3.5-5.5) mmol/L Chloride 105 (96-109) mmol/L Carbon Dioxide 16.1 L (21.6-31.8) mmol/L BUN 35.6 H (9.0-27.0) mg/dL Creatinine 1.3 (0.6-1.5) mg/dL Glucose 135 H (70-110) mg/dL Calcium 8.0 L (8.7-10.3) mg/dL Calcium panel 01/15/25 Range/Units 03:14 Calcium 8.0 L (8.7-10.3) mg/dL Pituitary panel 01/15/25 Range/Units 03:14 Sodium 131 L (135-145) mmol/L Potassium 4.1 (3.5-5.5) mmol/L Chloride 105 (96-109) mmol/L Carbon Dioxide 16.1 L (21.6-31.8) mmol/L BUN 35.6 H (9.0-27.0) mg/dL Creatinine 1.3 (0.6-1.5) mg/dL Glucose 135 H (70-110) mg/dL Calcium 8.0 L (8.7-10.3) mg/dL Adrenal panel 01/15/25 Range/Units 03:14 Sodium 131 L (135-145) mmol/L Potassium 4.1 (3.5-5.5) mmol/L Chloride 105 (96-109) mmol/L Carbon Dioxide 16.1 L (21.6-31.8) mmol/L BUN 35.6 H (9.0-27.0) mg/dL Creatinine 1.3 (0.6-1.5) mg/dL Glucose 135 H (70-110) mg/dL Calcium 8.0 L (8.7-10.3) mg/dL
[2025-01-15] MEDS: IPRATROPIUM-ALBUTEROL 3 ML NEB INHALATION SCH (19:36)
[2025-01-15] MEDS ORDERED: HEPARIN SODIUM,PORCINE 5,000 UNIT/ML 1 ML VIAL SQ SCH (21:00)
--- NOTE | 2025-01-16 09:51 | XR ---
EXAMINATION TYPE: XR chest 1V portable DATE OF EXAM: 01/16/2025 COMPARISON: 01/13/2025 CLINICAL INDICATION: Female, 59 years old with history of Short of breath; TECHNIQUE: Single frontal view of the chest is obtained. FINDINGS: The Mediport catheter is unchanged in position. There is an NG tube within the stomach. There is a ri ght jugular central venous catheter unchanged in position. There is a focal partially consolidative opacity in the right lung base suspicious for pneumonia. The left lung is clear. There is no pleural effusion or pneumothorax. The heart and pulmonary vasculature are normal. The osseous structures are intact. IMPRESSION: 1. Partially consolidated opacity in the right lung base suspicious for pneumonia. Continued short-te rm follow-up is recommended.. 2. no pleural effusion or pneumothorax [facility], , 01/16/2025 9:49 AM
[2025-01-16 10:11] LABS: Basophils # (A) 0.01 X 10*3/uL (0.00-0.10); Basophils % (A) 0.3 %; Eosinophils # (A) 0.01 X 10*3/uL (0.04-0.35); Eosinophils % (A) 0.3 %; HCT 20.3 % (37.2-46.3); HGB 6.6 g/dL (12.0-15.0); Immature Platelet Fraction 4.6 % (1.1-6.1); Lymphocytes # (A) 0.42 X 10*3/uL (0.90-5.00); Lymphocytes % (A) 11.1 %; MCH 32.5 pg (27.0-32.0); MCHC 32.5 g/dL (32.0-37.0); Mean Platelet Volume 12.8 FL (9.5-12.2); Monocytes # (A) 0.52 X 10*3/uL (0.20-1.00); Monocytes % (A) 13.8 %; NRBC Per 100 WBC 0 X 10*3/uL (0.00-0.01); Neutrophils # (A) 2.79 X 10*3/uL (1.80-7.70); Platelet Count 43 X 10*3/uL (140-440); RBC 2.03 X 10*6/uL (4.10-5.20); RDW 23.3 % (11.5-14.5); WBC 3.77 X 10*3/uL (4.50-10.00)
[2025-01-16 11:23] LABS: ALT 67 U/L (8-44); AST 31 U/L (13-35); Albumin 2.6 g/dL (3.8-4.9); Alkaline Phosphatase 181 U/L (41-126); BUN/Creat Ratio 23.58 Ratio (12.00-20.00); Blood Urea Nitrogen 28.3 mg/dL (9.0-27.0); Calcium 7.8 mg/dL (8.7-10.3); Carbon Dioxide 15.6 mmol/L (21.6-31.8); Chloride 104 mmol/L (96-109); Globulin 2.6 g/dL (1.6-3.3); Glucose 149 mg/dL (70-110); Potassium 3.9 mmol/L (3.5-5.5); Sodium 129 mmol/L (135-145); Total Bilirubin 0.4 mg/dL (0.3-1.2); Total Protein 5.2 g/dL (6.2-8.2)
--- NOTE | 2025-01-16 12:26 | PN ---
PROGRESS NOTE DATE OF SERVICE: 01/15/2025 SUBJECTIVE: This is a 59-year-old woman who was admitted with shortness of breath and only had very minimal pleural effusion. At this time, the shortness of breath could be a combination of COPD exacerbation and difficulty with frozen abdomen and abdominal distention. The patient had an NG tube for decompression. The patient was also started on TPN recently. The procalcitonin is also elevated at 3.39 and hemoglobin is 6.3. The patient is started on cefazolin per Infectious Disease recommendations. The culture is showing gram-positive cocci in clusters, possibly Staph epidermidis. PAST MEDICAL HISTORY: Reviewed. REVIEW OF SYSTEMS: Fourteen-point review of systems negative except as mentioned earlier. CURRENT MEDICATIONS: Reviewed. PHYSICAL EXAMINATION: VITAL SIGNS: Pulse is 83, blood pressure n, respirations 16. HEENT: Conjunctivae normal. NECK: No JVD. CARDIOVASCULAR: S1, S2. RESPIRATIONS: Breath sounds diminished at the bases. A few scattered rhonchi. ABDOMEN: Soft. Distended. NG tube present with coffee-ground aspirate. LABS: WBC 3.9, hemoglobin rest of the labs are noted. ASSESSMENT AND PLAN: 1. Shortness of breath, possibly a combination of chronic obstructive pulmonary disease acute exacerbation, abdominal distention, and anemia. 2. Rule out Staph epidermidis sepsis. 3. Ovarian cancer with frozen abdomen, on NG decompression and as well as TPN. 4. Gastroesophageal reflux disease. 5. Elevated procalcitonin. 6. Small right pleural effusion. RECOMMENDATIONS AND DISCUSSION: I recommend to continue current management and treatment. Continue the antibiotics. I would recommend bronchodilators. Repeat labs. One unit transfusion. Closely monitor. Guarded prognosis. Further recommendations to follow. Chest x-ray was reviewed. MMODL / IJN: [id number] / MTDD
--- NOTE | 2025-01-16 13:06 | P.PN ---
Subjective Progress Note Date: 01/16/25 This is a very pleasant 59-year-old female patient with a known history of diverticulitis with previous colostomy, chronic and ongoing tobacco dependence, gastroesophageal reflux disease, previous shunt for hydrocephalus and stage III ovarian cancer diagnosed approximately 2 years ago. Approximately 1 month ago she developed a bowel obstruction and has had a nasogastric tube in place since then. She is maintained on TPN at 90 mL/h in the outpatient setting. She was also treated for urinary tract infection recently initially with amoxicillin and subsequently with fluconazole. She is still undergoing chemotherapy and was seen at her oncologist office yesterday Dr. Godinez. She was quite weak and fatigued and short of breath and he was sent her here to the emergency room. Chest x-ray showed opacity versus atelectasis in the right lung base. CT angiogram ruled out pulmonary embolism. There is a right sided small pleural effusion. There is also noted right hilar adenopathy measuring up to 1.7 cm. A few lymph nodes about the mediastinum measuring up to 1 cm. New right basilar pulmonary nodule. NG tube in place. There are dilated loops of small bowel. EKG reveals sinus rhythm with no acute ST or T wave abnormalities. White count 7.2. Hemoglobin 7.8. Platelets 61,000. D-dimer 6.39. Sodium 127. Potassium 4.1. Bicarb 14. BUN 40. Creatinine 1.29. Glucose 162. AST 57. ALT 107. Alk phos 244. Troponin negative x 1. proBNP 534. She is seen today in consultation on the oncology unit. She is currently sitting up in a chair at the bedside. Awake and alert in no acute distress. She is maintaining O2 saturations in the 90s on room air. She did have a Tmax of 101.3. She is currently afebrile. Hemodynamically stable. She is receiving normal saline at 75 mL/h. She is receiving TPN at 90 mL/h. The patient is seen today January 15, 2025 in follow-up on the oncology unit. She is currently sitting up in a chair at the bedside. Awake and alert in no acute distress. Feeling a bit better today compared to yesterday. Less short of breath. She is continuing to maintain good O2 saturation in the 90s on room air oxygen. Lung sounds are clear. Procalcitonin did come back high at 3.39. She remains on cefazolin and Diflucan. Nasogastric tube remains in place. She is being nourished with TPN at 90 mL/h. Normal saline at 75 mL/h. She does still have some complaints of feeling exhausted. Blood culture is coming back positive for gram positive cocci in clusters. White count 3.91. Hemoglobin 6.3. Platelets 41,000. Sodium 131. Potassium 4.1. Bicarb 16. BUN 36. Creatinine 1.3. Glucose 135. The patient is seen today January 16, 2025 in follow-up on the oncology unit. She is awake and alert in no acute distress. Feeling a bit better today compared to yesterday. She is sitting up in a chair at the bedside. Maintaining good O2 saturations in the 90s on room air. She is maintained on TPN at 90 mL/h. Normal saline at 75 mL/h. Her blood cultures are positive for staph epidermidis. She is currently on Ancef. She is on fluconazole. Hemoglobin 6.6. Platelets 43,000. Sodium 129. Potassium 3.9. Bicarb 16. BUN 28. Creatinine 1.2. Glucose 149. AST 31. ALT 67. proBNP 512. Chest x-ray shows partially consolidated opacity in the right lung base suspicious for pneumonia. No pleural effusion or pneumothorax. To receive a second unit of packed red blood cells today per oncology. Objective - Vital Signs Vital signs: Vital Signs Temp 97.8 F 01/16/25 12:45 Pulse 92 01/16/25 12:45 Resp 18 01/16/25 12:45 BP 161/70 01/16/25 12:45 Pulse Ox 100 01/16/25 12:45 FiO2 Intake & Output 01/15/25 01/16/25 01/16/25 17:59 06:59 18:59 Intake Total 0 Output Total Balance 0 Intake: Intake, IV Titration Amount Piperacillin-Tazobactam 3 .375 gm In Sodium Chloride 0.9% 100 ml @ 25 mls/hr IVPB Q8HR [facility] Rx# :[id number] Sodium Chloride 0.9% 1, 000 ml @ 75 mls/hr IV . [id number] [facility] Rx#:[id number] ceFAZolin 2 gm In Sodium Chloride 0.9% 50 ml @ 100 mls/hr IVPB Q8HR [facility] Rx# :[id number] Oral Blood Product 0 Unit 0 Rc Irr As1 Unit [id number] Output: Gastric Drainage Urine Other: Voiding Method # Voids - Exam GENERAL EXAM: Alert, pleasant 59-year-old female, up in a chair, on room air, EYES: Normal reaction of pupils, equal size. NOSE: Nasogastric tube secured in place. Clear with pink turbinates. THROAT: No erythema or exudates. NECK: No masses, no JVD. CHEST: No chest wall deformity. Right subclavian Port-A-Cath in place. LUNGS: Equal air entry with no crackles, wheeze, rhonchi or dullness. CVS: S1 and S2 normal with no audible murmur, regular rhythm. ABDOMEN: No hepatosplenomegaly, normal bowel sounds, no guarding or rigidity. SPINE: No scoliosis or deformity SKIN: No rashes CENTRAL NERVOUS SYSTEM: No focal deficits, tone is normal in all 4 extremities. EXTREMITIES: There is no peripheral edema. No clubbing, no cyanosis. Peripheral pulses are intact. - Labs CBC & Chem 7: 01/16/25 04:46 01/16/25 04:46 Labs: Abnormal Lab Results - Last 24 Hours (Table) 01/15/25 01/16/25 01/16/25 Range/Units 10:27 04:46 04:46 WBC 3.77 L (4.50-10.00) X 10*3/uL RBC 2.03 L (4.10-5.20) X 10*6/uL Hgb 6.6 A* (12.0-15.0) g/dL Hct 20.3 L (37.2-46.3) % MCV 100.0 H (80.0-97.0) FL MCH 32.5 H (27.0-32.0) pg RDW 23.3 H (11.5-14.5) % Plt Count 43 A* (140-440) X 10*3/uL MPV 12.8 H (9.5-12.2) FL Lymphocytes # 0.42 L (0.90-5.00) X 10*3/uL Eosinophils # 0.01 L (0.04-0.35) X 10*3/uL Sodium 129 L (135-145) mmol/L Carbon Dioxide 15.6 L (21.6-31.8) mmol/L BUN 28.3 H (9.0-27.0) mg/dL Est GFR (CKD-EPI) 52 L (>=60) BUN/Creatinine Ratio 23.58 H (12.00-20.00) Ratio Glucose 149 H (70-110) mg/dL Calcium 7.8 L (8.7-10.3) mg/dL ALT 67 H (8-44) U/L Alkaline Phosphatase 181 H (41-126) U/L NT-Pro-B Natriuret Pep (0-125) pg/mL Total Protein 5.2 L (6.2-8.2) g/dL Albumin 2.6 L (3.8-4.9) g/dL Albumin/Globulin Ratio 1.00 L (1.60-3.17) Ratio Crossmatch See Detail 01/16/25 Range/Units 04:46 WBC (4.50-10.00) X 10*3/uL RBC (4.10-5.20) X 10*6/uL Hgb (12.0-15.0) g/dL Hct (37.2-46.3) % MCV (80.0-97.0) FL MCH (27.0-32.0) pg RDW (11.5-14.5) % Plt Count (140-440) X 10*3/uL MPV (9.5-12.2) FL Lymphocytes # (0.90-5.00) X 10*3/uL Eosinophils # (0.04-0.35) X 10*3/uL Sodium (135-145) mmol/L Carbon Dioxide (21.6-31.8) mmol/L BUN (9.0-27.0) mg/dL Est GFR (CKD-EPI) (>=60) BUN/Creatinine Ratio (12.00-20.00) Ratio Glucose (70-110) mg/dL Calcium (8.7-10.3) mg/dL ALT (8-44) U/L Alkaline Phosphatase (41-126) U/L NT-Pro-B Natriuret Pep 512 H (0-125) pg/mL Total Protein (6.2-8.2) g/dL Albumin (3.8-4.9) g/dL Albumin/Globulin Ratio (1.60-3.17) Ratio Crossmatch Microbiology - Last 24 Hours (Table) 01/14/25 14:09 Blood Culture Gram Stain - Preliminary Blood 01/14/25 16:45 Blood Culture Gram Stain - Preliminary Blood Blood Culture - Preliminary Molecular ID Assessment and Plan Assessment: Generalized weakness, fatigue, febrile illness possibly related to recent urinary tract infection treated x 2 in the outpatient setting procalcitonin elevated at 3.39. Viral screen was negative Pancytopenia secondary to treatment with Elahere 01/05/2025. Current white count 3.77. Hemoglobin 6.6. Platelets 43,000. To receive a 2nd unit of packed red blood cells today Dyspnea secondary to a small right sided pleural effusion/infiltrate. There is also noted right hilar adenopathy measuring up to 1.7 cm. A few lymph nodes about the mediastinum measuring up to 1 cm. There is a new right basilar pulmonary nodule measuring 1.3 cm. Recent small bowel obstruction secondary to extensive peritoneal carcinomatosis and subsequently requiring nasogastric tube placement approximately 1 month ago, remains in place. Maintained on TPN at 90 mL/h Stage III ovarian cancer noticed approximately 2 years ago currently receiving chemotherapy Anemia and thrombocytopenia suspect secondary to chemotherapy Hyponatremia Acute kidney injury patient Transaminitis History of diverticulitis with previous colostomy Gastroesophageal reflux disease History of shunt for hydrocephalus Chronic and ongoing tobacco dependence Plan: The patient was seen and evaluated Chest x-ray, labs and medications reviewed Blood culture showing Staph epidermidis Currently on cefazolin and fluconazole per ID service To receive a 2nd unit of packed red blood cells Continue normal saline at 75 mL/h Continue TPN for nutritional support Increase her activity as tolerated Outpatient PET scan to evaluate the right lower lung nodule This patient was seen independently by the pulmonary nurse practitioner addressing pulmonary issues I have personally seen and examined the patient, performed the documentation and the assessment and plan as written. Number of minutes spent on the visit: 24 Dictation was produced using [employer] dictation software. Please excuse any gra mmatical, word or spelling errors.
--- NOTE | 2025-01-16 15:32 | P.PN ---
Subjective Progress Note Date: 01/16/25 Principal diagnosis: Reason for follow-up is bacteremia and fever Patient is a 59-year-old female with a past medical history significant for stage III awaiting cancer reflux COPD recent admission to the hospital with a bowel obstruction patient did have a NG for suction ,Port/central line through which the patient is getting TPN patient has been sent to the ER from the oncology office for evaluation of increasing shortness of breath patient did have CT imaging of the chest that was negative for PE did not mention any pneumonia did have a fever prompting this consultation blood culture now coming back positive 2 out of 2 staph epi oxacillin sensitive. On today's evaluation that is 01/16/2025, Patient is afebrile patient is currently on room air and breathing comfortably, the patient denies any chest pain or cough, the patient denies any nausea vomiting send some lower abdominal discomfort but no worsening. The patient white count is 3.77 creatinine is 1.2 blood culture with staph epi times 2 repeat cultures pending Objective - Vital Signs Vital signs: Vital Signs Temp 98.5 F 01/16/25 15:13 Pulse 100 01/16/25 15:13 Resp 22 01/16/25 15:13 BP 169/71 01/16/25 15:13 Pulse Ox 100 01/16/25 15:13 FiO2 Intake & Output 01/15/25 01/16/25 01/16/25 17:59 06:59 18:59 Intake Total 310 Output Total Balance 310 Intake: Intake, IV Titration Amount Piperacillin-Tazobactam 3 .375 gm In Sodium Chloride 0.9% 100 ml @ 25 mls/hr IVPB Q8HR [facility] Rx# :[id number] Sodium Chloride 0.9% 1, 000 ml @ 75 mls/hr IV . [id number] [facility] Rx#:[id number] ceFAZolin 2 gm In Sodium Chloride 0.9% 50 ml @ 100 mls/hr IVPB Q8HR [facility] Rx# :[id number] Oral Blood Product 310 Rc Irr As1 Unit 310 [id number] Rc Irr As1 Unit [id number] Output: Gastric Drainage Urine Other: Voiding Method # Voids - Exam GENERAL DESCRIPTION: Middle-age female up in a chair in no distress RESPIRATORY SYSTEM: Unlabored breathing , decreased breath sounds at bases HEART: S1 S2 regular rate and rhythm , ABDOMEN: Soft , no tenderness EXTREMITIES: No edema feet - Labs CBC & Chem 7: 01/16/25 04:46 01/16/25 04:46 Labs: Abnormal Lab Results - Last 24 Hours (Table) 01/15/25 01/16/25 01/16/25 Range/Units 10:27 04:46 04:46 WBC 3.77 L (4.50-10.00) X 10*3/uL RBC 2.03 L (4.10-5.20) X 10*6/uL Hgb 6.6 A* (12.0-15.0) g/dL Hct 20.3 L (37.2-46.3) % MCV 100.0 H (80.0-97.0) FL MCH 32.5 H (27.0-32.0) pg RDW 23.3 H (11.5-14.5) % Plt Count 43 A* (140-440) X 10*3/uL MPV 12.8 H (9.5-12.2) FL Lymphocytes # 0.42 L (0.90-5.00) X 10*3/uL Eosinophils # 0.01 L (0.04-0.35) X 10*3/uL Sodium 129 L (135-145) mmol/L Carbon Dioxide 15.6 L (21.6-31.8) mmol/L BUN 28.3 H (9.0-27.0) mg/dL Est GFR (CKD-EPI) 52 L (>=60) BUN/Creatinine Ratio 23.58 H (12.00-20.00) Ratio Glucose 149 H (70-110) mg/dL Calcium 7.8 L (8.7-10.3) mg/dL ALT 67 H (8-44) U/L Alkaline Phosphatase 181 H (41-126) U/L NT-Pro-B Natriuret Pep (0-125) pg/mL Total Protein 5.2 L (6.2-8.2) g/dL Albumin 2.6 L (3.8-4.9) g/dL Albumin/Globulin Ratio 1.00 L (1.60-3.17) Ratio Crossmatch See Detail 01/16/25 Range/Units 04:46 WBC (4.50-10.00) X 10*3/uL RBC (4.10-5.20) X 10*6/uL Hgb (12.0-15.0) g/dL Hct (37.2-46.3) % MCV (80.0-97.0) FL MCH (27.0-32.0) pg RDW (11.5-14.5) % Plt Count (140-440) X 10*3/uL MPV (9.5-12.2) FL Lymphocytes # (0.90-5.00) X 10*3/uL Eosinophils # (0.04-0.35) X 10*3/uL Sodium (135-145) mmol/L Carbon Dioxide (21.6-31.8) mmol/L BUN (9.0-27.0) mg/dL Est GFR (CKD-EPI) (>=60) BUN/Creatinine Ratio (12.00-20.00) Ratio Glucose (70-110) mg/dL Calcium (8.7-10.3) mg/dL ALT (8-44) U/L Alkaline Phosphatase (41-126) U/L NT-Pro-B Natriuret Pep 512 H (0-125) pg/mL Total Protein (6.2-8.2) g/dL Albumin (3.8-4.9) g/dL Albumin/Globulin Ratio (1.60-3.17) Ratio Crossmatch Microbiology - Last 24 Hours (Table) 01/14/25 14:09 Blood Culture Gram Stain - Preliminary Blood Blood Culture - Preliminary Staphylococcus epidermidis 01/14/25 16:45 Blood Culture Gram Stain - Preliminary Blood Blood Culture - Preliminary Staphylococcus epidermidis Molecular ID Assessment and Plan (1) Sepsis Current Visit: Yes Status: Acute Code(s): A41.9 - SEPSIS, UNSPECIFIED ORGANISM SNOMED Code(s): 08415408 (2) Bacteremia Current Visit: Yes Status: Acute Code(s): R78.81 - BACTEREMIA SNOMED Code(s): 6600720 (3) Bacteremia associated with intravascular line Current Visit: Yes Status: Acute Code(s): T82.7XXA - INFECT/INFLM REACT D/T OTH CARDI/VASC DEV/IMPLNT/GRFT, INIT; R78.81 - BACTEREMIA SNOMED Code(s): 490059772 Plan: 1patient with sepsis in this patient who did have fever tachycardia source could be either abdominal versus port infection as the patient initial workup including chest x-ray followed by CT angiogram of the chest with no evidence of pneumonia UA has been negative tested negative for influenza RSV and COVID. 2patient did have blood cultures peripherally as well as from the port positive with staph epi with no resistance gene 3patient currently on cefazolin 2 g every 8 hours while waiting for repeat culture to finalize Multiple question concern answered Dictation was produced using [employer] dictation software. please excuse any grammatical, word or spelling errors. Time with Patient: Less than 30
--- NOTE | 2025-01-16 15:35 | PN ---
PROGRESS NOTE DATE OF SERVICE: 01/16/2025 SUBJECTIVE: This 59-year-old woman is admitted with shortness of breath, possible COPD exacerbation, also had right lower lobe pneumonia. The patient is on empiric antibiotics. The patient also has Staph epidermidis sepsis also. The patient is on TPN plus IV fluids also. Gastric fluid aspirate was coffee-ground. The patient's hemoglobin is 6.6. Two units of transfusion has been recommended. PAST MEDICAL HISTORY: Reviewed. REVIEW OF SYSTEMS: Fourteen-point review of systems negative except as mentioned earlier. CURRENT MEDICATIONS: Reviewed. PHYSICAL EXAM: VITAL SIGNS: Pulse is 103, blood pressure ntd. HEENT: Conjunctivae pale. NECK: No JVD. CARDIOVASCULAR: S1, S2. RESPIRATIONS: Breath sounds diminished at the bases. A few scattered rhonchi. ABDOMEN: Soft. Distended. LABS: Hemoglobin 6.6. Sodium 129. ASSESSMENT: 1. Shortness of breath, possibly combination of chronic obstructive pulmonary disease exacerbation, abdominal distention, anemia as well as right lower lobe pneumonia. 2. Possible Staph epidermidis sepsis. 3. Anemia from blood loss and secondary to malignancy. 4. Ovarian cancer with frozen abdomen, on NG decompression and TPN. 5. Gastroesophageal reflux disease. 6. Elevated procalcitonin. 7. Small right pleural effusion. RECOMMENDATIONS: Recommend to continue current management. Otherwise, continue the antibiotics. Repeat labs. Closely follow with multiple consultants. Prognosis guarded. COVID and viral titers are negative. Further recommendations to follow. MMODL / IJN: [id number] / MTDJosé Luis
--- NOTE | 2025-01-16 16:31 | P.PN ---
Subjective Progress Note Date: 01/16/25 CHIEF COMPLAINT: Abdominal pain HISTORY OF PRESENT ILLNESS: The patient is a 59-year-old female with complicated history of metastatic ovarian cancer and frozen abdomen. She has a permanent nasogastric tube and reports complications with the tube being malpositioned. She does report left-sided and lower abdominal pain. She has an ostomy. Patient was readmitted for assessment of sepsis and shortness of breath REVIEW OF ORGAN SYSTEMS: No shortness of breath at this time. No fevers or chills. PHYSICAL EXAM: VITALS: Reviewed CONSTITUTIONAL: Well developed and in no acute distress. EYES: Conjuctivae without sclera icterus. Extraocular movements grossly intact. HEAD, EARS, NOSE, THROAT: Moist buccal mucosa. Head is atraumatic, normocephalic. Hears conversational speech. Nasogastric tube bilious output. Wears glasses. RESPIRATORY: Non-labored respirations and equal bilateral excursions. No gross wheezes. CARDIOVASCULAR: Palpable 2+ radial pulses. ABDOMEN: Tender left side and left lower abdominal pain. Obese. Ostomy present. MUSCULOSKELETAL: No clubbing cyanosis or edema SKIN: Warm and well perfused with good skin turgor. NEUROLOGIC: Cranial nerves II through XII grossly intact. No focal or lateralizing signs. PSYCH: Appropriate affect. Alert and oriented to person, place and time. Displays appropriate insight. CLINCAL LABS: Reviewed. STUDIES: Chest x-ray reviewed without pneumothorax. No bilateral pleural effusion. REPORT: Radiology report demonstrates possible right lung consolidation. ASSESSMENT: 1. Abdominal pain, left-sided 2. Metastatic ovarian cancer 3. Bowel obstruction due to frozen abdomen 4. Pancytopenia 5. New pulmonary nodule 6. Pneumonia 7. Sepsis PLAN: 1. Patient reports progressive abdominal pain. Will obtain CT of the abdomen pelvis without IV or oral contrast due to nausea and abdominal pain 2. Antibiotic management per infectious disease for sepsis Objective - Vital Signs Vital signs: Vital Signs Temp 98.5 F 01/16/25 15:13 Pulse 100 01/16/25 15:13 Resp 22 01/16/25 15:13 BP 169/71 01/16/25 15:13 Pulse Ox 100 01/16/25 15:13 FiO2 Intake & Output 01/15/25 01/16/25 01/16/25 17:59 06:59 18:59 Intake Total 310 Output Total Balance 310 Intake: Intake, IV Titration Amount Piperacillin-Tazobactam 3 .375 gm In Sodium Chloride 0.9% 100 ml @ 25 mls/hr IVPB Q8HR [facility] Rx# :[id number] Sodium Chloride 0.9% 1, 000 ml @ 75 mls/hr IV . [id number] [facility] Rx#:[id number] ceFAZolin 2 gm In Sodium Chloride 0.9% 50 ml @ 100 mls/hr IVPB Q8HR [facility] Rx# :[id number] Oral Blood Product 310 Rc Irr As1 Unit 310 [id number] Rc Irr As1 Unit [id number] Output: Gastric Drainage Urine Other: Voiding Method # Voids - Labs CBC & Chem 7: 01/16/25 04:46 01/16/25 04:46 Labs: Abnormal Lab Results - Last 24 Hours (Table) 01/15/25 01/16/25 01/16/25 Range/Units 10:27 04:46 04:46 WBC 3.77 L (4.50-10.00) X 10*3/uL RBC 2.03 L (4.10-5.20) X 10*6/uL Hgb 6.6 A* (12.0-15.0) g/dL Hct 20.3 L (37.2-46.3) % MCV 100.0 H (80.0-97.0) FL MCH 32.5 H (27.0-32.0) pg RDW 23.3 H (11.5-14.5) % Plt Count 43 A* (140-440) X 10*3/uL MPV 12.8 H (9.5-12.2) FL Lymphocytes # 0.42 L (0.90-5.00) X 10*3/uL Eosinophils # 0.01 L (0.04-0.35) X 10*3/uL Sodium 129 L (135-145) mmol/L Carbon Dioxide 15.6 L (21.6-31.8) mmol/L BUN 28.3 H (9.0-27.0) mg/dL Est GFR (CKD-EPI) 52 L (>=60) BUN/Creatinine Ratio 23.58 H (12.00-20.00) Ratio Glucose 149 H (70-110) mg/dL Calcium 7.8 L (8.7-10.3) mg/dL ALT 67 H (8-44) U/L Alkaline Phosphatase 181 H (41-126) U/L NT-Pro-B Natriuret Pep (0-125) pg/mL Total Protein 5.2 L (6.2-8.2) g/dL Albumin 2.6 L (3.8-4.9) g/dL Albumin/Globulin Ratio 1.00 L (1.60-3.17) Ratio Crossmatch See Detail 01/16/25 Range/Units 04:46 WBC (4.50-10.00) X 10*3/uL RBC (4.10-5.20) X 10*6/uL Hgb (12.0-15.0) g/dL Hct (37.2-46.3) % MCV (80.0-97.0) FL MCH (27.0-32.0) pg RDW (11.5-14.5) % Plt Count (140-440) X 10*3/uL MPV (9.5-12.2) FL Lymphocytes # (0.90-5.00) X 10*3/uL Eosinophils # (0.04-0.35) X 10*3/uL Sodium (135-145) mmol/L Carbon Dioxide (21.6-31.8) mmol/L BUN (9.0-27.0) mg/dL Est GFR (CKD-EPI) (>=60) BUN/Creatinine Ratio (12.00-20.00) Ratio Glucose (70-110) mg/dL Calcium (8.7-10.3) mg/dL ALT (8-44) U/L Alkaline Phosphatase (41-126) U/L NT-Pro-B Natriuret Pep 512 H (0-125) pg/mL Total Protein (6.2-8.2) g/dL Albumin (3.8-4.9) g/dL Albumin/Globulin Ratio (1.60-3.17) Ratio Crossmatch Microbiology - Last 24 Hours (Table) 01/14/25 14:09 Blood Culture Gram Stain - Preliminary Blood Blood Culture - Preliminary Staphylococcus epidermidis 01/14/25 16:45 Blood Culture Gram Stain - Preliminary Blood Blood Culture - Preliminary Staphylococcus epidermidis Molecular ID
[2025-01-16] MEDS ORDERED: ACETAMINOPHEN IV (For NPO) 1,000 MG in EMPTY BAG 1 BAG IVPB PRN (18:48)
[2025-01-16] MEDS: PIPERACILLIN-TAZOBACTAM 3.375 GM in SODIUM CHLORIDE 0.9% 100 ML IVPB SCH (20:32)
[2025-01-17] MEDS ORDERED: IOPAMIDOL CONTRAST (ORAL USE) VIAL PO PRN (08:00)
[2025-01-17 08:40] LABS: ALT 48 U/L (8-44); AST 32 U/L (13-35); Albumin 2.6 g/dL (3.8-4.9); Albumin/Globulin Ratio 0.96 Ratio (1.60-3.17); Alkaline Phosphatase 183 U/L (41-126); BUN/Creat Ratio 21.82 Ratio (12.00-20.00); Calcium 8.1 mg/dL (8.7-10.3); Carbon Dioxide 17.1 mmol/L (21.6-31.8); Chloride 103 mmol/L (96-109); Globulin 2.7 g/dL (1.6-3.3); Glucose 158 mg/dL (70-110); Sodium 130 mmol/L (135-145); Total Bilirubin 0.8 mg/dL (0.3-1.2); Total Protein 5.3 g/dL (6.2-8.2)
[2025-01-17 10:07] LABS: HCT 24.1 % (37.2-46.3); Immature Platelet Fraction 6.5 % (1.1-6.1); MCHC 33.2 g/dL (32.0-37.0); MCV 96.4 FL (80.0-97.0); Mean Platelet Volume 11.9 FL (9.5-12.2); NRBC Per 100 WBC 0 X 10*3/uL (0.00-0.01); Platelet Count 39 X 10*3/uL (140-440); RDW 21.9 % (11.5-14.5)
[2025-01-17 10:08] LABS: Anisocytosis (M) 2+ (None Seen); Basophils # (A) 0.01 X 10*3/uL (0.00-0.10); Basophils % (A) 0.2 %; Eosinophils # (A) 0.01 X 10*3/uL (0.04-0.35); Eosinophils % (A) 0.2 %; Lymphocytes % (A) 13.6 %; Monocytes # (A) 0.58 X 10*3/uL (0.20-1.00); Monocytes % (A) 13.2 %; Neutrophils # (A) 3.17 X 10*3/uL (1.80-7.70); Neutrophils % (A) 72.1 %
--- NOTE | 2025-01-17 11:31 | CT ---
EXAMINATION TYPE: CT abdomen pelvis wo con DATE OF EXAM: 01/17/2025 10:35 AM COMPARISON: CT abdomen pelvis most recent from 11/24/2024 CLINICAL INDICATION: Female, 59 years old with history of LUQ, LLQ abdominal pain; LUQ, LLQ abdominal pain. No contrast of any kind TECHNIQUE: Axial CT abdomen pelvis wo con;Sagittal and coronal reformats were created on a separate workstation. Contrast used: mL of , (none if empty) Oral contrast used: without Oral Contrast (none if empty) CT DLP: 875.40 mGycm, Automated exposure control for dose reduction was used. FINDINGS: LOWER CHEST: Unremarkable ABDOMEN LIVER: Unremarkable GALLBLADDER AND BILE DUCTS: Unremarkable. PANCREAS: Unremarkable. SPLEEN: Unremarkable. ADRENAL GLANDS: Unremarkable. KIDNEYS AND URETERS: No evidence of hydronephrosis or renal calculus. The ureters are unremarkable. PELVIS BLADDER: No evidence for wall thickening or mass given limitations of exam. REPRODUCTIVE: Unremarkable. ABDOMEN & PELVIS STOMACH AND BOWEL: Nasogastric tube terminating in the gastric lumen. No Evidence of bowel obstructio n. Ventral wall hernia containing bowel without evidence of obstruction measuring up to 6.3 x 6.3 cm. Left abdominal ostomy also present. PERITONEUM/RETROPERITONEUM: No evidence of. Trace free fluid throughout the abdomen particularly arou nd the liver Ventriculoperitoneal shunt tubing terminating in the left abdomen. Scattered peritoneal consultations are present. VASCULATURE: No evidence of aortic aneurysm. MUSCULOSKELETAL: No acute osseous abnormalities LYMPH NODES: Partially calcified lymph nodes in the inguinal regions/external iliac region on the rig ht measuring up to 15 mm and on the left measuring up to 9 mm. These are unchanged from prior. Additi onal intraperitoneal lymph nodes are present measuring up to 12 mm the level the left kidney in the r etroperitoneum. Right internal iliac lymph noder measuring up to 15 mm seen dating back to at least 2 3. SOFT TISSUE/ABDOMINAL WALL: Unremarkable IMPRESSION: 1. Postsurgical changes without evidence for acute process. 2. Surgical changes to the bowel with scattered calcifications throughout the peritoneum. No evidenc e for obstruction bowel obstruction. 3. Ventral wall hernia containing bowel without evidence of obstruction. 4. Left abdominal ostomy without evidence for parastomal hernia or obstruction. 5. Nasogastric tube in appropriate position. 6. Partially calcified lymph nodes in bilateral inguinal, retroperitoneal locations are not signific antly changed. Correlate for history of malignancy/treatment. Unclear etiology. [facility], , 01/17/2025 11:29 AM
--- NOTE | 2025-01-17 13:38 | P.PN ---
Subjective Progress Note Date: 01/17/25 Patient is still using her nasogastric tube for decompression. Patient request to attempt a PEG tube placement for decompression. On exam vital signs appear stable. Abdomen is soft. Frozen abdomen related to ovarian cancer. Patient will be scheduled for PEG tube placement in the a.m. Objective - Vital Signs Vital signs: Vital Signs Temp 98.5 F 01/17/25 07:03 Pulse 84 01/17/25 08:49 Resp 15 01/17/25 07:03 BP 129/72 01/17/25 07:03 Pulse Ox 99 01/17/25 07:03 FiO2 Intake & Output 01/16/25 01/17/25 01/17/25 18:59 06:59 18:59 Intake Total 2405 590 Output Total 1000 Balance 1405 590 Intake: Intake, IV Titration 775 Amount Sodium Chloride 0.9% 1, 675 000 ml @ 75 mls/hr IV . [id number] [facility] Rx#:[id number] ceFAZolin 2 gm In Sodium 100 Chloride 0.9% 50 ml @ 100 mls/hr IVPB Q8HR [facility] Rx# :[id number] Oral 1320 590 Blood Product 310 Rc Irr As1 Unit 310 [id number] Output: Gastric Drainage 1000 Other: Voiding Method Bedside Commode Bedside Commode # Voids 2 4 - Labs CBC & Chem 7: 01/17/25 04:42 01/17/25 04:42 Labs: Abnormal Lab Results - Last 24 Hours (Table) 01/15/25 01/17/25 01/17/25 Range/Units 10:27 04:42 04:42 WBC 4.40 L (4.50-10.00) X 10*3/uL RBC 2.50 L (4.10-5.20) X 10*6/uL Hgb 8.0 L (12.0-15.0) g/dL Hct 24.1 L (37.2-46.3) % RDW 21.9 H (11.5-14.5) % Plt Count 39 A* (140-440) X 10*3/uL Lymphocytes # 0.60 L (0.90-5.00) X 10*3/uL Eosinophils # 0.01 L (0.04-0.35) X 10*3/uL Immature Plt Fraction 6.5 H (1.1-6.1) % Anisocytosis (manual) 2+ A (None Seen) Sodium 130 L (135-145) mmol/L Carbon Dioxide 17.1 L (21.6-31.8) mmol/L Est GFR (CKD-EPI) 58 L (>=60) BUN/Creatinine Ratio 21.82 H (12.00-20.00) Ratio Glucose 158 H (70-110) mg/dL Calcium 8.1 L (8.7-10.3) mg/dL ALT 48 H (8-44) U/L Alkaline Phosphatase 183 H (41-126) U/L Total Protein 5.3 L (6.2-8.2) g/dL Albumin 2.6 L (3.8-4.9) g/dL Albumin/Globulin Ratio 0.96 L (1.60-3.17) Ratio Crossmatch See Detail Microbiology - Last 24 Hours (Table) 01/16/25 04:49 Blood Culture Gram Stain - Preliminary Blood 01/14/25 14:09 Blood Culture Gram Stain - Preliminary Blood Blood Culture - Preliminary Staphylococcus epidermidis 01/14/25 16:45 Blood Culture Gram Stain - Preliminary Blood Blood Culture - Preliminary Staphylococcus epidermidis Molecular ID
--- NOTE | 2025-01-17 14:30 | P.PN ---
Objective - Vital Signs Vital signs: Vital Signs Temp 98.5 F 01/17/25 07:03 Pulse 84 01/17/25 08:49 Resp 15 01/17/25 07:03 BP 129/72 01/17/25 07:03 Pulse Ox 99 01/17/25 07:03 FiO2 Intake & Output 01/16/25 01/17/25 01/17/25 18:59 06:59 18:59 Intake Total 2405 590 Output Total 1000 Balance 1405 590 Intake: Intake, IV Titration 775 Amount Sodium Chloride 0.9% 1, 675 000 ml @ 75 mls/hr IV . [id number] [facility] Rx#:[id number] ceFAZolin 2 gm In Sodium 100 Chloride 0.9% 50 ml @ 100 mls/hr IVPB Q8HR [facility] Rx# :[id number] Oral 1320 590 Blood Product 310 Rc Irr As1 Unit 310 [id number] Output: Gastric Drainage 1000 Other: Voiding Method Bedside Commode Bedside Commode # Voids 2 4 - Labs CBC & Chem 7: 01/17/25 04:42 01/17/25 04:42 Labs: Abnormal Lab Results - Last 24 Hours (Table) 01/15/25 01/17/25 01/17/25 Range/Units 10:27 04:42 04:42 WBC 4.40 L (4.50-10.00) X 10*3/uL RBC 2.50 L (4.10-5.20) X 10*6/uL Hgb 8.0 L (12.0-15.0) g/dL Hct 24.1 L (37.2-46.3) % RDW 21.9 H (11.5-14.5) % Plt Count 39 A* (140-440) X 10*3/uL Lymphocytes # 0.60 L (0.90-5.00) X 10*3/uL Eosinophils # 0.01 L (0.04-0.35) X 10*3/uL Immature Plt Fraction 6.5 H (1.1-6.1) % Anisocytosis (manual) 2+ A (None Seen) Sodium 130 L (135-145) mmol/L Carbon Dioxide 17.1 L (21.6-31.8) mmol/L Est GFR (CKD-EPI) 58 L (>=60) BUN/Creatinine Ratio 21.82 H (12.00-20.00) Ratio Glucose 158 H (70-110) mg/dL Calcium 8.1 L (8.7-10.3) mg/dL ALT 48 H (8-44) U/L Alkaline Phosphatase 183 H (41-126) U/L Total Protein 5.3 L (6.2-8.2) g/dL Albumin 2.6 L (3.8-4.9) g/dL Albumin/Globulin Ratio 0.96 L (1.60-3.17) Ratio Crossmatch See Detail Microbiology - Last 24 Hours (Table) 01/16/25 04:49 Blood Culture Gram Stain - Preliminary Blood 01/14/25 14:09 Blood Culture Gram Stain - Preliminary Blood Blood Culture - Preliminary Staphylococcus epidermidis 01/14/25 16:45 Blood Culture Gram Stain - Preliminary Blood Blood Culture - Preliminary Staphylococcus epidermidis Molecular ID Assessment and Plan (1) Carcinoma of ovary Current Visit: Yes Status: Chronic Priority: High Code(s): C56.9 - MALIGNANT NEOPLASM OF UNSPECIFIED OVARY SNOMED Code(s): 329043790 Plan: SOB, fever -Presented to hospital from clinic as she was SOB with fever -Chest x-ray showed development of right basilar patchy airspace opacities. CTA chest somewhat limited but showing no embolus. Small right sided pleural effusion as well as a right hilar adenopathy measuring up to 1.7 cm. Few lymph nodes about the mediastinum measuring up to 1 cm. New right basilar pulmonary nodule. NG tube seen within the stomach. Dilated loops of small bowel with previously described small bowel obstruction. -Patient was noted with Tmax 100.5F yesterday. -Infectious Disease consulted. Blood cultures redrawn. UA neg. Viral panel neg. Bowel obstruction 2/2 malignancy -recent prolonged admission for the same. Discharged on TPN and NG tube for decompression. Pt has had ongoing discomfort and oral irritation from NG, has had multiple ER visits for the same -Discussed case briefly with General surgery-plans for placement of decompression tube tomorrow Ovarian carcinoma -Diagnosis and treatment as dictated in consult. -Recent disease progression -Tumor tissue was folate receptor alpha positive, started Elahere on 01/05/25 -Continue to monitor CBC for treatment effects. CBC stable today
--- NOTE | 2025-01-17 16:08 | P.PN ---
Subjective Progress Note Date: 01/17/25 Principal diagnosis: Reason for follow-up is bacteremia and fever Patient is a 59-year-old female with a past medical history significant for stage III awaiting cancer reflux COPD recent admission to the hospital with a bowel obstruction patient did have a NG for suction ,Port/central line through which the patient is getting TPN patient has been sent to the ER from the oncology office for evaluation of increasing shortness of breath patient did have CT imaging of the chest that was negative for PE did not mention any pneumonia did have a fever prompting this consultation blood culture now coming back positive 2 out of 2 staph epi oxacillin sensitive. On today's evaluation that is 01/17/2025, patient did have low-grade fever 100.5 F last evening the patient is afebrile this morning, patient Is breathing comfortably is currently on room air no chest pain shortness of the cough has been complaining of some abdominal discomfort but no worsening symptoms. Patient white count is 4.40, creatinine is 1.1 blood culture repeat also came back positive abdominal pelvis CT postsurgical changes without evidence for acute process Objective - Vital Signs Vital signs: Vital Signs Temp 97.5 F L 01/17/25 14:00 Pulse 82 01/17/25 14:52 Resp 18 01/17/25 14:00 BP 129/78 01/17/25 14:00 Pulse Ox 100 01/17/25 14:00 FiO2 Intake & Output 01/16/25 01/17/25 01/17/25 18:59 06:59 18:59 Intake Total 2405 590 780 Output Total 1000 Balance 1405 590 780 Intake: Intake, IV Titration 775 Amount Sodium Chloride 0.9% 1, 675 000 ml @ 75 mls/hr IV . [id number] LUCY Rx#:[id number] ceFAZolin 2 gm In Sodium 100 Chloride 0.9% 50 ml @ 100 mls/hr IVPB Q8HR LUCY Rx# :[id number] Oral 1320 590 780 Blood Product 310 Rc Irr As1 Unit 310 [id number] Output: Gastric Drainage 1000 Other: Voiding Method Bedside Commode Bedside Commode # Voids 2 4 2 - Exam GENERAL DESCRIPTION: Middle-age female up in a chair in no distress RESPIRATORY SYSTEM: Unlabored breathing , decreased breath sounds at bases HEART: S1 S2 regular rate and rhythm , ABDOMEN: Soft , no tenderness EXTREMITIES: No edema feet - Labs CBC & Chem 7: 01/17/25 04:42 01/17/25 04:42 Labs: Abnormal Lab Results - Last 24 Hours (Table) 01/17/25 01/17/25 Range/Units 04:42 04:42 WBC 4.40 L (4.50-10.00) X 10*3/uL RBC 2.50 L (4.10-5.20) X 10*6/uL Hgb 8.0 L (12.0-15.0) g/dL Hct 24.1 L (37.2-46.3) % RDW 21.9 H (11.5-14.5) % Plt Count 39 A* (140-440) X 10*3/uL Lymphocytes # 0.60 L (0.90-5.00) X 10*3/uL Eosinophils # 0.01 L (0.04-0.35) X 10*3/uL Immature Plt Fraction 6.5 H (1.1-6.1) % Anisocytosis (manual) 2+ A (None Seen) Sodium 130 L (135-145) mmol/L Carbon Dioxide 17.1 L (21.6-31.8) mmol/L Est GFR (CKD-EPI) 58 L (>=60) BUN/Creatinine Ratio 21.82 H (12.00-20.00) Ratio Glucose 158 H (70-110) mg/dL Calcium 8.1 L (8.7-10.3) mg/dL ALT 48 H (8-44) U/L Alkaline Phosphatase 183 H (41-126) U/L Total Protein 5.3 L (6.2-8.2) g/dL Albumin 2.6 L (3.8-4.9) g/dL Albumin/Globulin Ratio 0.96 L (1.60-3.17) Ratio Microbiology - Last 24 Hours (Table) 01/14/25 14:09 Blood Culture Gram Stain - Final Blood Blood Culture - Final Staphylococcus epidermidis 01/14/25 16:45 Blood Culture Gram Stain - Final Blood Blood Culture - Final Staphylococcus epidermidis Molecular ID 01/16/25 04:49 Blood Culture Gram Stain - Preliminary Blood Assessment and Plan (1) Sepsis Current Visit: Yes Status: Acute Code(s): A41.9 - SEPSIS, UNSPECIFIED ORGANISM SNOMED Code(s): 04837696 (2) Bacteremia Current Visit: Yes Status: Acute Code(s): R78.81 - BACTEREMIA SNOMED Co de(s): 6463940 (3) Bacteremia associated with intravascular line Current Visit: Yes Status: Acute Code(s): T82.7XXA - INFECT/INFLM REACT D/T OTH CARDI/VASC DEV/IMPLNT/GRFT, INIT; R78.81 - BACTEREMIA SNOMED Code(s): 640511347 Plan: 1patient with sepsis in this patient who did have fever tachycardia source could be either abdominal versus port infection as the patient initial workup including chest x-ray followed by CT angiogram of the chest with no evidence of pneumonia UA has been negative tested negative for influenza RSV and COVID. 2patient did have blood cultures peripherally as well as from the port positive with staph epi and now did have a repeat blood culture positive as well CT abdominal pelvis did not show any acute abnormality 3patient will likely need discontinuation of the port to help clear up this infection antibiotic was switched over to Zosyn yesterday by admitting team to continue for now Dictation was produced using [employer] dictation software. please excuse any grammatical, word or spelling errors. Time with Patient: Less than 30
[2025-01-17] MEDS: PROCHLORPERAZINE 10 MG TAB PO PRN (20:18)
--- NOTE | 2025-01-17 22:03 | P.PN ---
Subjective Progress Note Date: 01/17/25 This is a pleasant 59-year-old female who follows with Dr. Freitas in the outpatient setting presented to the emergency department with increased shortness of breath and was sent here from oncology office with concerns of possible PE versus pneumonia. 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 Patient with past medical history of COPD, GERD, stage III ovarian cancer, kidney stones, small bowel obstruction and was recently hospitalized a month ago and underwent laparoscopic noted to have frozen abdomen and has been maintained on NG tube and TPN with pleasure feeds. Patient reports to doing well and during her checkup with oncology she was noted to be more short of breath. Patient is noted to have some fevers and had been on antibiotics outpatient for possible urinary tract infection. Patient was admitted with pulmonary and oncology on consult. Patient did have an elevated D-dimer and underwent CT a which was negative for PE and several mediastinal lymph nodes that are seen scattered and also incidental finding of a right basilar pulmonary nodule measuring 1.3 cm that was not on previous CT November 24, 2024 along with a small right pleural effusion. Pulmonary was consulted as well. Procalcitonin elevated as well at 3.39 and will consult infectious disease and appreciate input and recommendations. Labs reviewed and BUN was 40 with a creatinine of 1.29, sodium found to be 127, magnesium 1.8, lactic acid negative, AST continues to be elevated although lower at 57 and ALT 107, platelets are low at 61, hemoglobin is 7.8 and white count is 7.2. 01/17/2025 Patient seen in follow-up today with general surgery and oncology following. Plan is for possible PEG tube placement for decompression tomorrow on 01/18/2025. Patient continued on empiric antibiotics with infectious disease following and cultures revealed staph epi and repeat cultures pending at this time. Patient will continue antibiotics. Patient sodium slightly improved at 130 and patient is continued on TPN and recommend monitoring electrolytes closely. Review of systems: Constitutional: reports of fatigue, no fever, or chills Cardiovascular: No reports of chest pain or palpitations Respiratory: No reports of worsening shortness of breath or cough GI: reports of occasional nausea, no recent vomiting, or diarrhea : No reports of dysuria or retention Neurovascular: reports of generalized weakness All medications have been reviewed The rest of the 14-point review of systems is negative. PHYSICAL EXAMINATION: GENERAL: The patient is alert and oriented x3, ill-appearing. Well developed, well nourished. Obese HEENT: Pupils are round and equally reacting to light. EOMI. No scleral icterus. No conjunctival pallor. Normocephalic, atraumatic. No pharyngeal erythema. No thyromegaly. CARDIOVASCULAR: S1 and S2 present. No murmurs, rubs, or gallops. PULMONARY: Diminished breath sounds bilaterally otherwise chest is clear to auscultation, no wheezing or crackles. ABDOMEN: Soft, nontender, nondistended, normoactive bowel sounds. No palpable organomegaly. No output noted in the ostomy, bilious output noted in NG tube MUSCULOSKELETAL: No joint swelling or deformity. EXTREMITIES: No cyanosis, clubbing, or pedal edema. NEUROLOGICAL: Gross neurological examination did not reveal any focal deficits. Diffusely weak SKIN: No rashes. Assessment: Shortness of breath with an elevated D-dimer of 6.39, PE ruled out Shortness of breath, multifactorial, possibly secondary to COPD acute exacerbation as well as abdominal distention with concerns of possible right lower lobe pneumonia, possible Staph epidermidis sepsis, present on admission, infectious diseases following Anemia from blood loss and secondary to malignancy, coffee-ground emesis noted from NG tube History of stage III ovarian cancer currently undergoing chemotherapy History of recent hospitalization noted to have small bowel obstruction status post laparoscopic showing frozen abdomen maintained on TPN and NG tube outpatient Obesity with a BMI of 31.3 Elevated procalcitonin with shortness of breath, concerns for pneumonia, community-acquired Thrombocytopenia History of COPD, not in exacerbation History of GERD Hyponatremia likely secondary to volume loss with continued NG tube and ostomy New right basilar pulmonary nodule noted on imaging that was not present on November 2024 Recent urinary tract infection, in the outpatient setting with possible failure of outpatient treatment Possible sepsis, present on admission, unknown etiology, undergoing continued workup and awaiting repeat cultures GI prophylaxis DVT prophylaxis Full code Plan: Patient was at oncology office and admitted for shortness of breath with concerns of possible PE versus pneumonia. PE was ruled out on CT Oncology following and infectious diseases following continued on antibiotics. Procalcitonin was elevated and blood cultures showing staph epi and awaiting repeat blood cultures. Continue along with infectious disease and septic workup ongoing Patient to continue with TPN and adjust accordingly per dietary Patient has a Mediport and the site is clean and dry and intact with no areas of redness or concerns for infection Will have PT/OT therapy evaluate the patient Resume appropriate home medications Will follow-up on repeat labs and replace electrolytes per protocol General Surgery following along with oncology and have discussed PEG tube placement attempt for decompression. Plan for possible PEG tube placement on 01/18/2025 The impression and plan of care has been dictated by Yesenia Carroll, Nurse Practitioner as directed. Dr. Marivel MD I have performed a history and examination and MDM of this patient, discussed the same with the dictator, and agree with the dictator's assessment and plan as written ,documented as a scribe. Based on total visit time, I have performed more than 50% of the visit. Objective - Vital Signs Vital signs: Vital Signs Temp 98.5 F 01/17/25 07:03 Pulse 84 01/17/25 08:49 Resp 15 01/17/25 07:03 BP 129/72 01/17/25 07:03 Pulse Ox 99 01/17/25 07:03 FiO2 Intake & Output 01/16/25 01/17/25 01/17/25 18:59 06:59 18:59 Intake Total 2405 590 Output Total 1000 Balance 1405 590 Intake: Intake, IV Titration 775 Amount Sodium Chloride 0.9% 1, 675 000 ml @ 75 mls/hr IV . [id number] LUCY Rx#:[id number] ceFAZolin 2 gm In Sodium 100 Chloride 0.9% 50 ml @ 100 mls/hr IVPB Q8HR LUCY Rx# :[id number] Oral 1320 590 Blood Product 310 Rc Irr As1 Unit 310 [id number] Output: Gastric Drainage 1000 Other: Voiding Method Bedside Commode # Voids 2 4 - Labs CBC & Chem 7: 01/17/25 04:42 01/17/25 04:42 Labs: Abnormal Lab Results - Last 24 Hours (Table) 01/15/25 01/16/25 01/16/25 Range/Units 10:27 04:46 04:46 WBC 3.77 L (4.50-10.00) X 10*3/uL RBC 2.03 L (4.10-5.20) X 10*6/uL Hgb 6.6 A* (12.0-15.0) g/dL Hct 20.3 L (37.2-46.3) % MCV 100.0 H (80.0-97.0) FL MCH 32.5 H (27.0-32.0) pg RDW 23.3 H (11.5-14.5) % Plt Count 43 A* (140-440) X 10*3/uL MPV 12.8 H (9.5-12.2) FL Lymphocytes # 0.42 L (0.90-5.00) X 10*3/uL Eosinophils # 0.01 L (0.04-0.35) X 10*3/uL Sodium 129 L (135-145) mmol/L Carbon Dioxide 15.6 L (21.6-31.8) mmol/L BUN 28.3 H (9.0-27.0) mg/dL Est GFR (CKD-EPI) 52 L (>=60) BUN/Creatinine Ratio 23.58 H (12.00-20.00) Ratio Glucose 149 H (70-110) mg/dL Calcium 7.8 L (8.7-10.3) mg/dL ALT 67 H (8-44) U/L Alkaline Phosphatase 181 H (41-126) U/L NT-Pro-B Natriuret Pep (0-125) pg/mL Total Protein 5.2 L (6.2-8.2) g/dL Albumin 2.6 L (3.8-4.9) g/dL Albumin/Globulin Ratio 1.00 L (1.60-3.17) Ratio Crossmatch See Detail 01/16/25 01/17/25 Range/Units 04:46 04:42 WBC (4.50-10.00) X 10*3/uL RBC (4.10-5.20) X 10*6/uL Hgb (12.0-15.0) g/dL Hct (37.2-46.3) % MCV (80.0-97.0) FL MCH (27.0-32.0) pg RDW (11.5-14.5) % Plt Count (140-440) X 10*3/uL MPV (9.5-12.2) FL Lymphocytes # (0.90-5.00) X 10*3/uL Eosinophils # (0.04-0.35) X 10*3/uL Sodium 130 L (135-145) mmol/L Carbon Dioxide 17.1 L (21.6-31.8) mmol/L BUN (9.0-27.0) mg/dL Est GFR (CKD-EPI) 58 L (>=60) BUN/Creatinine Ratio 21.82 H (12.00-20.00) Ratio Glucose 158 H (70-110) mg/dL Calcium 8.1 L (8.7-10.3) mg/dL ALT 48 H (8-44) U/L Alkaline Phosphatase 183 H (41-126) U/L NT-Pro-B Natriuret Pep 512 H (0-125) pg/mL Total Protein 5.3 L (6.2-8.2) g/dL Albumin 2.6 L (3.8-4.9) g/dL Albumin/Globulin Ratio 0.96 L (1.60-3.17) Ratio Crossmatch Microbiology - Last 24 Hours (Table) 01/16/25 04:49 Blood Culture Gram Stain - Preliminary Blood 01/14/25 14:09 Blood Culture Gram Stain - Preliminary Blood Blood Culture - Preliminary Staphylococcus epidermidis 01/14/25 16:45 Blood Culture Gram Stain - Preliminary Blood Blood Culture - Preliminary Staphylococcus epidermidis Molecular ID
--- NOTE | 2025-01-17 23:48 | P.PN ---
Subjective Progress Note Date: 01/17/25 On today's evaluation of on today's evaluation of 01/17/2025, the patient is being seen for a follow-up. The patient is known to have ovarian cancer and the patient presented with increased shortness of breath and a CAT scan of the chest showed no evidence of any pulm embolism and there was no evidence of any pneumonia. Meanwhile, the blood culture was positive for Staph epidermidis and the patient was seen by infectious disease and the patient is currently on IV Zosyn. The patient is on room air oxygen with a pulse ox of 99%. The blood work from today shows a white cell count of 4.4 with a hemoglobin of 8 and a platelet count of 39. BUN is at 24 with a creatinine 1.1 and sodium levels at 130. The patient is breathing comfortably. No chest pain. No shortness of breath. No cough or sputum production. She is having some abdominal discomfort. Based on that, a CAT scan of the abdomen and pelvis was done today and the patient was found to have ventral wall hernia containing bowel without evidence of any obstruction. Left abdominal ostomy without evidence of any parastomal hernia or obstruction. NG tube is in place. The patient has a partially calcified lymph node in the bilateral inguinal and retroperitoneal locations and postsurgical changes were seen without any acute abnormalities noted. I personally reviewed the CAT scan of the chest. There is a small right-sided pleural effusion. Otherwise, there is no airspace disease or consolidation or any pulmonary nodules. Objective - Vital Signs Vital signs: Vital Signs Temp 97.5 F L 01/17/25 14:00 Pulse 82 01/17/25 14:52 Resp 18 01/17/25 14:00 BP 129/78 01/17/25 14:00 Pulse Ox 100 01/17/25 14:00 FiO2 Intake & Output 01/16/25 01/17/25 01/17/25 18:59 06:59 18:59 Intake Total 2405 590 Output Total 1000 Balance 1405 590 Intake: Intake, IV Titration 775 Amount Sodium Chloride 0.9% 1, 675 000 ml @ 75 mls/hr IV . [id number] LUCY Rx#:[id number] ceFAZolin 2 gm In Sodium 100 Chloride 0.9% 50 ml @ 100 mls/hr IVPB Q8HR LUCY Rx# :[id number] Oral 1320 590 Blood Product 310 Rc Irr As1 Unit 310 [id number] Output: Gastric Drainage 1000 Other: Voiding Method Bedside Commode Bedside Commode # Voids 2 4 - Labs CBC & Chem 7: 01/17/25 04:42 01/17/25 04:42 Labs: Abnormal Lab Results - Last 24 Hours (Table) 01/15/25 01/17/25 01/17/25 Range/Units 10:27 04:42 04:42 WBC 4.40 L (4.50-10.00) X 10*3/uL RBC 2.50 L (4.10-5.20) X 10*6/uL Hgb 8.0 L (12.0-15.0) g/dL Hct 24.1 L (37.2-46.3) % RDW 21.9 H (11.5-14.5) % Plt Count 39 A* (140-440) X 10*3/uL Lymphocytes # 0.60 L (0.90-5.00) X 10*3/uL Eosinophils # 0.01 L (0.04-0.35) X 10*3/uL Immature Plt Fraction 6.5 H (1.1-6.1) % Anisocytosis (manual) 2+ A (None Seen) Sodium 130 L (135-145) mmol/L Carbon Dioxide 17.1 L (21.6-31.8) mmol/L Est GFR (CKD-EPI) 58 L (>=60) BUN/Creatinine Ratio 21.82 H (12.00-20.00) Ratio Glucose 158 H (70-110) mg/dL Calcium 8.1 L (8.7-10.3) mg/dL ALT 48 H (8-44) U/L Alkaline Phosphatase 183 H (41-126) U/L Total Protein 5.3 L (6.2-8.2) g/dL Albumin 2.6 L (3.8-4.9) g/dL Albumin/Globulin Ratio 0.96 L (1.60-3.17) Ratio Crossmatch See Detail Microbiology - Last 24 Hours (Table) 01/16/25 04:49 Blood Culture Gram Stain - Preliminary Blood 01/14/25 14:09 Blood Culture Gram Stain - Preliminary Blood Blood Culture - Preliminary Staphylococcus epidermidis 01/14/25 16:45 Blood Culture Gram Stain - Preliminary Blood Blood Culture - Preliminary Staphylococcus epidermidis Molecular ID Assessment and Plan Plan: Ovarian carcinoma Sepsis with Staph epidermidis with 2 out of 2 blood cultures being positive and the patient is currently on IV Zosyn. Procalcitonin level was elevated at time of admission. Bowel obstruction, NG tube is in place and the CAT scan of the abdomen pelvis was noted. 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 History of diverticulosis/diverticulitis with previous colostomy Pancytopenia, treatment related Shortness of breath, no acute cardiopulmonary abnormalities. A very tiny right- sided pleural effusion. There is also a 1.7 cm right hilar lymph node that is probably not contributing to her symptoms. Hyponatremia, sodium level is stable at 130 Acute kidney injury, improved Transaminitis History of diverticulitis with previous colostomy Gastroesophageal reflux disease History of shunt for hydrocephalus Chronic and ongoing tobacco dependence Plan Keep NG tube in place Monitor hematologic profile ID is on the case manager specialist fever Continue IV Zosyn TPN for nutritional support
[2025-01-18 05:14] LABS: Anisocytosis Moderate; HCT 24.6 % (34.0-46.0); HGB 8.1 gm/dL (11.4-16.0); MCH 32.5 pg (25.0-35.0); MCV 98.4 fL (80.0-100.0); Macrocytosis Moderate; Mean Platelet Volume 9.2; Platelet Count 34 k/uL (150-450); Poikilocytosis Slight; RDW 20.8 % (11.5-15.5); WBC 4.9 k/uL (3.8-10.6)
[2025-01-18 06:23] LABS: Band Neutrophils % 13 %; Lymphocytes # (M) 0.54 k/uL (1.0-4.8); Neutrophils % (M) 74 %; Nucleated Red Blood Cells 0 /100 WBC (0-0); Total Cells Counted 100
[2025-01-18 06:24] LABS: Anisocytosis (M) Present; Hypochromasia (M) Present; Polychromasia Present
[2025-01-18 09:32] LABS: Magnesium 1.4 mg/dL (1.5-2.4)
[2025-01-18 09:39] LABS: ALT 43 U/L (8-44); AST 29 U/L (13-35); Albumin 2.7 g/dL (3.8-4.9); Alkaline Phosphatase 251 U/L (41-126); BUN/Creat Ratio 23.27 Ratio (12.00-20.00); Blood Urea Nitrogen 25.6 mg/dL (9.0-27.0); Calcium 8.4 mg/dL (8.7-10.3); Carbon Dioxide 15.4 mmol/L (21.6-31.8); Chloride 102 mmol/L (96-109); Globulin 2.7 g/dL (1.6-3.3); Glucose 144 mg/dL (70-110); Potassium 4.4 mmol/L (3.5-5.5); Sodium 129 mmol/L (135-145); Total Bilirubin 1.2 mg/dL (0.3-1.2); Total Protein 5.4 g/dL (6.2-8.2)
--- NOTE | 2025-01-18 13:34 | P.PN ---
Subjective Progress Note Date: 01/18/25 Principal diagnosis: Reason for follow-up is bacteremia and fever Patient is a 59-year-old female with a past medical history significant for stage III awaiting cancer reflux COPD recent admission to the hospital with a bowel obstruction patient did have a NG for suction ,Port/central line through which the patient is getting TPN patient has been sent to the ER from the oncology office for evaluation of increasing shortness of breath patient did have CT imaging of the chest that was negative for PE did not mention any pneumonia did have a fever prompting this consultation blood culture now coming back positive 2 out of 2 staph epi oxacillin sensitive. On today's evaluation that is 01/18/2025, Patient did have improvement her fever pattern did have a low-grade fever of 99.9 F last night, denies any chest pain shortness of breath or cough some abdominal discomfort still have the NG. Patient white count is 4.9 creatinine is 1.1 blood culture with staph epi oxacillin sensitive Objective - Vital Signs Vital signs: Vital Signs Temp 98 F 01/18/25 07:19 Pulse 82 01/18/25 08:25 Resp 16 01/18/25 07:19 BP 127/72 01/18/25 07:19 Pulse Ox 98 01/18/25 07:19 FiO2 Intake & Output 01/17/25 01/18/25 01/18/25 18:59 06:59 18:59 Intake Total 780 Output Total 700 400 Balance 80 -400 Intake: Oral 780 Output: Gastric Drainage 700 400 Other: Voiding Method Bedside Commode Bedside Commode Bedside Commode # Voids 1 3 - Exam GENERAL DESCRIPTION: Middle-age female up in a chair in no distress RESPIRATORY SYSTEM: Unlabored breathing , decreased breath sounds at bases HEART: S1 S2 regular rate and rhythm , ABDOMEN: Soft , no tenderness EXTREMITIES: No edema feet - Labs CBC & Chem 7: 01/18/25 04:18 01/18/25 04:18 Labs: Abnormal Lab Results - Last 24 Hours (Table) 01/18/25 01/18/25 Range/Units 04:18 04:18 RBC 2.50 L (3.80-5.40) m/uL Hgb 8.1 L (11.4-16.0) gm/dL Hct 24.6 L (34.0-46.0) % RDW 20.8 H (11.5-15.5) % Plt Count 34 L (150-450) k/uL Lymphocytes # (Manual) 0.54 L (1.0-4.8) k/uL Sodium 129 L (135-145) mmol/L Carbon Dioxide 15.4 L (21.6-31.8) mmol/L Est GFR (CKD-EPI) 58 L (>=60) BUN/Creatinine Ratio 23.27 H (12.00-20.00) Ratio Glucose 144 H (70-110) mg/dL Calcium 8.4 L (8.7-10.3) mg/dL Magnesium 1.4 L (1.5-2.4) mg/dL Alkaline Phosphatase 251 H (41-126) U/L Total Protein 5.4 L (6.2-8.2) g/dL Albumin 2.7 L (3.8-4.9) g/dL Albumin/Globulin Ratio 1.00 L (1.60-3.17) Ratio Microbiology - Last 24 Hours (Table) 01/16/25 19:21 Blood Culture - Preliminary Blood 01/16/25 04:49 Blood Culture Gram Stain - Preliminary Blood Blood Culture - Preliminary Staphylococcus epidermidis 01/14/25 14:09 Blood Culture Gram Stain - Final Blood Blood Culture - Final Staphylococcus epidermidis 01/14/25 16:45 Blood Culture Gram Stain - Final Blood Blood Culture - Final Staphylococcus epidermidis Molecular ID Assessment and Plan (1) Sepsis Current Visit: Yes Status: Acute Code(s): A41.9 - SEPSIS, UNSPECIFIED ORGANISM SNOMED Code(s): 23039796 (2) Bacteremia Current Visit: Yes Status: Acute Code(s): R78.81 - BACTEREMIA SNOMED Code(s): 4553828 (3) Bacteremia associated with intravascular line Current Visit: Yes Status: Acute Code(s): T82.7XXA - INFECT/INFLM REACT D/T OTH CARDI/VASC DEV/IMPLNT/GRFT, INIT; R78.81 - BACTEREMIA SNOMED Code(s): 402664654 Plan: 1patient with sepsis in this patient who did have fever tachycardia source could be either abdominal versus port infection as the patient initial workup including chest x-ray followed by CT angiogram of the chest with no evidence of pneumonia UA has been negative tested negative for influenza RSV and COVID. 2patient did have blood cultures peripherally as well as from the port positive with staph epi and now did have a repeat blood culture positive as well CT abdominal pelvis did not show any acute abnormality 3patient apparently scheduled for surgical procedure this afternoon she did have improvement her fever pattern and is currently covered with Zosyn blood culture repeat will be followed if persistent bacteremia may need discontinuation of the port discussed with the patient in layman term Dictation was produced using [employer] dictation software. please excuse any grammatical, word or spelling errors. Time with Patient: Less than 30
[2025-01-18] MEDS ORDERED: LIDOCAINE HCL/PF 20 MG/ML 10 ML AMP ONE (16:14)
[2025-01-18] MEDS ORDERED: PROPOFOL 10 MG/ML 20 ML VIAL IV ONE (16:14)
[2025-01-18] MEDS: IV FLUID CONTINUATION 300 ML IV ONE (16:25)
--- NOTE | 2025-01-18 17:13 | P.OP ---
Date of Procedure: 01/18/25 Preoperative Diagnosis: Metastatic ovarian cancer Postoperative Diagnosis: Metastatic ovarian cancer Procedure(s) Performed: EGD Anesthesia: MAC Surgeon: Juan Tyson Pathology: none sent Condition: stable Disposition: PACU Description of Procedure: The patient was placed on the endoscopy table in the lateral position. She received IV sedation. The gas was placed oropharynx passed into the esophagus and stomach. The stomach was insufflated with air. There was no suitable light reflex seen in the intra-abdominal wall. The stomach was transilluminated and there is no light reflex in the abdominal wall. The 23-gauge needle was attempted to be placed into the stomach however this was not possible due to the depth of the stomach. At this point the procedure was stopped. There was no significant gastroenterology. Scope was withdrawn. Patient may benefit from CT-guided gastrostomy tube placement
--- NOTE | 2025-01-18 17:34 | P.PN ---
Subjective Progress Note Date: 01/18/25 Principal diagnosis: Metastatic ovarian carcinoma, peritoneal carcinamatosis In f/u today pt is awaiting surgery-hoping to be able to have a decompression tube placed and get rid of NG. She has no other acute c/o at this time Objective - Vital Signs Vital signs: Vital Signs Temp 97.4 F L 01/18/25 17:05 Pulse 90 01/18/25 17:05 Resp 18 01/18/25 17:05 BP 129/74 01/18/25 17:05 Pulse Ox 100 01/18/25 17:05 FiO2 Intake & Output 01/17/25 01/18/25 01/18/25 18:59 06:59 18:59 Intake Total 780 473 Output Total 700 400 Balance 80 -400 473 Intake: IV 100 Oral 780 Blood Product 373 Platelet Pheresis Pas 373 Psoralen Unit [id number] Output: Gastric Drainage 700 400 Other: Voiding Method Bedside Commode Bedside Commode Bedside Commode # Voids 1 3 - Constitutional General appearance: Present: average body habitus, cooperative, no acute distress - EENT Eyes: Present: anicteric sclerae, EOMI ENT: Present: hearing grossly normal - Respiratory Details: resp unlabored at rest - Cardiovascular Details: skin warm, well perfused - Integumentary Integumentary: Present: normal - Neurologic Neurologic: Present: CNII-XII intact - Musculoskeletal Musculoskeletal: Present: strength equal bilaterally - Psychiatric Psychiatric: Present: A&O x's 3, appropriate affect, intact judgment & insight - Labs CBC & Chem 7: 01/18/25 04:18 01/18/25 04:18 Labs: Abnormal Lab Results - Last 24 Hours (Table) 01/18/25 01/18/25 Range/Units 04:18 04:18 RBC 2.50 L (3.80-5.40) m/uL Hgb 8.1 L (11.4-16.0) gm/dL Hct 24.6 L (34.0-46.0) % RDW 20.8 H (11.5-15.5) % Plt Count 34 L (150-450) k/uL Lymphocytes # (Manual) 0.54 L (1.0-4.8) k/uL Sodium 129 L (135-145) mmol/L Carbon Dioxide 15.4 L (21.6-31.8) mmol/L Est GFR (CKD-EPI) 58 L (>=60) BUN/Creatinine Ratio 23.27 H (12.00-20.00) Ratio Glucose 144 H (70-110) mg/dL Calcium 8.4 L (8.7-10.3) mg/dL Magnesium 1.4 L (1.5-2.4) mg/dL Alkaline Phosphatase 251 H (41-126) U/L Total Protein 5.4 L (6.2-8.2) g/dL Albumin 2.7 L (3.8-4.9) g/dL Albumin/Globulin Ratio 1.00 L (1.60-3.17) Ratio Microbiology - Last 24 Hours (Table) 01/16/25 19:21 Blood Culture - Preliminary Blood 01/16/25 04:49 Blood Culture Gram Stain - Preliminary Blood Blood Culture - Preliminary Staphylococcus epidermidis 01/14/25 14:09 Blood Culture Gram Stain - Final Blood Blood Culture - Final Staphylococcus epidermidis 01/14/25 16:45 Blood Culture Gram Stain - Final Blood Blood Culture - Final Staphylococcus epidermidis Molecular ID Assessment and Plan (1) Bowel obstruction Current Visit: Yes Status: Chronic Priority: High Code(s): K56.609 - UNSP INTESTNL OBST, UNSP TO PARTIAL VERSUS COMPLETE OBST SNOMED Code(s): 72442374 (2) Carcinoma of ovary Current Visit: Yes Status: Chronic Priority: High Code(s): C56.9 - MALIGNANT NEOPLASM OF UNSPECIFIED OVARY SNOMED Code(s): 976498747 (3) Antineoplastic chemotherapy induced pancytopenia Current Visit: Yes Status: Acute Code(s): D61.810 - ANTINEOPLASTIC CHEMOTHERAPY INDUCED PANCYTOPENIA; T45.1X5A - ADVERSE EFFECT OF ANTINEOPLASTIC AND IMMUNOSUP DRUGS, INIT SNOMED Code(s): 745013296415115 Plan: SOB, fever -Presented to hospital from clinic as she was SOB with fever -Chest x-ray showed development of right basilar patchy airspace opacities. CTA chest somewhat limited but showing no embolus. Small right sided pleural effusion as well as a right hilar adenopathy measuring up to 1.7 cm. Few lymph nodes about the mediastinum measuring up to 1 cm. New right basilar pulmonary nodule. NG tube seen within the stomach. Dilated loops of small bowel with previously described small bowel obstruction. -No fever since the -Infectious Disease following. Abx continue. Blood cultures redrawn. UA neg. Viral panel neg. Bowel obstruction 2/ malignancy -recent prolonged admission for the same. Discharged on TPN and NG tube for decompression. Pt has had ongoing discomfort and oral irritation from NG, has had multiple ER visits for the same -Pending possible decompression tube placement today. Ovarian carcinoma -Diagnosis and treatment as dictated in consult. -Recent disease progression -Tumor tissue was folate receptor alpha positive, started Elahere on 01/05/25 Chemo induced pancytopenia -Pt received 2 units PRBCs since admit, Hgb stable today -WBC recovered, normal today -Plt cont to be <50,000, platelets ordered for procedure -Continue to monitor CBC for treatment effects.
--- NOTE | 2025-01-18 18:30 | P.PN ---
Subjective Progress Note Date: 01/18/25 This is a pleasant 59-year-old female who follows with Dr. Freitas in the outpatient setting presented to the emergency department with increased shortness of breath and was sent here from oncology office with concerns of possible PE versus pneumonia. 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 Patient with past medical history of COPD, GERD, stage III ovarian cancer, kidney stones, small bowel obstruction and was recently hospitalized a month ago and underwent laparoscopic noted to have frozen abdomen and has been maintained on NG tube and TPN with pleasure feeds. Patient reports to doing well and during her checkup with oncology she was noted to be more short of breath. Patient is noted to have some fevers and had been on antibiotics outpatient for possible urinary tract infection. Patient was admitted with pulmonary and oncology on consult. Patient did have an elevated D-dimer and underwent CT a which was negative for PE and several mediastinal lymph nodes that are seen scattered and also incidental finding of a right basilar pulmonary nodule measuring 1.3 cm that was not on previous CT November 24, 2024 along with a small right pleural effusion. Pulmonary was consulted as well. Procalcitonin elevated as well at 3.39 and will consult infectious disease and appreciate input and recommendations. Labs reviewed and BUN was 40 with a creatinine of 1.29, sodium found to be 127, magnesium 1.8, lactic acid negative, AST continues to be elevated although lower at 57 and ALT 107, platelets are low at 61, hemoglobin is 7.8 and white count is 7.2. 01/17/2025 Patient seen in follow-up today with general surgery and oncology following. Plan is for possible PEG tube placement for decompression tomorrow on 01/18/2025. Patient continued on empiric antibiotics with infectious disease following and cultures revealed staph epi and repeat cultures pending at this time. Patient will continue antibiotics. Patient sodium slightly improved at 130 and patient is continued on TPN and recommend monitoring electrolytes closely. 01/18/2025 Patient is seen in follow-up today with multiple consultations including oncology, infectious disease, general surgery. Patient is scheduled to undergo possible PEG tube placement for decompression by general surgery today. Patient continues with NG tube at this time. Continue TPN. Blood cultures continue to show staph epi likely contaminant. Will discuss further with infectious disease if patient will require antibiotics on discharge. Review of systems: Constitutional: reports of fatigue, no fever, or chills Cardiovascular: No reports of chest pain or palpitations Respiratory: No reports of worsening shortness of breath or cough GI: reports of occasional nausea, no recent vomiting, denies diarrhea or any ostomy output : No reports of dysuria or retention Neurovascular: reports of generalized weakness All medications have been reviewed The rest of the 14-point review of systems is negative. PHYSICAL EXAMINATION: GENERAL: The patient is alert and oriented x3, ill-appearing. Well developed, well nourished. Obese HEENT: Pupils are round and equally reacting to light. EOMI. No scleral icterus. No conjunctival pallor. Normocephalic, atraumatic. No pharyngeal erythema. No thyromegaly. CARDIOVASCULAR: S1 and S2 present. No murmurs, rubs, or gallops. PULMONARY: Diminished breath sounds bilaterally otherwise chest is clear to auscultation, no wheezing or crackles. ABDOMEN: Soft, nontender, nondistended, normoactive bowel sounds. No palpable organomegaly. No output noted in the ostomy, bilious output noted in NG tube MUSCULOSKELETAL: No joint swelling or deformity. EXTREMITIES: No cyanosis, clubbing, or pedal edema. NEUROLOGICAL: Gross neurological examination did not reveal any focal deficits. Diffusely weak SKIN: No rashes. Assessment: Shortness of breath with an elevated D-dimer of 6.39, PE ruled out Shortness of breath, multifactorial, possibly secondary to COPD acute exacerbation as well as abdominal distention with concerns of possible right lower lobe pneumonia, possible Staph epidermidis sepsis, present on admission, infectious diseases following Anemia from blood loss and secondary to malignancy, coffee-ground emesis noted from NG tube History of stage III ovarian cancer currently undergoing chemotherapy History of recent hospitalization noted to have small bowel obstruction status post laparoscopic showing frozen abdomen maintained on TPN and NG tube outpatient Obesity with a BMI of 31.3 Elevated procalcitonin with shortness of breath, concerns for pneumonia, community-acquired Thrombocytopenia History of COPD, not in exacerbation History of GERD Hyponatremia likely secondary to volume loss with continued NG tube and ostomy New right basilar pulmonary nodule noted on imaging that was not present on November 2024 Recent urinary tract infection, in the outpatient setting with possible failure of outpatient treatment Possible sepsis, present on admission, unknown etiology, undergoing continued workup and awaiting repeat cultures GI prophylaxis DVT prophylaxis Full code Plan: Patient was at oncology office and admitted for shortness of breath with concerns of possible PE versus pneumonia. PE was ruled out on CT Oncology following and infectious diseases following continued on antibiotics. Procalcitonin was elevated and blood cultures showing staph epi and awaiting repeat blood cultures. Continue along with infectious disease and septic workup ongoing Patient to continue with TPN and adjust accordingly per dietary Patient has a Mediport and the site is clean and dry and intact with no areas of redness or concerns for infection General Surgery following and patient is currently n.p.o. continues with NG tube scheduled for possible PEG tube placement for decompression. Will await report Will discuss with other consultations regarding possible discharge planning in the next 24 to 48 hours. The impression and plan of care has been dictated by Yesenia Carroll, Nurse Practitioner as directed. Dr. Marivel MD I have performed a history and examination and MDM of this patient, discussed the same with the dictator, and agree with the dictator's assessment and plan as written ,documented as a scribe. Based on total visit time, I have performed more than 50% of the visit. Objective - Vital Signs Vital signs: Vital Signs Temp 98 F 01/18/25 07:19 Pulse 82 01/18/25 08:25 Resp 16 01/18/25 07:19 BP 127/72 01/18/25 07:19 Pulse Ox 98 01/18/25 07:19 FiO2 Intake & Output 01/17/25 01/18/25 01/18/25 18:59 06:59 18:59 Intake Total 780 Output Total 700 400 Balance 80 -400 Intake: Oral 780 Output: Gastric Drainage 700 400 Other: Voiding Method Bedside Commode Bedside Commode # Voids 1 3 - Labs CBC & Chem 7: 01/18/25 04:18 01/18/25 04:18 Labs: Abnormal Lab Results - Last 24 Hours (Table) 01/17/25 01/18/25 Range/Units 04:42 04:18 WBC 4.40 L (4.50-10.00) X 10*3/uL RBC 2.50 L 2.50 L (4.10-5.20) X 10*6/uL Hgb 8.0 L 8.1 L (12.0-15.0) g/dL Hct 24.1 L 24.6 L (37.2-46.3) % RDW 21.9 H 20.8 H (11.5-14.5) % Plt Count 39 A* 34 L (140-440) X 10*3/uL Lymphocytes # 0.60 L (0.90-5.00) X 10*3/uL Lymphocytes # (Manual) 0.54 L (1.0-4.8) k/uL Eosinophils # 0.01 L (0.04-0.35) X 10*3/uL Immature Plt Fraction 6.5 H (1.1-6.1) % Anisocytosis (manual) 2+ A (None Seen) Microbiology - Last 24 Hours (Table) 01/16/25 04:49 Blood Culture Gram Stain - Preliminary Blood Blood Culture - Preliminary Staphylococcus epidermidis 01/14/25 14:09 Blood Culture Gram Stain - Final Blood Blood Culture - Final Staphylococcus epidermidis 01/14/25 16:45 Blood Culture Gram Stain - Final Blood Blood Culture - Final Staphylococcus epidermidis Molecular ID
[2025-01-18] MEDS ORDERED: Magnesium Replacement Protocol 1 EACH MISC MISCELLANE PRN (18:31)
[2025-01-18 19:28] VITALS: RESP 16
[2025-01-18] MEDS: MAGNESIUM SULFATE-D5W PMX 1 GM in DEXTROSE/WATER 1 100ML.BAG IVPB ONE (19:45)
[2025-01-18] MEDS: ACETAMINOPHEN IV (For NPO) 1,000 MG in EMPTY BAG 1 BAG IVPB STA (21:35)
[2025-01-19 09:08] LABS: BUN/Creat Ratio 25.09 Ratio (12.00-20.00); Blood Urea Nitrogen 27.6 mg/dL (9.0-27.0); Calcium 8.4 mg/dL (8.7-10.3); Carbon Dioxide 16.5 mmol/L (21.6-31.8); Chloride 104 mmol/L (96-109); Glucose 133 mg/dL (70-110); Magnesium 1.7 mg/dL (1.5-2.4); Potassium 4.3 mmol/L (3.5-5.5); Sodium 132 mmol/L (135-145)
[2025-01-19 09:31] LABS: Basophils # (A) 0.01 X 10*3/uL (0.00-0.10); Basophils % (A) 0.2 %; Eosinophils # (A) 0.01 X 10*3/uL (0.04-0.35); Eosinophils % (A) 0.2 %; HCT 23.1 % (37.2-46.3); HGB 7.6 g/dL (12.0-15.0); Immature Platelet Fraction 6.2 % (1.1-6.1); Lymphocytes # (A) 0.56 X 10*3/uL (0.90-5.00); Lymphocytes % (A) 11.4 %; MCH 32.1 pg (27.0-32.0); MCHC 32.9 g/dL (32.0-37.0); MCV 97.5 FL (80.0-97.0); Mean Platelet Volume 10.8 FL (9.5-12.2); Monocytes # (A) 0.64 X 10*3/uL (0.20-1.00); NRBC Per 100 WBC 0 X 10*3/uL (0.00-0.01); Neutrophils # (A) 3.67 X 10*3/uL (1.80-7.70); Neutrophils % (A) 74.6 %; Platelet Count 37 X 10*3/uL (140-440); RBC 2.37 X 10*6/uL (4.10-5.20); RBC Morphology Normal (Normal); RDW 21.6 % (11.5-14.5); WBC 4.92 X 10*3/uL (4.50-10.00)
--- NOTE | 2025-01-19 12:55 | P.PN ---
Subjective Progress Note Date: 01/19/25 Principal diagnosis: Reason for follow-up is bacteremia and fever Patient is a 59-year-old female with a past medical history significant for stage III awaiting cancer reflux COPD recent admission to the hospital with a bowel obstruction patient did have a NG for suction ,Port/central line through which the patient is getting TPN patient has been sent to the ER from the oncology office for evaluation of increasing shortness of breath patient did have CT imaging of the chest that was negative for PE did not mention any pneumonia did have a fever prompting this consultation blood culture now coming back positive 2 out of 2 staph epi oxacillin sensitive. On today's evaluation that is 01/19/2025,the patient did have a low-grade fever 100.6 last evening is afebrile this morning patient denies having any chest pain breathing slightly comfortably abdominal pain about the same still have the NG no new symptoms. The patient white count of 4.92 creatinine is 1.1 blood culture from 311 also came back positive Objective - Vital Signs Vital signs: Vital Signs Temp 98.1 F 01/19/25 07:06 Pulse 81 01/19/25 07:06 Resp 16 01/19/25 07:06 BP 133/67 01/19/25 07:06 Pulse Ox 97 01/19/25 07:06 FiO2 Intake & Output 01/18/25 01/19/25 01/19/25 18:59 06:59 18:59 Intake Total 473 560 Output Total 400 Balance 473 -400 560 Intake: IV 100 Oral 560 Blood Product 373 Platelet Pheresis Pas 373 Psoralen Unit [id number] Output: Gastric Drainage 400 Other: Voiding Method Bedside Commode Bedside Commode # Voids 2 3 - Exam GENERAL DESCRIPTION: Middle-age female up in a chair in no distress RESPIRATORY SYSTEM: Unlabored breathing , decreased breath sounds at bases HEART: S1 S2 regular rate and rhythm , ABDOMEN: Soft , no tenderness EXTREMITIES: No edema feet - Labs CBC & Chem 7: 01/19/25 05:30 01/19/25 05:30 Labs: Abnormal Lab Results - Last 24 Hours (Table) 01/19/25 01/19/25 Range/Units 05:30 05:30 RBC 2.37 L (4.10-5.20) X 10*6/uL Hgb 7.6 L (12.0-15.0) g/dL Hct 23.1 L (37.2-46.3) % MCV 97.5 H (80.0-97.0) FL MCH 32.1 H (27.0-32.0) pg RDW 21.6 H (11.5-14.5) % Plt Count 37 A* (140-440) X 10*3/uL Lymphocytes # 0.56 L (0.90-5.00) X 10*3/uL Eosinophils # 0.01 L (0.04-0.35) X 10*3/uL Immature Plt Fraction 6.2 H (1.1-6.1) % Sodium 132 L (135-145) mmol/L Carbon Dioxide 16.5 L (21.6-31.8) mmol/L BUN 27.6 H (9.0-27.0) mg/dL Est GFR (CKD-EPI) 58 L (>=60) BUN/Creatinine Ratio 25.09 H (12.00-20.00) Ratio Glucose 133 H (70-110) mg/dL Calcium 8.4 L (8.7-10.3) mg/dL Microbiology - Last 24 Hours (Table) 01/16/25 04:49 Blood Culture Gram Stain - Final Blood Blood Culture - Final Staphylococcus epidermidis 01/18/25 04:24 Blood Culture Gram Stain - Preliminary Blood Blood Culture - Preliminary Molecular ID 01/16/25 19:21 Blood Culture Gram Stain - Preliminary Blood Blood Culture - Preliminary Assessment and Plan (1) Sepsis Current Visit: Yes Status: Acute Code(s): A41.9 - SEPSIS, UNSPECIFIED ORGANISM SNOMED Code(s): 00002670 (2) Bacteremia Current Visit: Yes Status: Acute Code(s): R78.81 - BACTEREMIA SNOMED Code(s): 5004040 (3) Bacteremia associated with intravascular line Current Visit: Yes Status: Acute Code(s): T82.7XXA - INFECT/INFLM REACT D/T OTH CARDI/VASC DEV/IMPLNT/GRFT, INIT; R78.81 - BACTEREMIA SNOMED Code(s): 939727906 Plan: 1patient with sepsis in this patient who did have fever tachycardia source could be either abdominal versus port infection as the patient initial workup including chest x-ray followed by CT angiogram of the chest with no evidence of pneumonia UA has been negative tested negative for influenza RSV and COVID. 2patient did have blood cultures peripherally as well as from the port positive with staph epi and now did have a repeat blood culture positive as well CT abdominal pelvis did not show any acute abnormality 3patient source of bacteremia is likely the port that need to come out because of persistent bacteremia this was discussed with the CULINARY DIRECTOR for oncology is currently trying to get her to leak around for a CT-guided PEG tube placement at the same time for should be discontinued and put a midline for continuation of antibiotic as well as TPN once her follow-up blood culture negative she will be able to get another port discussed with the CULINARY DIRECTOR for oncology Dictation was produced using [employer] dictation software. please excuse any gramma tical, word or spelling errors. Time with Patient: Less than 30
--- NOTE | 2025-01-19 14:08 | P.PN ---
Subjective Progress Note Date: 01/19/25 SURGICAL PROGRESS NOTE CHIEF COMPLAINT: Metastatic ovarian cancer HISTORY OF PRESENT ILLNESS: Patient had unsuccessful PEG tube placement yesterday. Patient continues to have NG tube in place for decompression. Patient with low-grade temp 100.6 last night. WBC is 4.95 Hgb 7.6 platelets 37 magnesium 1.7 PHYSICAL EXAM: VITAL SIGNS: Reviewed. GENERAL: Well-developed in no acute distress. ABDOMEN: Soft. NEUROLOGIC: Alert and oriented. Cranial nerves II through XII grossly intact. ASSESSMENT: 1. 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 Severe protein calorie malnutrition PLAN: -Light reflex was not visible during EGD therefore PEG tube could not be placed. Surgical intervention is not an option. -Recommend CT-guided gastrostomy tube placement by IR service Physician Subcontract Administrator note has been reviewed by physician. Signing provider agrees with the documented findings, assessment, and plan of care. Objective - Vital Signs Vital signs: Vital Signs Temp 97.6 F 01/19/25 11:44 Pulse 77 01/19/25 12:38 Resp 16 01/19/25 11:44 BP 151/70 01/19/25 11:44 Pulse Ox 94 L 01/19/25 11:44 FiO2 Intake & Output 01/18/25 01/19/25 01/19/25 18:59 06:59 18:59 Intake Total 473 918 Output Total 400 Balance 473 -400 918 Intake: IV 100 Oral 918 Blood Product 373 Platelet Pheresis Pas 373 Psoralen Unit [id number] Output: Gastric Drainage 400 Other: Voiding Method Bedside Commode Bedside Commode Bedside Commode # Voids 2 3 - Labs CBC & Chem 7: 01/19/25 05:30 01/19/25 05:30 Labs: Abnormal Lab Results - Last 24 Hours (Table) 01/19/25 01/19/25 Range/Units 05:30 05:30 RBC 2.37 L (4.10-5.20) X 10*6/uL Hgb 7.6 L (12.0-15.0) g/dL Hct 23.1 L (37.2-46.3) % MCV 97.5 H (80.0-97.0) FL MCH 32.1 H (27.0-32.0) pg RDW 21.6 H (11.5-14.5) % Plt Count 37 A* (140-440) X 10*3/uL Lymphocytes # 0.56 L (0.90-5.00) X 10*3/uL Eosinophils # 0.01 L (0.04-0.35) X 10*3/uL Immature Plt Fraction 6.2 H (1.1-6.1) % Sodium 132 L (135-145) mmol/L Carbon Dioxide 16.5 L (21.6-31.8) mmol/L BUN 27.6 H (9.0-27.0) mg/dL Est GFR (CKD-EPI) 58 L (>=60) BUN/Creatinine Ratio 25.09 H (12.00-20.00) Ratio Glucose 133 H (70-110) mg/dL Calcium 8.4 L (8.7-10.3) mg/dL Microbiology - Last 24 Hours (Table) 01/16/25 04:49 Blood Culture Gram Stain - Final Blood Blood Culture - Final Staphylococcus epidermidis 01/18/25 04:24 Blood Culture Gram Stain - Preliminary Blood Blood Culture - Preliminary Molecular ID 01/16/25 19:21 Blood Culture Gram Stain - Preliminary Blood Blood Culture - Preliminary
--- NOTE | 2025-01-19 15:57 | P.PN ---
Subjective Progress Note Date: 01/19/25 This is a pleasant 59-year-old female who follows with Dr. Feritas in the outpatient setting presented to the emergency department with increased shortness of breath and was sent here from oncology office with concerns of possible PE versus pneumonia. 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 Patient with past medical history of COPD, GERD, stage III ovarian cancer, kidney stones, small bowel obstruction and was recently hospitalized a month ago and underwent laparoscopic noted to have frozen abdomen and has been maintained on NG tube and TPN with pleasure feeds. Patient reports to doing well and during her checkup with oncology she was noted to be more short of breath. Patient is noted to have some fevers and had been on antibiotics outpatient for possible urinary tract infection. Patient was admitted with pulmonary and oncology on consult. Patient did have an elevated D-dimer and underwent CT a which was negative for PE and several mediastinal lymph nodes that are seen scattered and also incidental finding of a right basilar pulmonary nodule measuring 1.3 cm that was not on previous CT November 24, 2024 along with a small right pleural effusion. Pulmonary was consulted as well. Procalcitonin elevated as well at 3.39 and will consult infectious disease and appreciate input and recommendations. Labs reviewed and BUN was 40 with a creatinine of 1.29, sodium found to be 127, magnesium 1.8, lactic acid negative, AST continues to be elevated although lower at 57 and ALT 107, platelets are low at 61, hemoglobin is 7.8 and white count is 7.2. 01/17/2025 Patient seen in follow-up today with general surgery and oncology following. Plan is for possible PEG tube placement for decompression tomorrow on 01/18/2025. Patient continued on empiric antibiotics with infectious disease following and cultures revealed staph epi and repeat cultures pending at this time. Patient will continue antibiotics. Patient sodium slightly improved at 130 and patient is continued on TPN and recommend monitoring electrolytes closely. 01/18/2025 Patient is seen in follow-up today with multiple consultations including oncology, infectious disease, general surgery. Patient is scheduled to undergo possible PEG tube placement for decompression by general surgery today. Patient continues with NG tube at this time. Continue TPN. Blood cultures continue to show staph epi likely contaminant. Will discuss further with infectious disease if patient will require antibiotics on discharge. 01/19/2025 Patient is seen in follow-up with multiple consultations following. Attempted PEG tube placement yesterday and was unable recommending CT-guided gastrostomy tube. Oncology following working on possibly arranging for outpatient gastr ostomy tube at [facility]. Patient continues to have fevers and blood cultures remain positive with staph epi with infectious disease following maintained on Zosyn. Patient had Tmax temp last night of 103 which responded to IV Tylenol. 01/20/2025 Patient is seen in follow-up today being followed by oncology along with infectious disease. Plan was initially for patient to continue on TPN although continues to have positive blood cultures most likely Mediport access site is the issue and continues to be positive with Staph epidermidis. Plan is for patient to follow-up at [facility] on 01/20/2025 for gastrostomy tube placement with radiology surgeon and working on possible Mediport removal and new Mediport. Per ID recommendations patient will need continued IV antibiotics in the form of cefazolin and will start with at least 2 weeks while attempting to obtain a new Mediport and/or PICC line as well as continuing TPN. Patient was noted to have a frozen abdomen and has not been having output in her ostomy although ostomy just started producing copious amounts of stool that is loose today. Patient is afebrile although did have a temp yesterday and is continued on antibiotics and will need antibiotics outpatient. Attempted to have a midline placed although per policy it is against this hospitals policy that patient receives midline or PICC line with positive blood cultures until at least 48 hours of clearance. This was discussed in detail with infectious disease, oncology, interventional radiologist over at [facility] and all are aware and still recommend continuing with IV antibiotics and continue with current Mediport until other Mediport can be replaced for patient to continue with outpatient TPN and antibiotic therapy. School Curriculum Developer unable to accommodate this at this time. Attempting to work with oncology and [facility] staff regarding possible PICC or midline placement while receiving gastrostomy tube on 01/20/2025. Home care is arranged and can accommodate IV antibiotic therapies and treatments which is being arranged by social work. Review of systems: Constitutional: reports of fatigue, no fever, or chills Cardiovascular: No reports of chest pain or palpitations Respiratory: No reports of worsening shortness of breath or cough GI: reports of occasional nausea, no recent vomiting, denies diarrhea or any ostomy output : No reports of dysuria or retention Neurovascular: reports of generalized weakness All medications have been reviewed The rest of the 14-point review of systems is negative. PHYSICAL EXAMINATION: GENERAL: The patient is alert and oriented x3, ill-appearing. Well developed, well nourished. Obese HEENT: Pupils are round and equally reacting to light. EOMI. No scleral icterus. No conjunctival pallor. Normocephalic, atraumatic. No pharyngeal erythema. No thyromegaly. CARDIOVASCULAR: S1 and S2 present. No murmurs, rubs, or gallops. PULMONARY: Diminished breath sounds bilaterally otherwise chest is clear to auscultation, no wheezing or crackles. ABDOMEN: Soft, nontender, nondistended, normoactive bowel sounds. No palpable organomegaly. Copious amounts of loose brown stool output noted in the ostomy today 01/19/2025., bilious output noted in NG tube MUSCULOSKELETAL: No joint swelling or deformity. EXTREMITIES: No cyanosis, clubbing, or pedal edema. NEUROLOGICAL: Gross neurological examination did not reveal any focal deficits. Diffusely weak SKIN: No rashes. Assessment: Shortness of breath with an elevated D-dimer of 6.39, PE ruled out Shortness of breath, multifactorial, possibly secondary to COPD acute exacerbation as well as abdominal distention with concerns of possible right lower lobe pneumonia, possible Staph epidermidis sepsis, present on admission, infectious diseases following Anemia from blood loss and secondary to malignancy, coffee-ground emesis noted from NG tube Persistent bacteremia with Staph epidermidis with concerns of possible MediPort contamination. Planning for outpatient removal of Mediport and replacement to be done at [facility]. History of stage III ovarian cancer currently undergoing chemotherapy History of recent hospitalization noted to have small bowel obstruction status post laparoscopic showing frozen abdomen maintained on TPN and NG tube outpatient Obesity with a BMI of 31.3 Elevated procalcitonin with shortness of breath, concerns for pneumonia, commun ity-acquired Thrombocytopenia History of COPD, not in exacerbation History of GERD Hyponatremia likely secondary to volume loss with continued NG tube and ostomy New right basilar pulmonary nodule noted on imaging that was not present on November 2024 Recent urinary tract infection, in the outpatient setting with possible failure of outpatient treatment Possible sepsis, present on admission, unknown etiology, undergoing continued workup and awaiting repeat cultures GI prophylaxis DVT prophylaxis Full code Plan: Patient was at oncology office and admitted for shortness of breath with concerns of possible PE versus pneumonia. PE was ruled out on CT Oncology following and infectious diseases following continued on antibiotics. Procalcitonin was elevated and blood cultures showing staph epi and awaiting repeat blood cultures. Repeat blood cultures remain positive and discussed with infectious disease along with oncology and plan will be to continue IV cefazolin outpatient for minimum 2 weeks and working on Mediport placement and removal of previous 1 and possible PICC line placement as patient will continue on TPN and also will need IV antibiotics discharge planning. Social work is following arranging for IV antibiotics outpatient and already has home care established who can accommodate IV antibiotic therapy as well. Midline order placed per ID recommendations to have continued IV antibiotic therapy in the outpatient setting along with continuing TPN. Per policy, patient continues to have positive blood cultures and unable to place at this time. Discussed with School Curriculum Developer filing and polishing supervisor who reported that documentation needs to be clearly placed in order to place a midline or PICC line as patient does have persistent bacteremia. This was discussed with oncology as well as infectious disease in detail and they are aware and recommend to continue with midline placement. Will cancel the order for now as there is no staff to place this and patient will be discharged in the a.m. after receiving a.m. dose and will be instructed to follow-up at [facility] at 8:30 AM regarding gastrostomy tube placement. The impression and plan of care has been dictated by Yesenia Carroll, Nurse Practitioner as directed. Dr. Marivel MD I have performed a history and examination and MDM of this patient, discussed the same with the dictator, and agree with the dictator's assessment and plan as written ,documented as a scribe. Based on total visit time, I have performed more than 50% of the visit. Objective - Vital Signs Vital signs: Vital Signs Temp 98.1 F 01/19/25 07:06 Pulse 81 01/19/25 07:06 Resp 16 01/19/25 07:06 BP 133/67 01/19/25 07:06 Pulse Ox 97 01/19/25 07:06 FiO2 Intake & Output 01/18/25 01/19/25 01/19/25 18:59 06:59 18:59 Intake Total 473 560 Output Total 400 Balance 473 -400 560 Intake: IV 100 Oral 560 Blood Product 373 Platelet Pheresis Pas 373 Psoralen Unit [id number] Output: Gastric Drainage 400 Other: Voiding Method Bedside Commode Bedside Commode # Voids 2 3 - Labs CBC & Chem 7: 01/19/25 05:30 01/19/25 05:30 Labs: Abnormal Lab Results - Last 24 Hours (Table) 01/18/25 01/19/25 Range/Units 04:18 05:30 Sodium 129 L 132 L (135-145) mmol/L Carbon Dioxide 15.4 L 16.5 L (21.6-31.8) mmol/L BUN 27.6 H (9.0-27.0) mg/dL Est GFR (CKD-EPI) 58 L 58 L (>=60) BUN/Creatinine Ratio 23.27 H 25.09 H (12.00-20.00) Ratio Glucose 144 H 133 H (70-110) mg/dL Calcium 8.4 L 8.4 L (8.7-10.3) mg/dL Magnesium 1.4 L (1.5-2.4) mg/dL Alkaline Phosphatase 251 H (41-126) U/L Total Protein 5.4 L (6.2-8.2) g/dL Albumin 2.7 L (3.8-4.9) g/dL Albumin/Globulin Ratio 1.00 L (1.60-3.17) Ratio Microbiology - Last 24 Hours (Table) 01/18/25 04:24 Blood Culture Gram Stain - Preliminary Blood Blood Culture - Preliminary Molecular ID 01/16/25 19:21 Blood Culture Gram Stain - Preliminary Blood Blood Culture - Preliminary 01/16/25 04:49 Blood Culture Gram Stain - Preliminary Blood Blood Culture - Preliminary Staphylococcus epidermidis
[2025-01-19 16:58] VITALS: BMI 31.2
--- NOTE | 2025-01-19 21:25 | P.PN ---
Subjective Progress Note Date: 01/19/25 Principal diagnosis: Metastatic ovarian carcinoma, peritoneal carcinamatosis In f/u today pt was unable to have decompression tube placed. She is now awaiting antibiotic administration so she can be discharged for CT guided decompression tube placement tomorrow. She has no new c/o. She is pleasant as ever despite her situation. Objective - Vital Signs Vital signs: Vital Signs Temp 98.4 F 01/19/25 19:36 Pulse 92 01/19/25 19:36 Resp 16 01/19/25 19:36 BP 136/68 01/19/25 19:36 Pulse Ox 100 01/19/25 19:36 FiO2 Intake & Output 01/19/25 01/19/25 01/20/25 06:59 18:59 06:59 Intake Total 2558 Output Total 400 150 Balance -400 2558 -150 Weight 85.275 kg Intake: Oral 2558 Output: Gastric Drainage 400 Stool 150 Other: Voiding Method Bedside Commode Bedside Commode # Voids 3 5 1 # Bowel Movements 1 - Constitutional General appearance: Present: average body habitus, cooperative, no acute distress - EENT Eyes: Present: anicteric sclerae, EOMI ENT: Present: hearing grossly normal - Respiratory Respiratory: bilateral: CTA - Cardiovascular Rhythm: regular - Peripheral edema leg Peripheral Edema: bilateral: None - Gastrointestinal General gastrointestinal: Present: decreased bowel sounds, distended, soft - Integumentary Integumentary: Present: normal - Neurologic Neurologic: Present: CNII-XII intact - Musculoskeletal Musculoskeletal: Present: strength equal bilaterally - Psychiatric Psychiatric: Present: A&O x's 3, appropriate affect, intact judgment & insight - Labs CBC & Chem 7: 01/19/25 05:30 01/19/25 05:30 Labs: Abnormal Lab Results - Last 24 Hours (Table) 01/19/25 01/19/25 Range/Units 05:30 05:30 RBC 2.37 L (4.10-5.20) X 10*6/uL Hgb 7.6 L (12.0-15.0) g/dL Hct 23.1 L (37.2-46.3) % MCV 97.5 H (80.0-97.0) FL MCH 32.1 H (27.0-32.0) pg RDW 21.6 H (11.5-14.5) % Plt Count 37 A* (140-440) X 10*3/uL Lymphocytes # 0.56 L (0.90-5.00) X 10*3/uL Eosinophils # 0.01 L (0.04-0.35) X 10*3/uL Immature Plt Fraction 6.2 H (1.1-6.1) % Sodium 132 L (135-145) mmol/L Carbon Dioxide 16.5 L (21.6-31.8) mmol/L BUN 27.6 H (9.0-27.0) mg/dL Est GFR (CKD-EPI) 58 L (>=60) BUN/Creatinine Ratio 25.09 H (12.00-20.00) Ratio Glucose 133 H (70-110) mg/dL Calcium 8.4 L (8.7-10.3) mg/dL Microbiology - Last 24 Hours (Table) 01/16/25 04:49 Blood Culture Gram Stain - Final Blood Blood Culture - Final Staphylococcus epidermidis 01/18/25 04:24 Blood Culture Gram Stain - Preliminary Blood Blood Culture - Preliminary Molecular ID 01/16/25 19:21 Blood Culture Gram Stain - Preliminary Blood Blood Culture - Preliminary Assessment and Plan (1) Bowel obstruction Current Visit: Yes Status: Chronic Priority: High Code(s): K56.609 - UNSP INTESTNL OBST, UNSP TO PARTIAL VERSUS COMPLETE OBST SNOMED Code(s): 09252595 (2) Carcinoma of ovary Current Visit: Yes Status: Chronic Priority: High Code(s): C56.9 - MALIGNANT NEOPLASM OF UNSPECIFIED OVARY SNOMED Code(s): 542718700 (3) Antineoplastic chemotherapy induced pancytopenia Current Visit: Yes Status: Acute Code(s): D61.810 - ANTINEOPLASTIC CHEMOTHERAPY INDUCED PANCYTOPENIA; T45.1X5A - ADVERSE EFFECT OF ANTINEOPLASTIC AND IMMUNOSUP DRUGS, INIT SNOMED Code(s): 769316987531024 Plan: SOB, fever -Presented to hospital from clinic as she was SOB with fever -Chest x-ray showed development of right basilar patchy airspace opacities. CTA chest somewhat limited but showing no embolus. Small right sided pleural effusion as well as a right hilar adenopathy measuring up to 1.7 cm. Few lymph nodes about the mediastinum measuring up to 1 cm. New right basilar pulmonary nodule. NG tube seen within the stomach. Dilated loops of small bowel with previously described small bowel obstruction. -No fever since the -Infectious Disease following. Did discuss the case with Dr. Mccormick today. Patient blood cultures have returned multiple times positive for staph epi, he feels that this is a true infection, likely stemming from the port. Recommendation is for IV antibiotics and ultimately port removal. Bowel obstruction 2/2 malignancy -recent prolonged admission for the same. Discharged on TPN and NG tube for decompression. Pt has had ongoing discomfort and oral irritation from NG, has had multiple ER visits for the same -Unfortunately, patient's condition did not allow for a successful surgical intervention yesterday. Recommendation is for CT-guided placement of PEG tube for decompression. Patient has an outpatient appointment for this procedure tomorrow. Case was discussed with Attending NATIONAL SALES MANAGER. Due to patient's significantly complicated condition, she is going to be discharged after her final dose of antibiotics for today. Case was discussed with the Interventional Radiologist that is doing the procedure tomorrow. If PICC line is available, he will place a dual-lumen PICC at the same time he performs the procedure. We will then schedule outpatient removal of the port as soon as possible. Patient will be discharged after her final antibiotics. IV abx will be continued in the outpatient setting. Patient will need to follow-up with Infectious Disease for further recommendations. -Internal medicine NATIONAL SALES MANAGER as well as Case Management have worked very diligently to keep patient on her TPN as well as order her IV antibiotics for outpatient administration. Ovarian carcinoma -Diagnosis and treatment as dictated in consult. -Recent disease progression -Tumor tissue was folate receptor alpha positive, started Elahere on 01/05/25 -Treatment is going to be on hold temporarily until infection has cleared Chemo induced pancytopenia -Pt received 2 units PRBCs since admit, Hgb stable today -WBC recovered, normal today -Plt cont to be <50,000 but, they are stable. Platelets have been ordered for procedure tomorrow -Counts will continued to be monitored in the outpatient setting with transfusions as needed Time with Patient: Greater than 30 (>60min counseling and coordinating care)
[2025-01-20 01:33] VITALS: BP 129/70; PULSE 89; TEMP 98.6
--- NOTE | 2025-01-21 12:21 | P.DS ---
Providers Date of admission: 01/13/25 20:07 Expected date of discharge: 01/20/25 Attending physician: Sami Price Consults: 01/13/25 20:07 Consult Physician Routine Consulting Provider: Joel Forebs Consult Reason/Comments: dyspnea, NOS Do you want consulting provider notified?: Yes Consult Physician Routine Consulting Provider: Marciano Godinez Consult Reason/Comments: ca Do you want consulting provider notified?: Yes 01/14/25 13:05 Consult Physician Routine Consulting Provider: Cameron Mccormick Consult Reason/Comments: sepsis Do you want consulting provider notified?: Yes 01/14/25 15:05 Consult Physician Routine Consulting Provider: Juan Tyson Consult Reason/Comments: evaluation for decompression peg tube Do you want consulting provider notified?: Yes Primary care physician: Juliann Freitas Hospital Course: Final diagnosis Shortness of breath with an elevated D-dimer of 6.39, PE ruled out Shortness of breath, multifactorial, possibly secondary to COPD acute exacerbation as well as abdominal distention with concerns of possible right lower lobe pneumonia, Staph epidermidis sepsis, present on admission Anemia from blood loss and secondary to malignancy, coffee-ground emesis noted from NG tube Persistent bacteremia with Staph epidermidis with concerns of possible MediPort contamination. Planning for outpatient removal of Mediport and replacement to be done at [facility] on 01/20/2025. History of stage III ovarian cancer currently undergoing chemotherapy History of recent hospitalization noted to have small bowel obstruction status post laparoscopic showing frozen abdomen maintained on TPN and NG tube outpatient Obesity with a BMI of 31.3 Elevated procalcitonin with shortness of breath, concerns for pneumonia, community-acquired Thrombocytopenia History of COPD, not in exacerbation History of GERD Hyponatremia likely secondary to volume loss with continued NG tube and ostomy New right basilar pulmonary nodule noted on imaging that was not present on November 2024 Recent urinary tract infection, in the outpatient setting with possible failure of outpatient treatment sepsis, present on admission, unknown etiology, undergoing continued workup and having persistent bacteremia likely secondary to Mediport GI prophylaxis DVT prophylaxis Full code Discharge disposition Patient is being discharged in a stable condition with guarded prognosis to home with continued home care. Patient will follow-up with Dr. Freitas in the outpatient setting upon discharge. Patient is to continue with current medications and will be going home on IV cefazolin for 2 to 3 weeks. Patient is to follow-up with interventional radiology at [facility] this morning for gastrostomy tube and PICC line placement as scheduled. Total time taken is greater than 35 minutes. Hospital course This is a 59-year-old female who was recently admitted with increasing shortness of breath with concerns of possible pneumonia due to increasing shortness of breath. There was concern of possible right lower lobe pneumonia although less likely. Patient continues to have persistent bacteremia with Staph epidermidis with concerns of Mediport being infected. Patient does have a Mediport and is maintained on continuous TPN outpatient. Patient was evaluated by general surgery with plans of PEG tube placement for decompression although unable to proceed recommending gastrostomy tube. Arrangements per oncology have been made in the outpatient setting and patient will be receiving a gastrostomy tube along with PICC line placement at [facility] today 01/20/2025 with interventional radiologist. Patient is being followed by infectious disease received a dose of Rocephin today and will continue on IV cefazolin outpatient for minimum 2 to 3 weeks. Plan is for Mediport removal and exchange once cultures have finalized and negative. Patient follows with oncology closely and will be following this week in the outpatient setting. Patient will continue with NG tube for now although if gastrostomy tube is placed okay to discontinue NG tube. Patient has been cleared by consultations for discharge to have this procedure done as it is not able to be performed here. Please refer to other consultation notes for further HPI. Patient will have home care in the outpatient setting as well. Currently no reports of chest pain, shortness of breath, or palpitations. Patient is afebrile. No reports of nausea or vomiting and patient is tolerating pleasure diet. Patient will be discharged home and is to follow-up with [facility] at 8:30 AM today. Overall prognosis is guarded at this time. Physical exam: Gen: This is a 59-year-old female who is awake, alert and oriented x 3 well- developed, obese, ill-appearing HEENT: Head is atraumatic, normocephalic. Pupils equal, round. Sclerae is anicteric. NECK: Supple. No JVD. No lymphadenopathy. No thyromegaly. LUNGS: Diminished breath sounds bilaterally otherwise clear to auscultation. No wheezes or rhonchi. No intercostal retractions. HEART: Regular rate and rhythm. No murmur. ABDOMEN: Soft. Nontender bowel sounds are present. No masses. No tenderness. Ostomy noted with stool output now that is liquid and brown EXTREMITIES: No pedal edema. No calf tenderness. NEUROLOGICAL: Patient is awake, alert and oriented x3. Cranial nerves 2 through 12 are grossly intact. Please refer to medication reconciliation sheet for a list of medications. The impression and plan of care has been dictated by Yesenia Carroll, Nurse Practitioner as directed. Dr. Marivel MD I have performed a history and examination and MDM of this patient, discussed the same with the dictator, and agree with the dictator's assessment and plan as written ,documented as a scribe. Based on total visit time, I have performed more than 50% of the visit. Patient Condition at Discharge: Fair Plan - Discharge Summary Discharge Rx Participant: No New Discharge Prescriptions: New ceFAZolin [Kefzol] 2 gm IVP Q8HR 14 Days #42 each Continue Midodrine [ProAmatine] 5 mg PO AC-BID #60 tab Ondansetron Odt [Zofran ODT] 4 mg PO Q6H PRN #30 tab PRN Reason: Nausea Latanoprost [Latanoprost 0.005%] 1 drop BOTH EYES HS Prednisolone Acetate/Pf [Prednisolone Acet 1% Eye Drop] 1 drop BOTH EYES QID Potassium Chloride Oral Liquid 40 meq NG-TUBE DAILY rOPINIRole HCL [Requip] 0.5 mg PO HS Prochlorperazine [Compazine] 10 mg PO QID PRN PRN Reason: Nausea Discontinued Fluconazole 150 mg PO DAILY Discharge Medication List Midodrine [ProAmatine] 5 mg PO AC-BID #60 tab 12/09/24 [Rx] Ondansetron Odt [Zofran ODT] 4 mg PO Q6H PRN #30 tab 12/10/24 [Rx] Latanoprost [Latanoprost 0.005%] 1 drop BOTH EYES HS 01/13/25 [History] Potassium Chloride Oral Liquid 40 meq NG-TUBE DAILY 01/13/25 [History] Prednisolone Acetate/Pf [Prednisolone Acet 1% Eye Drop] 1 drop BOTH EYES QID 01/13/25 [History] Prochlorperazine [Compazine] 10 mg PO QID PRN 01/13/25 [History] rOPINIRole HCL [Requip] 0.5 mg PO HS 01/13/25 [History] ceFAZolin [Kefzol] 2 gm IVP Q8HR 14 Days #42 each 01/20/25 [Rx] Follow up Appointment(s)/Referral(s): Juliann Freitas MD [Primary Care Provider] - 1-2 days [facility], [REFERRING] - 1 Week [facility] Visiting Nurse, [NON-STAFF] - As Needed (They will call you after discharge to schedule first session) Patient Instructions/Handouts: Cefazolin (By injection), Parenteral Electrolyte/Mineral Combination (By injection) Activity/Diet/Wound Care/Special Instructions: Activity limited until follow-up Follow-up at [facility] as scheduled this morning for gastrostomy tube placement and possible PICC line Continue antibiotic therapy per ID recommendations Continue with home care Follow-up with oncology as discussed Repeat labs as discussed and scheduled per oncology Discharge Disposition: HOME WITH HOME HEALTH SERVICES
== END 2025-01-20 06:50 | disposition home health service (06) | DRG 314 ==
LOC: EC 16:36 → 5NMEDONC 20:07
PROVIDERS: ADMIT Hospitalist; ATTEND Hospitalist
PROC: 30233N1 Transfusion of Nonautologous Red Blood Cells into Peripheral Vein, Percutaneous Approach (ICD-10-PCS; 2025-01-15)
PROC: 30233R1 Transfusion of Nonautologous Platelets into Peripheral Vein, Percutaneous Approach (ICD-10-PCS; 2025-01-18)
PROC: 0DJ08ZZ Inspection of Upper Intestinal Tract, Via Natural or Artificial Opening Endoscopic (ICD-10-PCS; principal; 2025-01-18 08:00)
DX: T80.211A Bloodstream infection due to central venous catheter, initial encounter (principal); A41.1 Sepsis due to other specified staphylococcus; D61.810 Antineoplastic chemotherapy induced pancytopenia; J18.9 Pneumonia, unspecified organism; E43 Unspecified severe protein-calorie malnutrition; K56.699 Other intestinal obstruction unspecified as to partial versus complete obstruction; C78.6 Secondary malignant neoplasm of retroperitoneum and peritoneum; J90 Pleural effusion, not elsewhere classified; G91.9 Hydrocephalus, unspecified; J44.1 Chronic obstructive pulmonary disease with (acute) exacerbation; E66.9 Obesity, unspecified; D50.0 Iron deficiency anemia secondary to blood loss (chronic); C56.9 Malignant neoplasm of unspecified ovary; J44.0 Chronic obstructive pulmonary disease with (acute) lower respiratory infection; E87.1 Hypo-osmolality and hyponatremia; N39.0 Urinary tract infection, site not specified; N17.9 Acute kidney failure, unspecified; Z93.3 Colostomy status; K57.30 Diverticulosis of large intestine without perforation or abscess without bleeding; R59.0 Localized enlarged lymph nodes; T45.1X5A Adverse effect of antineoplastic and immunosuppressive drugs, initial encounter; R74.01 Elevation of levels of liver transaminase levels; D64.81 Anemia due to antineoplastic chemotherapy; K21.9 Gastro-esophageal reflux disease without esophagitis; R79.1 Abnormal coagulation profile; R91.1 Solitary pulmonary nodule; Z79.899 Other long term (current) drug therapy; Z68.31 Body mass index [BMI] 31.0-31.9, adult; Z71.3 Dietary counseling and surveillance; Z87.891 Personal history of nicotine dependence; Z88.1 Allergy status to other antibiotic agents
CPT/HCPCS: 36415; 43235; 71045; 71046; 71275; 74176; 80048; 80053; 81003; 83605; 83735; 83880; 84145; 84484; 85025; 85379; 85610; 85730; 86850; 86900; 86901; 86920; 87040; 87077; 87186; 87636; 93005; 94640; 96361; 96374; 99285

== ENCOUNTER → 2025-01-31 | Day surgery (SDC) | payer BC ==
[~2025-01-31] MED LIST changes: +ACETAMINOPHEN TAB 500 MG TAB PO PRN; +HYDROmorphone 0.5 MG/0.5 ML SYRINGE IVP PRN; -IOPAMIDOL M200 10 ML VIAL ONE; -LACTATED RINGERS 1,000 ML IV SCH; +MIDAZOLAM 2 MG/2 ML VIAL IV PRN; +MIDAZOLAM 2 MG/2 ML VIAL ONE; +ONDANSETRON 4 MG/2 ML VIAL IVP ONE; +PROPOFOL 10 MG/ML 20 ML VIAL IV ONE; -ROPIVACAINE 5MG/ML 20ML VIAL ONE; +SCOPOLAMINE 1 MG/72 HR PATCH TRANSDERM ONE; +fentaNYL (PF) 50 MCG/ML 2 ML AMP ONE; -methylPREDNISolone ACETATE 40 MG/ML 1 ML VIAL ONE
[2025-01-31 12:05] VITALS: TEMP 97.7
[2025-01-31] MEDS: DEXAMETHASONE SOD PHOSPHATE 4 MG/ML 1 ML VIAL IV ONE (12:42)
[2025-01-31] MEDS: HEPARIN SODIUM,PORCINE 5,000 UNIT/ML 1 ML VIAL SQ PRN (12:43)
[2025-01-31] MEDS: LACTATED RINGERS 1,000 ML IV SCH (12:43)
[2025-01-31] MEDS: IV FLUID CONTINUATION 1,000 ML IV ONE (12:46)
--- NOTE | 2025-01-31 12:53 | P.GSHP ---
History of Present Illness H&P Date: 01/31/25 Chief Complaint: Port-A-Cath infection Is a 59-year-old female who presents today for removal of Port-A-Cath due to infection. Patient history of ovarian cancer. Past Medical History Past Medical History: Cancer, COPD, Eye Disorder, GERD/Reflux, GERD/Reflux Additional Past Medical History / Comment(s): Stage III Ovarian Cadiverticulitis11/2022., colostomy.stae 3 ovarian cancer,kidney stone, small bowel obstruction History of Any Multi-Drug Resistant Organisms: None Reported Past Surgical History: Bowel Resection, Section Additional Past Surgical History / Comment(s): Shunt for hydrocephalus., Past Anesthesia/Blood Transfusion Reactions: No Reported Reaction Past Psychological History: No Psychological Hx Reported Smoking Status: Former smoker Past Alcohol Use History: None Reported Additional Past Alcohol Use History / Comment(s): Started smoking in 1994, 1 ppd. Past Drug Use History: Marijuana Additional Drug Use History / Comment(s): Marijuana qhs, states stopped a couple nights ago. - Past Family History Father Family Medical History: Cancer Additional Family Medical History / Comment(s): Colon cancer. Medications and Allergies Home Medications Medication Instructions Recorded Confirmed Type Midodrine [ProAmatine] 5 mg PO AC-BID #60 tab 12/09/24 01/31/25 Rx Ondansetron Odt [Zofran ODT] 4 mg PO Q6H PRN #30 tab 12/10/24 01/31/25 Rx Latanoprost [Latanoprost 0.005%] 1 drop BOTH EYES HS 01/13/25 01/31/25 History Potassium Chloride Oral Liquid 40 meq NG-TUBE DAILY 01/13/25 01/31/25 History Prednisolone Acetate/Pf 1 drop BOTH EYES QID 01/13/25 01/31/25 History [Prednisolone Acet 1% Eye Drop] Prochlorperazine [Compazine] 10 mg PO QID PRN 01/13/25 01/31/25 History rOPINIRole HCL [Requip] 0.5 mg PO HS 01/13/25 01/31/25 History ceFAZolin [Kefzol] 2 gm IVP Q8HR 14 Days #42 each 01/20/25 01/31/25 Rx Allergies Allergy/AdvReac Type Severity Reaction Status Date / Time doxycycline Allergy Nausea & Verified 01/31/25 11:55 Vomiting, sweating Surgical - Exam Vital Signs Temp Pulse Resp BP Pulse Ox 97.7 F 89 18 129/70 97 01/31/25 12:03 01/31/25 12:03 01/31/25 12:03 01/31/25 12:03 01/31/25 12:03 - General well developed, well nourished, no distress - Eyes PERRL - ENT normal pinna - Neck no masses - Respiratory normal expansion - Cardiovascular Rhythm: regular - Abdomen Abdomen: soft, non tender Assessment and Plan Assessment: History of Port-A-Cath infection. Will perform removal of Port-A-Cath.
[2025-01-31] MEDS: LIDOCAINE 1%-EPI 1:100,000 20 ML VIAL SQ ONE ×3 (13:09→13:14)
[2025-01-31 13:32] VITALS: RESP 16
--- NOTE | 2025-01-31 13:36 | P.OP ---
Date of Procedure: 01/31/25 Preoperative Diagnosis: Port site infection Postoperative Diagnosis: Port site infection Procedure(s) Performed: Removal of right subclavian Port-A-Cath Anesthesia: MAC Surgeon: Juan Tyson Estimated Blood Loss (ml): 5 Pathology: none sent Condition: stable Disposition: PACU Description of Procedure: The patient was placed on the on the operative table in the supine position. She received IV sedation. Her chest was prepped and draped you sterile fashion. The skin incised at the port cath site. Then using blunt sharp/electrocautery the port was dissected free. The catheter tip was cut and sent to pathology for culture. The port site wound was also cultured and sent to pathology. The Bovie was hemostasis. There was no obvious sign of infection. The skin was loosely closed with interrupted 3-0 Monocryl suture. D sterile dressing nd dressing applied. Patient was sent to recovery in stable condition.
[2025-01-31 14:12] VITALS: BP 119/59; PULSE 85
== END ==
LOC: OR 11:23
PROVIDERS: ATTEND Surgery
DX: T80.212A Local infection due to central venous catheter, initial encounter (principal); J44.9 Chronic obstructive pulmonary disease, unspecified; Z85.43 Personal history of malignant neoplasm of ovary; Z80.0 Family history of malignant neoplasm of digestive organs; Z87.891 Personal history of nicotine dependence; Z93.3 Colostomy status; Y83.8 Other surgical procedures as the cause of abnormal reaction of the patient, or of later complication, without mention of misadventure at the time of the procedure
CPT/HCPCS: 87070; 87205; 87075; 36590; J2250; J1644; J1100; J0690; J3010; J2704

== ENCOUNTER 2025-02-09 16:09 | Emergency (ER) | payer BC ==
[2025-02-09 17:42] LABS: Glucose,Whole Blood 155 mg/dL (70-110)
[2025-02-09 18:12] LABS: Anisocytosis Moderate; Basophils % (A) 0 %; Eosinophils % (A) 1 %; HCT 28.1 % (34.0-46.0); HGB 9.4 gm/dL (11.4-16.0); Lymphocytes # (A) 1.1 k/uL (1.0-4.8); Lymphocytes % (A) 17 %; MCH 33.9 pg (25.0-35.0); MCHC 33.4 g/dL (31.0-37.0); MCV 101.8 fL (80.0-100.0); Macrocytosis Marked; Mean Platelet Volume 7.6; Monocytes # (A) 0.5 k/uL (0-1.0); Monocytes % (A) 8 %; Neutrophils # (A) 4.8 k/uL (1.3-7.7); Neutrophils % (A) 73 %; RBC 2.76 m/uL (3.80-5.40); RDW 21.3 % (11.5-15.5); WBC 6.6 k/uL (3.8-10.6)
[2025-02-09 18:14] LABS: ALT 22 U/L (4-34); AST 30 U/L (14-36); African American GFR (CKD) 64 (>60 ml/min/1.73 sqM); Alkaline Phosphatase 141 U/L (38-126); Anion Gap 12 mmol/L; Blood Urea Nitrogen 52 mg/dL (7-17); Calcium 9.6 mg/dL (8.4-10.2); Carbon Dioxide 30 mmol/L (22-30); Chloride 88 mmol/L (98-107); Glucose 131 mg/dL (74-99); Magnesium 1.7 mg/dL (1.6-2.3); Non-African American GFR(CKD) 55 (>60 ml/min/1.73 sqM); Platelet Count 167 k/uL (150-450); Potassium 4.2 mmol/L (3.5-5.1); Sodium 130 mmol/L (137-145); Total Bilirubin 0.6 mg/dL (0.2-1.3); Total Protein 7.6 g/dL (6.3-8.2)
--- NOTE | 2025-02-09 19:16 | ED ---
General Adult HPI - General Chief complaint: Recheck/Abnormal Lab/Rx Stated complaint: high glucose Time Seen by Provider: 02/09/25 16:40 Source: patient, RN notes reviewed, old records reviewed Mode of arrival: ambulatory Limitations: no limitations - History of Present Illness Initial comments: Patient is a 59-year-old female who was brought to the emergency department for evaluation for abnormal laboratory studies. Outpatient labs showed the patient's sugar was high admits to other abnormalities such as hyperkalemia. Gross abnormalities that did not make sense for the patient as she was just getting her normal labs drawn for monitoring as she is on TPN therapy. Has a history of stage III ovarian cancer with a current PEG tube in place as well as ostomy. She receives nutrition via TPN. Presents for reevaluation after being told that her potassium and sugars were both high. No history of diabetes. States she has no complaints and feels fine. Presents for lab draw. - Related Data Home Medications Medication Instructions Recorded Confirmed Latanoprost [Latanoprost 0.005%] 1 drop BOTH EYES HS 01/13/25 01/31/25 Potassium Chloride Oral Liquid 40 meq NG-TUBE DAILY 01/13/25 01/31/25 Prednisolone Acetate/Pf 1 drop BOTH EYES QID 01/13/25 01/31/25 [Prednisolone Acet 1% Eye Drop] Prochlorperazine [Compazine] 10 mg PO QID PRN 01/13/25 01/31/25 rOPINIRole HCL [Requip] 0.5 mg PO HS 01/13/25 01/31/25 Previous Rx's Medication Instructions Recorded Midodrine [ProAmatine] 5 mg PO AC-BID #60 tab 12/09/24 Ondansetron Odt [Zofran ODT] 4 mg PO Q6H PRN #30 tab 12/10/24 ceFAZolin [Kefzol] 2 gm IVP Q8HR 14 Days #42 each 01/20/25 Allergies Allergy/AdvReac Type Severity Reaction Status Date / Time doxycycline Allergy Nausea & Verified 02/09/25 16:12 Vomiting, sweating Review of Systems ROS Statement: Those systems with pertinent positive or pertinent negative responses have been documented in the HPI. Review of Systems: CONST: Denies fever EYES: Denies blurry vision ENT: Denies nasal congestion C/V: Denies Chest pain RESP: Denies shortness of breath GI: Denies abdominal pain : Denies dysuria SKIN: Denies rash. MSK: Denies joint pain. NEURO: Denies headache ROS Other: All systems not noted in ROS Statement are negative. Past Medical History Past Medical History: Cancer, COPD, Eye Disorder, GERD/Reflux, GERD/Reflux Additional Past Medical History / Comment(s): Stage III Ovarian Cadiverticulitis11/2022., colostomy.stae 3 ovarian cancer,kidney stone, small bowel obstruction History of Any Multi-Drug Resistant Organisms: None Reported Past Surgical History: Bowel Resection, Section Additional Past Surgical History / Comment(s): Shunt for hydrocephalus., Past Anesthesia/Blood Transfusion Reactions: No Reported Reaction Past Psychological History: No Psychological Hx Reported Smoking Status: Former smoker Past Alcohol Use History: None Reported Past Drug Use History: Marijuana - Past Family History Father Family Medical History: Cancer Additional Family Medical History / Comment(s): Colon cancer. General Exam - General Exam Comments Initial Comments: General: Appears in no acute distress. HEAD: Normal with no signs of head trauma. EYES: EOMI ENT: Hearing grossly intact, normal oropharynx. RESPIRATORY: Clear breath sounds bilaterally. No wheezes, rales, or rhonchi. C/V: Regular rate and rhythm. S1 and S2 auscultated, no edema, peripheral pulses 2+ and intact throughout ABD: Abdomen is soft, nondistended. PEG tube is intact and appears well. Ostomy site appears to be draining adequately with no evidence of infection. EXT: Normal range of motion, no obvious deformity SKIN: Prior port site revealed no evidence of infection. Appears to be healing well. NEURO: Alert and oriented x 4. Limitations: no limitations Course Vital Signs 02/09/25 02/09/25 02/09/25 16:10 18:14 19:22 Temperature 97.6 F 98.2 F Pulse Rate 122 H 104 H 98 Respiratory 18 18 20 Rate Blood Pressure 126/73 131/77 106/79 O2 Sat by Pulse 98 99 98 Oximetry Medical Decision Making - Medical Decision Making Was pt. sent in by a medical professional or institution (, PA, NEONATAL INTENSIVE CARE UNIT NURSE, urgent care, hospital, or correction...) When possible be specific @ -Sent in by PCP for abnormal laboratory studies. Did you speak to anyone other than the patient for history (EMS, parent, family, police, friend...)? What history was obtained from this source @ -No Did you review nursing and triage notes (agree or disagree)? Why? @ -I reviewed and agree with nursing and triage notes Were old charts reviewed (outside hosp., previous admission, EMS record, old EKG, old radiological studies, urgent care reports/EKG's, correction records)? Report findings @ -Reviewed earlier labs drawn which revealed hyperglycemia and hyperkalemia Differential Diagnosis (chest pain, altered mental status, abdominal pain women, abdominal pain men, vaginal bleeding, weakness, fever, dyspnea, syncope, headache, dizziness, GI bleed, back pain, seizure, CVA, palpatations, mental health, musculoskeletal)? @ -Lab draw, lab abnormality, electrolyte abnormality, hyperkalemia. This list is not all inclusive. EKG interpreted by me (3pts min.). @ -As above X-rays interpreted by me (1pt min.). @ -None done CT interpreted by me (1pt min.). @ -None done U/S interpreted by me (1pt. min.). @ -None done What testing was considered but not performed or refused? (CT, X-rays, U/S, labs)? Why? @ -None What meds were considered but not given or refused? Why? @ -None Did you discuss the management of the patient with other professionals (professionals i.e. , PA, NEONATAL INTENSIVE CARE UNIT NURSE, lab, RT, psych nurse, sr. social media & mobile manager, clip baker, teacher, parking officer, gearcase assembler)? Give summary @ -No Was smoking cessation discussed for >3mins.? @ -No Was critical care preformed (if so, how long)? @ -No Were there social determinants of health that impacted care today? How? (Homelessness, low income, unemployed, alcoholism, drug addiction, transportation, low edu. Level, literacy, decrease access to med. care, intermediate, rehab)? @ -No Was there de-escalation of care discussed even if they declined (Discuss DNR or withdrawal of care, Hospice)? DNR status @ -No What co-morbidities impacted this encounter? (DM, HTN, Smoking, COPD, CAD, Cancer, CVA, ARF, Chemo, Hep., AIDS, mental health diagnosis, sleep apnea, morbid obesity)? @ -None Was patient admitted / discharged? Hospital course, mention meds given and route, prescriptions, significant lab abnormalities, going to OR and other pertinent info. @ -Patient presents for repeat lab draw in the setting of abnormal labs drawn earlier. Will repeat laboratory studies. Vital signs within acceptable limits. She requires no medications. Has no other complaints. She was in agreement this plan. EKG showed no signs of acute ischemia. Patient's repeat laboratory studies r evealed chronic macrocytic anemia with a hemoglobin 9.4. Patient is mildly hyponatremic at 130 and hypochloremic of 88 however potassium is within acceptable limits at 4.2 and patient's blood sugar is 131. I discussed results with patient. She remains asymptomatic. She will be discharged home with instructions to follow-up with her PCP. She was in agreement this plan. I instructed the patient to follow up with their PCP in the next 1-3 days. I explained that the patient should return to the emergency department if they experience any worsening symptoms. Strict return precautions were discussed with the patient. The patient expressed understanding of these instructions. I answered all questions that the patient had. The patient was discharged home in good condition with their prescriptions and follow up information. Undiagnosed new problem with uncertain prognosis? @ -No Drug Therapy requiring intensive monitoring for toxicity (Heparin, Nitro, Insulin, Cardizem)? @ -No Were any procedures done? @ -No Diagnosis/symptom? @ -Abnormal laboratory test, outpatient Acute, or Chronic, or Acute on Chronic? @ -Acute Uncomplicated (without systemic symptoms) or Complicated (systemic symptoms)? @ -Uncomplicated Side effects of treatment? @ -No Exacerbation, Progression, or Severe Exacerbation? @ -No Poses a threat to life or bodily function? How? (Chest pain, [place], [place], pneumonia, PE, COPD, DKA, ARF, appy, cholecystitis, CVA, Diverticulitis, Homicidal, Suicidal, threat to staff... and all critical care pts) @ -Unlikely at this time - Lab Data Result diagrams: 02/09/25 17:45 02/09/25 17:45 Lab Results 02/09/25 02/09/25 02/09/25 Range/Units 17:41 17:45 17:45 WBC 6.6 (3.8-10.6) k/uL RBC 2.76 L (3.80-5.40) m/uL Hgb 9.4 L (11.4-16.0) gm/dL Hct 28.1 L (34.0-46.0) % MCV 101.8 H (80.0-100.0) fL MCH 33.9 (25.0-35.0) pg MCHC 33.4 (31.0-37.0) g/dL RDW 21.3 H (11.5-15.5) % Plt Count 167 D (150-450) k/uL MPV 7.6 Neutrophils % 73 % Lymphocytes % 17 % Monocytes % 8 % Eosinophils % 1 % Basophils % 0 % Neutrophils # 4.8 (1.3-7.7) k/uL Lymphocytes # 1.1 (1.0-4.8) k/uL Monocytes # 0.5 (0-1.0) k/uL Eosinophils # 0.0 (0-0.7) k/uL Basophils # 0.0 (0-0.2) k/uL Manual Slide Review Performed Anisocytosis Moderate Macrocytosis Marked A Sodium 130 L (137-145) mmol/L Potassium 4.2 (3.5-5.1) mmol/L Chloride 88 L (98-107) mmol/L Carbon Dioxide 30 (22-30) mmol/L Anion Gap 12 mmol/L BUN 52 H (7-17) mg/dL Creatinine 1.10 H (0.52-1.04) mg/dL Est GFR (CKD-EPI)AfAm 64 (>60 ml/min/1.73 sqM) Est GFR (CKD-EPI)NonAf 55 (>60 ml/min/1.73 sqM) Glucose 131 H (74-99) mg/dL POC Glucose (mg/dL) 155 H (70-110) mg/dL POC Glu Corporate Quality Assurance Manager ID February Calcium 9.6 (8.4-10.2) mg/dL Magnesium 1.7 (1.6-2.3) mg/dL Total Bilirubin 0.6 (0.2-1.3) mg/dL AST 30 (14-36) U/L ALT 22 (4-34) U/L Alkaline Phosphatase 141 H (38-126) U/L Total Protein 7.6 (6.3-8.2) g/dL Albumin 4.0 (3.5-5.0) g/dL - EKG Data -: EKG Interpreted by Me EKG Comments: 12-lead Electrocardiogram Interpretation Note EKG was reviewed and interpreted by myself. 12-lead ECG performed at 1617 is interpreted by me as revealing sinus tachycardia at a rate of 107 beats per mi nute. Lennox is normal. TX interval is 139 ms, QRS duration is 91 ms, QTc is 3 to 95 ms.. There were no ST or T wave abnormalities to suggest myocardial ischemia or injury. R wave progression across the precordium was satisfactory. By my interpretation this EKG is non-diagnostic for acute ischemia. Disposition Clinical Impression: Abnormal laboratory test Disposition: HOME SELF-CARE Condition: Good Additional Instructions: Your outpatient abnormal laboratory tests were repeated here today in the ER and were normal. No evidence of high blood sugar or high potassium. You did have mild hyponatremia, low sodium of 130 which is still relatively within the acce ptable range. Please follow-up with your PCP to obtain repeat lab draws. Return to the ER if any worsening symptoms or concerns. Follow-up with PCP in the next 1 to 3 days. Is patient prescribed a controlled substance at d/c from ED?: No Referrals: Juliann Freitas MD [Primary Care Provider] - 1-2 days Time of Disposition: 19:15
[2025-02-09 19:26] VITALS: BP 106/79; PULSE 98; RESP 20; TEMP 98.2
== END 2025-02-09 19:30 | disposition home or self-care (01) ==
LOC: EC 16:09
DX: R79.9 Abnormal finding of blood chemistry, unspecified (principal); Z87.891 Personal history of nicotine dependence; Z88.8 Allergy status to other drugs, medicaments and biological substances; Z93.3 Colostomy status
CPT/HCPCS: 36415; 80053; 83735; 85025; 99284

== ENCOUNTER → 2025-02-25 | Day surgery (SDC) | payer BC ==
[2025-02-22 14:09] VITALS: BMI 31.2
[~2025-02-25] MED LIST changes: -ACETAMINOPHEN TAB 500 MG TAB PO PRN; -HYDROmorphone 0.5 MG/0.5 ML SYRINGE IVP PRN; +LIDOCAINE 1% INJ 10MG/ML (20 ML MDV) ONE; +PHENYLEPHRINE-0.9% NACL SYG 1,000 MCG/10 ML SYRINGE ONE; +Pre Op ABX Message 1 EACH MISC MISCELLANE ONE; -SCOPOLAMINE 1 MG/72 HR PATCH TRANSDERM ONE; +SUCCINYLCHOLINE CHLORIDE 200 MG/10 ML VIAL IV ONE
[2025-02-25] MEDS: IV FLUID CONTINUATION 1,000 ML IV ONE (09:12)
[2025-02-25] MEDS: LACTATED RINGERS 1,000 ML IV SCH (09:41)
[2025-02-25] MEDS: HEPARIN SODIUM,PORCINE 5,000 UNIT/ML 1 ML VIAL SQ PRN (09:42)
[2025-02-25] MEDS: DEXAMETHASONE SOD PHOSPHATE 4 MG/ML 1 ML VIAL IV ONE (09:42)
[2025-02-25] MEDS: ACETAMINOPHEN TAB 500 MG TAB PO PRN (09:42)
[2025-02-25] MEDS: SCOPOLAMINE 1 MG/72 HR PATCH TRANSDERM ONE (09:42)
--- NOTE | 2025-02-25 09:57 | P.GSHP ---
History of Present Illness H&P Date: 02/25/25 Chief Complaint: Ovarian cancer Is a 59-year-old female with history of metastatic ovarian cancer. Patient presents today for Port-A-Cath placement. Past Medical History Past Medical History: Cancer, COPD, Eye Disorder, GERD/Reflux, GERD/Reflux Additional Past Medical History / Comment(s): Stage III Ovarian Ca, diverticulitis11/2022., ,kidney stone, small bowel obstruction, EYE DROPS ARE FOR CHEMO. CHEMO EVERY 3 WEEKS-LAST DOSE 2 WEEKS AGO History of Any Multi-Drug Resistant Organisms: None Reported Past Surgical History: Bowel Resection, Section Additional Past Surgical History / Comment(s): Shunt for hydrocephalus., COLOSTOMY, PEG TUBE INSERTION, COLONOSCOPY, Past Anesthesia/Blood Transfusion Reactions: No Reported Reaction Smoking Status: Current some day smoker - Past Family History Father Family Medical History: Cancer Additional Family Medical History / Comment(s): Colon cancer. Medications and Allergies Home Medications Medication Instructions Recorded Confirmed Type Ondansetron Odt [Zofran ODT] 4 mg PO Q6H PRN #30 tab 12/10/24 02/25/25 Rx Prednisolone Acetate/Pf 1 drop BOTH EYES QID 01/13/25 02/25/25 History [Prednisolone Acet 1% Eye Drop] Albuterol Sulfate/Budesonide 1 puff INHALATION BID 02/22/25 02/25/25 History [Airsupra 90-80 Mcg Inhaler] Allergies Allergy/AdvReac Type Severity Reaction Status Date / Time doxycycline Allergy Nausea & Verified 02/25/25 09:19 Vomiting, sweating Surgical - Exam Vital Signs Temp Pulse Resp BP Pulse Ox 97.4 F L 99 16 122/60 94 L 02/25/25 09:24 02/25/25 09:24 02/25/25 09:24 02/25/25 09:24 02/25/25 09:24 - General well developed, well nourished, no distress - Eyes PERRL - ENT normal pinna - Neck no masses - Respiratory normal expansion - Cardiovascular Rhythm: regular - Abdomen Abdomen: soft, non tender Assessment and Plan Plan: Will perform Port-A-Cath placement
[2025-02-25] MEDS: IV FLUID CONTINUATION 50 ML with ceFAZolin 2,000 MG IV ONE (10:12)
[2025-02-25] MEDS: BUPIVACAINE (PF) 0.25% 30 ML VIAL SQ ONE ×2 (10:44)
[2025-02-25] MEDS: IOPAMIDOL-370 100ML BTL MISCELLANE ONE ×2 (10:45)
[2025-02-25] MEDS: SODIUM CHLORIDE 0.9% 1,000 ML BAG IRRIGATION ONE (10:46)
--- NOTE | 2025-02-25 11:08 | FL ---
EXAMINATION TYPE: FL guided central line placemt Intraoperative/procedural fluoroscopic services were provided. CLINICAL INDICATION:Female, 59 years old with history of Port-A-Cath Insertion; , [facility] FINDINGS: Fluoroscopic imaging for right subclavian approach Port-A-Cath insertion. No radiographic evidence fo r complication. Total fluoroscopy time is 54.9 seconds. DAP: [id number] [id number] Please see the operative/procedural note for further details. [facility], , 02/25/2025 11:06 AM
[2025-02-25 11:16] VITALS: TEMP 97.1
[2025-02-25 11:35] VITALS: RESP 16
--- NOTE | 2025-02-25 11:41 | XR ---
EXAMINATION TYPE: XR chest 1V portable DATE OF EXAM: 02/25/2025 11:35 AM COMPARISON: Chest radiograph 01/16/2025, fluoroscopic imaging for 182 TECHNIQUE: XR chest 1V portable Portable AP radiograph of the chest. CLINICAL INDICATION:Female, 59 years old with history of Right subclavian Port-A-Cath; FINDINGS: Lungs/Pleura: There is no evidence of pleural effusion, focal consolidation, or pneumothorax. Pulmonary vascularity: Unremarkable. Heart/mediastinum: Cardiomediastinal silhouette is unremarkable. Musculoskeletal: No acute osseous pathology. Other findings: None Lines/Tubes: Right subclavian approach Port-A-Cath identified with distal tip in the superior cavoatrial junction. Additional right jugular central venous catheter is unchanged position with distal tip at the mid SV C. IMPRESSION: Right subclavian approach Port-A-Cath placement with distal tip at the superior cavoatrial junction. No pneumothorax. [facility], , 02/25/2025 11:38 AM
[2025-02-25] MEDS: HYDROmorphone 0.5 MG/0.5 ML SYRINGE IVP PRN (11:50)
[2025-02-25 11:58] VITALS: PULSE 89
[2025-02-25 12:27] VITALS: BP 120/77
--- NOTE | 2025-02-25 12:49 | P.OP ---
Date of Procedure: 02/25/25 Preoperative Diagnosis: Metastatic ovarian cancer Postoperative Diagnosis: Metastatic ovarian cancer Procedure(s) Performed: Insertion of right subclavian Port-A-Cath Anesthesia: KHOI Surgeon: Juan Tyson Estimated Blood Loss (ml): 5 Pathology: none sent Condition: stable Disposition: PACU Description of Procedure: The patient was placed on the operating table in the supine position. The patient received IV sedation. The patient's chest was prepped and draped in the usual sterile fashion. A roll had been placed between the shoulder blades in a longitudinal fashion. After prepping and draping the skin was anesthetized 1% local Xylocaine. And then using the Seldinger technique the subclavian vein was cannulated. A wire was placed into the vein and fluoroscopy position the wire at the atrial caval junction. Next the dilator sheath was placed over top the wire and the wire was withdrawn. The catheter was positioned at the atriocaval position. The catheter was placed through the sheath after the dilator was withdrawn. The sheath was then withdrawn. Position of the catheter was confirmed with fluoroscopy. The Port-A-Cath was connected to the catheter. The Port-A-Cath was flushed with saline and then heparinized saline. The skin was closed interrupted 3-0 Monocryl suture. Dermabond was applied. Patient tolerated procedure well and was sent to recovery room stable condition.
== END ==
LOC: OR 08:57
PROVIDERS: ATTEND Surgery
DX: C79.60 Secondary malignant neoplasm of unspecified ovary (principal); J44.9 Chronic obstructive pulmonary disease, unspecified; F17.200 Nicotine dependence, unspecified, uncomplicated; Z45.2 Encounter for adjustment and management of vascular access device
CPT/HCPCS: 77001; 71045; 36561; C1788; J2250; J0330; J1644; J1100; J0690; J2003; J3010; J1642; J2704; J1171; Q9967; J2371; J0665

== ENCOUNTER 2025-03-10 13:38 | Inpatient (IN) | payer BC ==
[2025-03-10] MEDS: SODIUM CHLORIDE 0.9% 2,000 ML IV STA (14:33)
[2025-03-10] MEDS: ONDANSETRON 4 MG/2 ML VIAL IVP STA (14:35)
[2025-03-10 14:39] LABS: Basophils # (A) 0.01 10*3/uL (0.00-0.10); Basophils % (A) 0.1 %; Eosinophils # (A) 0.03 10*3/uL (0.04-0.35); Eosinophils % (A) 0.4 %; Lymphocytes # (A) 0.65 10*3/uL (0.90-5.00); Lymphocytes % (A) 9.6 %; MCH 36.2 pg (27.0-32.0); MCHC 35.7 g/dL (32.0-37.0); Mean Platelet Volume 10.8 fL (9.5-12.2); Monocytes # (A) 0.67 10*3/uL (0.20-1.00); Monocytes % (A) 9.9 %; Neutrophils # (A) 5.39 10*3/uL (1.80-7.70); Neutrophils % (A) 79.4 %; Platelet Count 135 10*3/uL (140-440); RBC 2.76 10*6/uL (4.10-5.20); RDW 18.2 % (11.5-14.5); WBC 6.79 10*3/uL (4.50-10.00)
[2025-03-10 14:42] LABS: MCV 101.4 fL (80.0-97.0)
[2025-03-10 14:53] LABS: ALT 46 U/L (4-34); AST 40 U/L (14-36); African American GFR (CKD) 36 (>60 ml/min/1.73 sqM); Albumin 4.2 g/dL (3.5-5.0); Alkaline Phosphatase 215 U/L (38-126); Anion Gap 10 mmol/L; Calcium 10.3 mg/dL (8.4-10.2); Carbon Dioxide 35 mmol/L (22-30); Chloride 79 mmol/L (98-107); Glucose 204 mg/dL (74-99); Lipase 775 U/L (23-300); Magnesium 2.6 mg/dL (1.6-2.3); Non-African American GFR(CKD) 31 (>60 ml/min/1.73 sqM); Potassium 3.8 mmol/L (3.5-5.1); Sodium 124 mmol/L (137-145); Total Bilirubin 0.7 mg/dL (0.2-1.3)
--- NOTE | 2025-03-10 14:55 | ED ---
Nausea/Vomiting/Diarrhea HPI - General Chief complaint: Nausea/Vomiting/Diarrhea Stated complaint: NV/Post Chemo Time Seen by Provider: 03/10/25 14:02 Source: patient, RN notes reviewed Mode of arrival: wheelchair Limitations: no limitations - History of Present Illness Initial comments: 59-year-old female presents emergency department with chief complaint increasing weakness, dehydration. Patient states she has ovarian cancer is under chemotherapy treatment Dr. Bunch. Patient had chemo on she has had increasing nausea, dehydration and weakness. Patient states she had some issues with the first 2 rounds. Patient denies any chest pain no fever states that she has some upper abdominal discomfort states there is some drainage around her PEG tube. Patient states she does have a colostomy, receiving TPN feeds through PICC line. Patient did receive IV fluids yesterday. - Related Data Home Medications Medication Instructions Recorded Confirmed Prednisolone Acetate/Pf 1 drop BOTH EYES QID 01/13/25 02/25/25 [Prednisolone Acet 1% Eye Drop] Albuterol Sulfate/Budesonide 1 puff INHALATION BID 02/22/25 02/25/25 [Airsupra 90-80 Mcg Inhaler] Previous Rx's Medication Instructions Recorded Ondansetron Odt [Zofran ODT] 4 mg PO Q6H PRN #30 tab 12/10/24 Allergies Allergy/AdvReac Type Severity Reaction Status Date / Time doxycycline Allergy Nausea & Verified 03/10/25 14:00 Vomiting, sweating Review of Systems ROS Statement: Those systems with pertinent positive or pertinent negative responses have been documented in the HPI. ROS Other: All systems not noted in ROS Statement are negative. Past Medical History Past Medical History: Cancer, COPD, Eye Disorder, GERD/Reflux, GERD/Reflux Additional Past Medical History / Comment(s): Stage III Ovarian Ca, diverticulitis11/2022., ,kidney stone, small bowel obstruction, EYE DROPS ARE FOR CHEMO. CHEMO EVERY 3 WEEKS-LAST DOSE 03/03 History of Any Multi-Drug Resistant Organisms: None Reported Past Surgical History: Bowel Resection, Section Additional Past Surgical History / Comment(s): Shunt for hydrocephalus., COLOSTOMY, PEG TUBE INSERTION, COLONOSCOPY, Past Anesthesia/Blood Transfusion Reactions: No Reported Reaction Past Psychological History: No Psychological Hx Reported Smoking Status: Current some day smoker - Past Family History Father Family Medical History: Cancer Additional Family Medical History / Comment(s): Colon cancer. General Exam Limitations: no limitations General appearance: alert, in no apparent distress Head exam: Present: atraumatic, normocephalic, normal inspection Eye exam: Present: normal appearance, PERRL, EOMI. Absent: scleral icterus, conjunctival injection, periorbital swelling ENT exam: Present: normal exam, normal oropharynx, mucous membranes moist Neck exam: Present: normal inspection, full ROM. Absent: tenderness, meningismus, lymphadenopathy Respiratory exam: Present: normal lung sounds bilaterally. Absent: respiratory distress, wheezes, rales, rhonchi, stridor Cardiovascular Exam: Present: regular rate, normal rhythm, normal heart sounds. Absent: systolic murmur, diastolic murmur, rubs, gallop, clicks GI/Abdominal exam: Present: soft, normal bowel sounds, other (PEG tube noted). Absent: distended, tenderness, guarding, rebound, rigid Neurological exam: Present: alert, oriented X3 Skin exam: Present: warm, dry, intact, normal color. Absent: rash Course Vital Signs 03/10/25 03/10/25 13:56 15:21 Temperature 97.8 F Pulse Rate 105 H 91 Respiratory 18 18 Rate Blood Pressure 103/69 128/76 O2 Sat by Pulse 100 100 Oximetry Medical Decision Making - Medical Decision Making Was pt. sent in by a medical professional or institution (MILAN Briggs, VENDING MACHINE ATTENDANT, urgent care, hospital, or prison...) When possible be specific @ -No Did you speak to anyone other than the patient for history (EMS, parent, family, police, friend...)? What history was obtained from this source @ -No Did you review nursing and triage notes (agree or disagree)? Why? @ -I reviewed and agree with nursing and triage notes Were old charts reviewed (outside hosp., previous admission, EMS record, old EKG, old radiological studies, urgent care reports/EKG's, prison records)? Report findings @ -No old charts were reviewed Differential Diagnosis (chest pain, altered mental status, abdominal pain women, abdominal pain men, vaginal bleeding, weakness, fever, dyspnea, syncope, headache, dizziness, GI bleed, back pain, seizure, CVA, palpatations, mental health, musculoskeletal)? @ -Differential Weakness: Hypoglycemia, shock, sepsis, hyponatremia, anemia, infection, IL, ETOH, adverse medicine reaction, overdose, stroke, this is not meant to be an all-inclusive list. EKG interpreted by me (3pts min.). @ -None X-rays interpreted by me (1pt min.). @ -Chest x-ray shows no acute cardiopulm process. CT interpreted by me (1pt min.). @ -None done U/S interpreted by me (1pt. min.). @ -None done What testing was considered but not performed or refused? (CT, X-rays, U/S, labs)? Why? @ -None What meds were considered but not given or refused? Why? @ -None Did you discuss the management of the patient with other professionals (professionals i.e. , PA, VENDING MACHINE ATTENDANT, lab, RT, psych nurse, social science research assistant, taxicab dispatcher, teacher, corporate officer, family caseworker)? Give summary @ -EM for admission] Was smoking cessation discussed for >3mins.? @ -No Was critical care preformed (if so, how long)? @ -No Were there social determinants of health that impacted care today? How? (Homelessness, low income, unemployed, alcoholism, drug addiction, transportation, low edu. Level, literacy, decrease access to med. care, long term, rehab)? @ -No Was there de-escalation of care discussed even if they declined (Discuss DNR or withdrawal of care, Hospice)? DNR status @ -No What co-morbidities impacted this encounter? (DM, HTN, Smoking, COPD, CAD, Cancer, CVA, ARF, Chemo, Hep., AIDS, mental health diagnosis, sleep apnea, morbid obesity)? @ -[Ovarian cancer Was patient admitted / discharged? Hospital course, mention meds given and route, prescriptions, significant lab abnormalities, going to OR and other pertinent info. @ -Admitted patient found to be acutely dehydrated, elevated BUN/creatinine, patient does have a sodium of 124. Patient was started on IV fluids, maintenance fluids. Patient will be admitted for hydration, repeat laboratory studies, Undiagnosed new problem with uncertain prognosis? @ -No Drug Therapy requiring intensive monitoring for toxicity (Heparin, Nitro, Insulin, Cardizem)? @ -No Were any procedures done? @ -No Diagnosis/symptom? @ -ovarian cancer, hyponatremia, dehydratiom Acute, or Chronic, or Acute on Chronic? @ -acute Uncomplicated (without systemic symptoms) or Complicated (systemic symptoms)? @ -complicated Side effects of treatment? @ -No Exacerbation, Progression, or Severe Exacerbation? @ -No Poses a threat to life or bodily function? How? (Chest pain, USA, IL, pneumonia, PE, COPD, DKA, ARF, appy, cholecystitis, CVA, Diverticulitis, Homicidal, Suicidal, threat to staff... and all critical care pts) @ -No - Lab Data Result diagrams: 03/10/25 14:28 03/10/25 14:28 Lab Results 03/10/25 03/10/25 03/10/25 Range/Units 14:28 14:28 14:28 WBC 6.79 (4.50-10.00) 10*3/uL RBC 2.76 L (4.10-5.20) 10*6/uL Hgb 10.0 L (12.0-15.0) g/dL Hct 28.0 L (37.2-46.3) % MCV 101.4 H D (80.0-97.0) fL MCH 36.2 H (27.0-32.0) pg MCHC 35.7 (32.0-37.0) g/dL Plt Count 135 L (140-440) 10*3/uL MPV 10.8 (9.5-12.2) fL Immature Gran % (Auto) 0.6 % Neutrophils % 79.4 % Lymphocytes % 9.6 % Monocytes % 9.9 % Eosinophils % 0.4 % Basophils % 0.1 % Immature Gran # 0.04 (0.00-0.04) 10*3/uL Neutrophils # 5.39 (1.80-7.70) 10*3/uL Lymphocytes # 0.65 L (0.90-5.00) 10*3/uL Monocytes # 0.67 (0.20-1.00) 10*3/uL Eosinophils # 0.03 L (0.04-0.35) 10*3/uL Basophils # 0.01 (0.00-0.10) 10*3/uL Sodium 124 L (137-145) mmol/L Potassium 3.8 (3.5-5.1) mmol/L Chloride 79 L (98-107) mmol/L Carbon Dioxide 35 H (22-30) mmol/L Anion Gap 10 mmol/L BUN 104 H* (7-17) mg/dL Creatinine 1.78 H (0.52-1.04) mg/dL Est GFR (CKD-EPI)AfAm 36 (>60 ml/min/1.73 sqM) Est GFR (CKD-EPI)NonAf 31 (>60 ml/min/1.73 sqM) Glucose 204 H (74-99) mg/dL Plasma Lactic Acid Peña 2.1 H* (0.7-2.0) mmol/L Calcium 10.3 H (8.4-10.2) mg/dL Magnesium 2.6 H (1.6-2.3) mg/dL Total Bilirubin 0.7 (0.2-1.3) mg/dL AST 40 H (14-36) U/L ALT 46 H (4-34) U/L Alkaline Phosphatase 215 H (38-126) U/L Total Protein 8.0 (6.3-8.2) g/dL Albumin 4.2 (3.5-5.0) g/dL Lipase 775 H (23-300) U/L Disposition Clinical Impression: Carcinoma of ovary, Hyponatremia, SPENCER (acute kidney injury), Dehydration Disposition: ADMITTED IP TO THIS HOSP Condition: Fair Referrals: Juliann Freitas MD [Primary Care Provider] - 1-2 days Time of Disposition: 15:39
[2025-03-10 14:56] LABS: Blood Urea Nitrogen 104 mg/dL (7-17)
--- NOTE | 2025-03-10 15:07 | XR ---
EXAMINATION TYPE: XR chest 2V DATE OF EXAM: 03/10/2025 2:59 PM COMPARISON: 02/25/2025 CLINICAL INDICATION: Female, 59 years old with history of weakness, , TECHNIQUE: AP and lateral views FINDINGS: Right anterior chest injection port with catheter tip at the mid SVC level. Right PICC tip within the upper right atrium. Suspect a MOTOR DRIVER shunt catheter on the right. Heart normal size. Aorta and pulmonary vasculature within normal limits. No consolidation or pleural effusion. IMPRESSION: No acute cardiopulmonary process. [facility], , 03/10/2025 3:04 PM
[2025-03-10] MEDS: METOCLOPRAMIDE 5 MG/ML 2 ML VIAL IVP STA (15:23)
[2025-03-10] MEDS ORDERED: PROCHLORPERAZINE 5 MG TAB PO PRN (15:40)
[2025-03-10] MEDS ORDERED: NALOXONE 0.4 MG/ML 1 ML VIAL IV PRN (15:40)
[2025-03-10] MEDS: SODIUM CHLORIDE 0.9% 1,000 ML IV STA (15:44)
[2025-03-10] MEDS: SODIUM CHLORIDE 0.9% 1,000 ML IV SCH (16:19)
[2025-03-10 16:48] LABS: Appearance,Urine Clear (Clear); Bacteria,Urine Occasional /hpf; Bilirubin,Urine Negative (Negative); Blood,Urine Moderate (Negative); Budding Yeast,Urine Few /hpf; Color,Urine Light Yellow; Glucose,Urine (UA) Negative (Negative); Ketones,Urine Negative (Negative); Leukocyte Esterase,Urine Negative (Negative); Mucus,Urine Rare /hpf; Nitrite,Urine Negative (Negative); PH, Urine 5.5 (5.0-8.0); Protein,Urine Negative (Negative); RBC,Urine 16 /hpf (0-5); Specific Gravity,Urine 1.018 (1.001-1.035); Squamous Epithelial Cell,Urine 3 /hpf (0-4); Urobilinogen,Urine <2.0 mg/dL (<2.0); WBC,Urine 3 /hpf (0-5)
[2025-03-10] MEDS: ONDANSETRON 4 MG/2 ML VIAL IVP PRN (20:42)
--- NOTE | 2025-03-10 23:42 | P.HPIM ---
History of Present Illness This is a pleasant 59 years old female with past medical history of multiple medical problems including history of ovarian cancer got chemotherapy about 1 week ago. 1 week later so on the next she started having vomiting a ssociated with nausea and generalized weakness. Associated with central abdominal pain since her pain about 7/10 aching with no known precipitating or relieving factors She has right side PICC line through which she got TPN and she has PEG tube which uses for drain and she has left lower quadrant colostomy from previous surgery. She has mild epigastric tenderness. She is afebrile hemodynamically stable CBC and liver enzymes were unremarkable. Sodium was low 124 Creatinine 1.7 compared to earlier at 1.9 which is improving with IV fluid. At baseline looks like 1.1-1.3. Hemoglobin 10 and platelet count 135 while WBC normal. Liver enzymes mildly elevated. Lactic acid 2.1 Chest x-ray showing no acute process. Review of Systems Review of systems CONSTITUTIONAL: No fever, no malaise, no fatigue. HEENT: No recent visual problems or hearing problems. Denied any sore throat. CARDIOVASCULAR: No orthopnea, PND, no palpitations, no syncope. PULMONARY: No shortness of breath, no cough, no hemoptysis. GASTROINTESTINAL: No diarrhea, no nausea, no vomiting, no abdominal pain. Normoactive bowel sounds. NEUROLOGICAL: No headaches, no weakness, no numbness. HEMATOLOGICAL: Denies any bleeding or petechiae. GENITOURINARY: Denies any burning micturition, frequency, or urgency. MUSCULOSKELETAL/RHEUMATOLOGICAL: Denies any joint pain, swelling, or any muscle pain. ENDOCRINE: Denies any polyuria or polydipsia. Past Medical History Past Medical History: Cancer, COPD, Eye Disorder, GERD/Reflux, GERD/Reflux Additional Past Medical History / Comment(s): Stage III Ovarian Ca, diverti culitis11/2022., ,kidney stone, small bowel obstruction, EYE DROPS ARE FOR CHEMO. CHEMO EVERY 3 WEEKS-LAST DOSE 03/03 History of Any Multi-Drug Resistant Organisms: None Reported Past Surgical History: Bowel Resection, Section Additional Past Surgical History / Comment(s): Shunt for hydrocephalus., COLOSTOMY, PEG TUBE INSERTION, COLONOSCOPY, Past Anesthesia/Blood Transfusion Reactions: No Reported Reaction Past Psychological History: No Psychological Hx Reported Smoking Status: Current some day smoker - Past Family History Father Family Medical History: Cancer Additional Family Medical History / Comment(s): Colon cancer. Medications and Allergies Home Medications Medication Instructions Recorded Confirmed Type Ondansetron Odt [Zofran ODT] 4 mg PO Q6H PRN #30 tab 12/10/24 03/10/25 Rx Prednisolone Acetate/Pf 1 drop BOTH EYES BID 01/13/25 03/10/25 History [Prednisolone Acet 1% Eye Drop] Allergies Allergy/AdvReac Type Severity Reaction Status Date / Time doxycycline Allergy Nausea & Verified 03/10/25 14:00 Vomiting, sweating Physical Exam Vitals: Vital Signs Temp Pulse Pulse Resp BP BP Pulse Ox 03/10/25 20:40 98.1 F 97 16 130/76 100 03/10/25 18:28 94 18 144/76 100 03/10/25 15:21 91 18 128/76 100 03/10/25 13:56 97.8 F 105 H 18 103/69 100 Intake and Output 03/10/25 03/10/25 03/11/25 14:59 22:59 06:59 Other: Weight 85.275 kg GENERAL: The patient is alert and oriented x3, not in any acute distress. Well developed, well nourished. HEENT: Pupils are round and equally reacting to light. EOMI. No scleral icterus. No conjunctival pallor. Normocephalic, atraumatic. No pharyngeal erythema. No thyromegaly. CARDIOVASCULAR: S1 and S2 present. No murmurs, rubs, or gallops. PULMONARY: Chest is clear to auscultation, no wheezing , no crackles. ABDOMEN: Soft, nontender, nondistended, normoactive bowel sounds. No palpable organomegaly. MUSCULOSKELETAL: No joint swelling or deformity. EXTREMITIES: No cyanosis, clubbing, or pedal edema. NEUROLOGICAL: Gross neurological examination did not reveal any focal deficits. SKIN: No rashes. no petechiae. Results CBC & Chem 7: 03/10/25 14:28 03/10/25 14:28 Labs: Abnormal Lab Results - Last 24 Hours (Table) 03/10/25 03/10/25 03/10/25 Range/Units 14:28 14:28 14:28 RBC 2.76 L (4.10-5.20) 10*6/uL Hgb 10.0 L (12.0-15.0) g/dL Hct 28.0 L (37.2-46.3) % MCV 101.4 H D (80.0-97.0) fL MCH 36.2 H (27.0-32.0) pg Plt Count 135 L (140-440) 10*3/uL Lymphocytes # 0.65 L (0.90-5.00) 10*3/uL Eosinophils # 0.03 L (0.04-0.35) 10*3/uL Sodium 124 L (137-145) mmol/L Chloride 79 L (98-107) mmol/L Carbon Dioxide 35 H (22-30) mmol/L BUN 104 H* (7-17) mg/dL Creatinine 1.78 H (0.52-1.04) mg/dL Glucose 204 H (74-99) mg/dL Plasma Lactic Acid Peña 2.1 H* (0.7-2.0) mmol/L Calcium 10.3 H (8.4-10.2) mg/dL Magnesium 2.6 H (1.6-2.3) mg/dL AST 40 H (14-36) U/L ALT 46 H (4-34) U/L Alkaline Phosphatase 215 H (38-126) U/L Lipase 775 H (23-300) U/L Urine Blood (Negative) Urine RBC (0-5) /hpf Urine Bacteria (None) /hpf Urine Mucus (None) /hpf Urine Yeast (Budding) (None) /hpf 03/10/25 Range/Units 16:21 RBC (4.10-5.20) 10*6/uL Hgb (12.0-15.0) g/dL Hct (37.2-46.3) % MCV (80.0-97.0) fL MCH (27.0-32.0) pg Plt Count (140-440) 10*3/uL Lymphocytes # (0.90-5.00) 10*3/uL Eosinophils # (0.04-0.35) 10*3/uL Sodium (137-145) mmol/L Chloride (98-107) mmol/L Carbon Dioxide (22-30) mmol/L BUN (7-17) mg/dL Creatinine (0.52-1.04) mg/dL Glucose (74-99) mg/dL Plasma Lactic Acid Peña (0.7-2.0) mmol/L Calcium (8.4-10.2) mg/dL Magnesium (1.6-2.3) mg/dL AST (14-36) U/L ALT (4-34) U/L Alkaline Phosphatase (38-126) U/L Lipase (23-300) U/L Urine Blood Moderate H (Negative) Urine RBC 16 H (0-5) /hpf Urine Bacteria Occasional H (None) /hpf Urine Mucus Rare H (None) /hpf Urine Yeast (Budding) Few H (None) /hpf Assessment and Plan Assessment: Hypovolemic hyponatremia Acute kidney injury and chronic kidney disease Acute gastroenteritis most likely related to recent chemotherapy treatment Ovarian cancer s/p chemotherapy Generalized weakness secondary to above Mild bicytopenia with low hemoglobin and platelets secondary to chemotherapy Mild transaminitis Plan: Continue with IV fluids Continue with symptomatic treatment and supportive care Hematology/oncology team consult Close monitoring of labs and vitals Further recommendation based on the clinical course Continue with GI prophylaxis with Pepcid DVT prophylaxis with subcutaneous heparin Prognosis is guarded
[2025-03-11] MEDS: ACETAMINOPHEN IV (For NPO) 1,000 MG in EMPTY BAG 1 BAG IVPB PRN (03:55)
[2025-03-11] MEDS: FAMOTIDINE 20 MG/2 ML VIAL IV SCH (09:04)
[2025-03-11 11:38] LABS: ALT 41 U/L (4-34); AST 34 U/L (14-36); African American GFR (CKD) 37 (>60 ml/min/1.73 sqM); Albumin 3.7 g/dL (3.5-5.0); Albumin/Globulin Ratio 1.1; Alkaline Phosphatase 161 U/L (38-126); Anion Gap 8 mmol/L; Bilirubin,Unconjugated 0.2 mg/dL (0.0-1.1); Blood Urea Nitrogen 90 mg/dL (7-17); Calcium 9.6 mg/dL (8.4-10.2); Carbon Dioxide 35 mmol/L (22-30); Chloride 87 mmol/L (98-107); Globulin 3.5 g/dL; Glucose 181 mg/dL (74-99); Non-African American GFR(CKD) 32 (>60 ml/min/1.73 sqM); Potassium 3.9 mmol/L (3.5-5.1); Sodium 130 mmol/L (137-145); Total Bilirubin 0.6 mg/dL (0.2-1.3); Total Protein 7.2 g/dL (6.3-8.2)
[2025-03-11 11:50] LABS: HCT 27.3 % (37.2-46.3); HGB 9.3 g/dL (12.0-15.0); MCH 36.2 pg (27.0-32.0); MCHC 34.1 g/dL (32.0-37.0); MCV 106.2 fL (80.0-97.0); Mean Platelet Volume 10.1 fL (9.5-12.2); Platelet Count 117 10*3/uL (140-440); RBC 2.57 10*6/uL (4.10-5.20); RDW 18.6 % (11.5-14.5); WBC 5.04 10*3/uL (4.50-10.00)
[2025-03-11 12:28] LABS: Magnesium 2.4 mg/dL (1.6-2.3); Phosphorus 1.7 mg/dL (2.5-4.5)
[2025-03-11 12:36] LABS: Band Neutrophils % 2 %; Eosinophils # (M) 0.05 k/uL (0-0.7); Lymphocytes # (M) 1.01 k/uL (1.0-4.8); Metamyelocytes # (M) 0.05 k/uL (0); Metamyelocytes % 1 %; Monocytes # (M) 0.45 k/uL (0-1.0); Myelocytes # (M) 0.05 k/uL (0); Myelocytes % 1 %; Neutrophils # (M) 3.57 k/uL (1.3-7.7); Neutrophils % (M) 69 %; Nucleated Red Blood Cells 0 /100 WBC (0-0); Total Cells Counted 200
[2025-03-11 12:37] LABS: Polychromasia Present
[2025-03-11 12:49] LABS: Anisocytosis (M) Present
[2025-03-11 14:02] VITALS: BMI 31.2
--- NOTE | 2025-03-11 14:57 | XR ---
EXAMINATION TYPE: XR abdomen 2V DATE OF EXAM: 03/11/2025 2:37 PM COMPARISON: 11/27/2024 CLINICAL INDICATION: Female, 59 years old with history of n/v, epigastric pain/bloating; [facility] TECHNIQUE: Two views of the abdomen were obtained. FINDINGS: Lung bases appear clear. No evidence for free to peritoneal air. A PEG tube is in place. Prominent air-fluid level within the stomach. Additional colonic air-fluid le vels. On the supine view, a couple small bowel loops appear to be distended up to 4.6 cm. There seems to be moderate stool within the left side of the colon. Possible IRONMOLDER shunt catheter within the left s batool of the abdomen. IMPRESSION: 1. A PEG tube is present. 2. Bowel gas pattern is nonspecific. There seem to be some distended loops of small bowel possibly me asuring up to 4.6 cm in caliber. Given scattered air-fluid levels in the colon as well, consider diff use ileus. If concern for early small bowel obstruction, follow-up can be performed. [facility], , 03/11/2025 2:55 PM
[2025-03-11] MEDS: HYDROmorphone 1 MG/ML 1 ML SYRINGE IVP PRN (15:13)
[2025-03-11] MEDS: SODIUM PHOSPHATE 30 MMOL in DEXTROSE 5% IN WATER 250 ML IVPB ONE (17:04)
[2025-03-11] MEDS: 1: MVI, ADULT NO.4 WITH VIT K 10 ML, TRACE (CONC-1ML/DOSE) 1 ML, SODIUM ACETATE 30 MEQ, IV SCH (17:22)
--- NOTE | 2025-03-11 18:52 | P.CONS ---
History of Present Illness - Reason for Consult Consult date: 03/11/25 ovarian cancer Requesting physician: Beau Vasquez - Chief Complaint N/V - History of Present Illness Ms Yu is a pleasant female pt of Dr. Godinez with Hx of LES 2014, lost to f/u in 2016 until 2022. Seen in consult [facility] 12/06/22 for a new issue. The patient had been having intermittent abdominal pain, multiple episodes of UTI, that were treated with antibiotics. Her symptoms became more persistent and progressive leading to a CT AP 11/01/22 showing diverticulosis of the sigmoid colon was significant surrounding inflammation, as well as a fluid collection between the sigmoid colon and bladder concerning for perforation with abscess as well as possible colo vesical fistula. The terminal ileum and proximal ascending colon were adherent to this. Colonoscopy 11/28/22, but the scope could not be passed beyond the sigmoid colon due to extensive scarring. She had surgery on 11/29/22 with resection of omentum, resection of the distal ileum and cecum, and creation of a colostomy due to significant inflammation and adhesions involving the sigmoid colon. 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 This also involved the mesentery and serosa with multiple tumor deposits in the resected sigmoid colon. There was evidence of subserosal abscess and fat necrosis consistent with diverticular rupture. CT AP did not show any evidence of ascites, or visceral metastasis. CT chest did not show any lesions suspicious for metastasis. Pt had somatic testing, no targetable mutation, stage III ov ca, seen by [facility] with recs for neoadj treatment, completing those on 04/10/23. Cycle #3 was delayed by a week due to Covid infection. She had surgery 05/29/23. Unfortunately at the time of surgery the volume of residual disease was too significant. Therefore attempt at definitive resection was aborted. It was recommended that the patient resume treatment with change in regimen to carboplatin, Gemzar and Avastin. She had dose modifications because of low counts/side effects but, she completed 6 cycles on 11/04/23. [facility] On[facility] evaluated, unfortunately she was not felt to be a surgical candidate. She had repeat scans with follow-up with them, in early 03/03, with scan showing no evidence of progression. She was then resumed on bevacizumab, as per [facility] oncology recommendations, for maintenance. CA-125 showed an upward trend on the maintenance bevacizumab. She was continued on the same, due to lack of radiologic progression in symptoms. However CT scan on 07/13/24 showed development of multiple miliary nodules in both lungs several prominent a mildly enlarged upper abdominal, retroperitoneal, pelvic and mesenteric lymph nodes were again seen, not significantly changed. It was recommended by Dr. Hernandez at the patient be placed on carboplatin and Doxil. She started the same on 08/19/24. CT scan after 3 cycles had shown improvement in the lung nodules, and stability of tumor deposits in the mesentery, and on the surface of the uterus. However, there appeared to be mild enlargement of the upper abdominal and retroperitoneal nodes which did not definitely meet RECIST criteria. The patient had reported increasing nausea and vomiting at her visit in 12/04, and was subsequently admitted to the hospital for progressive symptoms related to the same and had prolonged admission. 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 She was discharged on 01/04 with an NG tube in situ, and TPN at home. She started her new regimen with Elahere on 01/05/25. During clinic f/u on 01/13, pt was reporting significant shortness of breath, progressive over the past few days, as well as chills. She has had episodes of gagging and coughing with the NG tube in her mouth his persistently dry. She also reports frequent urination and was dx with UTI by her PCP and was given an oral antibiotic, that was then changed to Diflucan and has not experienced much relief. Pt was thus referred to the ER for further evaluation. She had PEG tube placed during admit for decompression. The patient recovered well from her sepsis-type symptoms. She completed abx treatment and completed cycle 3 of Elahere on 03/03/25, and had IV hydration in clinic on 03/09. Patient presented emergency room for persisting nausea vomiting and weakness. Patient states after cycle 3 she began having persistent nausea vomiting with minimal improvement with antiemetics and progressing weakness which caused her to present to the emergency room for further evaluation. On admit chest x-ray was negative for acute cardiopulmonary processes. She was given 3 L normal saline bolus in the ER. Labs reviewed, sodium noted at 124. WBC 6.7, hemoglob in 10.0, platelets [id number]. Creatinine 1.78, GFR 31, BUN 104. Bilirubin 0.7, AST 40, ALT 46, ALP 215, lipase 775. Lactic acid 2.1, calcium 10.3. UA negative for UTI, hematuria noted. At today's visit she is reporting improvement in symptoms. Still having intermittent nausea but denies vomiting. Reporting gas-like symptoms, abdominal bloating and epigastric pain. She is currently on a clear liquid diet, tolerating intake. Review of Systems 10 point ROS is negative except as stated in the HPI Past Medical History Past Medical History: Cancer, COPD, Eye Disorder, GERD/Reflux, GERD/Reflux Additional Past Medical History / Comment(s): Stage III Ovarian Ca, diverticulitis11/2022., ,kidney stone, small bowel obstruction, EYE DROPS ARE FOR CHEMO. CHEMO EVERY 3 WEEKS-LAST DOSE 03/03 History of Any Multi-Drug Resistant Organisms: None Reported Past Surgical History: Bowel Resection, Section Additional Past Surgical History / Comment(s): Shunt for hydrocephalus., COLOSTOMY, PEG TUBE INSERTION, COLONOSCOPY, Past Anesthesia/Blood Transfusion Reactions: No Reported Reaction Past Psychological History: No Psychological Hx Reported Smoking Status: Current some day smoker - Past Family History Father Family Medical History: Cancer Additional Family Medical History / Comment(s): Colon cancer. Medications and Allergies Home Medications Medication Instructions Recorded Confirmed Type Ondansetron Odt [Zofran ODT] 4 mg PO Q6H PRN #30 tab 12/10/24 03/10/25 Rx Prednisolone Acetate/Pf 1 drop BOTH EYES BID 01/13/25 03/10/25 History [Prednisolone Acet 1% Eye Drop] Allergies Allergy/AdvReac Type Severity Reaction Status Date / Time doxycycline Allergy Nausea & Verified 03/10/25 14:00 Vomiting, sweating Physical Exam Vitals: Vital Signs Temp Pulse Pulse Resp BP BP Pulse Ox 03/11/25 07:17 98.3 F 86 16 139/73 99 03/11/25 01:50 98 F 104 H 16 117/74 100 03/10/25 20:45 16 03/10/25 20:40 98.1 F 97 16 130/76 100 03/10/25 18:28 94 18 144/76 100 03/10/25 15:21 91 18 128/76 100 03/10/25 13:56 97.8 F 105 H 18 103/69 100 Intake and Output 03/10/25 03/11/25 03/11/25 22:59 06:59 14:59 Intake Total 1480 Output Total 1000 1200 Balance 480 -1200 Intake: Intake, IV Titration 1000 Amount ACETAMINOPHEN IV (For NPO 100 ) 1,000 mg In Empty Bag 1 bag @ 400 mls/hr IVPB Q6HR PRN Rx#:[id number] Sodium Chloride 0.9% 1, 900 000 ml @ 75 mls/hr IV . [id number] LUCY Rx#:[id number] Oral 480 Output: Gastric Drainage 1200 Stool 1000 Other: # Voids 1 Weight 85.275 kg - Constitutional General appearance: average body habitus, no acute distress - EENT Eyes: anicteric sclerae, EOMI ENT: hearing grossly normal - Respiratory Respiratory: bilateral: CTA - Cardiovascular Rhythm: regular - Gastrointestinal General gastrointestinal: distended, tenderness Localized gastrointestinal: tender: RUQ, LUQ, epigastric periumbilical - Integumentary Integumentary: no cyanotic - Neurologic Neurologic: CNII-XII intact - Musculoskeletal Musculoskeletal: strength equal bilaterally - Psychiatric Psychiatric: A&O x's 3 Results CBC & Chem 7: 03/11/25 11:13 03/11/25 11:13 Labs: Abnormal Lab Results - Last 24 Hours (Table) 03/10/25 03/10/25 03/10/25 Range/Units 14:28 14:28 14:28 RBC 2.76 L (4.10-5.20) 10*6/uL Hgb 10.0 L (12.0-15.0) g/dL Hct 28.0 L (37.2-46.3) % MCV 101.4 H D (80.0-97.0) fL MCH 36.2 H (27.0-32.0) pg Plt Count 135 L (140-440) 10*3/uL Lymphocytes # 0.65 L (0.90-5.00) 10*3/uL Eosinophils # 0.03 L (0.04-0.35) 10*3/uL Sodium 124 L (137-145) mmol/L Chloride 79 L (98-107) mmol/L Carbon Dioxide 35 H (22-30) mmol/L BUN 104 H* (7-17) mg/dL Creatinine 1.78 H (0.52-1.04) mg/dL Glucose 204 H (74-99) mg/dL Plasma Lactic Acid Peña 2.1 H* (0.7-2.0) mmol/L Calcium 10.3 H (8.4-10.2) mg/dL Magnesium 2.6 H (1.6-2.3) mg/dL AST 40 H (14-36) U/L ALT 46 H (4-34) U/L Alkaline Phosphatase 215 H (38-126) U/L Lipase 775 H (23-300) U/L Urine Blood (Negative) Urine RBC (0-5) /hpf Urine Bacteria (None) /hpf Urine Mucus (None) /hpf Urine Yeast (Budding) (None) /hpf 03/10/25 Range/Units 16:21 RBC (4.10-5.20) 10*6/uL Hgb (12.0-15.0) g/dL Hct (37.2-46.3) % MCV (80.0-97.0) fL MCH (27.0-32.0) pg Plt Count (140-440) 10*3/uL Lymphocytes # (0.90-5.00) 10*3/uL Eosinophils # (0.04-0.35) 10*3/uL Sodium (137-145) mmol/L Chloride (98-107) mmol/L Carbon Dioxide (22-30) mmol/L BUN (7-17) mg/dL Creatinine (0.52-1.04) mg/dL Glucose (74-99) mg/dL Plasma Lactic Acid Peña (0.7-2.0) mmol/L Calcium (8.4-10.2) mg/dL Magnesium (1.6-2.3) mg/dL AST (14-36) U/L ALT (4-34) U/L Alkaline Phosphatase (38-126) U/L Lipase (23-300) U/L Urine Blood Moderate H (Negative) Urine RBC 16 H (0-5) /hpf Urine Bacteria Occasional H (None) /hpf Urine Mucus Rare H (None) /hpf Urine Yeast (Budding) Few H (None) /hpf Chest x-ray: report reviewed Assessment and Plan (1) SPENCER (acute kidney injury) Current Visit: Yes Status: Acute Priority: High Code(s): N17.9 - ACUTE KIDNEY FAILURE, UNSPECIFIED SNOMED Code(s): 15323394 (2) Dehydration Current Visit: Yes Status: Acute Code(s): E86.0 - DEHYDRATION SNOMED Code(s): 96387699 (3) Hyponatremia Current Visit: Yes Status: Acute Code(s): E87.1 - HYPO-OSMOLALITY AND HYPONATREMIA SNOMED Code(s): 82088205 (4) Carcinoma of ovary Current Visit: Yes Status: Chronic Priority: High Code(s): C56.9 - MALIGNANT NEOPLASM OF UNSPECIFIED OVARY SNOMED Code(s): 259652675 Plan: SPENCER, N/V, dehydration: Presented for persisting nausea vomiting and weakness. Patient states after cycle 3 she began having persistent nausea vomiting with minimal improvement with antiemetics and progressing weakness. Also reporting bloating and upper abdominal pain -3 L normal saline bolus gievn upon admit. Labs showing WBC 6.7, hemoglobin 10.0, platelets 135,000. Creatinine 1.78, GFR 31, BUN 104. Sodium 124. Bilirubin 0.7, AST 40, ALT 46, ALP 215, lipase 775. Lactic acid 2.1, calcium 10.3. UA negative for UTI, mild hematuria noted. -Tolerating clear liquid diet, but having intermittent nausea and abd bloating -Will obtain abdominal x-ray to further evaluate -Continue supportive care measures -Continue TPN. [employer] consulted Ovarian carcinoma -Diagnosis and treatment as dictated in HPI -Tumor tissue was folate receptor alpha positive, started Elahere on 01/05/25. Completed cycle 3 on 03/03/25, with IV hydration on 03/09 -Treatment is going to be on hold temporarily until pt recovers from acute condition -Continue aggressive supportive measures Doctor attests: I performed a history and physical examination of this patient, developed impression and plan of care. Discussed with dictator. I agree with dictators note, documented as a scribe.
--- NOTE | 2025-03-12 03:03 | P.PN ---
Subjective This is a pleasant 59 years old female with past medical history of multiple medical problems including history of ovarian cancer got chemotherapy about 1 week ago. 1 week later so on the next she started having vomiting associated with nausea and generalized weakness. Associated with central abdominal pain since her pain about 7/10 aching with no known precipitating or relieving factors She has right side PICC line through which she got TPN and she has PEG tube which uses for drain and she has left lower quadrant colostomy from previous surgery. She has mild epigastric tenderness. She is afebrile hemodynamically stable CBC and liver enzymes were unremarkable. Sodium was low 124 Creatinine 1.7 compared to earlier at 1.9 which is improving with IV fluid. At baseline looks like 1.1-1.3. Hemoglobin 10 and platelet count 135 while WBC normal. Liver enzymes mildly elevated. Lactic acid 2.1 Chest x-ray showing no acute process. 03/11 Patient still feels little nausea today She is on liquid diet She feels overall a little better than yesterday not as asleep as yesterday and less lethargic No vomiting no abdominal pain. She remains on normal saline 75 mL/h and patient my start TPN Sodium level improved to 130 which is appropriate Review of systems CONSTITUTIONAL: No fever, no malaise, no fatigue. HEENT: No recent visual problems or hearing problems. Denied any sore throat. CARDIOVASCULAR: No orthopnea, PND, no palpitations, no syncope. HEMATOLOGICAL: Denies any bleeding or petechiae. GENITOURINARY: Denies any burning micturition, frequency, or urgency. MUSCULOSKELETAL/RHEUMATOLOGICAL: Denies any joint pain, swelling, or any muscle pain. ENDOCRINE: Denies any polyuria or polydipsia. Active Medications Generic Name Dose Route Start Last Admin Trade Name Freq PRN Reason Stop Dose Admin Famotidine 10 mg 03/11/25 09:00 03/11/25 20:44 Famotidine 20 Mg/2 Ml Vial IV 10 mg Q12HR LUCY Administration Hydromorphone HCl 1 mg 03/11/25 12:17 03/11/25 20:44 Hydromorphone 1 Mg/Ml 1 Ml Syringe IVP 1 mg Q4HR PRN Administration Pain Scale 6 to 10 Sodium Chloride 1,000 mls @ 75 mls/hr 03/10/25 15:45 03/11/25 22:19 Saline 0.9% IV 75 mls/hr .[id number] LUCY Administration Fat Emulsion Intravenous 250 250 mls @ 21 mls/hr 03/12/25 09:00 ml/ IV Solution IV Q72H LUCY Parenteral Vitamin Supplement 1,051 mls @ 90 mls/hr 03/11/25 14:15 03/11/25 17:22 10 ml/ Zinc/Copper/Manganese/ IV 90 mls/hr Selenium 1 ml/ Sodium Acetate .BY DURATION LUCY Administration 30 meq/ Potassium Chloride 20 meq/ Calcium Gluconate 1 gm/ Sodium Phosphate 15 mmol/ Amino Acids/Dextrose Sodium Acetate 30 meq/ 1,040 mls @ 90 mls/hr 03/11/25 14:15 Potassium Chloride 20 meq/ IV Calcium Gluconate 1 gm/ Sodium .BY DURATION LUCY Phosphate 15 mmol/ Amino Acids/Dextrose Naloxone HCl 0.2 mg 03/10/25 15:40 Naloxone 0.4 Mg/Ml 1 Ml Vial IV Q2M PRN Opioid Reversal Ondansetron HCl 4 mg 03/10/25 15:40 03/11/25 05: Ondansetron 4 Mg/2 Ml Vial IVP 4 mg Q8HR PRN Administration Nausea And Vomiting Prochlorperazine Maleate 5 mg 03/10/25 15:40 Prochlorperazine 5 Mg Tab PO Q8HR PRN Nausea And Vomiting Objective - Vital Signs Vital signs: Vital Signs Temp 98.2 F 03/11/25 12:21 Pulse 94 03/11/25 12:21 Resp 16 03/11/25 12:21 BP 150/84 03/11/25 12:21 Pulse Ox 100 03/11/25 12:21 FiO2 Intake & Output 03/10/25 03/11/25 03/11/25 18:59 06:59 18:59 Intake Total 1480 Output Total 1000 2049 Balance 480 -2049 Weight 85.275 kg 85.275 kg Intake: Intake, IV Titration 1000 Amount ACETAMINOPHEN IV (For NPO 100 ) 1,000 mg In Empty Bag 1 bag @ 400 mls/hr IVPB Q6HR PRN Rx#:[id number] Sodium Chloride 0.9% 1, 900 000 ml @ 75 mls/hr IV . [id number] LUCY Rx#:[id number] Oral 480 Output: Gastric Drainage 2049 Stool 1000 Other: # Voids 1 - Exam GENERAL: The patient is alert and oriented x3, not in any acute distress. Well developed, well nourished. HEENT: Pupils are round and equally reacting to light. EOMI. No scleral icterus. No conjunctival pallor. Normocephalic, atraumatic. No pharyngeal erythema. No thyromegaly. CARDIOVASCULAR: S1 and S2 present. No murmurs, rubs, or gallops. PULMONARY: Chest is clear to auscultation, no wheezing , no crackles. ABDOMEN: Soft, nontender, nondistended, normoactive bowel sounds. No palpable organomegaly. MUSCULOSKELETAL: No joint swelling or deformity. EXTREMITIES: No cyanosis, clubbing, or pedal edema. NEUROLOGICAL: Gross neurological examination did not reveal any focal deficits. SKIN: No rashes. no petechiae. - Labs CBC & Chem 7: 03/11/25 11:13 03/11/25 11:13 Labs: Abnormal Lab Results - Last 24 Hours (Table) 03/10/25 03/10/25 03/10/25 Range/Units 14:28 14:28 14:28 RBC 2.76 L (4.10-5.20) 10*6/uL Hgb 10.0 L (12.0-15.0) g/dL Hct 28.0 L (37.2-46.3) % MCV 101.4 H D (80.0-97.0) fL MCH 36.2 H (27.0-32.0) pg RDW (11.5-14.5) % Plt Count 135 L (140-440) 10*3/uL Lymphocytes # 0.65 L (0.90-5.00) 10*3/uL Eosinophils # 0.03 L (0.04-0.35) 10*3/uL Metamyelocytes # (Man) (0) k/uL Myelocytes # (Manual) (0) k/uL Sodium 124 L (137-145) mmol/L Chloride 79 L (98-107) mmol/L Carbon Dioxide 35 H (22-30) mmol/L BUN 104 H* (7-17) mg/dL Creatinine 1.78 H (0.52-1.04) mg/dL Glucose 204 H (74-99) mg/dL Plasma Lactic Acid Peña 2.1 H* (0.7-2.0) mmol/L Calcium 10.3 H (8.4-10.2) mg/dL Phosphorus (2.5-4.5) mg/dL Magnesium 2.6 H (1.6-2.3) mg/dL AST 40 H (14-36) U/L ALT 46 H (4-34) U/L Alkaline Phosphatase 215 H (38-126) U/L Lipase 775 H (23-300) U/L Urine Blood (Negative) Urine RBC (0-5) /hpf Urine Bacteria (None) /hpf Urine Mucus (None) /hpf Urine Yeast (Budding) (None) /hpf 03/10/25 03/11/25 03/11/25 Range/Units 16:21 11:13 11:13 RBC 2.57 L (4.10-5.20) 10*6/uL Hgb 9.3 L (12.0-15.0) g/dL Hct 27.3 L (37.2-46.3) % MCV 106.2 H (80.0-97.0) fL MCH 36.2 H (27.0-32.0) pg RDW 18.6 H (11.5-14.5) % Plt Count 117 L (140-440) 10*3/uL Lymphocytes # (0.90-5.00) 10*3/uL Eosinophils # (0.04-0.35) 10*3/uL Metamyelocytes # (Man) 0.05 H (0) k/uL Myelocytes # (Manual) 0.05 H (0) k/uL Sodium 130 L (137-145) mmol/L Chloride 87 L (98-107) mmol/L Carbon Dioxide 35 H (22-30) mmol/L BUN 90 H (7-17) mg/dL Creatinine 1.74 H (0.52-1.04) mg/dL Glucose 181 H (74-99) mg/dL Plasma Lactic Acid Peña (0.7-2.0) mmol/L Calcium (8.4-10.2) mg/dL Phosphorus (2.5-4.5) mg/dL Magnesium (1.6-2.3) mg/dL AST (14-36) U/L ALT 41 H (4-34) U/L Alkaline Phosphatase 161 H (38-126) U/L Lipase (23-300) U/L Urine Blood Moderate H (Negative) Urine RBC 16 H (0-5) /hpf Urine Bacteria Occasional H (None) /hpf Urine Mucus Rare H (None) /hpf Urine Yeast (Budding) Few H (None) /hpf 03/11/25 Range/Units 11:13 RBC (4.10-5.20) 10*6/uL Hgb (12.0-15.0) g/dL Hct (37.2-46.3) % MCV (80.0-97.0) fL MCH (27.0-32.0) pg RDW (11.5-14.5) % Plt Count (140-440) 10*3/uL Lymphocytes # (0.90-5.00) 10*3/uL Eosinophils # (0.04-0.35) 10*3/uL Metamyelocytes # (Man) (0) k/uL Myelocytes # (Manual) (0) k/uL Sodium (137-145) mmol/L Chloride (98-107) mmol/L Carbon Dioxide (22-30) mmol/L BUN (7-17) mg/dL Creatinine (0.52-1.04) mg/dL Glucose (74-99) mg/dL Plasma Lactic Acid Peña (0.7-2.0) mmol/L Calcium (8.4-10.2) mg/dL Phosphorus 1.7 L (2.5-4.5) mg/dL Magnesium 2.4 H (1.6-2.3) mg/dL AST (14-36) U/L ALT (4-34) U/L Alkaline Phosphatase (38-126) U/L Lipase (23-300) U/L Urine Blood (Negative) Urine RBC (0-5) /hpf Urine Bacteria (None) /hpf Urine Mucus (None) /hpf Urine Yeast (Budding) (None) /hpf Assessment and Plan Assessment: Hypovolemic hyponatremia Acute kidney injury and chronic kidney disease Acute gastroenteritis most likely related to recent chemotherapy treatment Ovarian cancer s/p chemotherapy Generalized weakness secondary to above Mild bicytopenia with low hemoglobin and platelets secondary to chemotherapy Mild transaminitis Plan: Continue with IV fluids Continue with symptomatic treatment and supportive care Hematology/oncology team consult Close monitoring of labs and vitals Further recommendation based on the clinical course Continue with GI prophylaxis with Pepcid DVT prophylaxis with subcutaneous heparin Prognosis is guarded
[2025-03-12 05:55] LABS: African American GFR (CKD) 55 (>60 ml/min/1.73 sqM); Anion Gap 9 mmol/L; Blood Urea Nitrogen 70 mg/dL (7-17); Calcium 8.8 mg/dL (8.4-10.2); Carbon Dioxide 32 mmol/L (22-30); Chloride 88 mmol/L (98-107); Glucose 149 mg/dL (74-99); Magnesium 1.6 mg/dL (1.6-2.3); Non-African American GFR(CKD) 48 (>60 ml/min/1.73 sqM); Phosphorus 4.8 mg/dL (2.5-4.5); Potassium 3.3 mmol/L (3.5-5.1); Sodium 129 mmol/L (137-145)
[2025-03-12] MEDS ORDERED: Potassium Replacement Protocol 1 EACH MISC MISCELLANE PRN ×2 (06:49→11:11)
[2025-03-12] MEDS: POTASSIUM CHLORIDE 10 MEQ in WATER FOR INJECTION 1 100ML.BAG IVPB SCH (08:29)
[2025-03-12] MEDS: FAT EMULSION 20% 250 ML in EMPTY BAG 1 BAG IV SCH (08:31)
[2025-03-12] MEDS ORDERED: Magnesium Replacement Protocol 1 EACH MISC MISCELLANE PRN (11:11)
[2025-03-12] MEDS: 1: MVI, ADULT NO.4 WITH VIT K 10 ML, TRACE (CONC-1ML/DOSE) 1 ML, SODIUM CHLORIDE 4MEQ/ML IV SCH (15:36)
[2025-03-12] MEDS: MAGNESIUM SULFATE-D5W PMX 1 GM in DEXTROSE/WATER 1 100ML.BAG IVPB SCH (17:10)
[2025-03-12] MEDS: PROCHLORPERAZINE INJ 10 MG/2 ML VIAL IVP PRN (21:36)
--- NOTE | 2025-03-13 00:12 | P.PN ---
Subjective This is a pleasant 59 years old female with past medical history of multiple medical problems including history of ovarian cancer got chemotherapy about 1 week ago. 1 week later so on the next she started having vomiting associated with nausea and generalized weakness. Associated with central abdominal pain since her pain about 7/10 aching with no known precipitating or relieving factors She has right side PICC line through which she got TPN and she has PEG tube which uses for drain and she has left lower quadrant colostomy from previous surgery. She has mild epigastric tenderness. She is afebrile hemodynamically stable CBC and liver enzymes were unremarkable. Sodium was low 124 Creatinine 1.7 compared to earlier at 1.9 which is improving with IV fluid. At baseline looks like 1.1-1.3. Hemoglobin 10 and platelet count 135 while WBC normal. Liver enzymes mildly elevated. Lactic acid 2.1 Chest x-ray showing no acute process. 03/11 Patient still feels little nausea today She is on liquid diet She feels overall a little better than yesterday not as asleep as yesterday and less lethargic No vomiting no abdominal pain. She remains on normal saline 75 mL/h and patient my start TPN Sodium level improved to 130 which is appropriate 03/12 Patient s/p feeding tube placement. Patient started getting the feeding today at a rate of 15 mL/h with plan to progress with more high rate Epigastric abdominal pain and tenderness is improving as well TPN discontinued Objective - Vital Signs Vital signs: Vital Signs Temp 98.1 F 03/12/25 13:05 Pulse 94 03/12/25 13:05 Resp 17 03/12/25 13:05 BP 117/73 03/12/25 13:05 Pulse Ox 99 03/12/25 13:05 FiO2 Intake & Output 03/12/25 03/12/25 03/13/25 06:59 18:59 06:59 Intake Total 2064 2810 Output Total 1100 Balance 965 2810 Intake: Intake, IV Titration 2064 2809 Amount Fat Emulsion 20% 250 ml 250 In Empty Bag 1 bag @ 21 mls/hr IV Q72H [facility] Rx#: [id number] Magnesium Sulfate-D5w Pmx 200 1 gm In Dextrose/Water 1 100ml.bag @ 100 mls/hr IVPB Q1H [facility] Rx#: [id number] [facility]vi, Adult No.4 with Vit 810 K 10 ml Trace (Conc-1Ml/ Dose) 1 ml Sodium Acetate 30 meq Potassium Chloride 20 meq Calcium Gluconate 1 gm Sodium Phosphate 15 mmol In Amino Acids 5 %/Dextrose 20 % 1,000 ml @ 90 mls/hr IV .BY D[facility]ATION [facility] Rx#: [id number] Mvi, Adult No.4 with Vit 1080 K 10 ml Trace (Conc-1Ml/ Dose) 1 ml Sodium Chloride 4Meq/ml Vial 40 meq Potassium Chloride 30 meq Calcium Gluconate 1 gm Magnesium Sulfate gm 0 .5 gm In Amino Acids 5 %/ Dextrose 20 % 1,000 ml @ 90 mls/hr IV .BY D[facility]ATION [facility] Rx#:[id number] Potassium Chloride 10 meq 200 In Water For Injection 1 100ml.bag @ 100 mls/hr IVPB Q1HR [facility] Rx#: [id number] Sodium Acetate 30 meq 180 1080 Potassium Chloride 20 meq Calcium Gluconate 1 gm Sodium Phosphate 15 mmol In Amino Acids 5 %/ Dextrose 20 % 1,000 ml @ 90 mls/hr IV .BY DURATION [facility] Rx#:[id number] Sodium Chloride 0.9% 1, 825 000 ml @ 75 mls/hr IV . [id number] [facility] Rx#:[id number] Sodium Phosphate 30 mmol 250 In Dextrose 5% in Water 250 ml @ 65 mls/hr IVPB ONCE ONE Rx#:[id number] Output: Gastric Drainage 1100 Other: Voiding Method Bedside Commode # Voids 3 - Exam GENERAL: The patient is alert and oriented x3, not in any acute distress. Well developed, well nourished. HEENT: Pupils are round and equally reacting to light. EOMI. No scleral icterus. No conjunctival pallor. Normocephalic, atraumatic. No pharyngeal erythema. No thyromegaly. CARDIOVASCULAR: S1 and S2 present. No murmurs, rubs, or gallops. PULMONARY: Chest is clear to auscultation, no wheezing , no crackles. ABDOMEN: Soft, nontender, nondistended, normoactive bowel sounds. No palpable organomegaly. MUSCULOSKELETAL: No joint swelling or deformity. EXTREMITIES: No cyanosis, clubbing, or pedal edema. NEUROLOGICAL: Gross neurological examination did not reveal any focal deficits. SKIN: No rashes. no petechiae. - Labs CBC & Chem 7: 03/11/25 11:13 03/12/25 04:56 Labs: Abnormal Lab Results - Last 24 Hours (Table) 03/12/25 03/12/25 Range/Units 04:56 04:56 Sodium 129 L (137-145) mmol/L Potassium 3.3 L (3.5-5.1) mmol/L Chloride 88 L (98-107) mmol/L Carbon Dioxide 32 H (22-30) mmol/L BUN 70 H (7-17) mg/dL Creatinine 1.24 H (0.52-1.04) mg/dL Glucose 149 H (74-99) mg/dL Phosphorus 4.8 H (2.5-4.5) mg/dL Triglycerides 226.00 H (0.00-149.00) mg/dL Assessment and Plan Assessment: Hypovolemic hyponatremia Acute kidney injury and chronic kidney disease Acute gastroenteritis most likely related to recent chemotherapy treatment Ovarian cancer s/p chemotherapy Generalized weakness secondary to above Mild bicytopenia with low hemoglobin and platelets secondary to chemotherapy Mild transaminitis Plan: TPN discontinued Started tube feeding Continue with symptomatic treatment and supportive care Hematology/oncology team consult Close monitoring of labs and vitals Further recommendation based on the clinical course Continue with GI prophylaxis with Pepcid DVT prophylaxis with subcutaneous heparin Prognosis is guarded
[2025-03-13 00:16] LABS: Glucose,Whole Blood 139 mg/dL (70-110)
[2025-03-13 10:07] LABS: HCT 24.1 % (37.2-46.3); HGB 7.9 g/dL (12.0-15.0); MCH 35.3 pg (27.0-32.0); MCHC 32.8 g/dL (32.0-37.0); MCV 107.6 FL (80.0-97.0); Mean Platelet Volume 10.7 FL (9.5-12.2); NRBC Per 100 WBC 0 X 10*3/uL (0.00-0.01); Platelet Count 117 X 10*3/uL (140-440); RBC 2.24 X 10*6/uL (4.10-5.20); RDW 19.2 % (11.5-14.5)
[2025-03-13 11:00] LABS: BUN/Creat Ratio 40.67 Ratio (12.00-20.00); Blood Urea Nitrogen 48.8 mg/dL (9.0-27.0); Calcium 8.6 mg/dL (8.7-10.3); Carbon Dioxide 24.8 mmol/L (21.6-31.8); Chloride 94 mmol/L (96-109); Glucose 156 mg/dL (70-110); Magnesium 1.9 mg/dL (1.5-2.4); Potassium 3.5 mmol/L (3.5-5.5); Sodium 131 mmol/L (135-145)
[2025-03-13 11:01] LABS: Anisocytosis (M) 2+ (None Seen); Basophils # (A) 0 X 10*3/uL (0.00-0.10); Basophils % (A) 0 %; Eosinophils # (A) 0.02 X 10*3/uL (0.04-0.35); Eosinophils % (A) 0.6 %; Lymphocytes # (A) 0.79 X 10*3/uL (0.90-5.00); Lymphocytes % (A) 21.9 %; Macrocytosis (M) 2+ (None Seen); Monocytes # (A) 0.58 X 10*3/uL (0.20-1.00); Monocytes % (A) 16.1 %; Neutrophils % (A) 61.1 %
[2025-03-13] MEDS: POTASSIUM CHLORIDE 10 MEQ in WATER FOR INJECTION 1 100ML.BAG IVPB SCH (13:27)
[2025-03-13] MEDS: PANTOPRAZOLE 40 MG/10 ML VIAL IVP SCH (13:27)
[2025-03-13] MEDS: 1: MVI, ADULT NO.4 WITH VIT K 10 ML, TRACE (CONC-1ML/DOSE) 1 ML, SODIUM CHLORIDE 4MEQ/ML IV SCH (14:38)
--- NOTE | 2025-03-13 23:30 | P.PN ---
Subjective This is a pleasant 59 years old female with past medical history of multiple medical problems including history of ovarian cancer got chemotherapy about 1 week ago. 1 week later so on the next she started having vomiting associated with nausea and generalized weakness. Associated with central abdominal pain since her pain about 7/10 aching with no known precipitating or relieving factors She has right side PICC line through which she got TPN and she has PEG tube which uses for drain and she has left lower quadrant colostomy from previous surgery. She has mild epigastric tenderness. She is afebrile hemodynamically stable CBC and liver enzymes were unremarkable. Sodium was low 124 Creatinine 1.7 compared to earlier at 1.9 which is improving with IV fluid. At baseline looks like 1.1-1.3. Hemoglobin 10 and platelet count 135 while WBC normal. Liver enzymes mildly elevated. Lactic acid 2.1 Chest x-ray showing no acute process. 03/11 Patient still feels little nausea today She is on liquid diet She feels overall a little better than yesterday not as asleep as yesterday and less lethargic No vomiting no abdominal pain. She remains on normal saline 75 mL/h and patient my start TPN Sodium level improved to 130 which is appropriate 03/12 Patient s/p feeding tube placement. Patient started getting the feeding today at a rate of 15 mL/h with plan to progress with more high rate Epigastric abdominal pain and tenderness is improving as well TPN discontinued 03/13 Patient presents because of symptoms of gastritis with nausea vomiting after she received chemotherapy 1 week earlier Patient improved but not completely resolved she still has nausea and some epigastric tenderness around the PEG tube therefore we are going to switch Pepcid to Protonix today PEG tube she has risks cannot be used for feeding because of her bowel obstruction which is chronic. Patient also informed about this. Patient getting nutrition through TPN. She can consume some liquid diet but this can be suctioned back again using the PEG tube Case was discussed with oncology team today Dr. Godinez Objective - Vital Signs Vital signs: Vital Signs Temp 98 F 03/13/25 12:29 Pulse 85 03/13/25 12:29 Resp 19 03/13/25 12:29 BP 116/75 03/13/25 12:29 Pulse Ox 97 03/13/25 12:29 FiO2 Intake & Output 03/12/25 03/13/25 03/13/25 18:59 06:59 18:59 Intake Total 2810 1265 Balance 2810 1265 Intake: Intake, IV Titration 2810 1265 Amount Fat Emulsion 20% 250 ml 250 In Empty Bag 1 bag @ 21 mls/hr IV Q72H [facility] Rx#: [id number] Magnesium Sulfate-D5w Pmx 200 1 gm In Dextrose/Water 1 100ml.bag @ 100 mls/hr IVPB Q1H [facility] Rx#: [id number] Mvi, Adult No.4 with Vit 1080 K 10 ml Trace (Conc-1Ml/ Dose) 1 ml Sodium Chloride 4Meq/ml Vial 40 meq Potassium Chloride 30 meq Calcium Gluconate 1 gm Magnesium Sulfate gm 0 .5 gm In Amino Acids 5 %/ Dextrose 20 % 1,000 ml @ 90 mls/hr IV .BY DURATION [facility] Rx#:[id number] Potassium Chloride 10 meq 200 In Water For Injection 1 100ml.bag @ 100 mls/hr IVPB Q1HR [facility] Rx#: [id number] Sodium Acetate 30 meq 1080 Potassium Chloride 20 meq Calcium Gluconate 1 gm Sodium Phosphate 15 mmol In Amino Acids 5 %/ Dextrose 20 % 1,000 ml @ 90 mls/hr IV .BY DURATION [facility] Rx#:[id number] Sodium Chloride 0.9% 1, 275 000 ml @ 75 mls/hr IV . [id number] [facility] Rx#:[id number] Sodium Chloride 4Meq/ml 990 Vial 40 meq Potassium Chloride 30 meq Calcium Gluconate 1 gm Magnesium Sulfate gm 0.5 gm In Amino Acids 5 %/Dextrose 20 % 1,000 ml @ 90 mls/hr IV .BY DURATION [facility] Rx#: [id number] Other: Voiding Method Bedside Commode Bedside Commode # Voids 3 - Exam GENERAL: The patient is alert and oriented x3, not in any acute distress. Well developed, well nourished. HEENT: Pupils are round and equally reacting to light. EOMI. No scleral icterus. No conjunctival pallor. Normocephalic, atraumatic. No pharyngeal erythema. No thyromegaly. CARDIOVASCULAR: S1 and S2 present. No murmurs, rubs, or gallops. PULMONARY: Chest is clear to auscultation, no wheezing , no crackles. ABDOMEN: Soft, nontender, nondistended, normoactive bowel sounds. No palpable organomegaly. MUSCULOSKELETAL: No joint swelling or deformity. EXTREMITIES: No cyanosis, clubbing, or pedal edema. NEUROLOGICAL: Gross neurological examination did not reveal any focal deficits. SKIN: No rashes. no petechiae. - Labs CBC & Chem 7: 03/13/25 04:22 03/13/25 04:22 Labs: Abnormal Lab Results - Last 24 Hours (Table) 03/13/25 03/13/25 03/13/25 Range/Units 00:15 04:22 04:22 WBC 3.60 L (4.50-10.00) X 10*3/uL RBC 2.24 L (4.10-5.20) X 10*6/uL Hgb 7.9 L (12.0-15.0) g/dL Hct 24.1 L (37.2-46.3) % MCV 107.6 H (80.0-97.0) FL MCH 35.3 H (27.0-32.0) pg RDW 19.2 H (11.5-14.5) % Plt Count 117 L (140-440) X 10*3/uL Lymphocytes # 0.79 L (0.90-5.00) X 10*3/uL Eosinophils # 0.02 L (0.04-0.35) X 10*3/uL Anisocytosis (manual) 2+ A (None Seen) Macrocytosis (manual) 2+ A (None Seen) Sodium 131 L (135-145) mmol/L Chloride 94 L (96-109) mmol/L Anion Gap 12.20 H (4.00-12.00) mmol/L BUN 48.8 H (9.0-27.0) mg/dL Est GFR (CKD-EPI) 52 L (>=60) BUN/Creatinine Ratio 40.67 H (12.00-20.00) Ratio Glucose 156 H (70-110) mg/dL POC Glucose (mg/dL) 139 H (70-110) mg/dL Calcium 8.6 L (8.7-10.3) mg/dL Assessment and Plan Assessment: Hypovolemic hyponatremia Acute kidney injury and chronic kidney disease Acute gastroenteritis most likely related to recent chemotherapy treatment Ovarian cancer s/p chemotherapy Generalized weakness secondary to above Mild bicytopenia with low hemoglobin and platelets secondary to chemotherapy Mild transaminitis Plan: TPN continued PEG tube is not for feeding but for suctioning, informed staff and patient Start Protonix Continue with symptomatic treatment and supportive care Hematology/oncology team consult Close monitoring of labs and vitals Further recommendation based on the clinical course Continue with GI prophylaxis with Protonix DVT prophylaxis with subcutaneous heparin Prognosis is guarded
[2025-03-14 04:42] LABS: African American GFR (CKD) 55 (>60 ml/min/1.73 sqM); Anion Gap 11 mmol/L; Blood Urea Nitrogen 48 mg/dL (7-17); Calcium 9.2 mg/dL (8.4-10.2); Carbon Dioxide 23 mmol/L (22-30); Chloride 96 mmol/L (98-107); Glucose 152 mg/dL (74-99); Magnesium 1.8 mg/dL (1.6-2.3); Non-African American GFR(CKD) 47 (>60 ml/min/1.73 sqM); Phosphorus 2.9 mg/dL (2.5-4.5); Sodium 130 mmol/L (137-145)
[2025-03-14] MEDS: MAGNESIUM SULFATE-D5W PMX 1 GM in DEXTROSE/WATER 1 100ML.BAG IVPB ONE (05:06)
[2025-03-14] MEDS: 1: MVI, ADULT NO.4 WITH VIT K 10 ML, TRACE (CONC-1ML/DOSE) 1 ML, SODIUM CHLORIDE 4MEQ/ML IV SCH (14:00)
--- NOTE | 2025-03-14 15:48 | P.PN ---
Subjective Progress Note Date: 03/14/25 Principal diagnosis: N,V, dehydration In f/u today pt reports frustration at not being able to eat/consume fluids-it was explained to her there was concern for acute ileus on admit, she was having N,V too. She was not using suction as frequently as she could have been. She wants to try clears today and, if she tolerates, wants to go home. No fevers, acute pain Objective - Vital Signs Vital signs: Vital Signs Temp 98.8 F 03/14/25 12:16 Pulse 92 03/14/25 12:16 Resp 18 03/14/25 12:16 BP 115/75 03/14/25 12:16 Pulse Ox 100 03/14/25 12:16 FiO2 Intake & Output 03/13/25 03/14/25 03/14/25 18:59 06:59 18:59 Intake Total 1080 1180 Output Total 1800 Balance 1080 -620 Weight 85.275 kg Intake: Intake, IV Titration 1080 1180 Amount Magnesium Sulfate-D5w Pmx 100 1 gm In Dextrose/Water 1 100ml.bag @ 100 mls/hr IVPB ONCE ONE Rx#: [id number] Mvi, Adult No.4 with Vit 1080 K 10 ml Trace (Conc-1Ml/ Dose) 1 ml Sodium Chloride 4Meq/ml Vial 48 meq Potassium Chloride 34 meq Calcium Gluconate 1 gm Magnesium Sulfate gm 0 .5 gm In Amino Acids 5 %/ Dextrose 20 % 1,000 ml @ 90 mls/hr IV .BY DURATION [facility] Rx#:[id number] Sodium Chloride 4Meq/ml 1080 Vial 48 meq Potassium Chloride 34 meq Calcium Gluconate 1 gm Magnesium Sulfate gm 0.5 gm In Amino Acids 5 %/Dextrose 20 % 1,000 ml @ 90 mls/hr IV .BY DURATION [facility] Rx#: [id number] Output: Gastric Drainage 1200 Urine 600 Other: Voiding Method Bedside Commode Bedside Commode # Voids 2 3 - Constitutional General appearance: Present: average body habitus, cooperative, no acute distress - EENT Eyes: Present: anicteric sclerae, EOMI ENT: Present: hearing grossly normal - Respiratory Respiratory: bilateral: CTA - Cardiovascular Rhythm: regular - Peripheral edema leg Peripheral Edema: bilateral: None - Gastrointestinal Gastrointestinal Comment(s): decompression tube, not currently connected to suction General gastrointestinal: Present: decreased bowel sounds, soft - Integumentary Integumentary: Present: normal - Neurologic Neurologic: Present: CNII-XII intact - Musculoskeletal Musculoskeletal: Present: strength equal bilaterally - Psychiatric Psychiatric: Present: A&O x's 3, appropriate affect, intact judgment & insight - Labs CBC & Chem 7: 03/13/25 04:22 03/14/25 03:59 Labs: Abnormal Lab Results - Last 24 Hours (Table) 03/14/25 Range/Units 03:59 Sodium 130 L (137-145) mmol/L Chloride 96 L (98-107) mmol/L BUN 48 H (7-17) mg/dL Creatinine 1.25 H (0.52-1.04) mg/dL Glucose 152 H (74-99) mg/dL Assessment and Plan (1) SPENCER (acute kidney injury) Current Visit: Yes Status: Acute Priority: High Code(s): N17.9 - ACUTE KIDNEY FAILURE, UNSPECIFIED SNOMED Code(s): 28963411 (2) Dehydration Current Visit: Yes Status: Acute Code(s): E86.0 - DEHYDRATION SNOMED Code(s): 70424262 (3) Carcinoma of ovary Current Visit: Yes Status: Chronic Priority: High Code(s): C56.9 - MALIGNANT NEOPLASM OF UNSPECIFIED OVARY SNOMED Code(s): 137439362 (4) Ileus Current Visit: No Status: Acute Priority: High Code(s): K56.7 - ILEUS, UNSPECIFIED SNOMED Code(s): 065220188 Plan: SPENCER, N/V, dehydration -Admitted with N,V leading to dehydration, SPENCER and weakness. Associated with bloating and abd discomfort. Lab investigations confirmed the same. -Since admit pt given IV fluids, cont on TPN. -Labs improved with fluids -Pt symptoms are resolved as of today, she wants clear liquids. Order given for the same. 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 Completed cycle 3 on 03/03/25, with IV hydration on 03/09 -As long as pt cont to do well she will go for her treatment scheduled 03/29 at 8am -It is noted in her chart if she cont to not feel well, or gets worse she is to call ofc to be seen or come back to ER. -Cont supportive medications. Olanzapine and compazine prescribed for outpt use.
--- NOTE | 2025-03-14 22:35 | XR ---
EXAMINATION TYPE: XR abdomen acute w cxr DATE OF EXAM: 03/14/2025 8:58 PM COMPARISON: None. CLINICAL INDICATION: Female, 59 years old with history of abdominal pain, distention, TECHNIQUE: XR abdomen acute w cxr view(s) obtained. FINDINGS: Multiple scattered air-fluid levels are present. Differential air-fluid levels are not identified. No free air is evident. PEG tube is present. Psoas margins are normal. No organomegaly is present. Heart size is normal. Pulmonary vasculature is normal. No suspicious focal infiltrate is evident. The re is a port present with the tip in superior vena cava region. A second catheter may come from the n kathe. PICC line enters on the right. IMPRESSION: 1. Nonspecific abdomen with multiple air-fluid levels. Consider gastric neuritis and ileus. Partial s mall bowel obstruction is less likely but could be considered. Follow-up is recommended [facility], Workstation: [facility], 03/14/2025 10:32 PM
[2025-03-15 06:06] LABS: ALT 31 U/L (4-34); AST 24 U/L (14-36); African American GFR (CKD) 54 (>60 ml/min/1.73 sqM); Albumin 3.3 g/dL (3.5-5.0); Albumin/Globulin Ratio 1.1; Alkaline Phosphatase 136 U/L (38-126); Anion Gap 9 mmol/L; Blood Urea Nitrogen 46 mg/dL (7-17); Calcium 9.1 mg/dL (8.4-10.2); Carbon Dioxide 19 mmol/L (22-30); Chloride 103 mmol/L (98-107); Globulin 3.1 g/dL; Glucose 127 mg/dL (74-99); Magnesium 1.8 mg/dL (1.6-2.3); Non-African American GFR(CKD) 46 (>60 ml/min/1.73 sqM); Phosphorus 3.6 mg/dL (2.5-4.5); Potassium 4.3 mmol/L (3.5-5.1); Sodium 131 mmol/L (137-145); Total Bilirubin 0.6 mg/dL (0.2-1.3); Total Protein 6.4 g/dL (6.3-8.2)
[2025-03-15] MEDS: MAGNESIUM SULFATE-D5W PMX 1 GM in DEXTROSE/WATER 1 100ML.BAG IVPB ONE (06:19)
--- NOTE | 2025-03-15 10:44 | P.PN ---
Subjective Progress Note Date: 03/14/25 This is a pleasant 59 years old female with past medical history of multiple medical problems including history of ovarian cancer got chemotherapy about 1 week ago. 1 week later so on the next she started having vomiting associated with nausea and generalized weakness. Associated with central abdominal pain since her pain about 7/10 aching with no known precipitating or relieving factors She has right side PICC line through which she got TPN and she has PEG tube which uses for drain and she has left lower quadrant colostomy from previous surgery. She has mild epigastric tenderness. She is afebrile hemodynamically stable CBC and liver enzymes were unremarkable. Sodium was low 124 Creatinine 1.7 compared to earlier at 1.9 which is improving with IV fluid. At baseline looks like 1.1-1.3. Hemoglobin 10 and platelet count 135 while WBC normal. Liver enzymes mildly elevated. Lactic acid 2.1 Chest x-ray showing no acute process. 03/11 Patient still feels little nausea today She is on liquid diet She feels overall a little better than yesterday not as asleep as yesterday and less lethargic No vomiting no abdominal pain. She remains on normal saline 75 mL/h and patient my start TPN Sodium level improved to 130 which is appropriate 03/12 Patient s/p feeding tube placement. Patient started getting the feeding today at a rate of 15 mL/h with plan to progress with more high rate Epigastric abdominal pain and tenderness is improving as well TPN discontinued 03/13 Patient presents because of symptoms of gastritis with nausea vomiting after she received chemotherapy 1 week earlier Patient improved but not completely resolved she still has nausea and some epigastric tenderness around the PEG tube therefore we are going to switch Pepcid to Protonix today PEG tube she has risks cannot be used for feeding because of her bowel obstruction which is chronic. Patient also informed about this. Patient getting nutrition through TPN. She can consume some liquid diet but this can be suctioned back again using the PEG tube Case was discussed with oncology team today Dr. Godinez 03/14/2025 Patient is seen in follow-up today reporting increased abdominal distention although was asking oncology why she was n.p.o. and wanted her clear liquids back. Patient is now having increasing bloating and reporting some gas in the ostomy with no bowel movements. Patient is having increasing output from her decompression drain and has been instructed to decompress more frequently. Will obtain a chest and abdominal x-ray for further evaluation. Recommend n.p.o. and continuing with just TPN. Review of systems: Constitutional: No reports of fatigue, fever, or chills Cardiovascular: No reports of chest pain or palpitations Respiratory: No reports of shortness of breath or cough GI: No reports of nausea, vomiting, or diarrhea, reporting passing gas in the ostomy with no bowel movement and having increasing abdominal distention with tenderness : No reports of dysuria or retention Neurovascular: No reports of weakness or numbness All medications have been reviewed Physical Exam: GENERAL: The patient is alert and oriented x3, not in any acute distress. Well developed, well nourished. Obese, ill-appearing HEENT: Pupils are round and equally reacting to light. EOMI. No scleral icterus. No conjunctival pallor. Normocephalic, atraumatic. No pharyngeal erythema. No thyromegaly. CARDIOVASCULAR: S1 and S2 present. No murmurs, rubs, or gallops. PULMONARY: Chest is clear to auscultation, no wheezing , no crackles. ABDOMEN: Soft, tender, mildly distended, normoactive bowel sounds. No palpable organomegaly. MUSCULOSKELETAL: No joint swelling or deformity. EXTREMITIES: No cyanosis, clubbing, or pedal edema. NEUROLOGICAL: Gross neurological examination did not reveal any focal deficits. SKIN: No rashes. no petechiae. Assessment: Assessment: Hypovolemic hyponatremia, acute dehydration, improving patient maintained on TPN and electrolytes and sodium being adjusted per pharmacy and dietary Acute kidney injury and chronic kidney disease Acute gastroenteritis most likely related to recent chemotherapy treatment Ovarian cancer s/p chemotherapy Generalized weakness secondary to above Mild bicytopenia with low hemoglobin and platelets secondary to chemotherapy Mild transaminitis Obesity with a BMI 31.3 GI prophylaxis DVT prophylaxis Full code Plan: TPN continued and patient was requesting feeling improved and wanting her clear liquids back. Patient having increasing abdominal distention and bloating and no bowel movement, recommend n.p.o. and continue adjust TPN PEG tube is not for feeding but for suctioning, informed staff and patient PEG tube is only to be used for decompression. Continue Protonix Continue with symptomatic treatment and supportive care Will obtain an abdominal x-ray along with chest x-ray as patient is reporting increasing abdominal distention and bloating Hematology/oncology team following and will plan for outpatient follow-up Close monitoring of labs and vitals, patient will require more frequent lab testing to determine appropriate TPN formulas and administration Overall prognosis is guarded The impression and plan of care has been dictated by Nurse Chasity Pra ctitioner as directed. Dr. Evon MD I have performed a history and examination and MDM of this patient, discussed the same with the dictator, and agree with the dictator's assessment and plan as written ,documented as a scribe. Based on total visit time, I have performed more than 50% of the visit. Objective - Vital Signs Vital signs: Vital Signs Temp 97.8 F 03/14/25 07:19 Pulse 81 03/14/25 07:19 Resp 20 03/14/25 07:19 BP 124/77 03/14/25 07:19 Pulse Ox 99 03/14/25 07:19 FiO2 Intake & Output 03/13/25 03/14/25 03/14/25 18:59 06:59 18:59 Intake Total 1080 1180 Output Total 1800 Balance 1080 -620 Intake: Intake, IV Titration 1080 1180 Amount Magnesium Sulfate-D5w Pmx 100 1 gm In Dextrose/Water 1 100ml.bag @ 100 mls/hr IVPB ONCE ONE Rx#: [id number] [facility], Adult No.4 with Vit 1080 K 10 ml Trace (Conc-1Ml/ Dose) 1 ml Sodium Chloride 4Meq/ml Vial 48 meq Potassium Chloride 34 meq Calcium Gluconate 1 gm Magnesium Sulfate gm 0 .5 gm In Amino Acids 5 %/ Dextrose 20 % 1,000 ml @ 90 mls/hr IV .BY DURATION [facility] Rx#:[id number] Sodium Chloride 4Meq/ml 1080 Vial 48 meq Potassium Chloride 34 meq Calcium Gluconate 1 gm Magnesium Sulfate gm 0.5 gm In Amino Acids 5 %/Dextrose 20 % 1,000 ml @ 90 mls/hr IV .BY DURATION [facility] Rx#: [id number] Output: Gastric Drainage 1200 Urine 600 Other: Voiding Method Bedside Commode Bedside Commode # Voids 2 3 - Labs CBC & Chem 7: 03/13/25 04:22 03/15/25 05:14 Labs: Abnormal Lab Results - Last 24 Hours (Table) 03/13/25 03/13/25 03/14/25 Range/Units 04:22 04:22 03:59 Lymphocytes # 0.79 L (0.90-5.00) X 10*3/uL Eosinophils # 0.02 L (0.04-0.35) X 10*3/uL Anisocytosis (manual) 2+ A (None Seen) Macrocytosis (manual) 2+ A (None Seen) Sodium 131 L 130 L (135-145) mmol/L Chloride 94 L 96 L (96-109) mmol/L Anion Gap 12.20 H (4.00-12.00) mmol/L BUN 48.8 H 48 H (9.0-27.0) mg/dL Creatinine 1.25 H (0.52-1.04) mg/dL Est GFR (CKD-EPI) 52 L (>=60) BUN/Creatinine Ratio 40.67 H (12.00-20.00) Ratio Glucose 156 H 152 H (70-110) mg/dL Calcium 8.6 L (8.7-10.3) mg/dL
--- NOTE | 2025-03-15 15:47 | P.PN ---
Subjective Progress Note Date: 03/15/25 Principal diagnosis: N,V, dehydration. Ovarian carcinoma In f/u today pt reports after she started consuming fluids yesterday her abdomen became distended, firm and painful. She was placed back on n.p.o. She did have an acute abdominal series, reporting ileus versus SBO versus gastric neuritis. Since patient has been n.p.o. her abdominal complaints are stable, not significantly improved yet. No fevers, nausea or vomiting, pain. Objective - Vital Signs Vital signs: Vital Signs Temp 98.2 F 03/15/25 12:48 Pulse 95 03/15/25 12:48 Resp 16 03/15/25 12:48 BP 140/84 03/15/25 12:48 Pulse Ox 100 03/15/25 12:48 FiO2 Intake & Output 03/14/25 03/15/25 03/15/25 18:59 06:59 18:59 Intake Total 1057.5 Output Total 650 700 Balance -650 357.5 Weight 85.275 kg Intake: Intake, IV Titration 1057.5 Amount Mvi, Adult No.4 with Vit 1057.5 K 10 ml Trace (Conc-1Ml/ Dose) 1 ml Sodium Chloride 4Meq/ml Vial 60 meq Potassium Chloride 34 meq Calcium Gluconate 1 gm Magnesium Sulfate gm 0 .75 gm Sodium Phosphate 9 mmol In Amino Acids 5 %/ Dextrose 20 % 1,000 ml @ 90 mls/hr IV .BY DURATION [facility] Rx#:[id number] Output: Gastric Drainage 650 700 Other: Voiding Method Bedside Commode # Voids 2 - Constitutional General appearance: Present: average body habitus, cooperative, no acute distress - EENT Eyes: Present: anicteric sclerae, EOMI ENT: Present: hearing grossly normal - Respiratory Details: resp unlabored at rest - Cardiovascular Details: skin warm, well perfused - Peripheral edema leg Peripheral Edema: bilateral: None - Gastrointestinal General gastrointestinal: Present: decreased bowel sounds, distended, tenderness - Integumentary Integumentary: Present: normal - Neurologic Neurologic: Present: CNII-XII intact - Musculoskeletal Musculoskeletal: Present: strength equal bilaterally - Psychiatric Psychiatric: Present: A&O x's 3, appropriate affect, intact judgment & insight - Labs CBC & Chem 7: 03/13/25 04:22 03/15/25 05:14 Labs: Abnormal Lab Results - Last 24 Hours (Table) 03/15/25 Range/Units 05:14 Sodium 131 L (137-145) mmol/L Carbon Dioxide 19 L (22-30) mmol/L BUN 46 H (7-17) mg/dL Creatinine 1.27 H (0.52-1.04) mg/dL Glucose 127 H (74-99) mg/dL Alkaline Phosphatase 136 H (38-126) U/L Albumin 3.3 L (3.5-5.0) g/dL - Imaging and Cardiology Abdominal x-ray: report reviewed Assessment and Plan (1) SPENCER (acute kidney injury) Current Visit: Yes Status: Acute Priority: High Code(s): N17.9 - ACUTE KIDNEY FAILURE, UNSPECIFIED SNOMED Code(s): 68343402 (2) Dehydration Current Visit: Yes Status: Acute Code(s): E86.0 - DEHYDRATION SNOMED Code(s): 08603032 (3) Carcinoma of ovary Current Visit: Yes Status: Chronic Priority: High Code(s): C56.9 - MALIGNANT NEOPLASM OF UNSPECIFIED OVARY SNOMED Code(s): 657957636 (4) Ileus Current Visit: No Status: Acute Priority: High Code(s): K56.7 - ILEUS, UNSPECIFIED SNOMED Code(s): 142933866 Plan: SPENCER, N/V, dehydration -Admitted with N,V leading to dehydration, SPENCER and weakness. Associated with bloating and abd discomfort. Lab investigations confirmed the same. -Since admit pt given IV fluids, cont on TPN. She was NPO. Above c/o improved. Labs improved with IV fluids -As stated in yesterday's note when patient seen, she was upset about being n.p.o. Patient was given some clears yesterday and rather quickly, abdominal symptoms started. Abdominal x-ray series reporting ileus versus a small bowel obstruction versus gastric neuritis. Physical symptoms include abdominal distention and discomfort. Patient is n.p.o. again. - Spent time today explaining to patient what is happening. Gastrointestinal tract does not work properly because of malignancy in the mesentery of the abdomen. Movements of the GI tract are going to be labile. When her abdomen becomes distended, firm and painful that is because of malignancy around the bowels interfering with peristalsis. Oral intake may or may not exacerbate abdominal complaints-though in her case it seems to exacerbate symptoms. Explained to patient that oral intake is for PLEASURE only and if it causes her pain then she needs to STOP oral intake. Pt reports that she understands what is going on now. She will limit her oral intake to ice chips and teaspoons of liquid at a time. She needs to use the decompression tube when she is having abd discomfort and bloating. She will do this as well. 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 Completed cycle 3 on 03/03/25, with IV hydration on 03/09 -As long as pt cont to do well she will go for her treatment scheduled 03/29 at 8am -It is noted in her chart if she cont to not feel well, or gets worse she is to call ofc to be seen or come back to ER. -Cont supportive medications. Olanzapine and compazine prescribed for outpt use.
[2025-03-16 05:11] LABS: ALT 33 U/L (4-34); AST 28 U/L (14-36); African American GFR (CKD) 51 (>60 ml/min/1.73 sqM); Albumin 3.7 g/dL (3.5-5.0); Albumin/Globulin Ratio 1.1; Alkaline Phosphatase 138 U/L (38-126); Anion Gap 12 mmol/L; Blood Urea Nitrogen 49 mg/dL (7-17); Calcium 9.4 mg/dL (8.4-10.2); Carbon Dioxide 17 mmol/L (22-30); Chloride 102 mmol/L (98-107); Globulin 3.5 g/dL; Glucose 137 mg/dL (74-99); Magnesium 1.8 mg/dL (1.6-2.3); Non-African American GFR(CKD) 44 (>60 ml/min/1.73 sqM); Phosphorus 4.2 mg/dL (2.5-4.5); Potassium 4.7 mmol/L (3.5-5.1); Sodium 131 mmol/L (137-145); Total Bilirubin 0.5 mg/dL (0.2-1.3); Total Protein 7.2 g/dL (6.3-8.2)
--- NOTE | 2025-03-16 05:44 | P.PN ---
Subjective Progress Note Date: 03/15/25 This is a pleasant 59 years old female with past medical history of multiple medical problems including history of ovarian cancer got chemotherapy about 1 week ago. 1 week later so on the next she started having vomiting associated with nausea and generalized weakness. Associated with central abdominal pain since her pain about 7/10 aching with no known precipitating or relieving factors She has right side PICC line through which she got TPN and she has PEG tube which uses for drain and she has left lower quadrant colostomy from previous surgery. She has mild epigastric tenderness. She is afebrile hemodynamically stable CBC and liver enzymes were unremarkable. Sodium was low 124 Creatinine 1.7 compared to earlier at 1.9 which is improving with IV fluid. At baseline looks like 1.1-1.3. Hemoglobin 10 and platelet count 135 while WBC normal. Liver enzymes mildly elevated. Lactic acid 2.1 Chest x-ray showing no acute process. 03/11 Patient still feels little nausea today She is on liquid diet She feels overall a little better than yesterday not as asleep as yesterday and less lethargic No vomiting no abdominal pain. She remains on normal saline 75 mL/h and patient my start TPN Sodium level improved to 130 which is appropriate 03/12 Patient s/p feeding tube placement. Patient started getting the feeding today at a rate of 15 mL/h with plan to progress with more high rate Epigastric abdominal pain and tenderness is improving as well TPN discontinued 03/13 Patient presents because of symptoms of gastritis with nausea vomiting after she received chemotherapy 1 week earlier Patient improved but not completely resolved she still has nausea and some epigastric tenderness around the PEG tube therefore we are going to switch Pepcid to Protonix today PEG tube she has risks cannot be used for feeding because of her bowel obstruction which is chronic. Patient also informed about this. Patient getting nutrition through TPN. She can consume some liquid diet but this can be suctioned back again using the PEG tube Case was discussed with oncology team today Dr. Godinez 03/14/2025 Patient is seen in follow-up today reporting increased abdominal distention although was asking oncology why she was n.p.o. and wanted her clear liquids back. Patient is now having increasing bloating and reporting some gas in the ostomy with no bowel movements. Patient is having increasing output from her decompression drain and has been instructed to decompress more frequently. Will obtain a chest and abdominal x-ray for further evaluation. Recommend n.p.o. and continuing with just TPN. 03/15/2025 Patient seen in follow-up today reporting abdominal pain is mildly improved af ter remaining NPO. Patient reports she did not decompress and will be doing so this afternoon. Patient is to continue n.p.o. and only occasional ice chips. Patient is maintained on TPN and will continue. Encouraged to increase activity as tolerated and will monitor overnight for improvements with possible discharge planning in the next 24 to 48 hours. Abdominal x-ray was concerning for possib le ileus versus partial obstruction. Patient reports passing gas in the ostomy with no stool activity as of yet. Review of systems: Constitutional: No reports of fatigue, fever, or chills Cardiovascular: No reports of chest pain or palpitations Respiratory: No reports of shortness of breath or cough GI: No reports of nausea, no vomiting, or diarrhea, reporting passing gas in the ostomy with no bowel movement and having minimal improvement in abdominal distention and : No reports of dysuria or retention Neurovascular: No reports of weakness or numbness All medications have been reviewed Physical Exam: GENERAL: The patient is alert and oriented x3, not in any acute distress. Well developed, well nourished. Obese, ill-appearing HEENT: Pupils are round and equally reacting to light. EOMI. No scleral icterus. No conjunctival pallor. Normocephalic, atraumatic. No pharyngeal erythema. No thyromegaly. CARDIOVASCULAR: S1 and S2 present. No murmurs, rubs, or gallops. PULMONARY: Chest is clear to auscultation, no wheezing , no crackles. ABDOMEN: Soft, tender, mildly distended, minimally improved from yesterday, hypoactive bowel sounds. No palpable organomegaly. MUSCULOSKELETAL: No joint swelling or deformity. EXTREMITIES: No cyanosis, clubbing, or pedal edema. NEUROLOGICAL: Gross neurological examination did not reveal any focal deficits. SKIN: No rashes. no petechiae. Assessment: Hypovolemic hyponatremia, acute dehydration, improving patient maintained on TPN and electrolytes and sodium being adjusted per pharmacy and dietary Acute kidney injury and chronic kidney disease Acute gastroenteritis most likely related to recent chemotherapy treatment Ovarian cancer s/p chemotherapy Generalized weakness secondary to above Mild bicytopenia with low hemoglobin and platelets secondary to chemotherapy Mild transaminitis Obesity with a BMI 31.3 GI prophylaxis DVT prophylaxis Full code Plan: TPN continued and patient was requesting feeling improved and wanting her clear liquids back. Patient having increasing abdominal distention and bloating and no bowel movement, recommend n.p.o. and continue adjust TPN PEG tube is not for feeding but for suctioning, informed staff and patient PEG tube is only to be used for decompression. Recommend decompression today Continue Protonix Continue with symptomatic treatment and supportive care Abdominal x-ray revealing possible ileus versus partial small bowel obstruction. Patient reports is passing gas, has not had a bowel movement in the ostomy in quite some time. Patient reports this has been ongoing Hematology/oncology team following and will plan for outpatient follow-up Close monitoring of labs and vitals, patient will require more frequent outpatient lab testing to determine appropriate TPN formulas and administration Overall prognosis is guarded As patient's abdominal distention is improved and pain, may consider discharge planning in the next 24 hours. This was discussed with oncology as well who was in agreement and will need close outpatient follow-up for continued therapy The impression and plan of care has been dictated by Yesenia Carroll, Nurse Pr actitioner as directed. Dr. Evon MD I have performed a history and examination and MDM of this patient, discussed the same with the dictator, and agree with the dictator's assessment and plan as written ,documented as a scribe. Based on total visit time, I have performed more than 50% of the visit. Objective - Vital Signs Vital signs: Vital Signs Temp 97.6 F 03/15/25 07:20 Pulse 94 03/15/25 07:20 Resp 16 03/15/25 07:20 BP 142/83 03/15/25 07:20 Pulse Ox 100 03/15/25 07:20 FiO2 Intake & Output 03/14/25 03/15/25 03/15/25 18:59 06:59 18:59 Output Total 650 700 Balance -650 -700 Weight 85.275 kg Output: Gastric Drainage 650 700 Other: Voiding Method Bedside Commode # Voids 2 - Labs CBC & Chem 7: 03/13/25 04:22 03/16/25 04:39 Labs: Abnormal Lab Results - Last 24 Hours (Table) 03/15/25 Range/Units 05:14 Sodium 131 L (137-145) mmol/L Carbon Dioxide 19 L (22-30) mmol/L BUN 46 H (7-17) mg/dL Creatinine 1.27 H (0.52-1.04) mg/dL Glucose 127 H (74-99) mg/dL Alkaline Phosphatase 136 H (38-126) U/L Albumin 3.3 L (3.5-5.0) g/dL
[2025-03-16] MEDS: 1: MVI, ADULT NO.4 WITH VIT K 10 ML, TRACE (CONC-1ML/DOSE) 1 ML, SODIUM CHLORIDE 4MEQ/ML IV SCH (16:06)
--- NOTE | 2025-03-17 06:37 | P.PN ---
Subjective Progress Note Date: 03/16/25 This is a pleasant 59 years old female with past medical history of multiple medical problems including history of ovarian cancer got chemotherapy about 1 week ago. 1 week later so on the next she started having vomiting associated with nausea and generalized weakness. Associated with central abdominal pain since her pain about 7/10 aching with no known precipitating or relieving factors She has right side PICC line through which she got TPN and she has PEG tube which uses for drain and she has left lower quadrant colostomy from previous surgery. She has mild epigastric tenderness. She is afebrile hemodynamically stable CBC and liver enzymes were unremarkable. Sodium was low 124 Creatinine 1.7 compared to earlier at 1.9 which is improving with IV fluid. At baseline looks like 1.1-1.3. Hemoglobin 10 and platelet count 135 while WBC normal. Liver enzymes mildly elevated. Lactic acid 2.1 Chest x-ray showing no acute process. 03/11 Patient still feels little nausea today She is on liquid diet She feels overall a little better than yesterday not as asleep as yesterday and less lethargic No vomiting no abdominal pain. She remains on normal saline 75 mL/h and patient my start TPN Sodium level improved to 130 which is appropriate 03/12 Patient s/p feeding tube placement. Patient started getting the feeding today at a rate of 15 mL/h with plan to progress with more high rate Epigastric abdominal pain and tenderness is improving as well TPN discontinued 03/13 Patient presents because of symptoms of gastritis with nausea vomiting after she received chemotherapy 1 week earlier Patient improved but not completely resolved she still has nausea and some epigastric tenderness around the PEG tube therefore we are going to switch Pepcid to Protonix today PEG tube she has risks cannot be used for feeding because of her bowel obstruction which is chronic. Patient also informed about this. Patient getting nutrition through TPN. She can consume some liquid diet but this can be suctioned back again using the PEG tube Case was discussed with oncology team today Dr. Godinez 03/14/2025 Patient is seen in follow-up today reporting increased abdominal distention although was asking oncology why she was n.p.o. and wanted her clear liquids back. Patient is now having increasing bloating and reporting some gas in the ostomy with no bowel movements. Patient is having increasing output from her decompression drain and has been instructed to decompress more frequently. Will obtain a chest and abdominal x-ray for further evaluation. Recommend n.p.o. and continuing with just TPN. 03/15/2025 Patient seen in follow-up today reporting abdominal pain is mildly improved af ter remaining NPO. Patient reports she did not decompress and will be doing so this afternoon. Patient is to continue n.p.o. and only occasional ice chips. Patient is maintained on TPN and will continue. Encouraged to increase activity as tolerated and will monitor overnight for improvements with possible discharge planning in the next 24 to 48 hours. Abdominal x-ray was concerning for possib le ileus versus partial obstruction. Patient reports passing gas in the ostomy with no stool activity as of yet. 03/16/2025 Patient is seen in follow-up today reports to feeling improved and patient is n.p.o. with only very sparing ice chips and tolerating. Patient reports there is gas and stool noted in the ostomy today and reports to feeling improved. Patient would like to go home and was scheduled for discharge although apparently order was not placed in time to have infusion company deliver the TPN. Plan will be for on 03/17/2025 to the home and patient will be discharged. Patient is afebrile with no reports of chest pain or shortness of breath. Patient has been up and walking to the bathroom and denies increased weakness. Review of systems: Constitutional: No reports of fatigue, fever, or chills Cardiovascular: No reports of chest pain or palpitations Respiratory: No reports of shortness of breath or cough GI: No reports of nausea, no vomiting, or diarrhea, reporting passing gas in the ostomy with bowel movement today 03/16/2025 : No reports of dysuria or retention Neurovascular: No reports of weakness or numbness All medications have been reviewed Physical Exam: GENERAL: The patient is alert and oriented x3, not in any acute distress. Well developed, well nourished. Obese, ill-appearing HEENT: Pupils are round and equally reacting to light. EOMI. No scleral icterus. No conjunctival pallor. Normocephalic, atraumatic. No pharyngeal erythema. No thyromegaly. CARDIOVASCULAR: S1 and S2 present. No murmurs, rubs, or gallops. PULMONARY: Chest is clear to auscultation, no wheezing , no crackles. ABDOMEN: Soft, tender, mildly distended, minimally improved from yesterday, hypoactive bowel sounds. No palpable organomegaly. MUSCULOSKELETAL: No joint swelling or deformity. EXTREMITIES: No cyanosis, clubbing, or pedal edema. NEUROLOGICAL: Gross neurological examination did not reveal any focal deficits. SKIN: No rashes. no petechiae. Assessment: Hypovolemic hyponatremia, acute dehydration, improving patient maintained on TPN and electrolytes and sodium being adjusted per pharmacy and dietary Acute kidney injury and chronic kidney disease Acute gastroenteritis most likely related to recent chemotherapy treatment Abdominal distention with concerns of possible ileus on imaging, improving and patient is passing gas and stool noted in the ostomy Ovarian cancer s/p chemotherapy Generalized weakness secondary to above Mild bicytopenia with low hemoglobin and platelets secondary to chemotherapy Mild transaminitis Obesity with a BMI 31.3 GI prophylaxis DVT prophylaxis Full code Plan: TPN continued and patient was requesting feeling improved and wanting her clear liquids back. Patient having increasing abdominal distention and bloating and no bowel movement, recommend n.p.o. and continue adjust TPN PEG tube is not for feeding but for suctioning, informed staff and patient PEG tube is only to be used for decompression. Recommend decompression today Continue Protonix Continue with symptomatic treatment and supportive care Abdominal x-ray revealing possible ileus versus partial small bowel obstruction. Patient reports is passing gas, and now having bowel movement and ostomy with improvements in abdominal distention Hematology/oncology team following and will plan for outpatient follow-up Close monitoring of labs and vitals, patient will require more frequent outpatient lab testing to determine appropriate TPN formulas and administration Overall prognosis is guarded Patient was scheduled for discharge today although apparently infusion company needed to receive the resume order before 3 PM for delivery at night. Patient will be delivered for TPN sometime on 03/17/2025. Will discharge in 24 hours. Due to multiple complex medical issues, overall prognosis is guarded The impression and plan of care has been dictated by Yesenia Carroll Nurse Practitioner as directed. Dr. Evon MD I have performed a history and examination and MDM of this patient, discussed the same with the dictator, and agree with the dictator's assessment and plan as written ,documented as a scribe. Based on total visit time, I have performed more than 50% of the visit. Objective - Vital Signs Vital signs: Vital Signs Temp 98.2 F 05/08/25 01:37 Pulse 97 03/17/25 01:37 Resp 14 03/17/25 01:37 BP 124/80 03/17/25 01:37 Pulse Ox 94 L 03/17/25 01:37 FiO2 Intake & Output 03/16/25 03/16/25 03/17/25 06:59 18:59 06:59 Intake Total 1560 240 Output Total 1200 1300 550 Balance -1200 260 -310 Weight 85.275 kg Intake: Oral 1560 240 Output: Gastric Drainage 1200 700 550 Oral Regurgitation 600 Other: Voiding Method Toilet Bedside Commode # Voids 1 - Labs CBC & Chem 7: 03/13/25 04:22 03/16/25 04:39
[2025-03-17 07:07] LABS: ALT 34 U/L (4-34); AST 24 U/L (14-36); African American GFR (CKD) 41 (>60 ml/min/1.73 sqM); Albumin/Globulin Ratio 1.1; Alkaline Phosphatase 157 U/L (38-126); Anion Gap 15 mmol/L; Blood Urea Nitrogen 53 mg/dL (7-17); Calcium 9.9 mg/dL (8.4-10.2); Carbon Dioxide 17 mmol/L (22-30); Chloride 103 mmol/L (98-107); Globulin 3.5 g/dL; Glucose 145 mg/dL (74-99); Non-African American GFR(CKD) 36 (>60 ml/min/1.73 sqM); Phosphorus 5.5 mg/dL (2.5-4.5); Potassium 4.9 mmol/L (3.5-5.1); Sodium 135 mmol/L (137-145); Total Bilirubin 0.6 mg/dL (0.2-1.3); Total Protein 7.5 g/dL (6.3-8.2)
[2025-03-17 07:47] VITALS: BP 121/79; PULSE 96; RESP 18; TEMP 97.7
[2025-03-17] MEDS ORDERED: 1: MVI, ADULT NO.4 WITH VIT K 10 ML, TRACE (CONC-1ML/DOSE) 1 ML, SODIUM CHLORIDE 4MEQ/ML IV SCH (16:30)
--- NOTE | 2025-03-17 19:01 | CDI ---
Date: 03/17/2025 From: Lorri [email or web address] Email: [email or web address] Admit Date: 03/10/2025 03:26:00 PM Patient Name: Tyra Yu Visit Number: [id number] Discharge Date: 03/17/2025 11:40:00 AM ATTENTION: The Clinical Documentation Specialists (CDI) and [facility] Coding Staff appreciate your assistance in clarifying documentation. Please respond to the clarification below the line at the bottom and electronically sign. The CDI & [facility] Coding staff will review the response and follow-up if needed. Please note: Queries are made part of the Legal Health Record. If you have any questions, please contact the author of this message via ITS. Dr. James Mukherjee, Your patient has abnormal lab values reported on 03/13/2025 (see details below). Please clarify if there is an additional diagnosis and/or clinical significance related to this value. History/Risk Factors: 59-year-old female presented to [facility] ED for evaluation due to nausea, vomiting, and generalized weakness. PMH: Ovarian cancer undergoing chemotherapy, active tobacco use, GERD, chronic obstructive pulmonary disease Clinical indicators: Documentation Location: Electronic Medical Record Lab Results: 03/10/2025 03/11/2025 03/13/2025 WBC 6.79 5.04 3.60 Hemoglobin 10.0 9.3 7.9 Platelet Count 135 117 117 H&P Report (03/10/2025): o Acute gastroenteritis most likely related to recent chemotherapy treatment o Ovarian cancer s/p chemotherapy o Mild bicytopenia with low hemoglobin and platelets secondary to chemotherapy Treatment: Pertinent Labs Monitored: Complete Blood Count with Differential Daily Oncology Consultation Is there an additional diagnosis and/or clinical significance related to the above lab result/information? [ x ] Pancytopenia secondary to chemotherapy and malignancy [ ] No additional diagnosis/Not clinically significant [ ] Other, please specify [ ] Unable to determine when i was following up with the pt, he had bicytopenia secondary to chemotherapy , later on after that , his wbc count dropped and he devolopedt pancytopenia secondary to above. MTDD
== END 2025-03-17 11:40 | disposition home health service (06) | DRG 393 ==
LOC: EC 13:38 → 5NMEDONC 15:26
PROVIDERS: ADMIT Internal Medicine; ATTEND Internal Medicine
PROC: 3E0336Z Introduction of Nutritional Substance into Peripheral Vein, Percutaneous Approach (ICD-10-PCS; principal; 2025-03-10)
DX: K52.1 Toxic gastroenteritis and colitis (principal); D61.810 Antineoplastic chemotherapy induced pancytopenia; C78.6 Secondary malignant neoplasm of retroperitoneum and peritoneum; C56.9 Malignant neoplasm of unspecified ovary; E87.1 Hypo-osmolality and hyponatremia; D61.818 Other pancytopenia; J44.9 Chronic obstructive pulmonary disease, unspecified; D64.9 Anemia, unspecified; E66.9 Obesity, unspecified; N18.9 Chronic kidney disease, unspecified; K56.7 Ileus, unspecified; N17.9 Acute kidney failure, unspecified; N39.0 Urinary tract infection, site not specified; Z93.3 Colostomy status; Z93.1 Gastrostomy status; F17.210 Nicotine dependence, cigarettes, uncomplicated; R74.01 Elevation of levels of liver transaminase levels; T45.1X5A Adverse effect of antineoplastic and immunosuppressive drugs, initial encounter; E86.0 Dehydration; E86.1 Hypovolemia; X58.XXXA Exposure to other specified factors, initial encounter; Z68.31 Body mass index [BMI] 31.0-31.9, adult; Z85.43 Personal history of malignant neoplasm of ovary; Z80.0 Family history of malignant neoplasm of digestive organs; Z87.442 Personal history of urinary calculi; Z86.16 Personal history of COVID-19; Z88.8 Allergy status to other drugs, medicaments and biological substances; Z88.1 Allergy status to other antibiotic agents
CPT/HCPCS: 36415; 71046; 74019; 74022; 80048; 80053; 80076; 81001; 82330; 83605; 83690; 83735; 84100; 84478; 85025; 96361; 96374; 96375; 96376; 99285

== ENCOUNTER 2025-04-24 18:14 | Emergency (ER) | payer BC ==
--- NOTE | 2025-04-24 19:09 | ED ---
General Adult HPI - General Chief complaint: Recheck/Abnormal Lab/Rx Stated complaint: Port Issues Time Seen by Provider: 04/24/25 18:33 Source: patient Mode of arrival: ambulatory Limitations: no limitations - History of Present Illness Initial comments: 59-year-old female presented chief complaint of occlusion to her Mediport. Patient receives her TPN through her Mediport, states that today when she went to go switch the feeding it was occluded. They tried applying heparin which did not help the issue. Patient has had no injury or trauma to this area there is no redness swelling or tenderness. She had a similar incident last month, it was flushed with alteplase and occlusion resolved. - Related Data Home Medications Medication Instructions Recorded Confirmed Prednisolone Acetate/Pf 1 drop BOTH EYES BID 01/13/25 03/23/25 [Prednisolone Acet 1% Eye Drop] Previous Rx's Medication Instructions Recorded Ondansetron Odt [Zofran ODT] 4 mg PO Q6H PRN #30 tab 12/10/24 OLANZapine [ZyPREXA] 2.5 mg PO HS #30 tab 03/14/25 Prochlorperazine [Compazine] 10 mg PO Q6H PRN #60 tab 03/14/25 Sodium Chloride Tab 1 gm PO DAILY 30 Days #30 tab 03/28/25 Allergies Allergy/AdvReac Type Severity Reaction Status Date / Time doxycycline Allergy Nausea & Verified 04/24/25 18:27 Vomiting, sweating PEG tube feedings AdvReac Unknown Uncoded 04/24/25 18:27 Review of Systems ROS Statement: Those systems with pertinent positive or pertinent negative responses have been documented in the HPI. ROS Other: All systems not noted in ROS Statement are negative. Past Medical History Past Medical History: Cancer, COPD, Eye Disorder, GERD/Reflux, GERD/Reflux Additional Past Medical History / Comment(s): Stage III Ovarian Ca, diverticulitis11/2022., ,kidney stone, small bowel obstruction, EYE DROPS ARE FOR CHEMO. CHEMO EVERY 3 WEEKS-LAST DOSE 03/03 History of Any Multi-Drug Resistant Organisms: None Reported Past Surgical History: Bowel Resection, Section Additional Past Surgical History / Comment(s): Shunt for hydrocephalus., COLOSTOMY, PEG TUBE INSERTION, COLONOSCOPY, Past Anesthesia/Blood Transfusion Reactions: No Reported Reaction Past Psychological History: No Psychological Hx Reported Smoking Status: Current every day smoker Past Alcohol Use History: None Reported Past Drug Use History: None Reported - Past Family History Father Family Medical History: Cancer Additional Family Medical History / Comment(s): Colon cancer. General Exam Limitations: no limitations General appearance: alert, in no apparent distress Head exam: Present: atraumatic, normocephalic, normal inspection Eye exam: Present: normal appearance, EOMI Neck exam: Present: normal inspection. Absent: meningismus Respiratory exam: Absent: respiratory distress Cardiovascular Exam: Present: regular rate Neurological exam: Present: alert, oriented X3 Psychiatric exam: Present: normal affect, normal mood Skin exam: Present: warm, dry, normal color Course Vital Signs 04/24/25 04/24/25 18:25 20:45 Temperature 98 F 98.3 F Pulse Rate 111 H 108 H Respiratory 20 18 Rate Blood Pressure 123/77 102/70 O2 Sat by Pulse 99 99 Oximetry Medical Decision Making - Medical Decision Making Was pt. sent in by a medical professional or institution (, PA, LITERACY EDUCATION PROFESSOR, urgent care, hospital, or usp...) When possible be specific @ -No Did you speak to anyone other than the patient for history (EMS, parent, family, police, friend...)? What history was obtained from this source @ -No Did you review nursing and triage notes (agree or disagree)? Why? @ -I reviewed and agree with nursing and triage notes Were old charts reviewed (outside hosp., previous admission, EMS record, old EKG, old radiological studies, urgent care reports/EKG's, usp records)? Report findings @ -No old charts were reviewed Differential Diagnosis (chest pain, altered mental status, abdominal pain women, abdominal pain men, vaginal bleeding, weakness, fever, dyspnea, syncope, headache, dizziness, GI bleed, back pain, seizure, CVA, palpatations, mental he alth, musculoskeletal)? @ -Differential includes clot, structural abnormality, occlusion consisting of TPN, not an all-inclusive list EKG interpreted by me (3pts min.). @ -As above X-rays interpreted by me (1pt min.). @ -None done CT interpreted by me (1pt min.). @ -None done U/S interpreted by me (1pt. min.). @ -None done What testing was considered but not performed or refused? (CT, X-rays, U/S, labs)? Why? @ -None What meds were considered but not given or refused? Why? @ -None Did you discuss the management of the patient with other professionals (professionals i.e. , PA, LITERACY EDUCATION PROFESSOR, lab, RT, psych nurse, social worker delinquency prevention, lock and dam operator, teacher, chief diversity officer, case specialist)? Give summary @ -No Was smoking cessation discussed for >3mins.? @ -No Was critical care preformed (if so, how long)? @ -No Were there social determinants of health that impacted care today? How? (Homelessness, low income, unemployed, alcoholism, drug addiction, transportation, low edu. Level, literacy, decrease access to med. care, residential, rehab)? @ -No Was there de-escalation of care discussed even if they declined (Discuss DNR or withdrawal of care, Hospice)? DNR status @ -No What co-morbidities impacted this encounter? (DM, HTN, Smoking, COPD, CAD, Cancer, CVA, ARF, Chemo, Hep., AIDS, mental health diagnosis, sleep apnea, morbid obesity)? @ -None Was patient admitted / discharged? Hospital course, mention meds given and route, prescriptions, significant lab abnormalities, going to OR and other pertinent info. @ -59-year-old female presenting with chief complaint of occlusion to her Mediport where she receives her TPN. Patient has been here in the past for the same issue in the issue was cleared using Cathflo. Cathflo was used and the occlusion was cleared, Mediport functioning appropriately at this time. Patient discharged. Follow-up with PCP. Report back to ER with any new or worsening symptoms. Discussed return parameters and answered all questions. Patient conveyed verbal understanding and agreed to the plan. I discussed this case in detail with my attending Dr. Boucher Undiagnosed new problem with uncertain prognosis? @ -No Drug Therapy requiring intensive monitoring for toxicity (Heparin, Nitro, Insulin, Cardizem)? @ -No Were any procedures done? @ -No Diagnosis/symptom? @ -Mediport occlusion Acute, or Chronic, or Acute on Chronic? @ -Acute Uncomplicated (without systemic symptoms) or Complicated (systemic symptoms)? @ -Uncomplicated Side effects of treatment? @ -No Exacerbation, Progression, or Severe Exacerbation? @ -No Poses a threat to life or bodily function? How? (Chest pain, [place], [place], pneumonia, PE, COPD, DKA, ARF, appy, cholecystitis, CVA, Diverticulitis, Homicidal, Suicidal, threat to staff... and all critical care pts) @ -Unlikely at this time Disposition Clinical Impression: History of vascular access device Disposition: HOME SELF-CARE Condition: Good Additional Instructions: Follow-up with PCP and report back to ER with any new or worsening symptoms. Is patient prescribed a controlled substance at d/c from ED?: No Referrals: Juliann Freitas MD [Primary Care Provider] - 1-2 days Time of Disposition: 20:32
[2025-04-24] MEDS: ALTEPLASE 2 MG VIAL (CATHFLO) IV STA (19:26)
[2025-04-24 20:46] VITALS: BP 102/70; PULSE 108; RESP 18; TEMP 98.3
== END 2025-04-24 20:46 | disposition home or self-care (01) ==
LOC: EC 18:14
DX: T82.898A Other specified complication of vascular prosthetic devices, implants and grafts, initial encounter (principal); F17.200 Nicotine dependence, unspecified, uncomplicated; Z91.09 Other allergy status, other than to drugs and biological substances; Z88.1 Allergy status to other antibiotic agents
CPT/HCPCS: 99283; 37195; J2997

== ENCOUNTER 2025-05-25 23:05 | Emergency (ER) | payer BC ==
[2025-05-25 23:17] VITALS: TEMP 98.2
--- NOTE | 2025-05-25 23:27 | ED ---
Recheck HPI - General Chief Complaint: Recheck/Abnormal Lab/Rx Stated Complaint: Clogged port Time Seen by Provider: 05/25/25 23:18 Source: patient, RN notes reviewed Mode of arrival: wheelchair Limitations: no limitations - History of Present Illness Initial Comments: This is a 59-year-old female who presents to the emergency department for problems with her MediPort. Receives TPN via her Mediport. When she was infusing her TPN the machine broke and a clog formed while waiting for a new machine. States that she is unable to get the clog to dislodge. This has happened to her a few times in the past and resolved with the use of Cathflo/alteplase. - Related Data Home Medications Medication Instructions Recorded Confirmed Prednisolone Acetate/Pf 1 drop BOTH EYES BID 01/13/25 03/23/25 [Prednisolone Acet 1% Eye Drop] Previous Rx's Medication Instructions Recorded Ondansetron Odt [Zofran ODT] 4 mg PO Q6H PRN #30 tab 12/10/24 OLANZapine [ZyPREXA] 2.5 mg PO HS #30 tab 03/14/25 Prochlorperazine [Compazine] 10 mg PO Q6H PRN #60 tab 03/14/25 Sodium Chloride Tab 1 gm PO DAILY 30 Days #30 tab 03/28/25 Allergies Allergy/AdvReac Type Severity Reaction Status Date / Time doxycycline Allergy Nausea & Verified 05/25/25 23:14 Vomiting, sweating Review of Systems ROS Statement: Those systems with pertinent positive or pertinent negative responses have been documented in the HPI. ROS Other: All systems not noted in ROS Statement are negative. Past Medical History Past Medical History: Cancer, COPD, Eye Disorder, GERD/Reflux, GERD/Reflux Additional Past Medical History / Comment(s): Stage III Ovarian Ca, diverticulitis11/2022., ,kidney stone, small bowel obstruction, EYE DROPS ARE FOR CHEMO. CHEMO EVERY 3 WEEKS-LAST DOSE 03/03 History of Any Multi-Drug Resistant Organisms: None Reported Past Surgical History: Bowel Resection, Section Additional Past Surgical History / Comment(s): Shunt for hydrocephalus., COLOSTOMY, PEG TUBE INSERTION, COLONOSCOPY, Past Anesthesia/Blood Transfusion Reactions: No Reported Reaction Past Psychological History: No Psychological Hx Reported Smoking Status: Current every day smoker Past Alcohol Use History: None Reported Past Drug Use History: None Reported - Past Family History Father Family Medical History: Cancer Additional Family Medical History / Comment(s): Colon cancer. General Exam Limitations: no limitations General appearance: alert, in no apparent distress Head exam: Present: atraumatic, normocephalic, normal inspection Respiratory exam: Present: normal lung sounds bilaterally. Absent: respiratory distress, wheezes, rales, rhonchi, stridor Cardiovascular Exam: Present: regular rate, normal rhythm Neurological exam: Present: alert, oriented X3, CN II-XII intact Psychiatric exam: Present: normal affect, normal mood Skin exam: Present: warm, dry, intact, normal color. Absent: rash Course Vital Signs 05/25/25 05/26/25 23:14 00:44 Temperature 98.2 F 98.2 F Pulse Rate 112 H 94 Respiratory 16 17 Rate Blood Pressure 120/76 105/66 O2 Sat by Pulse 99 95 Oximetry Medical Decision Making - Medical Decision Making This is a 59-year-old female who presents to the emergency department for problems with her MediPort. Was pt. sent in by a medical professional or institution? @ -No Did you speak to anyone other than the patient for history? @ -No Did you review nursing and triage notes? @ -I disagree with the statement regarding a PEG tube. This is a Mediport. Were old charts reviewed? @ -No Differential Diagnosis? @ -Mediport clog, malfunction, infection, movement, this is not meant to be an all-inclusive list. EKG interpreted by me (3pts min.)? @ -Not obtained X-rays interpreted by me (1pt min.)? @ -Not obtained CT interpreted by me (1pt min.)? @ -Not obtained U/S interpreted by me (1pt. min.)? @ -Not obtained What testing was considered but not performed? (CT, X-rays, U/S, labs)? Why? @ -None What meds were considered but not given? Why? @ -None Did you discuss the management of the patient with other professionals? @ -No Did you reconcile home meds? @ -No Was smoking cessation discussed for >3mins.? @ -No Was critical care preformed (if so, how long)? @ -No Were there social determinants of health that impacted care today? How? (Homelessness, low income, unemployed, alcoholism, drug addiction, transportation, low edu. Level, literacy, decrease access to med. care, care home, rehab)? @ -No Was there de-escalation of care discussed even if they declined? (Discuss DNR or withdrawal of care, Hospice)? @ -No What co-morbidities impacted this encounter? (DM, HTN, Smoking, COPD, CAD, Cancer, CVA, Hep., AIDS, mental health diagnosis, sleep apnea, morbid obesity)? @ -Cancer Was patient admitted / discharged? @ -Discharged. Patient had a clog or clot in her MediPort which she has been evaluated here for in the past. Cathflo was administered and the clog resolved. Patient's Mediport was found to be functioning appropriately at that point and she was discharged home in stable condition. Case discussed with ED attending Dr. Gillespie. Return precautions reviewed in depth, the patient is instructed to return to the emergency department with any new, worsening, or concerning symptoms. Patient verbalized understanding. Undiagnosed new problem with uncertain prognosis? @ -None Drug Therapy requiring intensive monitoring for toxicity (Heparin, Nitro, Insulin, Cardizem)? @ -None Were any procedures done? @ -None Diagnosis/symptom? @ -Mediport complication Acute, or Chronic, or Acute on Chronic? @ -Acute Uncomplicated (without systemic symptoms) or Complicated (systemic symptoms)? @ -Uncomplicated Side effects of treatment? @ -None Exacerbation, Progression, or Severe Exacerbation] @ -Not applicable Poses a threat to life or bodily function? @ -No Disposition Clinical Impression: Vascular port complication Disposition: HOME SELF-CARE Additional Instructions: Return to the emergency department with any new, worsening, or concerning symptoms. Follow up with your primary care provider in 1-2 days. Is patient prescribed a controlled substance at d/c from ED?: No Referrals: Juliann Freitas MD [Primary Care Provider] - 1-2 days Time of Disposition: 00:43
[2025-05-26] MEDS: ALTEPLASE 2 MG VIAL (CATHFLO) IV ONE (00:04)
[2025-05-26 00:50] VITALS: BP 105/66; PULSE 94; RESP 17
== END 2025-05-26 00:50 | disposition home or self-care (01) ==
LOC: EC 23:05
DX: T82.598A Other mechanical complication of other cardiac and vascular devices and implants, initial encounter (principal); F17.200 Nicotine dependence, unspecified, uncomplicated; Z85.9 Personal history of malignant neoplasm, unspecified; Z88.8 Allergy status to other drugs, medicaments and biological substances
CPT/HCPCS: 99283; 37195; J2997